=== PATIENT | female | born 1965 | race African-American/Black ===

== ENCOUNTER 2020-03-28 17:03 | Emergency (ER) | payer MEDICAID ==
--- NOTE | 2020-03-28 17:42 | EDM.PDOC ---
ED HPI GENERAL MEDICAL PROBLEM - General Stated Complaint: BOTH FEET SWOLLEN,OZZING Time Seen by Provider: 03/28/20 17:20 Source of Information: Reports: Patient History Limitations: Reports: No Limitations - History of Present Illness INITIAL COMMENTS - FREE TEXT/NARRATIVE: Patient presented to the ED because of itching rash on both feet and elbow. She was scrtaching it and now it's weeping clear fluid. - Related Data Allergies Allergy/AdvReac Type Severity Reaction Status Date / Time No Known Allergies Allergy Verified 03/28/20 17:25 Home Meds: Home Meds Baclofen 0 mg PO DAILY 03/28/20 [History] Calcitriol 0.5 mcg PO DAILY 03/28/20 [History] Calcium Carbonate [Calcium] 600 mg PO DAILY 03/28/20 [History] Triamcinolone Acetonide [Triamcinolone Acetonide 0.1% Oint] 1 gm TOP BID #4 tube 03/28/20 [Rx] ED ROS GENERAL - Review of Systems Review Of Systems: See Below Constitutional: Reports: No Symptoms HEENT: Reports: No Symptoms Respiratory: Reports: No Symptoms Cardiovascular: Reports: No Symptoms Endocrine: Reports: No Symptoms GI/Abdominal: Reports: No Symptoms : Reports: No Symptoms Musculoskeletal: Reports: No Symptoms Skin: Reports: Change in Color, Lesions, Lumps ED EXAM, SKIN/RASH Exam: See Below Exam Limited By: No Limitations General Appearance: Alert, No Apparent Distress Eye Exam: Bilateral Eye: PERRL Ears: Normal External Exam, Normal Canal Nose: Normal Inspection, Normal Mucosa, No Blood Throat/Mouth: Normal Inspection, Normal Lips, Normal Teeth Head: Atraumatic, Normocephalic Neck: Normal Inspection, Supple, Non-Tender, Full Range of Motion Respiratory/Chest: No Respiratory Distress, Lungs Clear, Normal Breath Sounds Cardiovascular: Normal Peripheral Pulses, Regular Rate, Rhythm, No Edema, No Gallop GI/Abdominal: Normal Bowel Sounds, Soft, Non-Tender, No Organomegaly Extremities: Normal Inspection, Normal Range of Motion, Non-Tender Neurological: Alert, Oriented, CN II-XII Intact Skin: Warm, Mottled, Rash Course - Vital Signs Text/Narrative:: reassurance Departure - Departure Time of Disposition: 17:40 Disposition: Home, Self-Care 01 Clinical Impression: Eczema - Discharge Information Prescriptions: Triamcinolone Acetonide [Triamcinolone Acetonide 0.1% Oint] 1 gm TOP BID #4 tube Instructions: Eczema Referrals: PCP,None [Primary Care Provider] - Additional Instructions: Apply to affected areas twice daily until itching and bumps are gone Steroids can cause skin discoloration-just PINO
== END 2020-03-28 17:54 | disposition home or self-care (01) ==
LOC: FB.ED 17:03
DX: L30.9 Dermatitis, unspecified (principal)
CPT/HCPCS: 99282; 99283

== ENCOUNTER 2020-04-24 18:47 | Observation (INO) | payer MEDICAID ==
[2020-04-24] MEDS ORDERED: Ondansetron 4 MG/2 ML SDV IV PRN (20:23)
[2020-04-24] MEDS ORDERED: Calcium Gluconate 10% 1 GM/10 ML SDV IV STA (20:23)
[2020-04-24] MEDS: Sodium Chloride 0.9% 1,000 ML IV SCH (20:45)
[2020-04-24] MEDS ORDERED: diphenhydrAMINE 25 MG Cap PO PRN (20:52)
--- NOTE | 2020-04-24 20:53 | EDM.PDOC ---
ED HPI GENERAL MEDICAL PROBLEM - General Chief Complaint: Chest Pain Stated Complaint: HEART ISSUES Time Seen by Provider: 04/24/20 19:00 Source of Information: Reports: Patient History Limitations: Reports: No Limitations - History of Present Illness INITIAL COMMENTS - FREE TEXT/NARRATIVE: 04/22- tingling, spasm of the hands and feet 04/23-twitching of face 04/24-chest pain and dizziness Ms Melendez has a history of hypoparathyroidism and hypocalcemia. She is taking calcitriol and calcium carbonate as a supplement. 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: Neurological History: Reports: TIA Psychiatric History: Reports: Anxiety Dermatologic History: Reports: Cellulitis - Infectious Disease History Infectious Disease History: Reports: Measles Social & Family History - Family History Family Medical History: Noncontributory - Tobacco Use Smoking Status *Q: Current Every Day Smoker Years of Tobacco use: 1 Packs/Tins Daily: 0.1 - Caffeine Use Caffeine Use: Reports: Coffee - Recreational Drug Use Recreational Drug Use: Yes Drug Use in Last 12 Months: Yes Recreational Drug Type: Reports: Marijuana/Hashish Recreational Drug Use Frequency: Socially ED ROS GENERAL - Review of Systems Review Of Systems: See Below Constitutional: Reports: No Symptoms HEENT: Reports: No Symptoms Respiratory: Reports: No Symptoms Cardiovascular: Reports: Chest Pain Endocrine: Reports: No Symptoms GI/Abdominal: Reports: No Symptoms : Reports: No Symptoms Musculoskeletal: Reports: Muscle Stiffness Skin: Reports: Pruritis Neurological: Reports: Headache Psychiatric: Reports: No Symptoms ED EXAM, GENERAL - Physical Exam Exam: See Below Exam Limited By: No Limitations General Appearance: Alert, No Apparent Distress Eye Exam: Bilateral Eye: PERRL Nose: Normal Inspection, Normal Mucosa, No Blood Throat/Mouth: Normal Inspection, Normal Lips, Normal Teeth, Normal Gums Head: Atraumatic, Normocephalic Neck: Normal Inspection, Supple, Non-Tender, Full Range of Motion Respiratory/Chest: No Respiratory Distress, Lungs Clear, Normal Breath Sounds, No Accessory Muscle Use, Chest Non-Tender Cardiovascular: Normal Peripheral Pulses, Regular Rate, Rhythm, No Edema, No Gallop, No JVD, No Murmur, No Rub GI/Abdominal: Normal Bowel Sounds, Soft, Non-Tender, No Organomegaly Back Exam: Normal Inspection, Full Range of Motion Extremities: Normal Inspection, Normal Range of Motion, Non-Tender, No Pedal Edema, Normal Capillary Refill Neurological: Alert, Oriented, CN II-XII Intact, Normal Cognition, Normal Gait, Normal Reflexes, No Motor/Sensory Deficits Course - Vital Signs Text/Narrative:: Labs/EKG reviewed and discussed with patient ASA 324 mg po x1 Bactrim DS po BID x3 days for her UTI EKG-NSR Trop-neg Calcium gluconate 2 gm IV then 1gm IV Q6H Last Recorded V/S: Last Vital Signs Temp 36.7 C 04/24/20 18:57 Pulse 77 04/24/20 18:57 Resp 16 04/24/20 18:57 BP 125/77 04/24/20 18:57 Pulse Ox 97 04/24/20 18:57 - Orders/Labs/Meds Orders: Active Orders 24 hr Category Date Time Status Patient Status [ADT] Routine ADT 04/24/20 20:23 Ordered Cardiac Monitoring [RC] CONTINUOUS Care 04/24/20 20:26 Ordered EKG Documentation Completion [RC] ASDIRECTED Care 04/24/20 19:13 Active Intake and Output [RC] QSHIFT Care 04/24/20 20:26 Ordered Oxygen Therapy [RC] PRN Care 04/24/20 20:23 Ordered Pulse Oximetry [RC] CONTINUOUS Care 04/24/20 20:26 Ordered Up With Assistance [RC] ASDIRECTED Care 04/24/20 20:23 Ordered VTE/DVT Education [RC] Per Unit Routine Care 04/24/20 20:23 Ordered Vital Signs [RC] Q4H Care 04/24/20 20:23 Ordered Regular Diet [DIET] Diet 04/25/20 Breakfast Ordered BASIC METABOLIC PANEL,BMP [CHEM] AM Lab 04/25/20 05:11 Ordered CBC WITH AUTO DIFF [HEME] AM Lab 04/25/20 05:11 Ordered CULTURE URINE [RM] Stat Lab 04/24/20 20:16 Ordered PTH, INTACT Stat Lab 04/24/20 19:40 Received TROPONIN I [CHEM] Stat Lab 04/24/20 20:33 Ordered TROPONIN I [CHEM] Stat Lab 04/25/20 01:00 Ordered TROPONIN I [CHEM] Stat Lab 04/25/20 07:00 Ordered VITAMIN D, 25-HYDROXY Routine Lab 04/24/20 19:50 Ordered Baclofen [Baclofen] Med 04/25/20 09:00 Ordered 5 mg PO DAILY Calcitriol [Calcitriol] Med 04/25/20 09:00 Ordered 0.5 mcg PO DAILY Calcium Gluconate Med 04/24/20 20:45 Ordered 1 gm IV Q6HR Docusate Sodium/Sennosides [Senna Plus] Med 04/24/20 20:23 Ordered 1 tab PO BID PRN Ondansetron [Zofran] Med 04/24/20 20:23 Ordered 4 mg IV Q4H PRN Sodium Chloride 0.9% @ 125 MLS/HR (1000ml) Med 04/24/20 20:30 Ordered Sodium Chloride 0.9% [Normal Saline] 1,000 ml IV ASDIRECTED Sulfamethoxazole/Trimethoprim [Septra DS] Med 04/24/20 21:00 Ordered 1 tab PO BID Triamcinolone Acetonide [Triamcinolone Acetonide 0.1% Med 04/24/20 21:00 Ordered Oint] 1 gm TOP BID Sequential Compression Device [OM.PC] Per Unit Routine Oth 04/24/20 20:27 Ordered Resuscitation Status Routine Resus Stat 04/24/20 20:23 Ordered EKG 12 Lead [EK] Routine Ther 04/24/20 19:13 Ordered Medication Orders Calcium Gluconate (Calcium Gluconate) 1 gm IV Q6HR ZIGGY Sodium Chloride (Normal Saline) 1,000 mls @ 125 mls/hr IV ASDIRECTED ZIGGY Non-Formulary Medication (Baclofen [Baclofen]) 5 mg PO DAILY ZIGGY Non-Formulary Medication (Calcitriol [Calcitriol]) 0.5 mcg PO DAILY ZIGGY Ondansetron HCl (Zofran) 4 mg IV Q4H PRN PRN Reason: Nausea/Vomiting Senna/Docusate Sodium (Senna Plus) 1 tab PO BID PRN PRN Reason: Constipation Triamcinolone Acetonide (Triamcinolone Acetonide 0.1% Oint) 1 gm TOP BID ZIGGY Trimethoprim/Sulfamethoxazole (Septra Ds) 1 tab PO BID [facility] Labs: Laboratory Tests 04/24/20 04/24/20 04/24/20 Range/Units 19:40 19:40 19:40 WBC 7.6 (4.5-12.0) X10-3/uL RBC 4.31 (3.23-5.20) x10(6)uL Hgb 12.6 (11.5-15.5) g/dL Hct 38.0 (30.0-51.3) % MCV 88.2 (80-96) fL MCH 29.2 (27.7-33.6) pg MCHC 33.0 (32.2-35.4) g/dL RDW 15.6 H (11.5-15.5) % Plt Count 385 H (125-369) X10(3)uL MPV 7.3 L (7.4-10.4) fL Neut % (Auto) 50.8 (46-82) % Lymph % (Auto) 37.1 H (13-37) % [place] % (Auto) 8.8 (4-12) % Eos % (Auto) 2 (1.0-5.0) % Baso % (Auto) 1 (0-2) % Neut # (Auto) 3.8 (1.6-8.3) # Lymph # (Auto) 2.8 (0.6-5.0) # [place] # (Auto) 0.7 (0.0-1.3) # Eos # (Auto) 0.2 (0.0-0.8) # Baso # (Auto) 0.1 (0.0-0.2) # Sodium 142 (135-145) mmol/L Potassium 4.2 (3.5-5.3) mmol/L Chloride 104 (100-110) mmol/L Carbon Dioxide 27 (21-32) mmol/L BUN 23 H (7-18) mg/dL Creatinine 0.9 (0.55-1.02) mg/dL Est Cr Clr Drug Dosing 72.07 mL/min Estimated GFR (MDRD) > 60 (>60) BUN/Creatinine Ratio 25.6 H (9-20) Glucose 104 (80-116) mg/dL Calcium 5.7 L* (8.6-10.2) mg/dL Magnesium (1.8-2.5) mg/dL Total Bilirubin 0.3 (0.1-1.3) mg/dL AST 26 H (5-25) IU/L ALT 18 (12-36) U/L Alkaline Phosphatase 107 (56-112) IU/L Troponin I < 4.0 L (4.0-60.3) pg/mL Total Protein 7.4 (6.0-8.0) g/dL Albumin 3.6 (3.5-5.2) g/dL Globulin 3.8 g/dL Albumin/Globulin Ratio 1.0 Urine Color (YELLOW) Urine Appearance (CLEAR) Urine pH (5.0-6.5) Ur Specific [place] (1.010-1.025) Urine Protein (NEGATIVE) mg/dL Urine Glucose (UA) (NORMAL) mg/dL Urine Ketones (NEGATIVE) mg/dL Urine Occult Blood (NEGATIVE) Urine Nitrite (NEGATIVE) Urine Bilirubin (NEGATIVE) Urine Urobilinogen (NEGATIVE) mg/dL Ur Leukocyte Esterase (NEGATIVE) Urine RBC (0-5) Urine WBC (0-5) Ur Squamous Epith Cells (NS,R,O) Urine Bacteria (NS) 04/24/20 04/24/20 Range/Units 19:40 19:44 WBC (4.5-12.0) X10-3/uL RBC (3.23-5.20) x10(6)uL Hgb (11.5-15.5) g/dL Hct (30.0-51.3) % MCV (80-96) fL MCH (27.7-33.6) pg MCHC (32.2-35.4) g/dL RDW (11.5-15.5) % Plt Count (125-369) X10(3)uL MPV (7.4-10.4) fL Neut % (Auto) (46-82) % Lymph % (Auto) (13-37) % [place] % (Auto) (4-12) % Eos % (Auto) (1.0-5.0) % Baso % (Auto) (0-2) % Neut # (Auto) (1.6-8.3) # Lymph # (Auto) (0.6-5.0) # [place] # (Auto) (0.0-1.3) # Eos # (Auto) (0.0-0.8) # Baso # (Auto) (0.0-0.2) # Sodium (135-145) mmol/L Potassium (3.5-5.3) mmol/L Chloride (100-110) mmol/L Carbon Dioxide (21-32) mmol/L BUN (7-18) mg/dL Creatinine (0.55-1.02) mg/dL Est Cr Clr Drug Dosing mL/min Estimated GFR (MDRD) (>60) BUN/Creatinine Ratio (9-20) Glucose (80-116) mg/dL Calcium (8.6-10.2) mg/dL Magnesium 1.9 (1.8-2.5) mg/dL Total Bilirubin (0.1-1.3) mg/dL AST (5-25) IU/L ALT (12-36) U/L Alkaline Phosphatase (56-112) IU/L Troponin I (4.0-60.3) pg/mL Total Protein (6.0-8.0) g/dL Albumin (3.5-5.2) g/dL Globulin g/dL Albumin/Globulin Ratio Urine Color Yellow (YELLOW) Urine Appearance Slightly cloudy (CLEAR) Urine pH 5.0 (5.0-6.5) Ur Specific [place] 1.015 (1.010-1.025) Urine Protein Negative (NEGATIVE) mg/dL Urine Glucose (UA) Normal (NORMAL) mg/dL Urine Ketones Negative (NEGATIVE) mg/dL Urine Occult Blood Large H (NEGATIVE) Urine Nitrite Negative (NEGATIVE) Urine Bilirubin Negative (NEGATIVE) Urine Urobilinogen Normal (NEGATIVE) mg/dL Ur Leukocyte Esterase Large H (NEGATIVE) Urine RBC 5-10 H (0-5) Urine WBC 5-10 H (0-5) Ur Squamous Epith Cells Moderate H (NS,R,O) Urine Bacteria Few H (NS) Meds: Medications Generic Name Dose Route Start Last Admin Trade Name Freq PRN Reason Stop Dose Admin Calcium Gluconate 1 gm 04/24/20 20:45 Calcium Gluconate IV Q6HR [facility] Sodium Chloride 1,000 mls @ 125 mls/hr 04/24/20 20:30 Normal Saline IV ASDIRECTED ZIGGY Non-Formulary Medication 5 mg 04/25/20 09:00 Baclofen [Baclofen] PO DAILY [facility] Non-Formulary Medication 0.5 mcg 04/25/20 09:00 Calcitriol [Calcitriol] PO DAILY [facility] Ondansetron HCl 4 mg 04/24/20 20:23 Zofran IV Q4H PRN Nausea/Vomiting Senna/Docusate Sodium 1 tab 04/24/20 20:23 Senna Plus PO BID PRN Constipation Triamcinolone Acetonide 1 gm 04/24/20 21:00 Triamcinolone Acetonide 0.1% Oint TOP BID [facility] Trimethoprim/Sulfamethoxazole 1 tab 04/24/20 21:00 Septra Ds PO BID [facility] Discontinued Medications Generic Name Dose Route Start Last Admin Trade Name Freq PRN Reason Stop Dose Admin Calcium Gluconate 2 gm 04/24/20 20:23 Calcium Gluconate IV 04/24/20 20:24 NOW STA Departure - Departure Time of Disposition: 20:00 Disposition: Refer to Observation Condition: Good Clinical Impression: Hypocalcemia, Hypoparathyroidism, Chest pain, UTI (urinary tract infection) - Discharge Information Referrals: PCP,None [Primary Care Provider] - Sepsis Event Note (ED) - Evaluation Sepsis Screening Result: No Definite Risk - Focused Exam Vital Signs: Vital Signs Temp Pulse Resp BP Pulse Ox 04/24/20 18:57 36.7 C 77 16 125/77 97 - My Orders Last 24 Hours: My Active Orders 04/24/20 19:13 EKG Documentation Completion [RC] ASDIRECTED EKG 12 Lead [EK] Routine 04/24/20 19:40 PTH, INTACT Stat 04/24/20 19:50 VITAMIN D, 25-HYDROXY Routine 04/24/20 20:16 CULTURE URINE [RM] Stat 04/24/20 20:23 Patient Status [ADT] Routine Oxygen Therapy [RC] PRN Up With Assistance [RC] ASDIRECTED VTE/DVT Education [RC] Per Unit Routine Vital Signs [RC] Q4H Docusate Sodium/Sennosides [Senna Plus] 1 tab PO BID PRN Ondansetron [Zofran] 4 mg IV Q4H PRN Resuscitation Status Routine 04/24/20 20:26 Cardiac Monitoring [RC] CONTINUOUS Intake and Output [RC] QSHIFT Pulse Oximetry [RC] CONTINUOUS 04/24/20 20:27 Sequential Compression Device [OM.PC] Per Unit Routine 04/24/20 20:30 Sodium Chloride 0.9% @ 125 MLS/HR (1000ml) Sodium Chloride 0.9% [Normal Saline] 1,000 ml IV ASDIRECTED 04/24/20 20:33 TROPONIN I [CHEM] Stat 04/24/20 20:45 Calcium Gluconate 1 gm IV Q6HR 04/24/20 21:00 Sulfamethoxazole/Trimethoprim [Septra DS] 1 tab PO BID Triamcinolone Acetonide [Triamcinolone Acetonide 0.1% Oint] 1 gm TOP BID 04/25/20 01:00 TROPONIN I [CHEM] Stat 04/25/20 05:11 BASIC METABOLIC PANEL,BMP [CHEM] AM CBC WITH AUTO DIFF [HEME] AM 04/25/20 Breakfast Regular Diet [DIET] 04/25/20 07:00 TROPONIN I [CHEM] Stat 04/25/20 09:00 Baclofen [Baclofen] 5 mg PO DAILY Calcitriol [Calcitriol] 0.5 mcg PO DAILY - Assessment/Plan Last 24 Hours: My Active Orders 04/24/20 19:13 EKG Documentation Completion [RC] ASDIRECTED EKG 12 Lead [EK] Routine 04/24/20 19:40 PTH, INTACT Stat 04/24/20 19:50 VITAMIN D, 25-HYDROXY Routine 04/24/20 20:16 CULTURE URINE [RM] Stat 04/24/20 20:23 Patient Status [ADT] Routine Oxygen Therapy [RC] PRN Up With Assistance [RC] ASDIRECTED VTE/DVT Education [RC] Per Unit Routine Vital Signs [RC] Q4H Docusate Sodium/Sennosides [Senna Plus] 1 tab PO BID PRN Ondansetron [Zofran] 4 mg IV Q4H PRN Resuscitation Status Routine 04/24/20 20:26 Cardiac Monitoring [RC] CONTINUOUS Intake and Output [RC] QSHIFT Pulse Oximetry [RC] CONTINUOUS 04/24/20 20:27 Sequential Compression Device [OM.PC] Per Unit Routine 04/24/20 20:30 Sodium Chloride 0.9% @ 125 MLS/HR (1000ml) Sodium Chloride 0.9% [Normal Saline] 1,000 ml IV ASDIRECTED 04/24/20 20:33 TROPONIN I [CHEM] Stat 04/24/20 20:45 Calcium Gluconate 1 gm IV Q6HR 04/24/20 21:00 Sulfamethoxazole/Trimethoprim [Septra DS] 1 tab PO BID Triamcinolone Acetonide [Triamcinolone Acetonide 0.1% Oint] 1 gm TOP BID 04/25/20 01:00 TROPONIN I [CHEM] Stat 04/25/20 05:11 BASIC METABOLIC PANEL,BMP [CHEM] AM CBC WITH AUTO DIFF [HEME] AM 04/25/20 Breakfast Regular Diet [DIET] 04/25/20 07:00 TROPONIN I [CHEM] Stat 04/25/20 09:00 Baclofen [Baclofen] 5 mg PO DAILY Calcitriol [Calcitriol] 0.5 mcg PO DAILY
[2020-04-24] MEDS: Calcium Gluconate 10% 1 GM/10 ML SDV IV SCH (20:54)
[2020-04-24] MEDS ORDERED: Aspirin 81 MG Tab.EC PO STA (21:04)
[2020-04-24] MEDS: Sulfamethoxazole/Trimethoprim 800-160 MG Tab PO SCH (21:39)
[2020-04-24] MEDS: Triamcinolone Acetonide 0.1% Oint 15 GM Tube TOP SCH (21:40)
[2020-04-24] MEDS: Acetaminophen 500 MG Tab PO PRN (22:56)
[2020-04-25] MEDS: Calcium Gluconate 10% 1 GM/10 ML SDV IV SCH ×5 (02:41→22:24)
[2020-04-25] MEDS: Sodium Chloride 0.9% 1,000 ML IV SCH ×3 (05:50→21:52)
[2020-04-25] MEDS ORDERED: Baclofen 10 MG Tab PO SCH (09:00)
[2020-04-25] MEDS: Calcitriol 0.25 MCG Cap PO SCH (09:19)
[2020-04-25] MEDS: Triamcinolone Acetonide 0.1% Oint 15 GM Tube TOP SCH (09:21)
[2020-04-25] MEDS ORDERED: Triamcinolone Acetonide 0.1% Oint 15 GM Tube TOP PRN (10:00)
[2020-04-25] MEDS ORDERED: Baclofen 10 MG Tab PO PRN (10:00)
[2020-04-25] MEDS ORDERED: Pneumococcal Polyvalent-23 Vaccine 0.5 ML SDV SUBCUT ONE (10:00)
[2020-04-25] MEDS: Sulfamethoxazole/Trimethoprim 800-160 MG Tab PO SCH ×2 (11:04→20:22)
--- NOTE | 2020-04-25 15:32 | PCM.HP.2 ---
H&P History of Present Illness - General Date of Service: 04/25/20 Admit Problem/Dx: Admission Diagnosis/Problem Admission Diagnosis/Problem Hypocalcemia Source of Information: Patient, EMS Notes Reviewed - History of Present Illness Initial Comments - Free Text/Narative: Carmen is 55 yr old who presented to ER last night for progressing symptoms of tingling in her hands, muscle spasms/cramps in her hands & feet, twitching in her face, started on Wednesday. She has history of hypoparathyroidism, recurrent hypocalcemia. She is on Calcitrol and Calcium carbonate at home. She states she has had multiple hospitalizations for this. She was due to have surgery on her parathyroid but moved here in December from [place]. She states she does not get any warning, no precipitating factors when she comes in, she has not missed any doses of her medications. She also states that her heart races and feels like someone is squeezing it or tearing it when her calcium gets low. Her right hand that was curled up when she came in due to muscle spasms, relaxed early this morning. Having no tingling and cramps this morning. In ER, troponin was <0.4 x2, this morning troponin was 4.2. EKG in ER was unremarkable. Calcium was 5.7, received calcium gluconate 2 grams in ER and repeat 1 g at 2 am and every 6 hours. Also found to have UTI on admission, was started on Bactrim while awaiting urine cultures. PTH and Vitamin D pending. Chest Pain Score (Numeric/FACES): 8 - Related Data Allergies/Adverse Reactions: Allergies Allergy/AdvReac Type Severity Reaction Status Date / Time grass pollen Allergy Itching Verified 04/24/20 18:56 Home Medications: Home Meds Calcitriol 0.5 mcg PO DAILY 03/28/20 [History] Calcium Carbonate [Calcium] 600 mg PO DAILY 03/28/20 [History] Baclofen 5 mg PO DAILY PRN 04/25/20 [History] Triamcinolone Acetonide [Triamcinolone Acetonide 0.1% Oint] 1 applic TOP BID PRN 04/25/20 [History] Past Medical History HEENT History: Reports: Cataract, Impaired Vision Cardiovascular History: Reports: Angina, Heart Failure, SOB on Exertion Respiratory History: Reports: COPD, SOB Gastrointestinal History: Reports: Gastritis, GERD, Hemorrhoids Genitourinary History: Reports: Renal Calculus DISEASE AND INSECT CONTROL BOSS History: Reports: Musculoskeletal History: Reports: Arthritis, Fibromyalgia, RA Neurological History: Reports: Headaches, Chronic, TIA Psychiatric History: Reports: Addiction, Anxiety, Bipolar, Depression, Panic Attack, Suicide Attempt, Other (See Below) Other Psychiatric History: took pills at age 12. None since then Endocrine/Metabolic History: Reports: Hypokalemia Dermatologic History: Reports: Cellulitis, Other (See Below) Other Dermatologic History: very dry skin - Infectious Disease History Infectious Disease History: Reports: Measles - Past Surgical History HEENT Surgical History: Reports: Other (See Below) Other HEENT Surgeries/Procedures: teeth removed Cardiovascular Surgical History: Reports: None Respiratory Surgical History: Reports: None GI Surgical History: Reports: Colonoscopy Female Surgical History: Reports: None Endocrine Surgical History: Reports: Thyroid Biopsy Neurological Surgical History: Reports: None Musculoskeletal Surgical History: Reports: Other (See Below) Other Musculoskeletal Surgeries/Procedures:: had khadar grafts to feet at age 1. Had surgery on bone on foot Dermatological Surgical History: Reports: Skin Graft, Other (See Below) Social & Family History - Family History Family Medical History: Noncontributory - Tobacco Use Smoking Status *Q: Current Every Day Smoker Years of Tobacco use: 49 Packs/Tins Daily: 0.2 - Caffeine Use Caffeine Use: Reports: Coffee, Soda, Tea - Alcohol Use Days Per Week of Alcohol Use: 1 Number of Drinks Per Day: 3 Total Drinks Per Week: 3 Date of Last Drink: 04/20/20 Time of Last Drink: 20:00 - Recreational Drug Use Recreational Drug Use: No Drug Use in Last 12 Months: Yes Recreational Drug Type: Reports: Marijuana/Hashish Recreational Drug Use Frequency: Socially H&P Review of Systems - Review of Systems: Review Of Systems: See Below General: Denies: Fever, Chills, Malaise HEENT: Reports: No Symptoms Pulmonary: Reports: No Symptoms Cardiovascular: Reports: Palpitations. Denies: Chest Pain Gastrointestinal: Denies: Abdominal Pain, Constipation, Diarrhea, Nausea, Vomiti ng Genitourinary: Denies: Dysuria, Frequency, Urgency, Hematuria Musculoskeletal: Reports: Muscle Pain. 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 Denies: Rash Psychiatric: Reports: No Symptoms Neurological: Reports: No Symptoms Hematologic/Lymphatic: Reports: No Symptoms Immunologic: Reports: No Symptoms Exam - Exam Exam: See Below - Vital Signs Vital Signs: Last Vital Signs Temp 98.2 F 04/25/20 12:00 Pulse 76 04/25/20 12:00 Resp 16 04/25/20 12:00 BP 108/67 04/25/20 12:00 Pulse Ox 98 04/25/20 12:00 Weight: 172 lb 14.4 oz - Exam General: Alert, Oriented, Cooperative. No: Mild Distress HEENT: PERRLA, Conjunctiva Clear, EOMI, Hearing Intact, Mucosa Moist & Asher, Nares Patent, Posterior Pharynx Clear, Other (Some twitching with light palpation of small muscles of the jaw.). No: TMs Clear (blocked by cerumen) Neck: Supple, Trachea Midline. No: Lymphadenopathy Lungs: Clear to Auscultation, Normal Respiratory Effort. No: Wheezing Cardiovascular: Regular Rate, Regular Rhythm GI/Abdominal Exam: Normal Bowel Sounds, Soft, Non-Tender, No Organomegaly, No Distention. No: Guarding, Rigid, Rebound (Female) Exam: Deferred Rectal (Female) Exam: Deferred Extremities: No Pedal Edema, Normal Capillary Refill Peripheral Pulses: 2+: Radial (L), Radial (R), Posterior Tibial (L), Posterior Tibial (R), Dorsalis Pedis (L), Dorsalis Pedis (R) Skin: Warm, Other (skin grafts to bilateral feet with scarring, chronic.) Neurological: Cranial Nerves Intact, Strength Equal Bilateral, Normal Gait, Normal Speech, Sensation Intact Psychiatric: Alert, Normal Affect, Normal Mood - Patient Data Lab Results Last 24 hrs: Laboratory Results - last 24 hr 04/24/20 04/24/20 04/24/20 Range/Units 19:40 19:40 19:40 WBC 7.6 (4.5-12.0) X10-3/uL RBC 4.31 (3.23-5.20) x10(6)uL Hgb 12.6 (11.5-15.5) g/dL Hct 38.0 (30.0-51.3) % MCV 88.2 (80-96) fL MCH 29.2 (27.7-33.6) pg MCHC 33.0 (32.2-35.4) g/dL RDW 15.6 H (11.5-15.5) % Plt Count 385 H (125-369) X10(3)uL MPV 7.3 L (7.4-10.4) fL Neut % (Auto) 50.8 (46-82) % Lymph % (Auto) 37.1 H (13-37) % [place] % (Auto) 8.8 (4-12) % Eos % (Auto) 2 (1.0-5.0) % Baso % (Auto) 1 (0-2) % Neut # (Auto) 3.8 (1.6-8.3) # Lymph # (Auto) 2.8 (0.6-5.0) # [place] # (Auto) 0.7 (0.0-1.3) # Eos # (Auto) 0.2 (0.0-0.8) # Baso # (Auto) 0.1 (0.0-0.2) # Sodium 142 (135-145) mmol/L Potassium 4.2 (3.5-5.3) mmol/L Chloride 104 (100-110) mmol/L Carbon Dioxide 27 (21-32) mmol/L BUN 23 H (7-18) mg/dL Creatinine 0.9 (0.55-1.02) mg/dL Est Cr Clr Drug Dosing 72.07 mL/min Estimated GFR (MDRD) > 60 (>60) BUN/Creatinine Ratio 25.6 H (9-20) Glucose 104 (80-116) mg/dL Calcium 5.7 L* (8.6-10.2) mg/dL Magnesium (1.8-2.5) mg/dL Total Bilirubin 0.3 (0.1-1.3) mg/dL AST 26 H (5-25) IU/L ALT 18 (12-36) U/L Alkaline Phosphatase 107 (56-112) IU/L Troponin I < 4.0 L (4.0-60.3) pg/mL Total Protein 7.4 (6.0-8.0) g/dL Albumin 3.6 (3.5-5.2) g/dL Globulin 3.8 g/dL Albumin/Globulin Ratio 1.0 Urine Color (YELLOW) Urine Appearance (CLEAR) Urine pH (5.0-6.5) Ur Specific [place] (1.010-1.025) Urine Protein (NEGATIVE) mg/dL Urine Glucose (UA) (NORMAL) mg/dL Urine Ketones (NEGATIVE) mg/dL Urine Occult Blood (NEGATIVE) Urine Nitrite (NEGATIVE) Urine Bilirubin (NEGATIVE) Urine Urobilinogen (NEGATIVE) mg/dL Ur Leukocyte Esterase (NEGATIVE) Urine RBC (0-5) Urine WBC (0-5) Ur Squamous Epith Cells (NS,R,O) Urine Bacteria (NS) 04/24/20 04/24/20 04/25/20 Range/Units 19:40 19:44 01:00 WBC (4.5-12.0) X10-3/uL RBC (3.23-5.20) x10(6)uL Hgb (11.5-15.5) g/dL Hct (30.0-51.3) % MCV (80-96) fL MCH (27.7-33.6) pg MCHC (32.2-35.4) g/dL RDW (11.5-15.5) % Plt Count (125-369) X10(3)uL MPV (7.4-10.4) fL Neut % (Auto) (46-82) % Lymph % (Auto) (13-37) % [place] % (Auto) (4-12) % Eos % (Auto) (1.0-5.0) % Baso % (Auto) (0-2) % Neut # (Auto) (1.6-8.3) # Lymph # (Auto) (0.6-5.0) # [place] # (Auto) (0.0-1.3) # Eos # (Auto) (0.0-0.8) # Baso # (Auto) (0.0-0.2) # Sodium (135-145) mmol/L Potassium (3.5-5.3) mmol/L Chloride (100-110) mmol/L Carbon Dioxide (21-32) mmol/L BUN (7-18) mg/dL Creatinine (0.55-1.02) mg/dL Est Cr Clr Drug Dosing mL/min Estimated GFR (MDRD) (>60) BUN/Creatinine Ratio (9-20) Glucose (80-116) mg/dL Calcium (8.6-10.2) mg/dL Magnesium 1.9 (1.8-2.5) mg/dL Total Bilirubin (0.1-1.3) mg/dL AST (5-25) IU/L ALT (12-36) U/L Alkaline Phosphatase (56-112) IU/L Troponin I < 4.0 L (4.0-60.3) pg/mL Total Protein (6.0-8.0) g/dL Albumin (3.5-5.2) g/dL Globulin g/dL Albumin/Globulin Ratio Urine Color Yellow (YELLOW) Urine Appearance Slightly cloudy (CLEAR) Urine pH 5.0 (5.0-6.5) Ur Specific [place] 1.015 (1.010-1.025) Urine Protein Negative (NEGATIVE) mg/dL Urine Glucose (UA) Normal (NORMAL) mg/dL Urine Ketones Negative (NEGATIVE) mg/dL Urine Occult Blood Large H (NEGATIVE) Urine Nitrite Negative (NEGATIVE) Urine Bilirubin Negative (NEGATIVE) Urine Urobilinogen Normal (NEGATIVE) mg/dL Ur Leukocyte Esterase Large H (NEGATIVE) Urine RBC 5-10 H (0-5) Urine WBC 5-10 H (0-5) Ur Squamous Epith Cells Moderate H (NS,R,O) Urine Bacteria Few H (NS) 04/25/20 04/25/20 04/25/20 Range/Units 07:00 07:00 07:00 WBC 7.0 (4.5-12.0) X10-3/uL RBC 4.13 (3.23-5.20) x10(6)uL Hgb 11.9 (11.5-15.5) g/dL Hct 36.7 (30.0-51.3) % MCV 88.8 (80-96) fL MCH 28.7 (27.7-33.6) pg MCHC 32.3 (32.2-35.4) g/dL RDW 15.1 (11.5-15.5) % Plt Count 343 (125-369) X10(3)uL MPV 7.1 L (7.4-10.4) fL Neut % (Auto) 44.6 L (46-82) % Lymph % (Auto) 41.6 H (13-37) % [place] % (Auto) 10.1 (4-12) % Eos % (Auto) 3 (1.0-5.0) % Baso % (Auto) 1 (0-2) % Neut # (Auto) 3.2 (1.6-8.3) # Lymph # (Auto) 2.9 (0.6-5.0) # [place] # (Auto) 0.7 (0.0-1.3) # Eos # (Auto) 0.2 (0.0-0.8) # Baso # (Auto) 0.0 (0.0-0.2) # Sodium 142 (135-145) mmol/L Potassium 4.2 (3.5-5.3) mmol/L Chloride 107 (100-110) mmol/L Carbon Dioxide 26 (21-32) mmol/L BUN 17 (7-18) mg/dL Creatinine 0.9 (0.55-1.02) mg/dL Est Cr Clr Drug Dosing 72.07 mL/min Estimated GFR (MDRD) > 60 (>60) BUN/Creatinine Ratio 18.9 (9-20) Glucose 96 (80-116) mg/dL Calcium 6.0 L* (8.6-10.2) mg/dL Magnesium (1.8-2.5) mg/dL Total Bilirubin (0.1-1.3) mg/dL AST (5-25) IU/L ALT (12-36) U/L Alkaline Phosphatase (56-112) IU/L Troponin I 4.2 (4.0-60.3) pg/mL Total Protein (6.0-8.0) g/dL Albumin (3.5-5.2) g/dL Globulin g/dL Albumin/Globulin Ratio Urine Color (YELLOW) Urine Appearance (CLEAR) Urine pH (5.0-6.5) Ur Specific [place] (1.010-1.025) Urine Protein (NEGATIVE) mg/dL Urine Glucose (UA) (NORMAL) mg/dL Urine Ketones (NEGATIVE) mg/dL Urine Occult Blood (NEGATIVE) Urine Nitrite (NEGATIVE) Urine Bilirubin (NEGATIVE) Urine Urobilinogen (NEGATIVE) mg/dL Ur Leukocyte Esterase (NEGATIVE) Urine RBC (0-5) Urine WBC (0-5) Ur Squamous Epith Cells (NS,R,O) Urine Bacteria (NS) Result Diagrams: 04/25/20 07:00 04/25/20 07:00 [place] Results Last 24 hrs: Microbiology 04/24/20 19:44 Urine Culture - Preliminary Urine, Clean Catch MIXED JOE DAY 1 Sepsis Event Note - Evaluation Sepsis Screening Result: No Definite Risk - Focused Exam Vital Signs: Vital Signs Temp Pulse Resp BP Pulse Ox 04/25/20 12:00 98.2 F 76 16 108/67 98 04/25/20 08:00 97.9 F 74 16 110/71 99 - Problem List (1) Hypocalcemia SNOMED Code(s): 3794911 ICD Code: E83.51 - HYPOCALCEMIA Status: Acute Current Visit: Yes Problem Details: 5.7 in ER, 6.0 today, continue Telemetry. Calcium gluconate 1 g IV q6h Renal panel in am with magnesium. Magnesium 1.9 in ER. (2) Hypoparathyroidism SNOMED Code(s): 59071942 ICD Code: E20.9 - HYPOPARATHYROIDISM, UNSPECIFIED Status: Acute Current V isit: Yes Problem Details: PTH, Vitamin D pending. (3) Chest pain SNOMED Code(s): 16455315 ICD Code: R07.9 - CHEST PAIN, UNSPECIFIED Status: Resolved Current Visit: Yes (4) UTI (urinary tract infection) SNOMED Code(s): 15676459 ICD Code: N39.0 - URINARY TRACT INFECTION, SITE NOT SPECIFIED Status: Acute Current Visit: Yes Qualifiers: Urinary tract infection type: acute cystitis (5) Palpitations SNOMED Code(s): 46812504 ICD Code: R00.2 - PALPITATIONS Status: Acute Current Visit: Yes (6) Eczema SNOMED Code(s): 94551355 ICD Code: L30.9 - DERMATITIS, UNSPECIFIED Status: Chronic Current Visit: No Problem List Initiated/Reviewed/Updated: Yes Orders Last 24hrs: Active Orders 24 hr Category Date Time Status Patient Status [ADT] Routine ADT 04/24/20 20:23 Active Cardiac Monitoring [RC] 08,16,00 Care 04/24/20 20:26 Active Intake and Output [RC] QSHIFT Care 04/24/20 20:26 Active Oxygen Therapy [RC] PRN Care 04/24/20 20:23 Active Pulse Oximetry [RC] Q4HR Care 04/24/20 20:26 Active Up With Assistance [RC] ASDIRECTED Care 04/24/20 20:23 Active VTE/DVT Education [RC] Per Unit Routine Care 04/24/20 20:23 Active Vital Signs [RC] Q4H Care 04/24/20 20:23 Active Regular Diet [DIET] Diet 04/25/20 Breakfast Ordered CULTURE URINE [RM] Stat Lab 04/24/20 19:44 Results MAGNESIUM [CHEM] Routine Lab 04/26/20 06:00 Ordered PTH, INTACT Routine Lab 04/25/20 01:00 Received RENAL FUNCTION PANEL,RFP [CHEM] Routine Lab 04/26/20 06:00 Ordered VITAMIN D, 25-HYDROXY Routine Lab 04/24/20 19:50 Received Acetaminophen [Tylenol Extra Strength] Med 04/24/20 20:52 Active 1,000 mg PO Q8H PRN Baclofen [Lioresal] Med 04/25/20 10:00 Active 5 mg PO DAILY PRN Calcium Gluconate Med 04/24/20 21:00 Active 1 gm IV Q6H Docusate Sodium/Sennosides [Senna Plus] Med 04/24/20 20:23 Active 1 tab PO BID PRN Ondansetron [Zofran] Med 04/24/20 20:23 Active 4 mg IV Q4H PRN Sodium Chloride 0.9% [Normal Saline] 1,000 ml Med 04/24/20 20:30 Active IV ASDIRECTED Sulfamethoxazole/Trimethoprim [Septra DS] Med 04/24/20 21:00 Active 1 tab PO BID Triamcinolone Acetonide [Triamcinolone Acetonide 0.1% Med 04/25/20 10:00 Active Oint] 1 gm TOP BID PRN calcitrioL [Rocaltrol] Med 04/25/20 09:00 Active 0.5 mcg PO DAILY diphenhydrAMINE [Benadryl] Med 04/24/20 20:52 Active 25 mg PO Q6H PRN Sequential Compression Device [OM.PC] Per Unit Routine Oth 04/24/20 20:27 Or dered Resuscitation Status Routine Resus Stat 04/24/20 20:23 Ordered EKG 12 Lead [EK] Routine Ther 04/24/20 19:13 Ordered Medication Orders Acetaminophen (Tylenol Extra Strength) 1,000 mg PO Q8H PRN PRN Reason: Pain Last Admin: 04/24/20 22:56 Dose: 1,000 mg Documented by: TUAN Baclofen (Lioresal) 5 mg PO DAILY PRN PRN Reason: MUSCLE SPASM Calcitriol (Rocaltrol) 0.5 mcg PO DAILY [facility] Last Admin: 04/25/20 09:19 Dose: 0.5 mcg Documented by: YANCY Calcium Gluconate (Calcium Gluconate) 1 gm IV Q6H [facility] Last Admin: 04/25/20 11:04 Dose: 1 gm Documented by: Admin: 04/25/20 02:41 Dose: 1 gm Documented by: Admin: 04/24/20 20:54 Dose: Not Given Documented by: FIDENCIO Diphenhydramine HCl (Benadryl) 25 mg PO Q6H PRN PRN Reason: pruritus Sodium Chloride (Normal Saline) 1,000 mls @ 125 mls/hr IV ASDIRECTED [facility] Last Admin: 04/25/20 13:56 Dose: 125 mls/hr Documented by: Infusion: 04/25/20 13:50 Dose: 125 mls/hr Documented by: Admin: 04/25/20 05:50 Dose: 125 mls/hr Documented by: Infusion: 04/25/20 04:45 Dose: 125 mls/hr Documented by: Admin: 04/24/20 20:45 Dose: 125 mls/hr Documented by: FIDENCIO Ondansetron HCl (Zofran) 4 mg IV Q4H PRN PRN Reason: Nausea/Vomiting Senna/Docusate Sodium (Senna Plus) 1 tab PO BID PRN PRN Reason: Constipation Last Admin: 04/24/20 21:39 Dose: 1 tab Documented by: TUAN Triamcinolone Acetonide (Triamcinolone Acetonide 0.1% Oint) 1 gm TOP BID PRN PRN Reason: ITCHING Trimethoprim/Sulfamethoxazole (Septra Ds) 1 tab PO BID [facility] Last Admin: 04/25/20 11:04 Dose: 1 tab Documented by: Admin: 04/24/20 21:39 Dose: 1 tab Documented by: TUAN Assessment/Plan Comment:: 1. Admit for observation for hypocalcemia, hypoparathyroidism, UTI. 2. Hypocalcemia/hypoparathyroidism: 6.32 corrected for albumin. Calcium gluconate 1 g IV q6h, continue Calcitriol. Renal panel with magnesium for tomorrow am. 3. UTI: Bactrim bid for 3 days, Urine culture pending. 4. Telemetry. 5. Regular diet. 6. Continue home medications. 7. FULL CODE. - Mortality Measure Prognosis:: Good
[2020-04-26] MEDS: Calcium Gluconate 10% 1 GM/10 ML SDV IV SCH ×4 (04:34→22:45)
[2020-04-26] MEDS: Sodium Chloride 0.9% 1,000 ML IV SCH (05:52)
--- NOTE | 2020-04-26 08:50 | PCM.PN ---
- General Info Date of Service: 04/26/20 Admission Dx/Problem (Free Text): Patient feels better today. She's not had muscle contractions or paresthesias in her hands. She has chest pain, shortness breath, dysuria, pyuria, hematuria, fevers or chills. - Patient Data Vitals - Most Recent: Last Vital Signs Temp 97.6 F 04/26/20 05:20 Pulse 52 L 04/26/20 05:20 Resp 14 04/26/20 05:20 BP 129/67 04/26/20 05:20 Pulse Ox 97 04/26/20 05:20 Weight - Most Recent: 172 lb 14.4 oz I&O - Last 24 Hours: Intake & Output 04/25/20 04/26/20 04/26/20 22:59 06:59 14:59 Intake Total 1177 983 Output Total 300 1200 Balance 877 -217 Lab Results Last 24 Hours: Laboratory Results - last 24 hr 04/26/20 Range/Units 06:05 Sodium 141 (135-145) mmol/L Potassium 3.8 (3.5-5.3) mmol/L Chloride 107 (100-110) mmol/L Carbon Dioxide 24 (21-32) mmol/L BUN 12 (7-18) mg/dL Creatinine 1.0 (0.55-1.02) mg/dL Est Cr Clr Drug Dosing 64.87 mL/min Estimated GFR (MDRD) > 60 (>60) BUN/Creatinine Ratio 12.0 (9-20) Glucose 95 (80-116) mg/dL Calcium 7.2 L (8.6-10.2) mg/dL Phosphorus 4.8 H (2.6-4.6) mg/dL Magnesium 1.7 L (1.8-2.5) mg/dL Albumin 3.2 L (3.5-5.2) g/dL [place] Results Last 24 Hours: Microbiology 04/24/20 19:44 Urine Culture - Preliminary Urine, Clean Catch MIXED JOE DAY 1 Med Orders - Current: Current Medications Acetaminophen (Tylenol Extra Strength) 1,000 mg PO Q8H PRN PRN Reason: Pain Last Admin: 04/24/20 22:56 Dose: 1,000 mg Documented by: Baclofen (Lioresal) 5 mg PO DAILY PRN PRN Reason: MUSCLE SPASM Calcitriol (Rocaltrol) 0.5 mcg PO DAILY [facility] Last Admin: 04/25/20 09:19 Dose: 0.5 mcg Documented by: Calcium Gluconate (Calcium Gluconate) 1 gm IV Q6H [facility] Last Admin: 04/26/20 04:34 Dose: 1 gm Documented by: Diphenhydramine HCl (Benadryl) 25 mg PO Q6H PRN PRN Reason: pruritus Nicotine (Habitrol) 21 mg TRDERM DAILY [facility] Ondansetron HCl (Zofran) 4 mg IV Q4H PRN PRN Reason: Nausea/Vomiting Senna/Docusate Sodium (Senna Plus) 1 tab PO BID PRN PRN Reason: Constipation Last Admin: 04/24/20 21:39 Dose: 1 tab Documented by: Triamcinolone Acetonide (Triamcinolone Acetonide 0.1% Oint) 1 gm TOP BID PRN PRN Reason: ITCHING Trimethoprim/Sulfamethoxazole (Septra Ds) 1 tab PO BID [facility] Last Admin: 04/25/20 20:22 Dose: 1 tab Documented by: Discontinued Medications Aspirin (Halfprin) 81 mg PO NOW STA Stop: 04/24/20 21:05 Last Admin: 04/24/20 21:39 Dose: 81 mg Documented by: Baclofen (Lioresal) 5 mg PO DAILY [facility] Last Admin: 04/25/20 09:19 Dose: 5 mg Documented by: Calcium Gluconate (Calcium Gluconate) 2 gm IV NOW STA Stop: 04/24/20 20:24 Last Admin: 04/24/20 20:45 Dose: 2 gm Documented by: Calcium Gluconate (Calcium Gluconate) 1 gm IV Q6H [facility] Last Admin: 04/25/20 16:54 Dose: Not Given Documented by: Sodium Chloride (Normal Saline) 1,000 mls @ 125 mls/hr IV ASDIRECTED [facility] Last Admin: 04/26/20 05:52 Dose: 125 mls/hr Documented by: Pneumococcal Polyvalent Vaccine (Pneumovax 23) 0.5 ml SUBCUT .ONCE ONE Stop: 04/25/20 10:01 Last Admin: 04/25/20 16:00 Dose: 0.5 ml Documented by: Triamcinolone Acetonide (Triamcinolone Acetonide 0.1% Oint) 1 gm TOP BID [facility] Last Admin: 04/25/20 09:21 Dose: 1 gm Documented by: - Exam General: Alert, Oriented, Cooperative Neck: Supple, Other (Thyroid nodule left) Lungs: Clear to Auscultation, Normal Respiratory Effort Cardiovascular: Regular Rate, Regular Rhythm, No Murmurs Extremities: No Pedal Edema Sepsis Event Note - Evaluation Sepsis Screening Result: No Definite Risk - Focused Exam Vital Signs: Vital Signs Temp Pulse Resp BP Pulse Ox 04/26/20 05:20 97.6 F 52 L 14 129/67 97 04/26/20 04:00 97 04/26/20 00:00 99 04/25/20 23:30 98 F 58 L 16 122/75 99 - Problem List & Annotations (1) Thyroid nodule SNOMED Code(s): 596750323 Code(s): E04.1 - NONTOXIC SINGLE THYROID NODULE Status: Acute Current Visit: Yes (2) Hypocalcemia SNOMED Code(s): 5743360 Code(s): E83.51 - HYPOCALCEMIA Status: Acute Current Visit: Yes Annotation/Comment:: 5.7 in ER, 6.0 today, continue Telemetry. Calcium gluconate 1 g IV q6h Renal panel in am with magnesium. Magnesium 1.9 in ER. (3) Hypoparathyroidism SNOMED Code(s): 01417840 Code(s): E20.9 - HYPOPARATHYROIDISM, UNSPECIFIED Status: Acute Current Visit: Yes Annotation/Comment:: PTH, Vitamin D pending. (4) Palpitations SNOMED Code(s): 42233780 Code(s): R00.2 - PALPITATIONS Status: Acute Current Visit: Yes (5) UTI (urinary tract infection) SNOMED Code(s): 33738731 Code(s): N39.0 - URINARY TRACT INFECTION, SITE NOT SPECIFIED Status: Acute Current Visit: Yes Qualifiers: Urinary tract infection type: acute cystitis (6) Chest pain SNOMED Code(s): 08678371 Code(s): R07.9 - CHEST PAIN, UNSPECIFIED Status: Resolved Current Visit: Yes - Problem List Review Problem List Initiated/Reviewed/Updated: Yes - My Orders Last 24 Hours: My Active Orders 04/26/20 08:46 Convert IV to Saline Lock [OM.PC] Routine SCD [Sequential Compression Device] [OM.PC] Routine 04/26/20 09:00 Nicotine [Habitrol] 21 mg TRDERM DAILY 04/26/20 16:30 CALCIUM [CHEM] Routine - Plan Plan:: 1. Recheck calcium and 4:30 as it is coming up. Goal is over 8 before she goes home. 2. SCD for clot prophylaxis 3. Up ad dre. 4. NicoDerm patch daily. 5. DC IV fluids and saline lock IV.
[2020-04-26] MEDS: Calcitriol 0.25 MCG Cap PO SCH (08:53)
[2020-04-26] MEDS: Nicotine 21 MG/24 Hr Patch TRDERM SCH (09:02)
[2020-04-26] MEDS: Sodium Chloride 0.9% 10 ML Syringe FLUSH PRN ×2 (17:05→23:10)
[2020-04-26] MEDS: Acetaminophen 500 MG Tab PO PRN (23:11)
[2020-04-27] MEDS: Sodium Chloride 0.9% 10 ML Syringe FLUSH PRN ×3 (00:12→10:48)
[2020-04-27] MEDS: Calcium Gluconate 10% 1 GM/10 ML SDV IV SCH ×2 (04:59→10:48)
[2020-04-27] MEDS: Nicotine 21 MG/24 Hr Patch TRDERM SCH (08:01)
[2020-04-27] MEDS: Calcitriol 0.25 MCG Cap PO SCH (08:01)
--- NOTE | 2020-04-27 08:59 | PCM.PN ---
- General Info Date of Service: 04/27/20 Admission Dx/Problem (Free Text): Patient without concerns. No more tetany. No chest pain or shortness breath - Patient Data Vitals - Most Recent: Last Vital Signs Temp 98.0 F 04/27/20 07:25 Pulse 64 04/27/20 07:25 Resp 18 04/27/20 07:25 BP 140/92 H 04/27/20 07:25 Pulse Ox 97 04/27/20 07:25 Weight - Most Recent: 172 lb 14.4 oz I&O - Last 24 Hours: Intake & Output 04/26/20 04/27/20 04/27/20 22:59 06:59 14:59 Intake Total 400 Balance 400 Lab Results Last 24 Hours: Laboratory Results - last 24 hr 04/25/20 04/25/20 04/26/20 Range/Units 01:00 01:00 16:45 Sodium (135-145) mmol/L Potassium (3.5-5.3) mmol/L Chloride (100-110) mmol/L Carbon Dioxide (21-32) mmol/L BUN (7-18) mg/dL Creatinine (0.55-1.02) mg/dL Est Cr Clr Drug Dosing mL/min Estimated GFR (MDRD) (>60) BUN/Creatinine Ratio (9-20) Glucose (80-116) mg/dL Calcium 7.2 L (8.6-10.2) mg/dL Magnesium (1.8-2.5) mg/dL Total Bilirubin (0.1-1.3) mg/dL AST (5-25) IU/L ALT (12-36) U/L Alkaline Phosphatase (56-112) IU/L Total Protein (6.0-8.0) g/dL Albumin (3.5-5.2) g/dL Globulin g/dL Albumin/Globulin Ratio Vitamin D 25-Hydroxy 36.7 (30.0-100.0) ng/mL PTH Intact 6 L (15-65) pg/mL 04/27/20 Range/Units 06:00 Sodium 140 (135-145) mmol/L Potassium 3.8 (3.5-5.3) mmol/L Chloride 104 (100-110) mmol/L Carbon Dioxide 27 (21-32) mmol/L BUN 14 (7-18) mg/dL Creatinine 0.9 (0.55-1.02) mg/dL Est Cr Clr Drug Dosing 72.07 mL/min Estimated GFR (MDRD) > 60 (>60) BUN/Creatinine Ratio 15.6 (9-20) Glucose 95 (80-116) mg/dL Calcium 7.6 L (8.6-10.2) mg/dL Magnesium 1.7 L (1.8-2.5) mg/dL Total Bilirubin 0.5 (0.1-1.3) mg/dL AST 24 (5-25) IU/L ALT 18 (12-36) U/L Alkaline Phosphatase 99 (56-112) IU/L Total Protein 7.3 (6.0-8.0) g/dL Albumin 3.4 L (3.5-5.2) g/dL Globulin 3.9 g/dL Albumin/Globulin Ratio 0.9 Vitamin D 25-Hydroxy (30.0-100.0) ng/mL PTH Intact (15-65) pg/mL [place] Results Last 24 Hours: Microbiology 04/24/20 19:44 Urine Culture - Final Urine, Clean Catch MIXED JOE DAY 2 Med Orders - Current: Current Medications Acetaminophen (Tylenol Extra Strength) 1,000 mg PO Q8H PRN PRN Reason: Pain Last Admin: 04/26/20 23:11 Dose: 1,000 mg Documented by: Baclofen (Lioresal) 5 mg PO DAILY PRN PRN Reason: MUSCLE SPASM Last Admin: 04/26/20 11:13 Dose: 5 mg Documented by: Calcitriol (Rocaltrol) 0.5 mcg PO DAILY [facility] Last Admin: 04/27/20 08:01 Dose: 0.5 mcg Documented by: Calcium Gluconate (Calcium Gluconate) 1 gm IV Q6H [facility] Last Admin: 04/27/20 04:59 Dose: 1 gm Documented by: Diphenhydramine HCl (Benadryl) 25 mg PO Q6H PRN PRN Reason: pruritus Last Admin: 04/26/20 23:11 Dose: 25 mg Documented by: Nicotine (Habitrol) 21 mg TRDERM DAILY [facility] Last Admin: 04/27/20 08:01 Dose: 21 mg Documented by: Ondansetron HCl (Zofran) 4 mg IV Q4H PRN PRN Reason: Nausea/Vomiting Senna/Docusate Sodium (Senna Plus) 1 tab PO BID PRN PRN Reason: Constipation Last Admin: 04/24/20 21:39 Dose: 1 tab Documented by: Sodium Chloride (Saline Flush) 10 ml FLUSH ASDIRECTED PRN PRN Reason: flush med Last Admin: 04/27/20 05:07 Dose: 10 ml Documented by: Triamcinolone Acetonide (Triamcinolone Acetonide 0.1% Oint) 1 gm TOP BID PRN PRN Reason: ITCHING Last Admin: 04/26/20 08:54 Dose: 1 applic Documented by: Discontinued Medications Aspirin (Halfprin) 81 mg PO NOW STA Stop: 04/24/20 21:05 Last Admin: 04/24/20 21:39 Dose: 81 mg Documented by: Baclofen (Lioresal) 5 mg PO DAILY [facility] Last Admin: 04/25/20 09:19 Dose: 5 mg Documented by: Calcium Gluconate (Calcium Gluconate) 2 gm IV NOW STA Stop: 04/24/20 20:24 Last Admin: 04/24/20 20:45 Dose: 2 gm Documented by: Calcium Gluconate (Calcium Gluconate) 1 gm IV Q6H [facility] Last Admin: 04/25/20 16:54 Dose: Not Given Documented by: Sodium Chloride (Normal Saline) 1,000 mls @ 125 mls/hr IV ASDIRECTED [facility] Last Admin: 04/26/20 05:52 Dose: 125 mls/hr Documented by: Pneumococcal Polyvalent Vaccine (Pneumovax 23) 0.5 ml SUBCUT .ONCE ONE Stop: 04/25/20 10:01 Last Admin: 04/25/20 16:00 Dose: 0.5 ml Documented by: Triamcinolone Acetonide (Triamcinolone Acetonide 0.1% Oint) 1 gm TOP BID [facility] Last Admin: 04/25/20 09:21 Dose: 1 gm Documented by: Trimethoprim/Sulfamethoxazole (Septra Ds) 1 tab PO BID [facility] Last Admin: 04/25/20 20:22 Dose: 1 tab Documented by: - Exam General: Alert, Oriented, Cooperative Extremities: Normal Inspection Sepsis Event Note - Evaluation Sepsis Screening Result: No Definite Risk - Focused Exam Vital Signs: Vital Signs Temp Pulse Resp BP BP Pulse Ox 04/27/20 07:25 98.0 F 64 18 140/92 H 97 04/27/20 05:00 97.9 F 59 L 16 121/75 100 04/27/20 00:00 97.9 F 60 18 125/86 98 - Problem List & Annotations (1) Thyroid nodule SNOMED Code(s): 095812918 Code(s): E04.1 - NONTOXIC SINGLE THYROID NODULE Status: Acute Current Visit: Yes (2) Hypocalcemia SNOMED Code(s): 6363285 Code(s): E83.51 - HYPOCALCEMIA Status: Acute Current Visit: Yes Annotation/Comment:: 5.7 in ER, 6.0 today, continue Telemetry. Calcium gluconate 1 g IV q6h Renal panel in am with magnesium. Magnesium 1.9 in ER. (3) Hypoparathyroidism SNOMED Code(s): 33802596 Code(s): E20.9 - HYPOPARATHYROIDISM, UNSPECIFIED Status: Acute Current Visit: Yes Annotation/Comment:: PTH, Vitamin D pending. (4) Palpitations SNOMED Code(s): 97105627 Code(s): R00.2 - PALPITATIONS Status: Acute Current Visit: Yes (5) UTI (urinary tract infection) SNOMED Code(s): 87658892 Code(s): N39.0 - URINARY TRACT INFECTION, SITE NOT SPECIFIED Status: Acute Current Visit: Yes Qualifiers: Urinary tract infection type: acute cystitis (6) Chest pain SNOMED Code(s): 32964575 Code(s): R07.9 - CHEST PAIN, UNSPECIFIED Status: Resolved Current Visit: Yes - Problem List Review Problem List Initiated/Reviewed/Updated: Yes - My Orders Last 24 Hours: My Active Orders 04/26/20 08:46 Convert IV to Saline Lock [OM.PC] Routine SCD [Sequential Compression Device] [OM.PC] Routine 04/26/20 09:00 Nicotine [Habitrol] 21 mg TRDERM DAILY 04/26/20 11:25 Sodium Chloride 0.9% [Saline Flush] 10 ml FLUSH ASDIRECTED PRN 04/27/20 06:00 CALCIUM, IONIZED, SERUM Routine - Plan Plan:: 1. Discharge to home on 1 g of calcitonin and the 600 mg of calcium twice a day. 2. Discussed care with endocrinology. They agreed with the plan and they'll see her next week.
--- NOTE | 2020-04-27 09:07 | PCM.DCSUM1 ---
Discharge Summary - Hospital Course Free Text/Narrative:: Hospital course-patient was admitted and given calcium gluconate every 6 hours IV. Calcitriol was continued. Patient had good symptom relief and her calcium or 2 days went from 6.4-7.6. Her symptoms were gone. Phosphate was little elevated and magnesium is low. PTH was low. Patient had no other issues she was on telemetry showed no arrhythmias. Discussed with endocrine and they want to see her next week around 1 g of calcitriol with 1200 mg of calcium twice a day. She is not from this area so I'll have her see me first thing next week and get her medical records sent. They wanted a calcium, vitamin D done at the end week. Brief History: Carmen is 55 yr old who presented to ER last night for progressing symptoms of tingling in her hands, muscle spasms/cramps in her hands & feet, twitching in her face, started on Wednesday. She has history of hypoparathyroidism, recurrent hypocalcemia. She is on Calcitrol and Calcium carbonate at home. She states she has had multiple hospitalizations for this. She was due to have surgery on her parathyroid but moved here in December from [place]. She states she does not get any warning, no precipitating factors when she comes in, she has not missed any doses of her medications. She also states that her heart races and feels like someone is squeezing it or tearing it when her calcium gets low. Her right hand that was curled up when she came in due to muscle spasms, relaxed early this morning. Having no tingling and cramps this morning. In ER, troponin was <0.4 x2, this morning troponin was 4.2. EKG in ER was unremarkable. Calcium was 5.7, received calcium gluconate 2 grams in ER and repeat 1 g at 2 am and every 6 hours. Also found to have UTI on admission, was started on Bactrim while awaiting urine cultures. PTH and Vitamin D pending. Chest Diagnosis: Stroke: No - Discharge Data Discharge Date: 04/27/20 Discharge Disposition: Home, Self-Care 01 Condition: Good - Referral to Home Health Primary Care Physician: PCP None - Discharge Diagnosis/Problem(s) (1) Thyroid nodule SNOMED Code(s): 718540493 ICD Code: E04.1 - NONTOXIC SINGLE THYROID NODULE Status: Acute Current Visit: Yes (2) Hypocalcemia SNOMED Code(s): 9982080 ICD Code: E83.51 - HYPOCALCEMIA Status: Acute Current Visit: Yes Problem Details: 5.7 in ER, 6.0 today, continue Telemetry. Calcium gluconate 1 g IV q6h Renal panel in am with magnesium. Magnesium 1.9 in ER. (3) Hypoparathyroidism SNOMED Code(s): 38326284 ICD Code: E20.9 - HYPOPARATHYROIDISM, UNSPECIFIED Status: Acute Current Visit: Yes Problem Details: PTH, Vitamin D pending. (4) Palpitations SNOMED Code(s): 77969371 ICD Code: R00.2 - PALPITATIONS Status: Acute Current Visit: Yes (5) UTI (urinary tract infection) SNOMED Code(s): 99775503 ICD Code: N39.0 - URINARY TRACT INFECTION, SITE NOT SPECIFIED Status: Acute Current Visit: Yes Qualifiers: Urinary tract infection type: acute cystitis (6) Chest pain SNOMED Code(s): 40455579 ICD Code: R07.9 - CHEST PAIN, UNSPECIFIED Status: Resolved Current Visit: Yes - Patient Instructions Diet: Regular Diet as Tolerated Activity: As Tolerated Driving: May Drive Today Showering/Bathing: May Shower Notify Provider of: Increased Pain Other/Special Instructions: 1. Recheck Dr. Barrientos on Wednesday. I will set up an endocrinology appointment next week. 2. Patient is to take 1 g of calcitriol daily and 1200 mg of vitamin D twice a day. - Discharge Plan Prescriptions/Med Rec: Nicotine [Habitrol] 21 mg TRDERM DAILY #0 patch Nicotine [Nicotine Patch] 21 mg TD DAILY #30 patch Home Medications: Home Meds Calcium Carbonate [Calcium] 600 mg PO DAILY 03/28/20 [History] Baclofen 5 mg PO DAILY PRN 04/25/20 [History] Triamcinolone Acetonide [Triamcinolone Acetonide 0.1% Oint] 1 applic TOP BID PRN 04/25/20 [History] Calcitriol 1 mcg PO DAILY #60 04/27/20 [Rx] Nicotine [Habitrol] 21 mg TRDERM DAILY #0 patch 04/27/20 [Rx] Nicotine [Nicotine Patch] 21 mg TD DAILY #30 patch 04/27/20 [Rx] Patient Handouts: Steps to Quit Smoking, [id number], Health Risks of Smoking, Hypocalcemia, Adult, Fall Prevention in Hospitals, Adult, Venous Thromboembolism Prevention Forms: ED Department Discharge Referrals: PCP,None [Primary Care Provider] - - Discharge Summary/Plan Comment DC Time >30 min.: Yes ([place] [facility] talking to specialist endocrinology) - Patient Data Vitals - Most Recent: Last Vital Signs Temp 98.0 F 04/27/20 07:25 Pulse 64 04/27/20 07:25 Resp 18 04/27/20 07:25 BP 140/92 H 04/27/20 07:25 Pulse Ox 97 04/27/20 07:25 Weight - Most Recent: 172 lb 14.4 oz I&O - Last 24 hours: Intake & Output 04/26/20 04/27/20 04/27/20 22:59 06:59 14:59 Intake Total 400 Balance 400 Lab Results - Last 24 hrs: Laboratory Results - last 24 hr 04/25/20 04/25/20 04/26/20 Range/Units 01:00 01:00 16:45 Sodium (135-145) mmol/L Potassium (3.5-5.3) mmol/L Chloride (100-110) mmol/L Carbon Dioxide (21-32) mmol/L BUN (7-18) mg/dL Creatinine (0.55-1.02) mg/dL Est Cr Clr Drug Dosing mL/min Estimated GFR (MDRD) (>60) BUN/Creatinine Ratio (9-20) Glucose (80-116) mg/dL Calcium 7.2 L (8.6-10.2) mg/dL Magnesium (1.8-2.5) mg/dL Total Bilirubin (0.1-1.3) mg/dL AST (5-25) IU/L ALT (12-36) U/L Alkaline Phosphatase (56-112) IU/L Total Protein (6.0-8.0) g/dL Albumin (3.5-5.2) g/dL Globulin g/dL Albumin/Globulin Ratio Vitamin D 25-Hydroxy 36.7 (30.0-100.0) ng/mL PTH Intact 6 L (15-65) pg/mL 04/27/20 Range/Units 06:00 Sodium 140 (135-145) mmol/L Potassium 3.8 (3.5-5.3) mmol/L Chloride 104 (100-110) mmol/L Carbon Dioxide 27 (21-32) mmol/L BUN 14 (7-18) mg/dL Creatinine 0.9 (0.55-1.02) mg/dL Est Cr Clr Drug Dosing 72.07 mL/min Estimated GFR (MDRD) > 60 (>60) BUN/Creatinine Ratio 15.6 (9-20) Glucose 95 (80-116) mg/dL Calcium 7.6 L (8.6-10.2) mg/dL Magnesium 1.7 L (1.8-2.5) mg/dL Total Bilirubin 0.5 (0.1-1.3) mg/dL AST 24 (5-25) IU/L ALT 18 (12-36) U/L Alkaline Phosphatase 99 (56-112) IU/L Total Protein 7.3 (6.0-8.0) g/dL Albumin 3.4 L (3.5-5.2) g/dL Globulin 3.9 g/dL Albumin/Globulin Ratio 0.9 Vitamin D 25-Hydroxy (30.0-100.0) ng/mL PTH Intact (15-65) pg/mL [place] Results - Last 24 hrs: Microbiology 04/24/20 19:44 Urine Culture - Final Urine, Clean Catch MIXED JOE DAY 2 Med Orders - Current: Current Medications Acetaminophen (Tylenol Extra Strength) 1,000 mg PO Q8H PRN PRN Reason: Pain Last Admin: 04/26/20 23:11 Dose: 1,000 mg Documented by: Baclofen (Lioresal) 5 mg PO DAILY PRN PRN Reason: MUSCLE SPASM Last Admin: 04/26/20 11:13 Dose: 5 mg Documented by: Calcitriol (Rocaltrol) 0.5 mcg PO DAILY [facility] Last Admin: 04/27/20 08:01 Dose: 0.5 mcg Documented by: Calcium Gluconate (Calcium Gluconate) 1 gm IV Q6H [facility] Last Admin: 04/27/20 04:59 Dose: 1 gm Documented by: Diphenhydramine HCl (Benadryl) 25 mg PO Q6H PRN PRN Reason: pruritus Last Admin: 04/26/20 23:11 Dose: 25 mg Documented by: Nicotine (Habitrol) 21 mg TRDERM DAILY [facility] Last Admin: 04/27/20 08:01 Dose: 21 mg Documented by: Ondansetron HCl (Zofran) 4 mg IV Q4H PRN PRN Reason: Nausea/Vomiting Senna/Docusate Sodium (Senna Plus) 1 tab PO BID PRN PRN Reason: Constipation Last Admin: 04/24/20 21:39 Dose: 1 tab Documented by: Sodium Chloride (Saline Flush) 10 ml FLUSH ASDIRECTED PRN PRN Reason: flush med Last Admin: 04/27/20 05:07 Dose: 10 ml Documented by: Triamcinolone Acetonide (Triamcinolone Acetonide 0.1% Oint) 1 gm TOP BID PRN PRN Reason: ITCHING Last Admin: 04/26/20 08:54 Dose: 1 applic Documented by: Discontinued Medications Aspirin (Halfprin) 81 mg PO NOW STA Stop: 04/24/20 21:05 Last Admin: 04/24/20 21:39 Dose: 81 mg Documented by: Baclofen (Lioresal) 5 mg PO DAILY [facility] Last Admin: 04/25/20 09:19 Dose: 5 mg Documented by: Calcium Gluconate (Calcium Gluconate) 2 gm IV NOW STA Stop: 04/24/20 20:24 Last Admin: 04/24/20 20:45 Dose: 2 gm Documented by: Calcium Gluconate (Calcium Gluconate) 1 gm IV Q6H [facility] Last Admin: 04/25/20 16:54 Dose: Not Given Documented by: Sodium Chloride (Normal Saline) 1,000 mls @ 125 mls/hr IV ASDIRECTED [facility] Last Admin: 04/26/20 05:52 Dose: 125 mls/hr Documented by: Pneumococcal Polyvalent Vaccine (Pneumovax 23) 0.5 ml SUBCUT .ONCE ONE Stop: 04/25/20 10:01 Last Admin: 04/25/20 16:00 Dose: 0.5 ml Documented by: Triamcinolone Acetonide (Triamcinolone Acetonide 0.1% Oint) 1 gm TOP BID [facility] Last Admin: 04/25/20 09:21 Dose: 1 gm Documented by: Trimethoprim/Sulfamethoxazole (Septra Ds) 1 tab PO BID [facility] Last Admin: 04/25/20 20:22 Dose: 1 tab Documented by:
== END 2020-04-27 11:15 | disposition home or self-care (01) ==
LOC: FB.ED 18:47 → FB.MS 20:23
PROVIDERS: ADMIT Emergency Medicine; ATTEND Family Medicine
DX: E83.51 Hypocalcemia (principal); E04.1 Nontoxic single thyroid nodule; R00.2 Palpitations; N30.00 Acute cystitis without hematuria; I50.9 Heart failure, unspecified; R07.9 Chest pain, unspecified; J44.9 Chronic obstructive pulmonary disease, unspecified; F41.9 Anxiety disorder, unspecified; F17.210 Nicotine dependence, cigarettes, uncomplicated; F31.9 Bipolar disorder, unspecified; L30.9 Dermatitis, unspecified; Z79.899 Other long term (current) drug therapy; Z23 Encounter for immunization
CPT/HCPCS: 36415; 80048; 80053; 80069; 81001; 82306; 82310; 82330; 83735; 83970; 84484; 85025; 87086; 90732; 93005; 94760; 96361; 96365; 96376; 99224; 99238; 99285; A9270; G0378; J0610; J7030

== ENCOUNTER 2020-07-28 14:58 | Emergency (ER) | payer MEDICAID ==
[2020-07-28] MEDS: Calcium Gluconate 10% 1 GM/10 ML SDV IVPUSH ONE ×4 (16:09→23:32)
[2020-07-28] MEDS: Sodium Chloride 0.9% 1,000 ML IV SCH (16:10)
[2020-07-28] MEDS ORDERED: cefTRIAXone 1 GM in Sodium Chloride 0.9% 50 ML IV ONE (18:57)
--- NOTE | 2020-07-28 19:02 | EDM.PDOC ---
ED HPI GENERAL MEDICAL PROBLEM - General Chief Complaint: General Stated Complaint: LOW CALCIUM Time Seen by Provider: 07/28/20 15:10 Source of Information: Reports: Patient, EMS History Limitations: Reports: No Limitations - History of Present Illness INITIAL COMMENTS - FREE TEXT/NARRATIVE: Came in from home developed "Main accoucher" states she was visiting a friend and was offered candy and chocolate, Ate it and developed , spasm in her muscles and hands. Pain worse in both hands developed chest tightness but no chest pain , no shortness of breath this is a chronic problems for the pt Hss hypo-parathyroidism Onset: Today Onset Date: 07/28/20 Duration: Hour(s):, Getting Worse Location: Reports: Chest, Abdomen, Lower Extremity, Right Quality: Reports: Ache, Dull, Same as Previous Episode Severity: Severe Improves with: Reports: None, Medication Worsens with: Reports: Movement Associated Symptoms: Reports: No Other Symptoms - Related Data Allergies Allergy/AdvReac Type Severity Reaction Status Date / Time grass pollen Allergy Itching Verified 04/24/20 18:56 Home Meds: Home Meds Baclofen 5 mg PO DAILY PRN 04/25/20 [History] Triamcinolone Acetonide [Triamcinolone Acetonide 0.1% Oint] 1 applic TOP BID PRN 04/25/20 [History] Aspirin 81 mg PO DAILY 07/28/20 [History] Calcitriol 0.5 mcg PO DAILY 07/28/20 [History] Calcium Carbonate [Calcium] 600 mg PO QID 07/28/20 [History] Cefuroxime Axetil [Ceftin] 500 mg PO BID #20 tablet 07/28/20 [Rx] Omeprazole 40 mg PO DAILY 07/28/20 [History] Simvastatin 20 mg PO BEDTIME 07/28/20 [History] buPROPion HCL [Bupropion Xl] 150 mg PO BID 07/28/20 [History] Past Medical History HEENT History: Reports: Cataract, Impaired Vision Cardiovascular History: Reports: Angina, Heart Failure, SOB on Exertion Respiratory History: Reports: COPD, SOB Gastrointestinal History: Reports: Gastritis, GERD, Hemorrhoids Genitourinary History: Reports: Renal Calculus 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 None since then Endocrine/Metabolic History: Reports: Hypokalemia Dermatologic History: Reports: Cellulitis, Other (See Below) Other Dermatologic History: very dry skin - Infectious Disease History Infectious Disease History: Reports: Measles - Past Surgical History HEENT Surgical History: Reports: Other (See Below) Other HEENT Surgeries/Procedures: teeth removed Cardiovascular Surgical History: Reports: None Respiratory Surgical History: Reports: None GI Surgical History: Reports: Colonoscopy Female Surgical History: Reports: None Endocrine Surgical History: Reports: Thyroid Biopsy Neurological Surgical History: Reports: None Musculoskeletal Surgical History: Reports: Other (See Below) Other Musculoskeletal Surgeries/Procedures:: had khadar grafts to feet at age 1. Had surgery on bone on foot Dermatological Surgical History: Reports: Skin Graft, Other (See Below) Social & Family History - Family History Family Medical History: No Pertinent Family History - Caffeine Use Caffeine Use: Reports: Coffee, Soda, Tea ED ROS GENERAL - Review of Systems Review Of Systems: See Below Constitutional: Reports: Malaise, Weakness, Fatigue, Night Sweats, Decreased Appetite. Denies: Fever, Chills HEENT: Reports: No Symptoms Respiratory: Reports: No Symptoms Cardiovascular: Reports: No Symptoms Endocrine: Reports: Fatigue Musculoskeletal: Reports: Joint Pain, Muscle Pain, Muscle Stiffness Skin: Reports: No Symptoms Neurological: Reports: Dizziness, Headache, Numbness, Paresthesia ED EXAM, GENERAL - Physical Exam Exam: See Below Exam Limited By: No Limitations General Appearance: Alert, WD/WN Eye Exam: Bilateral Eye: EOMI Ear Exam: Bilateral Ear: Canal Normal Nose: Normal Inspection, Normal Mucosa Throat/Mouth: Normal Inspection, Normal Lips Head: Atraumatic, Normocephalic Neck: Normal Inspection, Supple Respiratory/Chest: No Respiratory Distress, Lungs Clear Cardiovascular: Normal Peripheral Pulses, Regular Rate, Rhythm GI/Abdominal: Soft, Distended, Tender (epigastrium) Back Exam: Normal Inspection, Full Range of Motion Extremities: Normal Range of Motion, Non-Tender, No Pedal Edema Neurological: Alert, Oriented, CN II-XII Intact, Normal Reflexes Psychiatric: Normal Affect, Normal Mood Skin Exam: Warm, Dry. No: Ecchymosis, Erythema, Increased Warmth, Mottled, Pallor, Petechiae, Rash Course - Vital Signs Last Recorded V/S: Last Vital Signs Temp 36.7 C 07/28/20 15:00 Pulse 87 07/28/20 15:00 Resp 18 07/28/20 15:00 BP 133/97 H 07/28/20 15:00 Pulse Ox 100 07/28/20 15:00 - Orders/Labs/Meds Orders: Active Orders 24 hr Category Date Time Status EKG Documentation Completion [RC] ASDIRECTED Care 07/28/20 15:08 Active CALCIUM, IONIZED, SERUM Stat Lab 07/28/20 15:30 Received PROCALCITONIN Stat Lab 07/28/20 15:35 Received Sodium Chloride 0.9% [Normal Saline] 1,000 ml Med 07/28/20 16:00 Active IV ASDIRECTED EKG 12 Lead [EK] Routine Ther 07/28/20 15:07 Ordered Medication Orders Sodium Chloride (Normal Saline) 1,000 mls @ 999 mls/hr IV ASDIRECTED ZIGYG Last Admin: 07/28/20 16:10 Dose: 999 mls/hr Documented by: DIFFCAL Labs: Laboratory Tests 07/28/20 07/28/20 07/28/20 Range/Units 15:35 15:35 15:35 WBC 7.0 (3.0-10.3) x10-3/uL RBC 4.55 (3.60-5.20) x10(6)uL Hgb 13.0 (11.4-15.5) g/dL Hct 39.6 (34.2-48.2) % MCV 87.0 (76.7-100.5) fL MCH 28.5 (23.9-33.9) pg MCHC 32.8 (31.9-34.8) g/dL RDW 15.9 (12.3-16.5) % Plt Count 276 (151-488) x10(3)uL MPV 7.6 (7.1-12.4) fL Neut % (Auto) 59.8 (30.8-76.2) % Lymph % (Auto) 31.3 (18.4-52.1) % [place] % (Auto) 8.1 (4.4-15.7) % Eos % (Auto) 0.2 L (0.6-8.1) % Baso % (Auto) 0.6 (0.2-1.5) % Neut # (Auto) 4.2 (1.5-6.3) x10-3/uL Lymph # (Auto) 2.2 (1.0-4.4) x10-3/uL [place] # (Auto) 0.6 (0.3-1.0) x10-3/uL Eos # (Auto) 0.0 (0.0-0.8) x10-3/uL Baso # (Auto) 0.0 (0.0-0.1) x10-3/uL Sodium 144 (135-145) mmol/L Potassium 3.3 L (3.5-5.3) mmol/L Chloride 104 (100-110) mmol/L Carbon Dioxide 27 (21-32) mmol/L BUN 21 H (7-18) mg/dL Creatinine 0.9 (0.55-1.02) mg/dL Est Cr Clr Drug Dosing TNP Estimated GFR (MDRD) > 60 (>60) BUN/Creatinine Ratio 23.3 H (9-20) Glucose 93 (80-116) mg/dL POC Glucose (74-100) mg/dL Calcium 6.2 L* (8.6-10.2) mg/dL Magnesium (1.8-2.5) mg/dL Total Bilirubin 0.4 (0.1-1.3) mg/dL AST 30 H D (5-25) IU/L ALT 25 D (12-36) U/L Alkaline Phosphatase 80 (56-112) IU/L Troponin I (4.0-60.3) pg/mL NT-Pro-B Natriuret Pep 30 (<=125) pg/mL Total Protein 7.6 (6.0-8.0) g/dL Albumin 3.7 (3.5-5.2) g/dL Globulin 3.9 g/dL Albumin/Globulin Ratio 1.0 Urine Color (YELLOW) Urine Appearance (CLEAR) Urine pH (5.0-6.5) Ur Specific [place] (1.010-1.025) Urine Protein (NEGATIVE) mg/dL Urine Glucose (UA) (NORMAL) mg/dL Urine Ketones (NEGATIVE) mg/dL Urine Occult Blood (NEGATIVE) Urine Nitrite (NEGATIVE) Urine Bilirubin (NEGATIVE) Urine Urobilinogen (NEGATIVE) mg/dL Ur Leukocyte Esterase (NEGATIVE) Urine RBC (0-5) Urine WBC (0-5) Ur Squamous Epith Cells (NS,R,O) Urine Bacteria (NS) 07/28/20 07/28/20 07/28/20 Range/Units 15:35 15:35 17:18 WBC (3.0-10.3) x10-3/uL RBC (3.60-5.20) x10(6)uL Hgb (11.4-15.5) g/dL Hct (34.2-48.2) % MCV (76.7-100.5) fL MCH (23.9-33.9) pg MCHC (31.9-34.8) g/dL RDW (12.3-16.5) % Plt Count (151-488) x10(3)uL MPV (7.1-12.4) fL Neut % (Auto) (30.8-76.2) % Lymph % (Auto) (18.4-52.1) % [place] % (Auto) (4.4-15.7) % Eos % (Auto) (0.6-8.1) % Baso % (Auto) (0.2-1.5) % Neut # (Auto) (1.5-6.3) x10-3/uL Lymph # (Auto) (1.0-4.4) x10-3/uL [place] # (Auto) (0.3-1.0) x10-3/uL Eos # (Auto) (0.0-0.8) x10-3/uL Baso # (Auto) (0.0-0.1) x10-3/uL Sodium (135-145) mmol/L Potassium (3.5-5.3) mmol/L Chloride (100-110) mmol/L Carbon Dioxide (21-32) mmol/L BUN (7-18) mg/dL Creatinine (0.55-1.02) mg/dL Est Cr Clr Drug Dosing Estimated GFR (MDRD) (>60) BUN/Creatinine Ratio (9-20) Glucose (80-116) mg/dL POC Glucose (74-100) mg/dL Calcium (8.6-10.2) mg/dL Magnesium 1.8 (1.8-2.5) mg/dL Total Bilirubin (0.1-1.3) mg/dL AST (5-25) IU/L ALT (12-36) U/L Alkaline Phosphatase (56-112) IU/L Troponin I 4.3 (4.0-60.3) pg/mL NT-Pro-B Natriuret Pep (<=125) pg/mL Total Protein (6.0-8.0) g/dL Albumin (3.5-5.2) g/dL Globulin g/dL Albumin/Globulin Ratio Urine Color Yellow (YELLOW) Urine Appearance Slightly cloudy (CLEAR) Urine pH 5.0 (5.0-6.5) Ur Specific [place] 1.020 (1.010-1.025) Urine Protein Negative (NEGATIVE) mg/dL Urine Glucose (UA) Normal (NORMAL) mg/dL Urine Ketones 50 H (NEGATIVE) mg/dL Urine Occult Blood Large H (NEGATIVE) Urine Nitrite Negative (NEGATIVE) Urine Bilirubin Negative (NEGATIVE) Urine Urobilinogen Normal (NEGATIVE) mg/dL Ur Leukocyte Esterase Large H (NEGATIVE) Urine RBC 5-10 H (0-5) Urine WBC 5-10 H (0-5) Ur Squamous Epith Cells Few H (NS,R,O) Urine Bacteria Moderate H (NS) 07/28/20 07/28/20 07/28/20 Range/Units 18:45 19:00 21:25 WBC (3.0-10.3) x10-3/uL RBC (3.60-5.20) x10(6)uL Hgb (11.4-15.5) g/dL Hct (34.2-48.2) % MCV (76.7-100.5) fL MCH (23.9-33.9) pg MCHC (31.9-34.8) g/dL RDW (12.3-16.5) % Plt Count (151-488) x10(3)uL MPV (7.1-12.4) fL Neut % (Auto) (30.8-76.2) % Lymph % (Auto) (18.4-52.1) % [place] % (Auto) (4.4-15.7) % Eos % (Auto) (0.6-8.1) % Baso % (Auto) (0.2-1.5) % Neut # (Auto) (1.5-6.3) x10-3/uL Lymph # (Auto) (1.0-4.4) x10-3/uL [place] # (Auto) (0.3-1.0) x10-3/uL Eos # (Auto) (0.0-0.8) x10-3/uL Baso # (Auto) (0.0-0.1) x10-3/uL Sodium 144 (135-145) mmol/L Potassium 3.9 (3.5-5.3) mmol/L Chloride 105 (100-110) mmol/L Carbon Dioxide 27 (21-32) mmol/L BUN 19 H (7-18) mg/dL Creatinine 0.9 (0.55-1.02) mg/dL Est Cr Clr Drug Dosing TNP Estimated GFR (MDRD) > 60 (>60) BUN/Creatinine Ratio 21.1 H (9-20) Glucose 88 (80-116) mg/dL POC Glucose 290 H (74-100) mg/dL Calcium 6.8 L 7.4 L (8.6-10.2) mg/dL Magnesium 1.9 (1.8-2.5) mg/dL Total Bilirubin (0.1-1.3) mg/dL AST (5-25) IU/L ALT (12-36) U/L Alkaline Phosphatase (56-112) IU/L Troponin I (4.0-60.3) pg/mL NT-Pro-B Natriuret Pep (<=125) pg/mL Total Protein (6.0-8.0) g/dL Albumin (3.5-5.2) g/dL Globulin g/dL Albumin/Globulin Ratio Urine Color (YELLOW) Urine Appearance (CLEAR) Urine pH (5.0-6.5) Ur Specific [place] (1.010-1.025) Urine Protein (NEGATIVE) mg/dL Urine Glucose (UA) (NORMAL) mg/dL Urine Ketones (NEGATIVE) mg/dL Urine Occult Blood (NEGATIVE) Urine Nitrite (NEGATIVE) Urine Bilirubin (NEGATIVE) Urine Urobilinogen (NEGATIVE) mg/dL Ur Leukocyte Esterase (NEGATIVE) Urine RBC (0-5) Urine WBC (0-5) Ur Squamous Epith Cells (NS,R,O) Urine Bacteria (NS) 07/29/20 Range/Units 00:13 WBC (3.0-10.3) x10-3/uL RBC (3.60-5.20) x10(6)uL Hgb (11.4-15.5) g/dL Hct (34.2-48.2) % MCV (76.7-100.5) fL MCH (23.9-33.9) pg MCHC (31.9-34.8) g/dL RDW (12.3-16.5) % Plt Count (151-488) x10(3)uL MPV (7.1-12.4) fL Neut % (Auto) (30.8-76.2) % Lymph % (Auto) (18.4-52.1) % [place] % (Auto) (4.4-15.7) % Eos % (Auto) (0.6-8.1) % Baso % (Auto) (0.2-1.5) % Neut # (Auto) (1.5-6.3) x10-3/uL Lymph # (Auto) (1.0-4.4) x10-3/uL [place] # (Auto) (0.3-1.0) x10-3/uL Eos # (Auto) (0.0-0.8) x10-3/uL Baso # (Auto) (0.0-0.1) x10-3/uL Sodium (135-145) mmol/L Potassium (3.5-5.3) mmol/L Chloride (100-110) mmol/L Carbon Dioxide (21-32) mmol/L BUN (7-18) mg/dL Creatinine (0.55-1.02) mg/dL Est Cr Clr Drug Dosing Estimated GFR (MDRD) (>60) BUN/Creatinine Ratio (9-20) Glucose (80-116) mg/dL POC Glucose (74-100) mg/dL Calcium 8.3 L (8.6-10.2) mg/dL Magnesium 1.9 (1.8-2.5) mg/dL Total Bilirubin (0.1-1.3) mg/dL AST (5-25) IU/L ALT (12-36) U/L Alkaline Phosphatase (56-112) IU/L Troponin I (4.0-60.3) pg/mL NT-Pro-B Natriuret Pep (<=125) pg/mL Total Protein (6.0-8.0) g/dL Albumin (3.5-5.2) g/dL Globulin g/dL Albumin/Globulin Ratio Urine Color (YELLOW) Urine Appearance (CLEAR) Urine pH (5.0-6.5) Ur Specific [place] (1.010-1.025) Urine Protein (NEGATIVE) mg/dL Urine Glucose (UA) (NORMAL) mg/dL Urine Ketones (NEGATIVE) mg/dL Urine Occult Blood (NEGATIVE) Urine Nitrite (NEGATIVE) Urine Bilirubin (NEGATIVE) Urine Urobilinogen (NEGATIVE) mg/dL Ur Leukocyte Esterase (NEGATIVE) Urine RBC (0-5) Urine WBC (0-5) Ur Squamous Epith Cells (NS,R,O) Urine Bacteria (NS) Meds: Medications Generic Name Dose Route Start Last Admin Trade Name Freq PRN Reason Stop Dose Admin Sodium Chloride 1,000 mls @ 999 mls/hr 07/28/20 16:00 07/28/20 16:10 Normal Saline IV 999 mls/hr ASDIRECTED ZIGGY Administration Discontinued Medications Generic Name Dose Route Start Last Admin Trade Name Freq PRN Reason Stop Dose Admin Calcium Acetate 667 mg 07/28/20 21:16 07/28/20 22:25 Phoslo PO 07/28/20 21:17 667 mg ONETIME ONE Administration Calcium Gluconate 1 gm 07/28/20 15:47 07/28/20 16:09 Calcium Gluconate IVPUSH 07/28/20 15:48 1 gm ONETIME ONE Administration Calcium Gluconate 1 gm 07/28/20 17:08 07/28/20 18:27 Calcium Gluconate IVPUSH 07/28/20 17:09 1 gm ONETIME ONE Administration Calcium Gluconate 2 gm 07/28/20 19:58 07/28/20 20:36 Calcium Gluconate IVPUSH 07/28/20 19:59 2 gm ONETIME ONE Administration Calcium Gluconate 2 gm 07/28/20 23:22 07/28/20 23:32 Calcium Gluconate IVPUSH 07/28/20 23:23 2 gm ONETIME ONE Administration Ceftriaxone Sodium 1 gm 07/28/20 19:19 07/28/20 19:21 Rocephin IVPUSH 07/28/20 19:20 1 gm ONETIME ONE Administration Ceftriaxone Sodium 1 gm/ 50 mls @ 200 mls/hr 07/28/20 18:57 Sodium Chloride IV 07/28/20 19:11 ONETIME ONE - Re-Assessments/Exams Free Text/Narrative Re-Assessment/Exam: 07/28/20 23:25 pt had repeat IV Calcium gluconate which she tolerated well , Ca gradually increased ,magnesium level increased with the calcium level pt has no chest pain or shortness of breath treated for UTI and urine culture is pending 07/29/20 01:17 repeat 2gm of Calcium gluconate given and calcium level increased from 6.2 to 8.3 ( Normal > 8.6) pt feels much better No side effects not with the use of multi dose calcium gluconate 07/29/20 01:18 Departure - Departure Time of Disposition: 01:30 Disposition: Home, Self-Care 01 Condition: Good Clinical Impression: Hypocalcemia syndrome, UTI (urinary tract infection), Hypoparathyroidism, Palpitations - Discharge Information *PRESCRIPTION DRUG MONITORING PROGRAM REVIEWED*: Not Applicable *COPY OF PRESCRIPTION DRUG MONITORING REPORT IN PATIENT ROLAND: Not Applicable Prescriptions: Cefuroxime Axetil [Ceftin] 500 mg PO BID #20 tablet Referrals: Cody Barrientos MD [Primary Care Provider] - Forms: ED Department Discharge Additional Instructions: 10 make appointment to Follow up with your PCP 2) Continue with supplemental Ca Sepsis Event Note (ED) - Focused Exam Vital Signs: Vital Signs Temp Pulse Resp BP Pulse Ox 07/28/20 15:00 36.7 C 87 18 133/97 H 100 - My Orders Last 24 Hours: My Active Orders 07/28/20 15:07 EKG 12 Lead [EK] Routine 07/28/20 15:08 EKG Documentation Completion [RC] ASDIRECTED 07/28/20 15:30 CALCIUM, IONIZED, SERUM Stat 07/28/20 15:35 PROCALCITONIN Stat 07/28/20 16:00 Sodium Chloride 0.9% [Normal Saline] 1,000 ml IV ASDIRECTED - Assessment/Plan Last 24 Hours: My Active Orders 07/28/20 15:07 EKG 12 Lead [EK] Routine 07/28/20 15:08 EKG Documentation Completion [RC] ASDIRECTED 07/28/20 15:30 CALCIUM, IONIZED, SERUM Stat 07/28/20 15:35 PROCALCITONIN Stat 07/28/20 16:00 Sodium Chloride 0.9% [Normal Saline] 1,000 ml IV ASDIRECTED
[2020-07-28] MEDS: cefTRIAXone 1 GM Vial IVPUSH ONE (19:21)
[2020-07-28] MEDS: Calcium Acetate 667 MG Cap PO ONE (22:25)
== END 2020-07-29 01:54 | disposition home or self-care (01) ==
LOC: FB.ED 14:58
DX: E83.51 Hypocalcemia (principal); N39.0 Urinary tract infection, site not specified; E20.9 Hypoparathyroidism, unspecified; R00.2 Palpitations; I50.9 Heart failure, unspecified; J44.9 Chronic obstructive pulmonary disease, unspecified; K21.9 Gastro-esophageal reflux disease without esophagitis; F31.9 Bipolar disorder, unspecified; F41.0 Panic disorder [episodic paroxysmal anxiety]; Z91.048 Other nonmedicinal substance allergy status; Z79.899 Other long term (current) drug therapy; Z79.82 Long term (current) use of aspirin
CPT/HCPCS: 36415; 80048; 80053; 81001; 82310; 82330; 82962; 83735; 83880; 84145; 84484; 85025; 93005; 96374; 96375; 96376; 99284-25; A9270-GY; J0610; J0696; J7030

== ENCOUNTER 2020-08-31 21:35 | Observation (INO) | payer MEDICAID, SELFPAY ==
[2020-08-31] MEDS ORDERED: Calcium Gluconate 10% 1 GM/10 ML SDV IVPUSH STA ×3 (21:56→22:51)
[2020-08-31] MEDS ORDERED: Aspirin 81 MG Tab.Chew PO ONE (21:56)
[2020-08-31] MEDS ORDERED: Nitroglycerin 0.4 MG Tab.SL SL PRN (21:58)
[2020-08-31] MEDS: Sodium Chloride 0.9% 10 ML Syringe FLUSH PRN (22:09)
[2020-08-31] MEDS ORDERED: Zolpidem 5 MG Tab PO PRN (22:32)
[2020-08-31] MEDS ORDERED: Ondansetron 4 MG/2 ML SDV IV PRN (22:32)
[2020-08-31] MEDS ORDERED: Triamcinolone Acetonide 0.1% Oint 15 GM Tube TOP PRN (22:41)
[2020-08-31] MEDS ORDERED: BACLOFEN 5 MG PO PRN (22:41)
[2020-08-31] MEDS ORDERED: HYDROmorphone 2 MG/ML SDV IVPUSH STA ×2 (22:41→22:51)
[2020-08-31] MEDS ORDERED: Enoxaparin 40 MG/0.4 ML Syringe SUBCUT SCH (22:45)
[2020-08-31] MEDS ORDERED: Sodium Chloride 0.9% 1,000 ML IV SCH (22:45)
[2020-08-31] MEDS: Calcium Gluconate 10% 1 GM/10 ML SDV IVPUSH SCH (23:05)
--- NOTE | 2020-08-31 23:06 | EDM.PDOC ---
ED HPI GENERAL MEDICAL PROBLEM - General Chief Complaint: Chest Pain Stated Complaint: Chest Pain Time Seen by Provider: 08/31/20 22:00 Source of Information: Reports: Patient History Limitations: Reports: No Limitations - History of Present Illness INITIAL COMMENTS - FREE TEXT/NARRATIVE: Patient presented to the ED because of tingling,numbness of the hand and feet which started at 12 nn. It is intermittent, and then she took her calcium carbonate which helped a little. She has a history of hypoparathyroidism and hypocalcemia. At about 5 PM she developed chest pain,sharp,10/10, radiating to the left arm. There is no associated nausea/vomiting or dyspnea. No cough/cold,fever or chills. - Related Data Allergies Allergy/AdvReac Type Severity Reaction Status Date / Time No Known Allergies Allergy Verified 08/31/20 22:22 Home Meds: Home Meds Baclofen 5 mg PO DAILY PRN 04/25/20 [History] Triamcinolone Acetonide [Triamcinolone Acetonide 0.1% Oint] 1 applic TOP BID PRN 04/25/20 [History] Aspirin 81 mg PO DAILY 07/28/20 [History] Calcitriol 0.5 mcg PO DAILY 07/28/20 [History] Calcium Carbonate [Calcium] 600 mg PO QID 07/28/20 [History] Cefuroxime Axetil [Ceftin] 500 mg PO BID #20 tablet 07/28/20 [Rx] Omeprazole 40 mg PO DAILY 07/28/20 [History] Simvastatin 20 mg PO BEDTIME 07/28/20 [History] buPROPion HCL [Bupropion Xl] 150 mg PO BID 07/28/20 [History] Past Medical History HEENT History: Reports: Cataract, Impaired Vision Cardiovascular History: Reports: Angina, Heart Failure, SOB on Exertion Respiratory History: Reports: COPD, SOB Gastrointestinal History: Reports: Gastritis, GERD, Hemorrhoids Genitourinary History: Reports: Renal Calculus [employer] History: Reports: Musculoskeletal History: Reports: Arthritis, Fibromyalgia, RA Neurological History: Reports: Headaches, Chronic, TIA Psychiatric History: Reports: Addiction, Anxiety, Bipolar, Depression, Panic Attack, Suicide Attempt, Other (See Below) Other Psychiatric History: took pills at age 12. None since then Endocrine/Metabolic History: Reports: Hypokalemia Dermatologic History: Reports: Cellulitis, Other (See Below) Other Dermatologic History: very dry skin - Infectious Disease History Infectious Disease History: Reports: Measles - Past Surgical History HEENT Surgical History: Reports: Other (See Below) Other HEENT Surgeries/Procedures: teeth removed Cardiovascular Surgical History: Reports: None Respiratory Surgical History: Reports: None GI Surgical History: Reports: Colonoscopy Female Surgical History: Reports: None Endocrine Surgical History: Reports: Thyroid Biopsy Neurological Surgical History: Reports: None Musculoskeletal Surgical History: Reports: Other (See Below) Other Musculoskeletal Surgeries/Procedures:: had khadar grafts to feet at age 1. Had surgery on bone on foot Dermatological Surgical History: Reports: Skin Graft, Other (See Below) Social & Family History - Family History Family Medical History: No Pertinent Family History - Caffeine Use Caffeine Use: Reports: None ED ROS GENERAL - Review of Systems Review Of Systems: See Below Constitutional: Reports: No Symptoms HEENT: Reports: No Symptoms Respiratory: Reports: No Symptoms Cardiovascular: Reports: Chest Pain Endocrine: Reports: No Symptoms GI/Abdominal: Reports: No Symptoms : Reports: No Symptoms Musculoskeletal: Reports: No Symptoms Skin: Reports: No Symptoms Neurological: Reports: No Symptoms Psychiatric: Reports: No Symptoms Hematologic/Lymphatic: Reports: No Symptoms ED EXAM, GENERAL - Physical Exam Exam: See Below Exam Limited By: No Limitations General Appearance: Alert, No Apparent Distress Eye Exam: Bilateral Eye: PERRL Ears: Normal External Exam, Normal Canal Nose: Normal Inspection, Normal Mucosa, No Blood Throat/Mouth: Normal Inspection, Normal Lips Head: Atraumatic, Normocephalic Neck: Normal Inspection, Supple, Non-Tender, Full Range of Motion Respiratory/Chest: No Respiratory Distress, Lungs Clear, Normal Breath Sounds Cardiovascular: Normal Peripheral Pulses, Regular Rate, Rhythm, No Gallop, No JVD, No Murmur, No Rub, Bradycardia GI/Abdominal: Normal Bowel Sounds, Soft, Non-Tender Back Exam: Normal Inspection, Full Range of Motion Extremities: Normal Inspection, Normal Range of Motion, Non-Tender Neurological: Alert, Oriented, CN II-XII Intact, Normal Cognition, Normal Gait, Normal Reflexes, No Motor/Sensory Deficits Course - Vital Signs Text/Narrative:: Labs/EKG was discussed with patient EKG-NSR no acute changes compared to 07/28/20 Trop-4.6 ASA 324 mg po x1 NTG 04 mg SL x1 Dilaudid 1 mg IVx1 Calcium gluconate 2 gm IV x2 doses, 1 hour apart Last Recorded V/S: Last Vital Signs Temp Pulse Resp BP 110/72 08/31/20 21:50 Pulse Ox - Orders/Labs/Meds Orders: Active Orders 24 hr Category Date Time Status Patient Status [ADT] Routine ADT 08/31/20 22:32 Active Cardiac Monitoring [RC] CONTINUOUS Care 08/31/20 22:35 Active EKG Documentation Completion [RC] ASDIRECTED Care 08/31/20 21:45 Active Oxygen Therapy [RC] PRN Care 08/31/20 22:32 Active Pulse Oximetry [RC] PRN Care 08/31/20 22:35 Active Up With Assistance [RC] ASDIRECTED Care 08/31/20 22:32 Active VTE/DVT Education [RC] Per Unit Routine Care 08/31/20 22:32 Active Vital Signs [RC] Q4H Care 08/31/20 22:32 Active Heart Healthy Diet [DIET] Diet 09/01/20 Breakfast Ordered BASIC METABOLIC PANEL,BMP [CHEM] AM Lab 09/01/20 05:11 Ordered CORONAVIRUS COVID-19 KIP [MOLEC] Stat Lab 08/31/20 22:20 Received PTH, INTACT Routine Lab 08/31/20 21:55 Received VITAMIN D, 25-HYDROXY Routine Lab 08/31/20 21:55 Received Baclofen [Baclofen] Med 08/31/20 22:41 Ordered 5 mg PO DAILY PRN Calcitriol [Calcitriol] Med 09/01/20 09:00 Ordered 0.5 mcg PO DAILY Calcium Carbonate [Calcium] Med 09/01/20 09:00 Ordered 600 mg PO QID Cefuroxime Axetil [Ceftin] Med 09/01/20 09:00 Ordered 500 mg PO BID Docusate Sodium/Sennosides [Senna Plus] Med 08/31/20 22:32 Ordered 1 tab PO BID PRN Enoxaparin [Lovenox] Med 08/31/20 22:45 Ordered 40 mg SUBCUT Q24H Nitroglycerin [Nitrostat] Med 08/31/20 21:58 Active 0.4 mg SL Q5M PRN Omeprazole [Omeprazole] Med 09/01/20 09:00 Ordered 40 mg PO DAILY Ondansetron [Zofran] Med 08/31/20 22:32 Active 4 mg IV Q4H PRN Simvastatin [Zocor] Med 09/01/20 21:00 Ordered 20 mg PO BEDTIME Sodium Chloride 0.9% [Normal Saline] 1,000 ml Med 08/31/20 22:45 Active IV ASDIRECTED Sodium Chloride 0.9% [Saline Flush] Med 08/31/20 21:55 Active 10 ml FLUSH ASDIRECTED PRN Triamcinolone Acetonide [Triamcinolone Acetonide 0.1% Med 08/31/20 22:41 Ordered Oint] DOSE gm TOP BID PRN Zolpidem [Ambien] Med 08/31/20 22:32 Ordered 5 mg PO BEDTIME PRN buPROPion [Wellbutrin XL] Med 09/01/20 09:00 Ordered 150 mg PO BID Saline Lock Insert [OM.PC] Routine Oth 08/31/20 21:55 Ordered Resuscitation Status Routine Resus Stat 08/31/20 22:32 Ordered EKG 12 Lead [EK] Routine Ther 08/31/20 21:45 Ordered Medication Orders Bupropion HCl (Wellbutrin Xl) 150 mg PO BID ZIGGY Calcium Gluconate (Calcium Gluconate) 2 gm IVPUSH Q6H ZIGGY Stop: 09/01/20 17:01 Enoxaparin Sodium (Lovenox) 40 mg SUBCUT Q24H [facility] Sodium Chloride (Normal Saline) 1,000 mls @ 125 mls/hr IV ASDIRECTED ZIGGY Last Admin: 08/31/20 22:40 Dose: 125 mls/hr Documented by: BRENLOR Nitroglycerin (Nitrostat) 0.4 mg SL Q5M PRN PRN Reason: Chest Pain Last Admin: 08/31/20 21:50 Dose: 0.4 mg Documented by: MADAY Non-Formulary Medication (Omeprazole [Omeprazole]) 40 mg PO DAILY [facility] Non-Formulary Medication (Cefuroxime Axetil [Ceftin]) 500 mg PO BID [facility] Non-Formulary Medication (Calcium Carbonate [Calcium]) 600 mg PO QID [facility] Non-Formulary Medication (Calcitriol [Calcitriol]) 0.5 mcg PO DAILY [facility] Non-Formulary Medication (Baclofen [Baclofen]) 5 mg PO DAILY PRN PRN Reason: Muscle Spasm Ondansetron HCl (Zofran) 4 mg IV Q4H PRN PRN Reason: Nausea/Vomiting Senna/Docusate Sodium (Senna Plus) 1 tab PO BID PRN PRN Reason: Constipation Simvastatin (Zocor) 20 mg PO BEDTIME ZIGGY Sodium Chloride (Saline Flush) 10 ml FLUSH ASDIRECTED PRN PRN Reason: Keep Vein Open Last Admin: 08/31/20 22:09 Dose: 10 ml Documented by: VINOD Triamcinolone Acetonide (Triamcinolone Acetonide 0.1% Oint) gm TOP BID PRN PRN Reason: Itching Zolpidem Tartrate (Ambien) 5 mg PO BEDTIME PRN PRN Reason: Sleep Labs: Laboratory Tests 08/31/20 08/31/20 08/31/20 Range/Units 21:55 21:55 21:55 WBC 7.7 (3.0-10.3) x10-3/uL RBC 4.32 (3.60-5.20) x10(6)uL Hgb 12.4 (11.4-15.5) g/dL Hct 38.0 (34.2-48.2) % MCV 87.9 (76.7-100.5) fL MCH 28.6 (23.9-33.9) pg MCHC 32.6 (31.9-34.8) g/dL RDW 16.2 (12.3-16.5) % Plt Count 296 (151-488) x10(3)uL MPV 7.7 (7.1-12.4) fL Neut % (Auto) 51.0 (30.8-76.2) % Lymph % (Auto) 37.8 (18.4-52.1) % Teller % (Auto) 8.5 (4.4-15.7) % Eos % (Auto) 1.8 (0.6-8.1) % Baso % (Auto) 0.9 (0.2-1.5) % Neut # (Auto) 4.0 (1.5-6.3) x10-3/uL Lymph # (Auto) 2.9 (1.0-4.4) x10-3/uL Teller # (Auto) 0.7 (0.3-1.0) x10-3/uL Eos # (Auto) 0.1 (0.0-0.8) x10-3/uL Baso # (Auto) 0.1 (0.0-0.1) x10-3/uL Sodium 143 (135-145) mmol/L Potassium 3.5 (3.5-5.3) mmol/L Chloride 105 (100-110) mmol/L Carbon Dioxide 27 (21-32) mmol/L BUN 27 H (7-18) mg/dL Creatinine 0.9 (0.55-1.02) mg/dL Est Cr Clr Drug Dosing TNP Estimated GFR (MDRD) > 60 (>60) BUN/Creatinine Ratio 30.0 H (9-20) Glucose 124 H (80-116) mg/dL Calcium 5.9 L* D (8.6-10.2) mg/dL Total Bilirubin 0.3 (0.1-1.3) mg/dL AST 21 D (5-25) IU/L ALT 18 D (12-36) U/L Alkaline Phosphatase 101 (56-112) IU/L Troponin I 4.6 (4.0-60.3) pg/mL Total Protein 7.1 (6.0-8.0) g/dL Albumin 3.6 (3.5-5.2) g/dL Globulin 3.5 g/dL Albumin/Globulin Ratio 1.0 Meds: Medications Generic Name Dose Route Start Last Admin Trade Name Freq PRN Reason Stop Dose Admin Bupropion HCl 150 mg 09/01/20 09:00 Wellbutrin Xl PO BID ZIGGY Calcium Gluconate 2 gm 08/31/20 23:00 Calcium Gluconate IVPUSH 09/01/20 17:01 Q6H ZIGGY Enoxaparin Sodium 40 mg 08/31/20 22:45 Lovenox SUBCUT Q24H ZIGGY Sodium Chloride 1,000 mls @ 125 mls/hr 08/31/20 22:45 08/31/20 22:40 Normal Saline IV 125 mls/hr ASDIRECTED ZIGGY Administration Nitroglycerin 0.4 mg 08/31/20 21:58 08/31/20 21:50 Nitrostat SL 0.4 mg Q5M PRN Administration Chest Pain Non-Formulary Medication 40 mg 09/01/20 09:00 Omeprazole [Omeprazole] PO DAILY [facility] Non-Formulary Medication 500 mg 09/01/20 09:00 Cefuroxime Axetil [Ceftin] PO BID [facility] Non-Formulary Medication 600 mg 09/01/20 09:00 Calcium Carbonate [Calcium] PO QID [facility] Non-Formulary Medication 0.5 mcg 09/01/20 09:00 Calcitriol [Calcitriol] PO DAILY [facility] Non-Formulary Medication 5 mg 08/31/20 22:41 Baclofen [Baclofen] PO DAILY PRN Muscle Spasm Ondansetron HCl 4 mg 08/31/20 22:32 Zofran IV Q4H PRN Nausea/Vomiting Senna/Docusate Sodium 1 tab 08/31/20 22:32 Senna Plus PO BID PRN Constipation Simvastatin 20 mg 09/01/20 21:00 Zocor PO BEDTIME ZIGGY Sodium Chloride 10 ml 08/31/20 21:55 08/31/20 22:09 Saline Flush FLUSH 10 ml ASDIRECTED PRN Administration Keep Vein Open Triamcinolone Acetonide gm 08/31/20 22:41 Triamcinolone Acetonide 0.1% Oint TOP BID PRN Itching Zolpidem Tartrate 5 mg 08/31/20 22:32 Ambien PO BEDTIME PRN Sleep Discontinued Medications Generic Name Dose Route Start Last Admin Trade Name Freq PRN Reason Stop Dose Admin Aspirin 324 mg 08/31/20 21:56 08/31/20 22:15 Aspirin PO 08/31/20 21:57 324 mg ONETIME ONE Administration Calcium Gluconate 2 gm 08/31/20 21:56 08/31/20 22:09 Calcium Gluconate IVPUSH 08/31/20 21:57 2 gm NOW STA Administration Calcium Gluconate 2 gm 08/31/20 22:49 Calcium Gluconate IVPUSH 08/31/20 22:50 NOW STA Calcium Gluconate 2 gm 08/31/20 22:51 Calcium Gluconate IVPUSH 08/31/20 22:52 NOW STA Hydromorphone HCl 1 mg 08/31/20 22:41 Dilaudid IVPUSH 08/31/20 22:42 NOW STA Hydromorphone HCl 1 mg 08/31/20 22:51 Dilaudid IVPUSH 08/31/20 22:52 NOW STA Departure - Departure Time of Disposition: 22:00 Disposition: Refer to Observation Condition: Good Clinical Impression: Hypocalcemia, Hypoparathyroidism, Chest pain Sepsis Event Note (ED) - Focused Exam Vital Signs: Vital Signs BP 08/31/20 21:50 110/72 - My Orders Last 24 Hours: My Active Orders 08/31/20 21:45 EKG Documentation Completion [RC] ASDIRECTED EKG 12 Lead [EK] Routine 08/31/20 21:55 PTH, INTACT Routine VITAMIN D, 25-HYDROXY Routine Sodium Chloride 0.9% [Saline Flush] 10 ml FLUSH ASDIRECTED PRN Saline Lock Insert [OM.PC] Routine 08/31/20 21:58 Nitroglycerin [Nitrostat] 0.4 mg SL Q5M PRN 08/31/20 22:20 CORONAVIRUS COVID-19 KIP [MOLEC] Stat 08/31/20 22:32 Patient Status [ADT] Routine Oxygen Therapy [RC] PRN Up With Assistance [RC] ASDIRECTED VTE/DVT Education [RC] Per Unit Routine Vital Signs [RC] Q4H Docusate Sodium/Sennosides [Senna Plus] 1 tab PO BID PRN Ondansetron [Zofran] 4 mg IV Q4H PRN Zolpidem [Ambien] 5 mg PO BEDTIME PRN Resuscitation Status Routine 08/31/20 22:35 Cardiac Monitoring [RC] CONTINUOUS Pulse Oximetry [RC] PRN 08/31/20 22:41 Baclofen [Baclofen] 5 mg PO DAILY PRN Triamcinolone Acetonide [Triamcinolone Acetonide 0.1% Oint] DOSE gm TOP BID PRN 08/31/20 22:45 Enoxaparin [Lovenox] 40 mg SUBCUT Q24H Sodium Chloride 0.9% [Normal Saline] 1,000 ml IV ASDIRECTED 09/01/20 05:11 BASIC METABOLIC PANEL,BMP [CHEM] AM 09/01/20 Breakfast Heart Healthy Diet [DIET] 09/01/20 09:00 Calcitriol [Calcitriol] 0.5 mcg PO DAILY Calcium Carbonate [Calcium] 600 mg PO QID Cefuroxime Axetil [Ceftin] 500 mg PO BID Omeprazole [Omeprazole] 40 mg PO DAILY buPROPion [Wellbutrin XL] 150 mg PO BID 09/01/20 21:00 Simvastatin [Zocor] 20 mg PO BEDTIME - Assessment/Plan Last 24 Hours: My Active Orders 08/31/20 21:45 EKG Documentation Completion [RC] ASDIRECTED EKG 12 Lead [EK] Routine 08/31/20 21:55 PTH, INTACT Routine VITAMIN D, 25-HYDROXY Routine Sodium Chloride 0.9% [Saline Flush] 10 ml FLUSH ASDIRECTED PRN Saline Lock Insert [OM.PC] Routine 08/31/20 21:58 Nitroglycerin [Nitrostat] 0.4 mg SL Q5M PRN 08/31/20 22:20 CORONAVIRUS COVID-19 KIP [MOLEC] Stat 08/31/20 22:32 Patient Status [ADT] Routine Oxygen Therapy [RC] PRN Up With Assistance [RC] ASDIRECTED VTE/DVT Education [RC] Per Unit Routine Vital Signs [RC] Q4H Docusate Sodium/Sennosides [Senna Plus] 1 tab PO BID PRN Ondansetron [Zofran] 4 mg IV Q4H PRN Zolpidem [Ambien] 5 mg PO BEDTIME PRN Resuscitation Status Routine 08/31/20 22:35 Cardiac Monitoring [RC] CONTINUOUS Pulse Oximetry [RC] PRN 08/31/20 22:41 Baclofen [Baclofen] 5 mg PO DAILY PRN Triamcinolone Acetonide [Triamcinolone Acetonide 0.1% Oint] DOSE gm TOP BID PRN 08/31/20 22:45 Enoxaparin [Lovenox] 40 mg SUBCUT Q24H Sodium Chloride 0.9% [Normal Saline] 1,000 ml IV ASDIRECTED 09/01/20 05:11 BASIC METABOLIC PANEL,BMP [CHEM] AM 09/01/20 Breakfast Heart Healthy Diet [DIET] 09/01/20 09:00 Calcitriol [Calcitriol] 0.5 mcg PO DAILY Calcium Carbonate [Calcium] 600 mg PO QID Cefuroxime Axetil [Ceftin] 500 mg PO BID Omeprazole [Omeprazole] 40 mg PO DAILY buPROPion [Wellbutrin XL] 150 mg PO BID 09/01/20 21:00 Simvastatin [Zocor] 20 mg PO BEDTIME
[2020-08-31] MEDS ORDERED: Ketorolac 30 MG/ML SDV IVPUSH STA (23:25)
[2020-09-01] MEDS: Nystatin Topical Powder 15 GM Bottle TOP SCH ×2 (04:38→11:34)
[2020-09-01] MEDS: Calcium Gluconate 10% 1 GM/10 ML SDV IVPUSH SCH ×2 (04:51→11:35)
[2020-09-01] MEDS: Sodium Chloride 0.9% 10 ML Syringe FLUSH PRN (04:52)
[2020-09-01] MEDS ORDERED: Ketorolac 30 MG/ML SDV IVPUSH PRN (07:30)
[2020-09-01] MEDS ORDERED: CALCITRIOL 0.5 MCG PO SCH (09:00)
[2020-09-01] MEDS ORDERED: buPROPion 150 MG Tab.ER PO SCH (09:00)
[2020-09-01] MEDS ORDERED: CALCIUM CARBONATE 600 MG PO SCH (09:00)
[2020-09-01] MEDS ORDERED: CEFUROXIME AXETIL 500 MG PO SCH (09:00)
[2020-09-01] MEDS ORDERED: Non-Formulary Medication 1 Each (Omeprazole [Omeprazole] 40 MG) PO SCH (09:00)
[2020-09-01] MEDS ORDERED: Nystatin Topical Powder 15 GM Bottle ONE (11:19)
--- NOTE | 2020-09-01 13:29 | PCM.PN ---
- General Info Date of Service: 09/01/20 Subjective Update: Patient states that she feels well today. She states that she has had these episodes in the past but she continues to take her medications as directed and follow-up with endocrinology as directed. She states that she was scheduled for parathyroid surgery before she moved to this area but was unable to complete the surgery. She states that these episodes have decreased in frequency. Functional Status: Reports: Pain Controlled, Tolerating Diet, Ambulating, Urinating - Review of Systems General: Reports: No Symptoms HEENT: Reports: No Symptoms, Other (Visual disturbance/cataract/double visionchronic) Pulmonary: Reports: No Symptoms Cardiovascular: Reports: No Symptoms Gastrointestinal: Reports: No Symptoms Genitourinary: Reports: No Symptoms Musculoskeletal: Reports: No Symptoms Skin: Reports: No Symptoms Neurological: Reports: No Symptoms Psychiatric: Reports: No Symptoms - Patient Data Vitals - Most Recent: Last Vital Signs Temp 36.6 C 09/01/20 09:23 Pulse 73 09/01/20 09:23 Resp 18 09/01/20 09:23 BP 111/59 L 09/01/20 09:23 Pulse Ox 98 09/01/20 09:23 Weight - Most Recent: 78.925 kg Lab Results Last 24 Hours: Laboratory Results - last 24 hr 08/31/20 08/31/20 08/31/20 Range/Units 21:55 21:55 21:55 WBC 7.7 (3.0-10.3) x10-3/uL RBC 4.32 (3.60-5.20) x10(6)uL Hgb 12.4 (11.4-15.5) g/dL Hct 38.0 (34.2-48.2) % MCV 87.9 (76.7-100.5) fL MCH 28.6 (23.9-33.9) pg MCHC 32.6 (31.9-34.8) g/dL RDW 16.2 (12.3-16.5) % Plt Count 296 (151-488) x10(3)uL MPV 7.7 (7.1-12.4) fL Neut % (Auto) 51.0 (30.8-76.2) % Lymph % (Auto) 37.8 (18.4-52.1) % Deuel % (Auto) 8.5 (4.4-15.7) % Eos % (Auto) 1.8 (0.6-8.1) % Baso % (Auto) 0.9 (0.2-1.5) % Neut # (Auto) 4.0 (1.5-6.3) x10-3/uL Lymph # (Auto) 2.9 (1.0-4.4) x10-3/uL Deuel # (Auto) 0.7 (0.3-1.0) x10-3/uL Eos # (Auto) 0.1 (0.0-0.8) x10-3/uL Baso # (Auto) 0.1 (0.0-0.1) x10-3/uL Sodium 143 (135-145) mmol/L Potassium 3.5 (3.5-5.3) mmol/L Chloride 105 (100-110) mmol/L Carbon Dioxide 27 (21-32) mmol/L BUN 27 H (7-18) mg/dL Creatinine 0.9 (0.55-1.02) mg/dL Est Cr Clr Drug Dosing TNP Estimated GFR (MDRD) > 60 (>60) BUN/Creatinine Ratio 30.0 H (9-20) Glucose 124 H (80-116) mg/dL Calcium 5.9 L* D (8.6-10.2) mg/dL Total Bilirubin 0.3 (0.1-1.3) mg/dL AST 21 D (5-25) IU/L ALT 18 D (12-36) U/L Alkaline Phosphatase 101 (56-112) IU/L Troponin I 4.6 (4.0-60.3) pg/mL Total Protein 7.1 (6.0-8.0) g/dL Albumin 3.6 (3.5-5.2) g/dL Globulin 3.5 g/dL Albumin/Globulin Ratio 1.0 SARS-CoV-2 RNA (KIP) (NEGATIVE) 08/31/20 09/01/20 09/01/20 Range/Units 22:20 06:25 06:25 WBC (3.0-10.3) x10-3/uL RBC (3.60-5.20) x10(6)uL Hgb (11.4-15.5) g/dL Hct (34.2-48.2) % MCV (76.7-100.5) fL MCH (23.9-33.9) pg MCHC (31.9-34.8) g/dL RDW (12.3-16.5) % Plt Count (151-488) x10(3)uL MPV (7.1-12.4) fL Neut % (Auto) (30.8-76.2) % Lymph % (Auto) (18.4-52.1) % Deuel % (Auto) (4.4-15.7) % Eos % (Auto) (0.6-8.1) % Baso % (Auto) (0.2-1.5) % Neut # (Auto) (1.5-6.3) x10-3/uL Lymph # (Auto) (1.0-4.4) x10-3/uL Deuel # (Auto) (0.3-1.0) x10-3/uL Eos # (Auto) (0.0-0.8) x10-3/uL Baso # (Auto) (0.0-0.1) x10-3/uL Sodium 144 (135-145) mmol/L Potassium 3.6 (3.5-5.3) mmol/L Chloride 106 (100-110) mmol/L Carbon Dioxide 25 (21-32) mmol/L BUN 24 H (7-18) mg/dL Creatinine 0.8 (0.55-1.02) mg/dL Est Cr Clr Drug Dosing 81.08 Estimated GFR (MDRD) > 60 (>60) BUN/Creatinine Ratio 30.0 H (9-20) Glucose 110 (80-116) mg/dL Calcium 8.2 L D (8.6-10.2) mg/dL Total Bilirubin (0.1-1.3) mg/dL AST (5-25) IU/L ALT (12-36) U/L Alkaline Phosphatase (56-112) IU/L Troponin I 5.5 (4.0-60.3) pg/mL Total Protein (6.0-8.0) g/dL Albumin (3.5-5.2) g/dL Globulin g/dL Albumin/Globulin Ratio SARS-CoV-2 RNA (KIP) Negative (NEGATIVE) 09/01/20 Range/Units 12:05 WBC (3.0-10.3) x10-3/uL RBC (3.60-5.20) x10(6)uL Hgb (11.4-15.5) g/dL Hct (34.2-48.2) % MCV (76.7-100.5) fL MCH (23.9-33.9) pg MCHC (31.9-34.8) g/dL RDW (12.3-16.5) % Plt Count (151-488) x10(3)uL MPV (7.1-12.4) fL Neut % (Auto) (30.8-76.2) % Lymph % (Auto) (18.4-52.1) % Deuel % (Auto) (4.4-15.7) % Eos % (Auto) (0.6-8.1) % Baso % (Auto) (0.2-1.5) % Neut # (Auto) (1.5-6.3) x10-3/uL Lymph # (Auto) (1.0-4.4) x10-3/uL Deuel # (Auto) (0.3-1.0) x10-3/uL Eos # (Auto) (0.0-0.8) x10-3/uL Baso # (Auto) (0.0-0.1) x10-3/uL Sodium (135-145) mmol/L Potassium (3.5-5.3) mmol/L Chloride (100-110) mmol/L Carbon Dioxide (21-32) mmol/L BUN (7-18) mg/dL Creatinine (0.55-1.02) mg/dL Est Cr Clr Drug Dosing Estimated GFR (MDRD) (>60) BUN/Creatinine Ratio (9-20) Glucose (80-116) mg/dL Calcium (8.6-10.2) mg/dL Total Bilirubin (0.1-1.3) mg/dL AST (5-25) IU/L ALT (12-36) U/L Alkaline Phosphatase (56-112) IU/L Troponin I 5.0 (4.0-60.3) pg/mL Total Protein (6.0-8.0) g/dL Albumin (3.5-5.2) g/dL Globulin g/dL Albumin/Globulin Ratio SARS-CoV-2 RNA (KIP) (NEGATIVE) Med Orders - Current: Current Medications Bupropion HCl (Wellbutrin Xl) 150 mg PO BID [facility] Calcium Gluconate (Calcium Gluconate) 2 gm IVPUSH Q6H [facility] Stop: 09/01/20 17:01 Last Admin: 09/01/20 11:35 Dose: 2 gm Documented by: Enoxaparin Sodium (Lovenox) 40 mg SUBCUT Q24H [facility] Last Admin: 08/31/20 23:17 Dose: 40 mg Documented by: Sodium Chloride (Normal Saline) 1,000 mls @ 125 mls/hr IV ASDIRECTED [facility] Last Admin: 08/31/20 22:40 Dose: 125 mls/hr Documented by: Ketorolac Tromethamine (Toradol) 30 mg IVPUSH Q8H PRN PRN Reason: Pain Stop: 09/05/20 07:31 Nitroglycerin (Nitrostat) 0.4 mg SL Q5M PRN PRN Reason: Chest Pain Last Admin: 08/31/20 21:50 Dose: 0.4 mg Documented by: Non-Formulary Medication (Omeprazole [Omeprazole]) 40 mg PO DAILY [facility] Non-Formulary Medication (Cefuroxime Axetil [Ceftin]) 500 mg PO BID [facility] Non-Formulary Medication (Calcium Carbonate [Calcium]) 600 mg PO QID [facility] Non-Formulary Medication (Calcitriol [Calcitriol]) 0.5 mcg PO DAILY [facility] Non-Formulary Medication (Baclofen [Baclofen]) 5 mg PO DAILY PRN PRN Reason: Muscle Spasm Nystatin (Nystop) 1 gm TOP BID [facility] Last Admin: 09/01/20 11:34 Dose: 1 applic Documented by: Ondansetron HCl (Zofran) 4 mg IV Q4H PRN PRN Reason: Nausea/Vomiting Senna/Docusate Sodium (Senna Plus) 1 tab PO BID PRN PRN Reason: Constipation Simvastatin (Zocor) 20 mg PO BEDTIME [facility] Sodium Chloride (Saline Flush) 10 ml FLUSH ASDIRECTED PRN PRN Reason: Keep Vein Open Last Admin: 09/01/20 04:52 Dose: 10 ml Documented by: Triamcinolone Acetonide (Triamcinolone Acetonide 0.1% Oint) gm TOP BID PRN PRN Reason: Itching Zolpidem Tartrate (Ambien) 5 mg PO BEDTIME PRN PRN Reason: Sleep Discontinued Medications Aspirin (Aspirin) 324 mg PO ONETIME ONE Stop: 08/31/20 21:57 Last Admin: 08/31/20 22:15 Dose: 324 mg Documented by: Calcium Gluconate (Calcium Gluconate) 2 gm IVPUSH NOW STA Stop: 08/31/20 21:57 Last Admin: 08/31/20 22:09 Dose: 2 gm Documented by: Calcium Gluconate (Calcium Gluconate) 2 gm IVPUSH NOW STA Stop: 08/31/20 22:50 Last Admin: 08/31/20 23:27 Dose: Not Given Documented by: Calcium Gluconate (Calcium Gluconate) 2 gm IVPUSH NOW STA Stop: 08/31/20 22:52 Last Admin: 08/31/20 23:27 Dose: Not Given Documented by: Hydromorphone HCl (Dilaudid) 1 mg IVPUSH NOW STA Stop: 08/31/20 22:42 Last Admin: 08/31/20 23:27 Dose: Not Given Documented by: Hydromorphone HCl (Dilaudid) 1 mg IVPUSH NOW STA Stop: 08/31/20 22:52 Last Admin: 08/31/20 22:59 Dose: 1 mg Documented by: Ketorolac Tromethamine (Toradol) 30 mg IVPUSH NOW STA Stop: 08/31/20 23:26 Last Admin: 08/31/20 23:29 Dose: 30 mg Documented by: Nystatin (Nystop) Confirm Administered Dose 15 gm .ROUTE .STK-MED ONE Stop: 09/01/20 11:20 Last Admin: 09/01/20 11:37 Dose: Not Given Documented by: - Exam Quality Assessment: Supplemental Oxygen, DVT Prophylaxis General: Alert, Oriented, Cooperative, No Acute Distress HEENT: EOMI, Other (Bilateral horizontal nystagmus) Neck: Thyromegaly Lungs: Clear to Auscultation, Normal Respiratory Effort Cardiovascular: Regular Rate, Regular Rhythm, Murmurs GI/Abdominal Exam: Normal Bowel Sounds, Soft, Non-Tender Back Exam: Normal Inspection Extremities: Normal Inspection Skin: Warm, Dry Neurological: No New Focal Deficit Psy/Mental Status: Alert, Normal Affect, Normal Mood Sepsis Event Note - Evaluation Sepsis Screening Result: No Definite Risk - Focused Exam Vital Signs: Vital Signs Temp Pulse Resp BP Pulse Ox 09/01/20 09:23 36.6 C 73 18 111/59 L 98 09/01/20 05:00 36.5 C 64 18 133/69 100 - Problem List & Annotations (1) Chest pain SNOMED Code(s): 15456808 Code(s): R07.9 - CHEST PAIN, UNSPECIFIED Status: Acute Priority: High Current Visit: Yes Annotation/Comment:: Resolved (2) Hypocalcemia SNOMED Code(s): 2664989 Code(s): E83.51 - HYPOCALCEMIA Status: Acute Priority: High Current Visit: Yes Annotation/Comment:: 5.7 in ER, 6.0 today, continue Telemetry. Calcium gluconate 1 g IV q6h Renal panel in am with magnesium. Magnesium 1.9 in ER. 8.2 today, 09/01/2020 (3) Hypoparathyroidism SNOMED Code(s): 33478610 Code(s): E20.9 - HYPOPARATHYROIDISM, UNSPECIFIED Status: Acute Current Visit: Yes Annotation/Comment:: PTH, Vitamin D pending. - Problem List Review Problem List Initiated/Reviewed/Updated: Yes - My Orders Last 24 Hours: My Active Orders 09/01/20 13:23 Ready for Discharge [RC] PER UNIT ROUTINE - Plan Plan:: Discharge patient to home/self-care. Continue home medications. No new medications. Patient encouraged to follow-up with her primary care physician. Patient encouraged to consult with her primary care physician regarding eye exam/treatment and encouraged not to drive until her visual problems are resolved.
[2020-09-01] MEDS ORDERED: Simvastatin 20 MG Tab PO SCH (21:00)
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
== END 2020-09-01 14:15 | disposition home or self-care (01) ==
LOC: FB.ED 21:35 → FB.MS 22:47
PROVIDERS: ADMIT Emergency Medicine; ATTEND Family Medicine
DX: R07.9 Chest pain, unspecified (principal); R20.0 Anesthesia of skin; E20.9 Hypoparathyroidism, unspecified; I50.9 Heart failure, unspecified; J44.9 Chronic obstructive pulmonary disease, unspecified; F17.210 Nicotine dependence, cigarettes, uncomplicated; Z20.822 Contact with and (suspected) exposure to COVID-19; Z86.73 Personal history of transient ischemic attack (TIA), and cerebral infarction without residual deficits; Z79.899 Other long term (current) drug therapy
CPT/HCPCS: 36415; 80048; 80053; 82306; 83970; 84484; 85025; 93005; 96372; 96374; 96375; 96376; 99285; 99285-25; A9270-GY; G0378; J0610; J1170; J1650; J1885; J7030; U0002

== ENCOUNTER 2020-09-10 10:28 | Emergency (ER) | payer MEDICAID ==
[2020-09-10] MEDS ORDERED: Sodium Chloride 0.9% 10 ML Syringe FLUSH PRN (10:33)
[2020-09-10] MEDS ORDERED: Magnesium Sulfate/Water 2 GM/50 ML Premix Bag IV ONE (10:52)
[2020-09-10] MEDS ORDERED: Ketorolac 30 MG/ML SDV IVPUSH ONE (10:54)
[2020-09-10] MEDS ORDERED: Magnesium Sulfate/Water 50 ML IV ONE (11:00)
[2020-09-10] MEDS ORDERED: Calcium Gluconate 10% 1 GM/10 ML SDV IVPUSH ONE (11:21)
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
== END 2020-09-10 12:36 | disposition home or self-care (01) ==
LOC: FB.ED 10:28
DX: R07.89 Other chest pain (principal); E83.51 Hypocalcemia; E83.42 Hypomagnesemia; J44.9 Chronic obstructive pulmonary disease, unspecified; K21.9 Gastro-esophageal reflux disease without esophagitis; I50.9 Heart failure, unspecified; M19.90 Unspecified osteoarthritis, unspecified site; Z86.73 Personal history of transient ischemic attack (TIA), and cerebral infarction without residual deficits; Z72.0 Tobacco use; Z79.899 Other long term (current) drug therapy; Z79.82 Long term (current) use of aspirin
CPT/HCPCS: 36415; 80053; 83735; 84484; 85025; 93005; 96365; 96375; 99285; J0610; J1885; J3475

== ENCOUNTER 2020-09-19 21:33 | Emergency (ER) | payer MEDICAID, SELFPAY ==
[2020-09-19] MEDS ORDERED: Calcium Gluconate 10% 1 GM/10 ML SDV IVPUSH STA ×2 (22:13→22:37)
[2020-09-19] MEDS ORDERED: Potassium Chloride 20 MEQ Tab.ER PO STA (22:18)
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
[2020-09-19] MEDS ORDERED: Magnesium Sulfate/Water 2 GM/50 ML BAG IV SCH (22:45)
[2020-09-20] MEDS ORDERED: Potassium Chloride 20 MEQ Tab.ER PO ONE ×2 (03:00→06:00)
[2020-09-20] MEDS ORDERED: Calcium Gluconate 10% 1 GM/10 ML SDV IVPUSH ONE ×2 (03:00→06:00)
== END 2020-09-20 07:25 | disposition home or self-care (01) ==
LOC: FB.ED 21:33
DX: E87.6 Hypokalemia (principal); E83.42 Hypomagnesemia; E83.51 Hypocalcemia; I50.9 Heart failure, unspecified; J44.9 Chronic obstructive pulmonary disease, unspecified; K21.9 Gastro-esophageal reflux disease without esophagitis; Z86.73 Personal history of transient ischemic attack (TIA), and cerebral infarction without residual deficits; Z79.82 Long term (current) use of aspirin; Z79.899 Other long term (current) drug therapy; Z72.0 Tobacco use
CPT/HCPCS: 36415; 80048; 80053; 83735; 84484; 85025; 93005; 96365; 96366; 96367; 96376; 99285-25; A9270-GY; J0610; J3475

== ENCOUNTER 2020-10-02 13:01 | Emergency (ER) | payer MEDICAID ==
[2020-10-02] MEDS ORDERED: Sodium Chloride 0.9% 10 ML Syringe FLUSH PRN (13:12)
[2020-10-02] MEDS ORDERED: Calcium Gluconate 10% 1 GM/10 ML SDV IV STA (14:08)
[2020-10-02] MEDS ORDERED: Calcium Gluconate 10% 1 GM/10 ML SDV IVPUSH ONE (16:30)
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
== END 2020-10-02 17:35 | disposition home or self-care (01) ==
LOC: FB.ED 13:01
DX: E83.51 Hypocalcemia (principal); I50.9 Heart failure, unspecified; J44.9 Chronic obstructive pulmonary disease, unspecified; K21.9 Gastro-esophageal reflux disease without esophagitis; M06.9 Rheumatoid arthritis, unspecified; Z79.82 Long term (current) use of aspirin; Z86.73 Personal history of transient ischemic attack (TIA), and cerebral infarction without residual deficits; Z79.899 Other long term (current) drug therapy; Z72.0 Tobacco use
CPT/HCPCS: 36415; 80048; 80053; 83735; 84484; 85025; 93005; 96374; 96376; 99283; 99285-25; J0610

== ENCOUNTER 2021-01-22 04:13 | Emergency (ER) | payer MEDICAID ==
[2021-01-22] MEDS ORDERED: Aspirin 81 MG Tab.Chew PO ONE (04:35)
[2021-01-22] MEDS ORDERED: Calcium Gluconate 10% 1 GM/10 ML SDV IVPUSH STA (05:03)
[2021-01-22] MEDS ORDERED: methylPREDNISolone Sodium Succinate 125 MG/2 ML SDV IVPUSH STA (05:12)
[2021-01-22] MEDS ORDERED: Magnesium Sulfate/Water 2 GM/50 ML BAG ONE (05:24)
[2021-01-22] MEDS: Sodium Chloride 0.9% 10 ML Syringe FLUSH PRN ×2 (05:43→08:34)
[2021-01-22] MEDS ORDERED: Magnesium Sulfate/Water 2 GM in Premix Bag 1 BAG IV ONE (05:58)
[2021-01-22] MEDS ORDERED: Potassium Chloride 20 MEQ Tab.ER PO STA (06:12)
[2021-01-22] MEDS ORDERED: Potassium Chloride 20 MEQ Tab.ER PO ONE (08:00)
[2021-01-22] MEDS ORDERED: Calcium Gluconate 10% 1 GM/10 ML SDV IVPUSH ONE ×2 (08:00→10:00)
[2021-01-22] MEDS: Magnesium Sulfate/Water 2 GM in Premix Bag 1 BAG IV SCH ×2 (08:34→11:32)
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
== END 2021-01-22 14:50 | disposition home or self-care (01) ==
LOC: FB.ED 04:13
DX: R07.9 Chest pain, unspecified (principal); E87.6 Hypokalemia; E83.42 Hypomagnesemia; J44.9 Chronic obstructive pulmonary disease, unspecified; K21.9 Gastro-esophageal reflux disease without esophagitis; Z72.0 Tobacco use; Z79.82 Long term (current) use of aspirin
CPT/HCPCS: 36415; 80048; 80053; 83735; 84484; 85025; 93005; 96365; 96366; 96375; 96376; 99285-25; A9270-GY; J0610; J2930; J3475

== ENCOUNTER 2021-01-30 15:53 | Emergency (ER) | payer MEDICAID ==
[2021-01-30] MEDS ORDERED: Sodium Chloride 0.9% 10 ML Syringe FLUSH PRN (16:03)
[2021-01-30] MEDS: Morphine 2 MG/ML SYRINGE IVPUSH STA (16:47)
[2021-01-30] MEDS: Aspirin 81 MG Tab.Chew PO STA (16:47)
[2021-01-30] MEDS: Calcium Gluconate 10% 1 GM/10 ML SDV IVPUSH STA ×2 (16:50→22:25)
[2021-01-30] MEDS: Magnesium Sulfate/Water 2 GM/50 ML BAG IV ONE (17:08)
[2021-01-30] MEDS: Sodium Chloride 0.9% 1,000 ML IV SCH (18:08)
--- NOTE | 2021-01-30 18:27 | CR ---
INDICATION: Chest pain. CHEST ONE VIEW: An AP upright portable view of the chest 01/30/21 - no comparisons. Overlying EKG leads are noted. The heart is normal in size and shape. Mediastinum is unremarkable. Bony structures appear to be grossly intact. An active infiltrate or effusion was not identified. IMPRESSION: No acute process. MTDD
[2021-01-30] MEDS: Calcium Gluconate 10% 1 GM/10 ML SDV IVPUSH ONE ×2 (19:10→21:00)
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
== END 2021-01-30 23:35 | disposition home or self-care (01) ==
LOC: FB.ED 15:53
DX: R07.9 Chest pain, unspecified (principal); E83.42 Hypomagnesemia; E83.51 Hypocalcemia; J44.9 Chronic obstructive pulmonary disease, unspecified; Z72.0 Tobacco use
CPT/HCPCS: 36415; 71045; 80048; 80053; 83735; 84484; 85025; 93005; 96365; 96368; 96375; 96376; 99285; A9270; J0610; J2270; J3475; J7030

== ENCOUNTER 2021-02-06 13:58 | Emergency (ER) | payer MEDICAID ==
[2021-02-06] MEDS ORDERED: Sodium Chloride 0.9% 10 ML Syringe FLUSH PRN (14:16)
[2021-02-06] MEDS ORDERED: Calcium Gluconate 10% 1 GM/10 ML SDV IVPUSH ONE ×7 (14:16→23:00)
[2021-02-06] MEDS ORDERED: Sodium Chloride 0.9% 1,000 ML IV SCH (14:30)
[2021-02-06] MEDS ORDERED: Morphine 2 MG/ML SYRINGE IVPUSH STA (15:00)
[2021-02-06] MEDS ORDERED: Aspirin 81 MG Tab.Chew PO STA (15:01)
[2021-02-06] MEDS ORDERED: Magnesium Sulfate/Water 2 GM/50 ML BAG IV ONE (15:30)
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
== END 2021-02-06 23:20 | disposition home or self-care (01) ==
LOC: FB.ED 13:58
DX: R07.9 Chest pain, unspecified (principal); E83.51 Hypocalcemia; I50.9 Heart failure, unspecified; J44.9 Chronic obstructive pulmonary disease, unspecified; Z72.0 Tobacco use; Z79.899 Other long term (current) drug therapy
CPT/HCPCS: 36415; 80048; 80053; 83735; 84484; 85025; 93005; 96365; 96367; 96375; 96376; 99285; A9270; J0610; J2270; J3475; J7030

== ENCOUNTER 2021-02-13 16:25 | Emergency (ER) | payer MEDICAID ==
[2021-02-13] MEDS ORDERED: Sodium Chloride 0.9% 10 ML Syringe FLUSH PRN (16:51)
[2021-02-13] MEDS ORDERED: Calcium Gluconate 10% 1 GM/10 ML SDV IVPUSH STA (16:52)
[2021-02-13] MEDS ORDERED: Ketorolac 30 MG/ML SDV IVPUSH STA (17:12)
[2021-02-13] MEDS ORDERED: Aspirin 81 MG Tab.Chew PO STA (17:12)
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
[2021-02-13] MEDS ORDERED: Magnesium Sulfate/Water 2 GM/50 ML BAG ONE (18:06)
[2021-02-13] MEDS ORDERED: Sodium Chloride 0.9% 1,000 ML IV SCH (19:00)
[2021-02-13] MEDS ORDERED: Calcium Gluconate 10% 1 GM/10 ML SDV IVPUSH ONE ×3 (19:00→23:00)
== END 2021-02-14 00:10 | disposition home or self-care (01) ==
LOC: FB.ED 16:25
DX: R07.89 Other chest pain (principal); E83.51 Hypocalcemia; E03.9 Hypothyroidism, unspecified; J44.9 Chronic obstructive pulmonary disease, unspecified
CPT/HCPCS: 36415; 80048; 80053; 83735; 84484; 85025; 93005; 96365; 96367; 96375; 96376; 99285; A9270; J0610; J1885; J3475; J7030

== ENCOUNTER 2021-03-27 10:06 | Emergency (ER) | payer MEDICAID ==
[2021-03-27] MEDS ORDERED: Sodium Chloride 0.9% 10 ML Syringe FLUSH PRN (10:22)
[2021-03-27] MEDS ORDERED: Aspirin 81 MG Tab.Chew PO STA (10:24)
[2021-03-27] MEDS ORDERED: Calcium Gluconate 10% 1 GM/10 ML SDV IVPUSH STA (10:24)
[2021-03-27] MEDS ORDERED: Morphine 4 MG/ML VIAL IVPUSH STA (10:37)
[2021-03-27] MEDS ORDERED: Ketorolac 30 MG/ML SDV IVPUSH STA (10:37)
[2021-03-27] MEDS ORDERED: cefTRIAXone 2 GM Vial IVPUSH STA (10:37)
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
[2021-03-27] MEDS ORDERED: Potassium Chloride 20 MEQ Tab.ER PO STA (11:30)
[2021-03-27] MEDS ORDERED: Magnesium Sulfate/Water 50 ML IV ONE (12:00)
== END 2021-03-27 13:51 | disposition home or self-care (01) ==
LOC: FB.ED 10:06
DX: R07.89 Other chest pain (principal); L03.90 Cellulitis, unspecified; E83.42 Hypomagnesemia; E83.51 Hypocalcemia; I50.9 Heart failure, unspecified; J44.9 Chronic obstructive pulmonary disease, unspecified; Z86.73 Personal history of transient ischemic attack (TIA), and cerebral infarction without residual deficits
CPT/HCPCS: 36415; 80053; 83735; 84484; 85025; 93005; 96365; 96375; 99285; A9270; J0610; J0696; J1885; J2270; J3475

== ENCOUNTER 2021-05-08 15:25 | Emergency (ER) | payer MEDICAID ==
[2021-05-08] MEDS ORDERED: Calcium Gluconate 10% 1 GM/10 ML SDV IVPUSH STA (16:41)
[2021-05-08] MEDS ORDERED: Sodium Chloride 0.9% 10 ML Syringe FLUSH PRN (16:41)
[2021-05-08] MEDS ORDERED: Potassium Chloride 20 MEQ Tab.ER PO ONE (16:42)
[2021-05-08] MEDS ORDERED: cefTRIAXone 1 GM in Sodium Chloride 0.9% 50 ML IV ONE (16:44)
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
== END 2021-05-08 17:52 | disposition home or self-care (01) ==
LOC: FB.ED 15:25
DX: B37.2 Candidiasis of skin and nail (principal); E87.6 Hypokalemia; E83.51 Hypocalcemia; I50.9 Heart failure, unspecified; J44.9 Chronic obstructive pulmonary disease, unspecified; E03.9 Hypothyroidism, unspecified; Z86.73 Personal history of transient ischemic attack (TIA), and cerebral infarction without residual deficits
CPT/HCPCS: 36415; 80053; 83735; 84484; 85025; 96374; 96375; 99284-25; A9270-GY; J0610; J0696

== ENCOUNTER 2021-05-17 16:20 | Observation (INO) | payer MEDICAID, OTHER ==
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
[2021-05-17] MEDS ORDERED: Ketorolac 30 MG/ML SDV IVPUSH ONE (18:30)
--- NOTE | 2021-05-17 21:16 | ER ---
DATE SEEN: 05/17/2021 CHIEF COMPLAINT: Chest pain. HISTORY OF PRESENT ILLNESS: Carmen is a 56-year-old female. She complains of intermittent pain but sustained on the left side of the chest with some numbness and heaviness of the left arm. These have been recurrent symptoms for a while, but today they have been more persistent and continuous. She rates the pain to be anywhere between 7 to 10/10. She just recently moved to the area, but I have known her since September. She has a history of palpitations, anxiety, hypoparathyroidism, and chronic CHF. In September, she had a nuclear stress test that was unremarkable at [facility]. However, she has never really seen a viticulture teacher. SOCIAL HISTORY: A smoker. MEDICATIONS: Reviewed. REVIEW OF SYSTEMS: All other systems negative. PHYSICAL EXAMINATION: GENERAL: She is not in any distress. VITAL SIGNS: She exhibited normal vital signs, oxygenation 98%. ENT: Normal. MENTAL STATUS: She is alert and euthymic in affect. CARDIOVASCULAR: Normal. RESPIRATORY: Normal. IMPRESSION: Atypical chest pain. PLAN: She had a D-dimer, troponin x2 that were negative. Chest x-ray was unremarkable. EKG was reviewed personally and was normal. I will admit her for observation and rule out, and control her pain. /[id number] [address]
[2021-05-17] MEDS ORDERED: Morphine 2 MG/ML SYRINGE IVPUSH PRN (21:21)
[2021-05-17] MEDS ORDERED: Nicotine 21 MG/24 Hr Patch TRDERM ONE (22:51)
[2021-05-18] MEDS ORDERED: Acetaminophen 500 MG Tab PO SCH (09:00)
[2021-05-18] MEDS ORDERED: Calcitriol 0.25 MCG Cap PO SCH (09:15)
[2021-05-18] MEDS ORDERED: predniSONE 10 MG Tab PO SCH (11:45)
[2021-05-18] MEDS ORDERED: Camphor/Menthol 0.5-0.5% Lotion 222 ML Bottle TOP PRN (11:45)
[2021-05-18] MEDS ORDERED: Ibuprofen 200 MG Tab PO SCH (12:00)
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
--- NOTE | 2021-05-19 12:26 | CR ---
CHEST ONE VIEW INDICATION: Cough, chest pain just left of center, left arm gets heavy. FINDINGS: An AP portable upright view of the chest 05/17/21 was compared with 01/30/21 and revealed the heart to be slightly increased in prominence but not grossly enlarged. The aorta is slightly tortuous with minimal calcification in the arch. Overlying EKG leads are noted. An active infiltrate or effusion was not identified. IMPRESSION: 1. No acute process. 2. Probable ASHD. MTDD
== END 2021-05-18 12:40 | disposition home or self-care (01) ==
LOC: FB.ED 16:20 → FB.MS 22:43
PROVIDERS: ADMIT Family Medicine; ATTEND Family Medicine
DX: R07.89 Other chest pain (principal); L30.9 Dermatitis, unspecified; E83.51 Hypocalcemia; E20.9 Hypoparathyroidism, unspecified; I50.9 Heart failure, unspecified; J44.9 Chronic obstructive pulmonary disease, unspecified; K21.9 Gastro-esophageal reflux disease without esophagitis; E87.6 Hypokalemia; F17.210 Nicotine dependence, cigarettes, uncomplicated; Z79.899 Other long term (current) drug therapy; Z98.890 Other specified postprocedural states; Z20.822 Contact with and (suspected) exposure to COVID-19
CPT/HCPCS: 36415; 71045; 80048; 80053; 83735; 84484; 85025; 85379; 90686; 93005; 96374; 96375; 99285-25; A9270-GY; G0008; G0378; J1885; J2270; J7512; U0002

== ENCOUNTER 2021-06-22 00:13 | Emergency (ER) | payer MEDICAID ==
[2021-06-22] MEDS ORDERED: Ketorolac 30 MG/ML SDV IM ONE (00:38)
[2021-06-22] MEDS ORDERED: hydrOXYzine HCl 50 MG/ML SDV IM ONE (00:38)
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
== END 2021-06-22 01:55 | disposition home or self-care (01) ==
LOC: FB.ED 00:13
DX: R07.89 Other chest pain (principal); I50.9 Heart failure, unspecified; J44.9 Chronic obstructive pulmonary disease, unspecified; F17.200 Nicotine dependence, unspecified, uncomplicated
CPT/HCPCS: 36415; 80048; 84484; 93005; 96372; 99285; J1885; J3410

== ENCOUNTER 2021-06-28 16:21 | Observation (INO) | payer MEDICAID ==
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
[2021-06-28] MEDS ORDERED: Sodium Chloride 0.9% 10 ML Syringe FLUSH PRN (16:55)
[2021-06-28] MEDS ORDERED: Sodium Chloride 0.9% 1,000 ML IV ONE (16:56)
[2021-06-28] MEDS ORDERED: LORazepam 2 MG/ML SDV IVPUSH ONE (16:56)
[2021-06-28] MEDS ORDERED: Calcium Carbonate 500 MG Tab.Chew PO ONE (17:43)
[2021-06-28] MEDS ORDERED: Calcium Gluconate 10% 1 GM/10 ML SDV IV ONE (17:43)
[2021-06-28] MEDS ORDERED: Potassium Chloride 20 MEQ Packet PO ONE (17:45)
[2021-06-28] MEDS ORDERED: Calcium Gluconate 10% 1 GM/10 ML SDV IVPUSH ONE ×2 (20:14→23:08)
[2021-06-28] MEDS: Magnesium Chloride 64 MG Tab.ER PO SCH (23:19)
[2021-06-29] MEDS ORDERED: Magnesium Sulfate/Water 4 GM in Premix Bag 1 BAG IV ONE (06:39)
[2021-06-29] MEDS ORDERED: Calcium Carbonate 500 MG Tab.Chew PO ONE (07:25)
[2021-06-29] MEDS ORDERED: Sodium Chloride 0.9% 0 ML ONE (08:04)
[2021-06-29] MEDS: Calcium Gluconate 10% 1 GM/10 ML SDV IVPUSH ONE ×2 (08:09→08:14)
[2021-06-29] MEDS ORDERED: WATER IV SCH ×2 (08:30)
[2021-06-29] MEDS ORDERED: DEXTROSE 5% IV SCH ×2 (08:30)
[2021-06-29] MEDS ORDERED: CALCIUM GLUCONATE IV SCH ×2 (08:30)
[2021-06-29] MEDS: Magnesium Chloride 64 MG Tab.ER PO SCH (09:02)
[2021-06-29] MEDS: Fluconazole 100 MG Tab PO SCH (10:57)
[2021-06-29] MEDS: Calcium Carbonate 500 MG Tab.Chew PO SCH ×3 (10:57→21:52)
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
[2021-06-29] MEDS ORDERED: Clotrimazole 1% Crm 15 GM Tube TOP SCH (21:00)
[2021-06-30] MEDS: Fluconazole 100 MG Tab PO SCH (08:44)
[2021-06-30] MEDS: Magnesium Chloride 64 MG Tab.ER PO SCH (08:44)
[2021-06-30] MEDS ORDERED: TERBINAFINE 250 MG PO SCH (09:00)
[2021-06-30] MEDS ORDERED: Calcitriol 0.25 MCG Cap PO SCH (09:00)
[2021-06-30] MEDS ORDERED: Calcium Carbonate 500 MG Tab.Chew PO SCH (09:00)
--- NOTE | 2021-06-30 22:59 | DISCH ---
DISCHARGE DATE: 06/30/2021 REASON FOR VISIT: 1. Idiopathic hypoparathyroidism. 2. Hypocalcemia. 3. Tinea cruris. 4. Tobacco abuse. DISCHARGE DIAGNOSES: 1. Idiopathic hypoparathyroidism. 2. Hypocalcemia. 3. Tinea cruris. 4. Tobacco abuse. BRIEF HISTORY: Carmen is a 56-year-old female who has idiopathic hypoparathyroidism. She presented to the ER with symptoms of hypocalcemia, found to have a calcium level of 5.4. She was hospitalized for IV calcium replacement with oral replacement as well. She feels better this morning and she will be discharged home on calcitriol and calcium oral supplementation. She will follow up with myself at the end of the week and with Endocrinology as previously scheduled. I spent less than 30 minutes in the discharge of the patient. /[id number] ADRIAN/MEDINA
== END 2021-06-30 10:05 | disposition home or self-care (01) ==
LOC: FB.ED 16:21 → FB.MS 06-29 08:02
PROVIDERS: ADMIT Family Medicine; ATTEND Family Medicine
DX: E83.51 Hypocalcemia (principal); E16.2 Hypoglycemia, unspecified; E20.0 Idiopathic hypoparathyroidism; J44.9 Chronic obstructive pulmonary disease, unspecified; K21.9 Gastro-esophageal reflux disease without esophagitis; F17.210 Nicotine dependence, cigarettes, uncomplicated; R07.89 Other chest pain; B35.6 Tinea cruris; Z79.899 Other long term (current) drug therapy; Z86.73 Personal history of transient ischemic attack (TIA), and cerebral infarction without residual deficits; Z98.890 Other specified postprocedural states; Z20.822 Contact with and (suspected) exposure to COVID-19
CPT/HCPCS: 36415; 71045; 80048; 80053; 82310; 83735; 84100; 84132; 84484; 85025; 93005; 96365; 96367; 96375; 96376; 99285-25; A9270-GY; G0378; J0610; J2060; J3475; J7030; J7060; U0002

== ENCOUNTER 2021-07-06 20:59 | Emergency (ER) | payer MEDICAID ==
[2021-07-06] MEDS: Sodium Chloride 0.9% 10 ML Syringe FLUSH PRN ×3 (21:30→22:44)
[2021-07-06] MEDS ORDERED: Calcium Gluconate 10% 1 GM/10 ML SDV IVPUSH ONE (21:53)
[2021-07-06] MEDS ORDERED: Alum Hydroxide/Mag Hydroxide 15 ML, Lidocaine 2% 15 ML PO ONE ×2 (22:33)
[2021-07-06] MEDS ORDERED: Ketorolac 30 MG/ML SDV IVPUSH ONE (22:37)
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
--- NOTE | 2021-07-06 23:03 | PCM.EKG ---
#1 Interpretation EKG Date: 07/06/21 Time: 21:05 EKG Interpretation Comments: Normal sinus rhythm, rate 77, normal axis, poor R wave progression, no obvious ST-T segment abnormalities in contiguous leads
== END 2021-07-06 23:45 | disposition home or self-care (01) ==
LOC: FB.ED 20:59
DX: R07.89 Other chest pain (principal); E83.51 Hypocalcemia; J44.9 Chronic obstructive pulmonary disease, unspecified; Z91.048 Other nonmedicinal substance allergy status; Z79.899 Other long term (current) drug therapy; Z72.0 Tobacco use
CPT/HCPCS: 36415; 80053; 82310; 83735; 84484; 85025; 93005; 96374; 96375; 99285-25; A9270-GY; J0610; J1885

== ENCOUNTER 2021-07-12 17:09 | Observation (INO) | payer MEDICAID ==
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
[2021-07-12] MEDS ORDERED: Sodium Chloride 0.9% 10 ML Syringe FLUSH PRN (17:41)
[2021-07-12] MEDS ORDERED: Calcium Gluconate 10% 1 GM/10 ML SDV IV ONE (19:14)
[2021-07-12] MEDS ORDERED: Magnesium Oxide 400 MG Tab PO ONE (19:14)
[2021-07-12] MEDS ORDERED: Potassium Chloride 20 MEQ Packet PO ONE (19:16)
[2021-07-12] MEDS ORDERED: Ondansetron 4 MG/2 ML SDV IV PRN (19:34)
[2021-07-12] MEDS ORDERED: Acetaminophen 325 MG Tab PO PRN (19:34)
[2021-07-12] MEDS ORDERED: Enoxaparin 30 MG/0.3 ML Syringe SUBCUT SCH (19:45)
[2021-07-12] MEDS ORDERED: Calcium Gluconate 2 GM in Sodium Chloride 0.9% 100 ML IV ONE (19:45)
[2021-07-12] MEDS: Enoxaparin 40 MG/0.4 ML Syringe SUBCUT SCH (20:39)
[2021-07-12] MEDS: Cholecalciferol (Vitamin D3) 25 MCG Tab PO SCH (20:39)
[2021-07-12] MEDS: Sodium Chloride 0.9% 1,000 ML IV SCH (20:40)
[2021-07-12] MEDS: Magnesium Oxide 400 MG Tab PO SCH (22:04)
[2021-07-12] MEDS: Calcitriol 0.25 MCG Cap PO SCH (22:04)
[2021-07-12] MEDS: Calcium Carbonate 500 MG Tab.Chew PO SCH (22:04)
[2021-07-13] MEDS ORDERED: Calcium Gluconate 2 GM in Sodium Chloride 0.9% 100 ML IV SCH (01:00)
[2021-07-13] MEDS ORDERED: Calcium Gluconate 2 GM in Sodium Chloride 0.9% 100 ML IV ONE (01:04)
[2021-07-13] MEDS ORDERED: Calcium Gluconate 10% 1 GM/10 ML SDV ONE (01:21)
[2021-07-13] MEDS: Magnesium Oxide 400 MG Tab PO SCH ×2 (08:16→20:45)
[2021-07-13] MEDS: Cholecalciferol (Vitamin D3) 25 MCG Tab PO SCH (08:17)
[2021-07-13] MEDS: Calcium Carbonate 500 MG Tab.Chew PO SCH ×3 (08:17→20:46)
[2021-07-13] MEDS: Sodium Chloride 0.9% 1,000 ML IV SCH ×2 (08:21→16:55)
[2021-07-13] MEDS ORDERED: Calcium Gluconate 10% 1 GM/10 ML SDV IVPUSH ONE (08:50)
[2021-07-13] MEDS ORDERED: TERBINAFINE 250 MG PO SCH (09:00)
[2021-07-13] MEDS: Calcitriol 0.25 MCG Cap PO SCH ×2 (10:58→20:45)
[2021-07-13] MEDS: Famotidine 10 MG Tab PO SCH ×2 (10:59→20:45)
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
[2021-07-13] MEDS: Enoxaparin 40 MG/0.4 ML Syringe SUBCUT SCH (20:45)
[2021-07-14] MEDS: Sodium Chloride 0.9% 1,000 ML IV SCH ×2 (01:21→10:02)
[2021-07-14] MEDS ORDERED: Calcium Gluconate 10% 1 GM/10 ML SDV IVPUSH ONE (08:22)
[2021-07-14] MEDS ORDERED: Bisacodyl 10 MG Supp RECTAL PRN (09:13)
[2021-07-14] MEDS ORDERED: Camphor/Menthol 0.5-0.5% Lotion 222 ML Bottle TOP PRN (09:14)
--- NOTE | 2021-07-14 09:25 | PCM.PN ---
- General Info Date of Service: 07/14/21 Subjective Update: She is feeling better this morning, no chest pain today. Still having quite a bit of itching under her breasts. Family wasn't able to bring her medications in so discontinued Terbinafine as it is not on our formulary. States she has not had BM, feels like it she needs to go but can't, would like to try suppository. - Patient Data Vitals - Most Recent: Last Vital Signs Temp 98.3 F 07/14/21 08:00 Pulse 60 07/14/21 08:00 Resp 16 07/14/21 08:00 BP 129/64 07/14/21 08:00 Pulse Ox 97 07/14/21 08:00 Weight - Most Recent: 176 lb 8 oz I&O - Last 24 Hours: Intake & Output 07/13/21 07/14/21 07/14/21 22:59 06:59 14:59 Intake Total 1000 1433 Output Total 450 1600 Balance 550 -167 Lab Results Last 24 Hours: Laboratory Results - last 24 hr 07/13/21 07/14/21 Range/Units 12:25 06:25 Sodium 143 (135-145) mmol/L Potassium 3.7 (3.5-5.3) mmol/L Chloride 107 (100-110) mmol/L Carbon Dioxide 25 (21-32) mmol/L BUN 10 (7-18) mg/dL Creatinine 0.9 (0.55-1.02) mg/dL Est Cr Clr Drug Dosing 73.68 mL/min Estimated GFR (MDRD) > 60 (>60) BUN/Creatinine Ratio 11.1 (9-20) Glucose 92 (80-116) mg/dL Calcium 7.3 L 6.9 L (8.6-10.2) mg/dL Phosphorus 4.0 (2.6-4.6) mg/dL Albumin 3.0 L (3.5-5.2) g/dL Med Orders - Current: Current Medications Acetaminophen (Acetaminophen 325 Mg Tab) 650 mg PO Q4H PRN PRN Reason: Pain (Mild 1-3)/fever Bisacodyl (Bisacodyl 10 Mg Supp) 10 mg RECTAL DAILY PRN PRN Reason: Constipation Calcitriol (Calcitriol 0.25 Mcg Cap) 1 mcg PO BID [facility] Last Admin: 07/13/21 20:45 Dose: 1 mcg Documented by: Calcium Carbonate/Glycine (Calcium Carbonate 500 Mg Tab.Chew) 1,000 mg PO QID [facility] Camphor/Menthol (Camphor/Menthol 0.5-0.5% Lotion 222 Ml Bottle) 1 ml TOP Q6H PRN PRN Reason: Itching Cholecalciferol (Cholecalciferol (Vitamin D3) 25 Mcg Tab) 50 mcg PO DAILY [facility] Last Admin: 07/13/21 08:17 Dose: 50 mcg Documented by: Enoxaparin Sodium (Enoxaparin 40 Mg/0.4 Ml Syringe) 40 mg SUBCUT Q24H [facility] Last Admin: 07/13/21 20:45 Dose: 40 mg Documented by: Famotidine (Famotidine 10 Mg Tab) 10 mg PO BID [facility] Last Admin: 07/13/21 20:45 Dose: 10 mg Documented by: Fluconazole (Fluconazole 150 Mg Tab) 150 mg PO DAILY [facility] Sodium Chloride (Normal Saline) 1,000 mls @ 125 mls/hr IV ASDIRECTED [facility] Last Admin: 07/14/21 01:21 Dose: 125 mls/hr Documented by: Magnesium Oxide (Magnesium Oxide 400 Mg Tab) 400 mg PO BID [facility] Last Admin: 07/13/21 20:45 Dose: 400 mg Documented by: Ondansetron HCl (Ondansetron 4 Mg/2 Ml Sdv) 4 mg IV Q6H PRN PRN Reason: Nausea/Vomiting Last Admin: 07/12/21 20:34 Dose: 4 mg Documented by: Sodium Chloride (Sodium Chloride 0.9% 10 Ml Syringe) 10 ml FLUSH ASDIRECTED PRN PRN Reason: Keep Vein Open Last Admin: 07/14/21 04:10 Dose: 10 ml Documented by: Discontinued Medications Calcium Carbonate/Glycine (Calcium Carbonate 500 Mg Tab.Chew) 1,000 mg PO TID [facility] Last Admin: 07/13/21 20:46 Dose: 1,000 mg Documented by: Calcium Gluconate (Calcium Gluconate 10% 1 Gm/10 Ml Sdv) Confirm Administered Dose 1 gm .ROUTE .[facility]-MED ONE Stop: 07/13/21 01:22 Last Admin: 07/13/21 01:42 Dose: Not Given Documented by: Calcium Gluconate (Calcium Gluconate 10% 1 Gm/10 Ml Sdv) 1 gm IVPUSH ONETIME ONE Stop: 07/13/21 08:51 Last Admin: 07/13/21 10:41 Dose: 1 gm Documented by: Calcium Gluconate (Calcium Gluconate 10% 1 Gm/10 Ml Sdv) 2 gm IVPUSH ONETIME ONE Stop: 07/14/21 08:23 Calcium Gluconate 2 gm/ Sodium (Chloride) 120 mls @ 240 mls/hr IV ONETIME ONE Stop: 07/12/21 20:14 Last Admin: 07/12/21 19:48 Dose: 240 mls/hr Documented by: Calcium Gluconate 2 gm/ Sodium (Chloride) 120 mls @ 100 mls/hr IV ASDIRECTED [facility] Calcium Gluconate 2 gm/ Sodium (Chloride) 120 mls @ 100 mls/hr IV ONETIME ONE Stop: 07/13/21 02:14 Last Admin: 07/13/21 01:27 Dose: 100 mls/hr Documented by: Magnesium Oxide (Magnesium Oxide 400 Mg Tab) 800 mg PO ONETIME ONE Stop: 07/12/21 19:15 Last Admin: 07/12/21 19:42 Dose: 800 mg Documented by: Non-Formulary Medication (Terbinafine [Lamisil]) 250 mg PO DAILY [facility] Potassium Chloride (Potassium Chloride 20 Meq Packet) 40 meq PO ONETIME ONE Stop: 07/12/21 19:17 Last Admin: 07/12/21 19:43 Dose: 40 meq Documented by: - Exam General: Alert, Oriented, Cooperative, No Acute Distress Lungs: Clear to Auscultation, Normal Respiratory Effort Cardiovascular: Regular Rate, Regular Rhythm GI/Abdominal Exam: Normal Bowel Sounds, Soft, Non-Tender, No Distention - Patient Data Lab Results Last 24 hrs: Laboratory Results - last 24 hr 07/13/21 07/14/21 Range/Units 12:25 06:25 Sodium 143 (135-145) mmol/L Potassium 3.7 (3.5-5.3) mmol/L Chloride 107 (100-110) mmol/L Carbon Dioxide 25 (21-32) mmol/L BUN 10 (7-18) mg/dL Creatinine 0.9 (0.55-1.02) mg/dL Est Cr Clr Drug Dosing 73.68 mL/min Estimated GFR (MDRD) > 60 (>60) BUN/Creatinine Ratio 11.1 (9-20) Glucose 92 (80-116) mg/dL Calcium 7.3 L 6.9 L (8.6-10.2) mg/dL Phosphorus 4.0 (2.6-4.6) mg/dL Albumin 3.0 L (3.5-5.2) g/dL Result Diagrams: 07/12/21 18:05 07/14/21 06:25 Sepsis Event Note - Evaluation Sepsis Screening Result: No Definite Risk - Focused Exam Vital Signs: Vital Signs Temp Pulse Resp BP Pulse Ox 07/14/21 08:00 98.3 F 60 16 129/64 97 07/14/21 04:00 98.2 F 61 16 121/68 97 07/14/21 00:00 98.3 F 60 16 118/70 96 - Problem List & Annotations (1) Hypocalcemia SNOMED Code(s): 8704112 Code(s): E83.51 - HYPOCALCEMIA Status: Chronic Priority: High Current Visit: Yes Annotation/Comment:: 7.7 corrected for albumin 3.0. (2) Chest pain SNOMED Code(s): 93885385 Code(s): R07.9 - CHEST PAIN, UNSPECIFIED Status: Resolved Current Visit: No Qualifiers: Chest pain type: pleurodynia Qualified Code(s): R07.81 - Pleurodynia (3) Cutaneous candidiasis SNOMED Code(s): 53197706 Code(s): B37.2 - CANDIDIASIS OF SKIN AND NAIL Status: Acute Current Visit: No (4) Tinea cruris SNOMED Code(s): 354740901 Code(s): B35.6 - TINEA CRURIS Status: Acute Current Visit: No (5) Candidal intertrigo SNOMED Code(s): 029619383 Code(s): B37.2 - CANDIDIASIS OF SKIN AND NAIL Status: Acute Current Visit: No (6) Hypoparathyroidism SNOMED Code(s): 07570307 Code(s): E20.9 - HYPOPARATHYROIDISM, UNSPECIFIED Status: Chronic Current Visit: No Qualifiers: Hypoparathyroidism type: idiopathic Qualified Code(s): E20.0 - Idiopathic hypoparathyroidism Annotation/Comment:: (7) Chronic systolic (congestive) heart failure SNOMED Code(s): 361529977, 196059605 Code(s): I50.22 - CHRONIC SYSTOLIC (CONGESTIVE) HEART FAILURE Status: Chronic Current Visit: Yes (8) Acquired plantar keratoderma SNOMED Code(s): 837663330 Code(s): L85.1 - ACQUIRED KERATOSIS [KERATODERMA] PALMARIS ET PLANTARIS Status: Chronic Current Visit: Yes (9) Thyroid nodule SNOMED Code(s): 237578492 Code(s): E04.1 - NONTOXIC SINGLE THYROID NODULE Status: Acute Current Visit: No (10) Hypomagnesemia SNOMED Code(s): 908317013 Code(s): E83.42 - HYPOMAGNESEMIA Status: Chronic Current Visit: Yes (11) Hypokalemia SNOMED Code(s): 30698367 Code(s): E87.6 - HYPOKALEMIA Status: Chronic Current Visit: No Annotation/Comment:: 3.7 today (12) Tobacco abuse SNOMED Code(s): 975579821 Code(s): Z72.0 - TOBACCO USE Status: Chronic Current Visit: No - Problem List Review Problem List Initiated/Reviewed/Updated: Yes - My Orders Last 24 Hours: My Active Orders 07/13/21 09:00 Fluconazole [Diflucan] 150 mg PO DAILY 07/13/21 10:00 Famotidine [Pepcid] 10 mg PO BID 07/13/21 12:22 Ambulate [RC] PER UNIT ROUTINE 07/14/21 09:13 bisacodyL [Dulcolax] 10 mg RECTAL DAILY PRN 07/14/21 09:14 Camphor/Menthol [Sarna Lotion] 1 ml TOP Q6H PRN 07/14/21 13:00 Calcium Carbonate [Tums] 1,000 mg PO QID 07/14/21 14:00 CALCIUM [CHEM] Routine 07/15/21 06:00 RENAL FUNCTION PANEL,RFP [CHEM] Routine - Plan Plan:: 1.Hypocalcemia 2/2 hypoparathyroidism: Corrected calcium was 7.7(6.9) for albumin 3.0 Repeat Calcium gluconate 2 g this morning and continue Calcitriol 1 g bid. Repeat Calcium at 1400 and renal panel tomorrow am. Cardiac monitoring. 2. Candidal intertrigo/tinea cruris/cutaneous candidiasis: Fluconazole 150 mg daily started on 07/09 for 10 days. Increase Pepcid 20 mg bid. Discontinue Terbinafine as not on our formulary and family not able to bring her meds in. 3. Disposition: anticipate another 24h to correct calcium and then discharge home. Discuss with her services for nursing to help with medication management/education.
[2021-07-14] MEDS: Fluconazole 150 MG Tab PO SCH ×3 (09:47→10:47)
[2021-07-14] MEDS: Calcitriol 0.25 MCG Cap PO SCH (09:48)
[2021-07-14] MEDS: Famotidine 10 MG Tab PO SCH (09:49)
[2021-07-14] MEDS: Calcium Carbonate 500 MG Tab.Chew PO SCH (10:05)
[2021-07-14] MEDS: Magnesium Oxide 400 MG Tab PO SCH (10:14)
[2021-07-14] MEDS: Cholecalciferol (Vitamin D3) 25 MCG Tab PO SCH (10:14)
[2021-07-14] MEDS ORDERED: Calcium Carbonate 500 MG Tab.Chew PO SCH (13:00)
--- NOTE | 2021-07-14 16:04 | PCM.DCSUM1 ---
Discharge Summary - Hospital Course HPI Initial Comments: Carmen presented to ER yesterday evening with onset of muscle spasms and tingling of hands/feet, left chest pain started around 4pm. She had some nausea in ER but no vomiting or diarrhea. No abdominal pain, dysuria, hematuria or frequency. She had seen her Vegetable Thinner on and kept her Calcitriol 1 mg bid, magnesium oxide 250 mg daily, Vitamin D3 2000 units daily at same doses. Dr Mares increased her Calcium carbonate 1000 mg qid. She has history of hypoparathyroidism with secondary hypocalcemia, hypokalemia and hypomagnesemia. No fevers, chills, shortness of breath or cough. States chest pain is improved this morning. She has been treated for persistent candidal skin rash under breasts and in groin, right leg, was started on Terbinafine 06/23 and had Fluconazole started on 07/09, also using Clotrimazole and Nystatin topicals per patient and confirmed in her chart. She has been referred to Dermatology for her candidal intertrigo, tinea cruris and pruritus. Diagnosis: Stroke: No - Discharge Data Discharge Date: 07/14/21 ([facility]) Discharge Disposition: Home, W Home Health Agency 06 Condition: Good - Referral to Home Health Date of Face to Face Encounter: 07/14/21 Reason for Homebound Status: limited mobility and insight into condition Primary Care Physician: Celestine Nunn MD Skilled Need: detention for assessement, medication managment and education. - Discharge Diagnosis/Problem(s) (1) Hypocalcemia SNOMED Code(s): 5728141 ICD Code: E83.51 - HYPOCALCEMIA Status: Chronic Priority: High Current Visit: Yes Problem Details: 8.2 corrected for albumin 3.0 is 9.0. (2) Chest pain SNOMED Code(s): 57091527 ICD Code: R07.9 - CHEST PAIN, UNSPECIFIED Status: Resolved Current Visit: No Qualifiers: Chest pain type: pleurodynia Qualified Code(s): R07.81 - Pleurodynia (3) Cutaneous candidiasis SNOMED Code(s): 19887140 ICD Code: B37.2 - CANDIDIASIS OF SKIN AND NAIL Status: Acute Current Visit: No (4) Tinea cruris SNOMED Code(s): 616742542 ICD Code: B35.6 - TINEA CRURIS Status: Acute Current Visit: No (5) Candidal intertrigo SNOMED Code(s): 132590064 ICD Code: B37.2 - CANDIDIASIS OF SKIN AND NAIL Status: Acute Current Visit: No (6) Hypoparathyroidism SNOMED Code(s): 69214709 ICD Code: E20.9 - HYPOPARATHYROIDISM, UNSPECIFIED Status: Chronic Current Visit: No Problem Details: Qualifiers: Hypoparathyroidism type: idiopathic Qualified Code(s): E20.0 - Idiopathic hypoparathyroidism (7) Chronic systolic (congestive) heart failure SNOMED Code(s): 963918988, 054550922 ICD Code: I50.22 - CHRONIC SYSTOLIC (CONGESTIVE) HEART FAILURE Status: Ch ronic Current Visit: Yes (8) Acquired plantar keratoderma SNOMED Code(s): 070243854 ICD Code: L85.1 - ACQUIRED KERATOSIS [KERATODERMA] PALMARIS ET PLANTARIS Status: Chronic Current Visit: Yes (9) Thyroid nodule SNOMED Code(s): 407566851 ICD Code: E04.1 - NONTOXIC SINGLE THYROID NODULE Status: Acute Current Visit: No (10) Hypomagnesemia SNOMED Code(s): 192876227 ICD Code: E83.42 - HYPOMAGNESEMIA Status: Chronic Current Visit: Yes (11) Hypokalemia SNOMED Code(s): 82963116 ICD Code: E87.6 - HYPOKALEMIA Status: Chronic Current Visit: No Problem Details: 3.7 today (12) Tobacco abuse SNOMED Code(s): 788625501 ICD Code: Z72.0 - TOBACCO USE Status: Chronic Current Visit: No - Patient Summary/Data Hospital Course: Carmen admitted with hypocalcemia 2/2 idiopathic hypoparathyroidism, came in symptomatic with chest pain. Ca 5.7(Corrected 6.1), received Calcium gluconate 7 gm total during her stay in addition to her home Calcitriol 1 mg bid and Calcium carbonate 1000 mg tid initially and check of her visit with endocrinology she was to be on qid dosing so changed to qid. Her Calcium trended up to 7.3(corrected 7.7) then dropped to 6.9 and after last Calcium gluconate 2 gm dose today, came up to 8.2(corrected 9.0 with albumin 3.0). Her chest pain was still present morning of 07/13 and had resolved by this morning(07/14). Telemetry she remained in normal sinus rhythm and was sinus bradycardia in 50s this morning but asymptomatic. Continued home medications including for tinea cruris and candidal intertrigo except Terbinafine as not of formulary and family not able to bring her medication in. Her magnesium was 1.7 in ER, given 800 mg po x 1 then 400 mg bid on floor, came up to 1.9. Potassium was 3.3 in ER and came up to 4.0 and 3.7 today. Will go home with [facility] for [facility] for assessment, medication management and education. Had some constipation during stay, ordered Dulcolax suppository but was not given. Follow up with Dr Nunn on Wednesday to recheck her calcium, potassium & magnesium. - Patient Instructions Diet: Usual Diet as Tolerated Activity: As Tolerated Driving: Do Not Drive Showering/Bathing: May Shower Notify Provider of: Fever, Increased Pain (chest pain, muscle spasms) Other/Special Instructions: Follow up with Dr Nunn in end of week to recheck calcium, potassium & magnesium. - Discharge Plan *PRESCRIPTION DRUG MONITORING PROGRAM REVIEWED*: Not Applicable *COPY OF PRESCRIPTION DRUG MONITORING REPORT IN PATIENT ROLAND: Not Applicable Home Medications: Home Meds Clotrimazole [Clotrimazole 1%] 1 % TOP BID 05/17/21 [History] Camphor/Menthol [Sarna Lotion] 1 ml TOP Q6H PRN bottle 05/18/21 [Rx] Terbinafine [LamISIL] 250 mg PO DAILY #30 tab 06/22/21 [Rx] Cholecalciferol (Vitamin D3) [Vitamin D3] 2,000 unit PO DAILY 07/13/21 [History] Fluconazole 150 mg PO DAILY 07/13/21 [History] Magnesium Oxide 250 mg PO DAILY 07/13/21 [History] Calcitriol 1 mcg PO BID 07/14/21 [History] Calcium Carbonate [Tums] 1,000 mg PO QID 07/14/21 [History] Oxygen Therapy Mode: Room Air Patient Handouts: Hypomagnesemia, Hypokalemia, Hypocalcemia, Adult, Fall Prevention in Hospitals, Adult, Venous Thromboembolism Prevention Forms: ED Department Discharge Referrals: Celestine Nunn MD [Primary Care Provider] - - Discharge Summary/Plan Comment DC Time >30 min.: No Total # of Minutes for Discharge Time: 15 min - Patient Data Vitals - Most Recent: Last Vital Signs Temp 98.5 F 07/14/21 12:00 Pulse 55 L 07/14/21 12:00 Resp 16 07/14/21 12:00 BP 137/72 07/14/21 12:00 Pulse Ox 98 07/14/21 12:00 Weight - Most Recent: 176 lb 8 oz I&O - Last 24 hours: Intake & Output 07/14/21 07/14/21 07/14/21 06:59 14:59 22:59 Intake Total 1433 965 Output Total 1600 1000 Balance -167 -35 Lab Results - Last 24 hrs: Laboratory Results - last 24 hr 07/14/21 07/14/21 Range/Units 06:25 14:30 Sodium 143 (135-145) mmol/L Potassium 3.7 (3.5-5.3) mmol/L Chloride 107 (100-110) mmol/L Carbon Dioxide 25 (21-32) mmol/L BUN 10 (7-18) mg/dL Creatinine 0.9 (0.55-1.02) mg/dL Est Cr Clr Drug Dosing 73.68 mL/min Estimated GFR (MDRD) > 60 (>60) BUN/Creatinine Ratio 11.1 (9-20) Glucose 92 (80-116) mg/dL Calcium 6.9 L 8.2 L (8.6-10.2) mg/dL Phosphorus 4.0 (2.6-4.6) mg/dL Albumin 3.0 L (3.5-5.2) g/dL Med Orders - Current: Current Medications Acetaminophen (Acetaminophen 325 Mg Tab) 650 mg PO Q4H PRN PRN Reason: Pain (Mild 1-3)/fever Bisacodyl (Bisacodyl 10 Mg Supp) 10 mg RECTAL DAILY PRN PRN Reason: Constipation Calcitriol (Calcitriol 0.25 Mcg Cap) 1 mcg PO BID [facility] Last Admin: 07/14/21 09:48 Dose: 1 mcg Documented by: Calcium Carbonate/Glycine (Calcium Carbonate 500 Mg Tab.Chew) 1,000 mg PO QID [facility] Last Admin: 07/14/21 12:32 Dose: 1,000 mg Documented by: Camphor/Menthol (Camphor/Menthol 0.5-0.5% Lotion 222 Ml Bottle) 1 ml TOP Q6H PRN PRN Reason: Itching Last Admin: 07/14/21 10:39 Dose: 1 applic Documented by: Cholecalciferol (Cholecalciferol (Vitamin D3) 25 Mcg Tab) 50 mcg PO DAILY [facility] Last Admin: 07/14/21 10:14 Dose: 50 mcg Documented by: Enoxaparin Sodium (Enoxaparin 40 Mg/0.4 Ml Syringe) 40 mg SUBCUT Q24H [facility] Last Admin: 07/13/21 20:45 Dose: 40 mg Documented by: Famotidine (Famotidine 10 Mg Tab) 10 mg PO BID [facility] Last Admin: 07/14/21 09:49 Dose: 10 mg Documented by: Fluconazole (Fluconazole 150 Mg Tab) 150 mg PO DAILY [facility] Last Admin: 07/14/21 10:47 Dose: Not Given Documented by: Sodium Chloride (Normal Saline) 1,000 mls @ 125 mls/hr IV ASDIRECTED [facility] Last Admin: 07/14/21 10:02 Dose: 125 mls/hr Documented by: Magnesium Oxide (Magnesium Oxide 400 Mg Tab) 400 mg PO BID [facility] Last Admin: 07/14/21 10:14 Dose: 400 mg Documented by: Ondansetron HCl (Ondansetron 4 Mg/2 Ml Sdv) 4 mg IV Q6H PRN PRN Reason: Nausea/Vomiting Last Admin: 07/12/21 20:34 Dose: 4 mg Documented by: Sodium Chloride (Sodium Chloride 0.9% 10 Ml Syringe) 10 ml FLUSH ASDIRECTED PRN PRN Reason: Keep Vein Open Last Admin: 07/14/21 04:10 Dose: 10 ml Documented by: Discontinued Medications Calcium Carbonate/Glycine (Calcium Carbonate 500 Mg Tab.Chew) 1,000 mg PO TID [facility] Last Admin: 07/14/21 10:05 Dose: Not Given Documented by: Calcium Gluconate (Calcium Gluconate 10% 1 Gm/10 Ml Sdv) Confirm Administered Dose 1 gm .ROUTE .[facility]-MED ONE Stop: 07/13/21 01:22 Last Admin: 07/13/21 01:42 Dose: Not Given Documented by: Calcium Gluconate (Calcium Gluconate 10% 1 Gm/10 Ml Sdv) 1 gm IVPUSH ONETIME ONE Stop: 07/13/21 08:51 Last Admin: 07/13/21 10:41 Dose: 1 gm Documented by: Calcium Gluconate (Calcium Gluconate 10% 1 Gm/10 Ml Sdv) 2 gm IVPUSH ONETIME ONE Stop: 07/14/21 08:23 Last Admin: 07/14/21 09:49 Dose: 2 gm Documented by: Calcium Gluconate 2 gm/ Sodium (Chloride) 120 mls @ 240 mls/hr IV ONETIME ONE Stop: 07/12/21 20:14 Last Admin: 07/12/21 19:48 Dose: 240 mls/hr Documented by: Calcium Gluconate 2 gm/ Sodium (Chloride) 120 mls @ 100 mls/hr IV ASDIRECTED [facility] Calcium Gluconate 2 gm/ Sodium (Chloride) 120 mls @ 100 mls/hr IV ONETIME ONE Stop: 07/13/21 02:14 Last Admin: 07/13/21 01:27 Dose: 100 mls/hr Documented by: Magnesium Oxide (Magnesium Oxide 400 Mg Tab) 800 mg PO ONETIME ONE Stop: 07/12/21 19:15 Last Admin: 07/12/21 19:42 Dose: 800 mg Documented by: Non-Formulary Medication (Terbinafine [Lamisil]) 250 mg PO DAILY [facility] Last Admin: 07/14/21 10:48 Dose: Not Given Documented by: Potassium Chloride (Potassium Chloride 20 Meq Packet) 40 meq PO ONETIME ONE Stop: 07/12/21 19:17 Last Admin: 07/12/21 19:43 Dose: 40 meq Documented by:
== END 2021-07-14 16:20 | disposition home health service (06) ==
LOC: FB.ED 17:09 → FB.MS 19:31
PROVIDERS: ADMIT Emergency Medicine; ATTEND Family Medicine
DX: E83.51 Hypocalcemia (principal); M62.838 Other muscle spasm; E20.9 Hypoparathyroidism, unspecified; J44.9 Chronic obstructive pulmonary disease, unspecified; F41.9 Anxiety disorder, unspecified; F32.A Depression, unspecified; F17.210 Nicotine dependence, cigarettes, uncomplicated; R07.81 Pleurodynia; I50.22 Chronic systolic (congestive) heart failure; L85.1 Acquired keratosis [keratoderma] palmaris et plantaris; E83.42 Hypomagnesemia; E04.1 Nontoxic single thyroid nodule; Z91.048 Other nonmedicinal substance allergy status; Z79.899 Other long term (current) drug therapy; Z86.73 Personal history of transient ischemic attack (TIA), and cerebral infarction without residual deficits; Z98.890 Other specified postprocedural states; Z20.822 Contact with and (suspected) exposure to COVID-19
CPT/HCPCS: 36415; 80048; 80053; 80069; 82310; 83735; 84100; 84484; 85025; 93005; 93010; 96365; 96366; 96372; 96375; 96376; 99284; 99285-25; A9270-GY; G0378; J0610; J1650; J2405; J7030; U0002

== ENCOUNTER 2021-07-29 01:06 | Emergency (ER) | payer MEDICAID ==
[2021-07-29] MEDS ORDERED: Sodium Chloride 0.9% 10 ML Syringe FLUSH PRN (01:33)
[2021-07-29] MEDS ORDERED: Ketorolac 30 MG/ML SDV IVPUSH STA (01:35)
[2021-07-29] MEDS ORDERED: Morphine 2 MG/ML SYRINGE IVPUSH STA (02:35)
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
== END 2021-07-29 03:14 | disposition home or self-care (01) ==
LOC: FB.ED 01:06 → SUPCPDRO 01:06 → FB.ED 03:14
DX: R07.89 Other chest pain (principal); J44.9 Chronic obstructive pulmonary disease, unspecified; Z86.73 Personal history of transient ischemic attack (TIA), and cerebral infarction without residual deficits; Z91.048 Other nonmedicinal substance allergy status; Z72.0 Tobacco use
CPT/HCPCS: 36415; 80053; 83735; 84484; 85025; 93005; 96374; 96375; 99285; J1885; J2270

== ENCOUNTER 2021-07-29 11:42 | Emergency (ER) | payer MEDICAID ==
[2021-07-29] MEDS ORDERED: LORazepam 1 MG Tab PO ONE (12:04)
[2021-07-29] MEDS ORDERED: Ketorolac 30 MG/ML SDV IM STA (12:04)
[2021-07-29] MEDS ORDERED: Acetaminophen/HYDROcodone 325-5 MG Tab PO STA (12:04)
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
== END 2021-07-29 17:45 | disposition home or self-care (01) ==
LOC: FB.ED 11:42
DX: R07.89 Other chest pain (principal); E86.0 Dehydration; J44.9 Chronic obstructive pulmonary disease, unspecified; K21.9 Gastro-esophageal reflux disease without esophagitis; Z86.73 Personal history of transient ischemic attack (TIA), and cerebral infarction without residual deficits; Z91.048 Other nonmedicinal substance allergy status; Z79.899 Other long term (current) drug therapy; Z72.0 Tobacco use
CPT/HCPCS: 36415; 80048; 84484; 85025; 93005; 96372; 99285; A9270; J1885

== ENCOUNTER 2021-08-07 17:02 | Emergency (ER) | payer MEDICAID ==
[2021-08-07] MEDS ORDERED: Meclizine 25 MG Tab PO STA (17:42)
[2021-08-07] MEDS ORDERED: Ondansetron 4 MG/2 ML SDV IVPUSH STA (17:42)
[2021-08-07] MEDS ORDERED: Ketorolac 30 MG/ML SDV IVPUSH ONE (17:42)
[2021-08-07] MEDS ORDERED: Aspirin 81 MG Tab.Chew PO STA (17:43)
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
[2021-08-07] MEDS ORDERED: Morphine 2 MG/ML SYRINGE IVPUSH STA (18:22)
[2021-08-07] MEDS ORDERED: Sodium Chloride 0.9% 1,000 ML IV SCH (18:30)
[2021-08-07] MEDS ORDERED: Calcium Gluconate 10% 1 GM/10 ML SDV IVPUSH ONE (18:30)
== END 2021-08-07 19:50 | disposition home or self-care (01) ==
LOC: FB.ED 17:02
DX: R07.9 Chest pain, unspecified (principal); E20.0 Idiopathic hypoparathyroidism; E86.0 Dehydration; R42 Dizziness and giddiness; J44.9 Chronic obstructive pulmonary disease, unspecified; K21.9 Gastro-esophageal reflux disease without esophagitis; Z86.73 Personal history of transient ischemic attack (TIA), and cerebral infarction without residual deficits; Z91.048 Other nonmedicinal substance allergy status; Z79.899 Other long term (current) drug therapy
CPT/HCPCS: 36415; 80053; 83735; 84484; 85025; 93005; 96374; 96375; 99285-25; A9270-GY; J0610; J1885; J2270; J2405; J7030

== ENCOUNTER 2021-09-23 10:10 | Emergency (ER) | payer MEDICAID ==
[2021-09-23] MEDS ORDERED: Meclizine 25 MG Tab PO STA (10:47)
[2021-09-23] MEDS ORDERED: Ondansetron 4 MG Tab.DIS PO STA (10:47)
== END 2021-09-23 12:10 | disposition home or self-care (01) ==
LOC: FB.ED 10:10
DX: R07.89 Other chest pain (principal); H81.10 Benign paroxysmal vertigo, unspecified ear; J44.9 Chronic obstructive pulmonary disease, unspecified; K21.9 Gastro-esophageal reflux disease without esophagitis; I50.9 Heart failure, unspecified; Z86.73 Personal history of transient ischemic attack (TIA), and cerebral infarction without residual deficits; Z91.048 Other nonmedicinal substance allergy status; Z72.0 Tobacco use
CPT/HCPCS: 36415; 80053; 83735; 84484; 85025; 93005; 99284; A9270; Q0162; 93010

== ENCOUNTER 2021-12-10 18:02 | Emergency (ER) | payer MEDICAID ==
[2021-12-10] MEDS ORDERED: Sodium Chloride 0.9% 10 ML Syringe FLUSH PRN (18:18)
[2021-12-10] MEDS ORDERED: Ondansetron 4 MG/2 ML SDV IVPUSH STA (18:38)
[2021-12-10] MEDS ORDERED: Aspirin 81 MG Tab.Chew PO STA (18:38)
[2021-12-10] MEDS ORDERED: Ketorolac 30 MG/ML SDV IVPUSH STA (18:38)
[2021-12-10] MEDS ORDERED: Meclizine 25 MG Tab PO STA (18:40)
== END 2021-12-10 20:00 | disposition home or self-care (01) ==
LOC: FB.ED 18:02
DX: R07.9 Chest pain, unspecified (principal); E83.51 Hypocalcemia; R42 Dizziness and giddiness; I50.9 Heart failure, unspecified; J44.9 Chronic obstructive pulmonary disease, unspecified; M19.90 Unspecified osteoarthritis, unspecified site; F17.210 Nicotine dependence, cigarettes, uncomplicated; Z79.899 Other long term (current) drug therapy; Z91.048 Other nonmedicinal substance allergy status
CPT/HCPCS: 36415; 80053; 83735; 83880; 84484; 85025; 93005; 93010; 96374; 96375; 99281; 99285; A9270; J1885; J2405

== ENCOUNTER 2022-01-14 14:59 | Emergency (ER) | payer MEDICAID ==
[2022-01-14] MEDS ORDERED: Sodium Chloride 0.9% 10 ML Syringe FLUSH PRN (15:06)
[2022-01-14 15:28] LABS: ESTIMATED GFR 65 mL/min (>60)
[2022-01-14] MEDS ORDERED: Sodium Chloride 0.9% 1,000 ML IV ONE (16:04)
[2022-01-14] MEDS ORDERED: Potassium Chloride 20 MEQ Tab.ER PO ONE (16:04)
[2022-01-14] MEDS ORDERED: Ketorolac 30 MG/ML SDV IVPUSH ONE (16:12)
[2022-01-14] MEDS ORDERED: diphenhydrAMINE 50 MG/ML SDV IVPUSH ONE (16:12)
[2022-01-14] MEDS ORDERED: Prochlorperazine 10 MG/2 ML SDV IVPUSH ONE (16:12)
== END 2022-01-14 18:40 | disposition home or self-care (01) ==
LOC: FB.ED 14:59
DX: R07.9 Chest pain, unspecified (principal); R51.9 Headache, unspecified; G89.29 Other chronic pain; E86.0 Dehydration; E87.6 Hypokalemia; J44.9 Chronic obstructive pulmonary disease, unspecified; Z86.73 Personal history of transient ischemic attack (TIA), and cerebral infarction without residual deficits; Z91.048 Other nonmedicinal substance allergy status; Z72.0 Tobacco use
CPT/HCPCS: 36415; 80053; 83735; 84100; 84484; 85025; 93005; 93010; 96361; 96374; 96375; 99282; 99285-25; A9270-GY; J0780; J1200; J1885; J3490; J7030

== ENCOUNTER 2022-03-17 01:55 | Emergency (ER) | payer MEDICAID ==
[2022-03-17 02:50] LABS: ESTIMATED GFR 74 mL/min (>60)
[2022-03-17] MEDS ORDERED: Azithromycin 500 MG Tab PO ONE (03:50)
[2022-03-17] MEDS ORDERED: predniSONE 20 MG Tab PO ONE (03:50)
[2022-03-17] MEDS ORDERED: Furosemide 20 MG Tab PO ONE (03:50)
== END 2022-03-17 04:30 | disposition home or self-care (01) ==
LOC: FB.ED 01:55
DX: J20.9 Acute bronchitis, unspecified (principal); R79.89 Other specified abnormal findings of blood chemistry; K21.9 Gastro-esophageal reflux disease without esophagitis; Z86.73 Personal history of transient ischemic attack (TIA), and cerebral infarction without residual deficits; Z91.09 Other allergy status, other than to drugs and biological substances; Z91.048 Other nonmedicinal substance allergy status; Z20.822 Contact with and (suspected) exposure to COVID-19
CPT/HCPCS: 36415; 71046; 80053; 81001; 83605; 83735; 83880; 84484; 85025; 86140; 93005; 99285; A9270-GY; J7512; U0002

== ENCOUNTER 2022-04-12 06:24 | Emergency (ER) | payer MEDICAID ==
[2022-04-12 06:58] LABS: ESTIMATED GFR 58 mL/min (>60)
[2022-04-12] MEDS ORDERED: Codeine/guaiFENesin 10-100 MG/5 ML Syrup 5 ML Cup PO ONE (07:20)
[2022-04-12] MEDS ORDERED: Albuterol/Ipratropium 3.0-0.5 MG/3 ML Neb Soln NEB ONE (07:35)
[2022-04-12] MEDS ORDERED: guaiFENesin 600 MG Tab.ER PO ONE (07:36)
== END 2022-04-12 08:45 | disposition home or self-care (01) ==
LOC: FB.ED 06:24
DX: J44.1 Chronic obstructive pulmonary disease with (acute) exacerbation (principal); Z91.048 Other nonmedicinal substance allergy status; Z79.899 Other long term (current) drug therapy; Z72.0 Tobacco use
CPT/HCPCS: 36415; 71046; 80053; 85025; 94640; 99285; A9270; J7620

== ENCOUNTER 2022-05-01 23:43 | Emergency (ER) | payer MEDICAID ==
[2022-05-01] MEDS ORDERED: Albuterol 8 GM Inhaler INH ONE (23:44)
[2022-05-02] MEDS: LORazepam 0.5 MG Tab PO ONE (00:21)
== END 2022-05-02 02:05 | disposition home or self-care (01) ==
LOC: FB.ED 23:43
DX: R07.9 Chest pain, unspecified (principal); J44.9 Chronic obstructive pulmonary disease, unspecified; Z86.73 Personal history of transient ischemic attack (TIA), and cerebral infarction without residual deficits; Z91.048 Other nonmedicinal substance allergy status; Z79.82 Long term (current) use of aspirin
CPT/HCPCS: 99282; 99284; A9270-GY

== ENCOUNTER 2022-05-04 14:05 | Emergency (ER) | payer MEDICAID ==
[2022-05-07 11:32] LABS: ESTIMATED GFR 74 mL/min (>60)
== END 2022-05-04 14:23 | disposition home or self-care (01) ==
LOC: FB.ED 14:05
DX: R07.89 Other chest pain (principal)
CPT/HCPCS: 36415; 80053; 83735; 84484; 85025; 85379; 86140; 99285

== ENCOUNTER 2022-09-11 03:49 | Emergency (ER) | payer MEDICAID ==
[2022-09-11] MEDS ORDERED: Ketorolac 30 MG/ML SDV IM ONE (04:11)
[2022-09-11] MEDS ORDERED: hydrOXYzine HCl 50 MG/ML SDV IM ONE (04:11)
[2022-09-11 04:28] LABS: ESTIMATED GFR 85 mL/min (>60)
== END 2022-09-11 05:40 | disposition home or self-care (01) ==
LOC: FB.ED 03:49
DX: R07.89 Other chest pain (principal); I50.9 Heart failure, unspecified; J44.9 Chronic obstructive pulmonary disease, unspecified; Z91.048 Other nonmedicinal substance allergy status; Z79.899 Other long term (current) drug therapy
CPT/HCPCS: 36415; 71045; 80053; 83880; 84484; 85025; 85379; 93005; 93010; 96372; 99283; 99285; J1885; J3410

== ENCOUNTER 2022-11-24 01:20 | Emergency (ER) | payer MEDICAID ==
[2022-11-24] MEDS ORDERED: Alum Hydroxide/Mag Hydroxide 15 ML, Lidocaine 2% 15 ML PO ONE ×2 (01:34)
[2022-11-24 02:29] LABS: ESTIMATED GFR 65 mL/min (>60)
[2022-11-24] MEDS ORDERED: Potassium Chloride 20 MEQ Tab.ER PO STA (02:45)
[2022-11-24] MEDS ORDERED: Ondansetron 4 MG Tab.DIS PO ONE (02:59)
== END 2022-11-24 03:38 | disposition home or self-care (01) ==
LOC: FB.ED 01:20
DX: R07.89 Other chest pain (principal); K21.9 Gastro-esophageal reflux disease without esophagitis; E87.6 Hypokalemia; J44.9 Chronic obstructive pulmonary disease, unspecified; E03.9 Hypothyroidism, unspecified; Z91.048 Other nonmedicinal substance allergy status; Z79.899 Other long term (current) drug therapy; Z86.73 Personal history of transient ischemic attack (TIA), and cerebral infarction without residual deficits; Z72.0 Tobacco use
CPT/HCPCS: 36415; 80053; 83735; 84484; 85025; 99283; 99285; A9270-GY; Q0162

== ENCOUNTER 2023-03-01 21:17 | Emergency (ER) | payer MEDICAID ==
[2023-03-01 21:58] LABS: EOSINOPHILS ABSOLUTE AUTO 0.3 x10-3/uL (0.0-0.8); NEUTROPHILS ABSOLUTE AUTO 7.2 x10-3/uL (1.5-6.3)
[2023-03-01 22:03] LABS: BLOOD UREA NITROGEN,BUN 25 mg/dL (7-18); BUN/CREATININE RATIO 22.7 (9-20); CALCIUM 6.7 mg/dL (8.6-10.2); CARBON DIOXIDE,CO2 28 mmol/L (21-32); CHLORIDE,CL 103 mmol/L (100-110); CREATININE 1.1 mg/dL (0.55-1.02); EST CRCL DRUG DOSING (CG) 57.55 mL/min; ESTIMATED GFR 58 mL/min (>60); GLUCOSE RANDOM 126 mg/dL (80-116); POTASSIUM,K 3.6 mmol/L (3.5-5.3); SODIUM,NA 141 mmol/L (135-145)
[2023-03-01 22:07] LABS: BASOPHILS ABSOLUTE AUTO 0.1 x10-3/uL (0.0-0.1); BASOPHILS PERCENT AUTO 0.5 % (0.2-1.5); EOSINOPHILS PERCENT AUTO 2.4 % (0.6-8.1); HEMATOCRIT 42.4 % (34.2-48.2); HEMOGLOBIN 14.3 g/dL (11.4-15.5); LYMPHOCYTES ABSOLUTE AUTO 3.3 x10-3/uL (1.0-4.4); LYMPHOCYTES PERCENT AUTO 28.1 % (18.4-52.1); MEAN CORPUSCULAR HEMOGLOBIN 30.4 pg (23.9-33.9); MEAN CORPUSCULAR HGB CONC 33.6 g/dL (31.9-34.8); MEAN CORPUSCULAR VOLUME 90.5 fL (76.7-100.5); MEAN PLATELET VOLUME 7.9 fL (7.1-12.4); MONOCYTES PERCENT AUTO 8.3 % (4.4-15.7); NEUTROPHILS PERCENT AUTO 60.7 % (30.8-76.2); PLATELET COUNT,PLT 248 x10(3)uL (151-488); RED BLOOD CELL COUNT 4.69 x10(6)uL (3.60-5.20); RED CELL DISTRIBUTION WIDTH 15.8 % (12.3-16.5); WHITE BLOOD CELL COUNT,WBC 11.9 x10-3/uL (3.0-10.3)
[2023-03-01 22:09] LABS: A/G RATIO 0.9; ALANINE AMINOTRANSFERASE,ALT 20 U/L (12-36); ALBUMIN 3.8 g/dL (3.5-5.2); ALKALINE PHOSPHATASE 125 IU/L (56-112); ASPARTATE AMNIOTRANSFERASE,AST 26 IU/L (5-25); BILIRUBIN TOTAL 0.2 mg/dL (0.1-1.3); MAGNESIUM 1.8 mg/dL (1.8-2.5); PHOSPHORUS 3.8 mg/dL (2.6-4.6); PROTEIN TOTAL,TP 8.1 g/dL (6.0-8.0)
[2023-03-01] MEDS ORDERED: Calcium Gluconate 10% 1 GM/10 ML SDV IVPUSH ONE (22:53)
[2023-03-01] MEDS ORDERED: Calcium Carbonate 500 MG Tab.Chew PO ONE (22:54)
[2023-03-01] MEDS ORDERED: Sodium Chloride 0.9% 1,000 ML IV SCH (23:00)
== END 2023-03-02 00:40 | disposition home or self-care (01) ==
LOC: FB.ED 21:17
DX: E83.51 Hypocalcemia (principal); J44.9 Chronic obstructive pulmonary disease, unspecified; F17.210 Nicotine dependence, cigarettes, uncomplicated; Z91.048 Other nonmedicinal substance allergy status; Z79.899 Other long term (current) drug therapy
CPT/HCPCS: 36415; 80053; 82306; 83735; 84100; 85025; 96361; 96374; 99284; A9270; J0612; J7030

== ENCOUNTER 2023-03-28 12:37 | Emergency (ER) | payer MEDICAID ==
[2023-03-28] MEDS ORDERED: Acetaminophen/HYDROcodone 325-5 MG Tab PO ONE (12:38)
== END 2023-03-28 13:50 | disposition home or self-care (01) ==
LOC: FB.ED 12:37
DX: L30.9 Dermatitis, unspecified (principal); I50.9 Heart failure, unspecified; J44.9 Chronic obstructive pulmonary disease, unspecified; K21.9 Gastro-esophageal reflux disease without esophagitis; F17.200 Nicotine dependence, unspecified, uncomplicated; Z91.048 Other nonmedicinal substance allergy status; Z91.09 Other allergy status, other than to drugs and biological substances; Z79.51 Long term (current) use of inhaled steroids
CPT/HCPCS: 99282; A9270-GY

== ENCOUNTER 2023-04-04 18:39 | Emergency (ER) | payer MEDICAID ==
[2023-04-04] MEDS ORDERED: Calcium Carbonate 500 MG Tab.Chew PO ONE (18:52)
[2023-04-04] MEDS ORDERED: Calcium Gluconate 10% 1 GM/10 ML SDV IVPUSH ONE ×3 (18:52→20:57)
[2023-04-04 19:27] LABS: BASOPHILS PERCENT AUTO 0.4 % (0.2-1.5); EOSINOPHILS ABSOLUTE AUTO 0.4 x10-3/uL (0.0-0.8); EOSINOPHILS PERCENT AUTO 4.1 % (0.6-8.1); HEMATOCRIT 39.6 % (34.2-48.2); HEMOGLOBIN 13.3 g/dL (11.4-15.5); LYMPHOCYTES ABSOLUTE AUTO 2.4 x10-3/uL (1.0-4.4); MEAN CORPUSCULAR HEMOGLOBIN 30.2 pg (23.9-33.9); MEAN CORPUSCULAR HGB CONC 33.7 g/dL (31.9-34.8); MEAN CORPUSCULAR VOLUME 89.6 fL (76.7-100.5); MEAN PLATELET VOLUME 7.1 fL (7.1-12.4); MONOCYTES ABSOLUTE AUTO 0.9 x10-3/uL (0.3-1.0); MONOCYTES PERCENT AUTO 8.4 % (4.4-15.7); NEUTROPHILS ABSOLUTE AUTO 6.4 x10-3/uL (1.5-6.3); NEUTROPHILS PERCENT AUTO 63.1 % (30.8-76.2); PLATELET COUNT,PLT 355 x10(3)uL (151-488); RED BLOOD CELL COUNT 4.42 x10(6)uL (3.60-5.20); RED CELL DISTRIBUTION WIDTH 15.4 % (12.3-16.5); WHITE BLOOD CELL COUNT,WBC 10.2 x10-3/uL (3.0-10.3)
[2023-04-04 19:37] LABS: ALANINE AMINOTRANSFERASE,ALT 22 U/L (12-36); ALBUMIN 3.5 g/dL (3.2-4.6); ALKALINE PHOSPHATASE 118 IU/L (56-112); ASPARTATE AMNIOTRANSFERASE,AST 27 IU/L (5-25); BILIRUBIN TOTAL 0.3 mg/dL (0.1-1.3); BLOOD UREA NITROGEN,BUN 24 mg/dL (7-18); BUN/CREATININE RATIO 26.7 (9-20); CARBON DIOXIDE,CO2 29 mmol/L (21-32); CHLORIDE,CL 105 mmol/L (100-110); CREATININE 0.9 mg/dL (0.55-1.02); EST CRCL DRUG DOSING (CG) 69.47 mL/min; ESTIMATED GFR 73 mL/min (>60); GLUCOSE RANDOM 110 mg/dL (80-116); MAGNESIUM 1.8 mg/dL (1.8-2.5); POTASSIUM,K 2.9 mmol/L (3.5-5.3); PROTEIN TOTAL,TP 7.2 g/dL (6.0-8.0); SODIUM,NA 144 mmol/L (135-145)
[2023-04-04 19:42] LABS: CALCIUM 6.1 mg/dL (8.6-10.2)
[2023-04-04] MEDS ORDERED: Potassium Chloride 20 MEQ Tab.ER PO ONE (19:48)
== END 2023-04-04 21:36 | disposition home or self-care (01) ==
LOC: FB.ED 18:39
DX: E20.9 Hypoparathyroidism, unspecified (principal); E83.51 Hypocalcemia; R29.0 Tetany; F45.8 Other somatoform disorders; Z91.048 Other nonmedicinal substance allergy status; J44.9 Chronic obstructive pulmonary disease, unspecified; I50.9 Heart failure, unspecified; Z86.73 Personal history of transient ischemic attack (TIA), and cerebral infarction without residual deficits; Z79.899 Other long term (current) drug therapy
CPT/HCPCS: 36415; 80053; 83735; 84100; 85025; 96374; 96376; 99284; A9270; J0612

== ENCOUNTER 2023-04-18 13:15 | Emergency (ER) | payer MEDICAID ==
[2023-04-18] MEDS: Sodium Chloride 0.9% 10 ML Syringe FLUSH PRN ×4 (13:24→18:06)
[2023-04-18] MEDS ORDERED: Calcium Gluconate 10% 1 GM/10 ML SDV IVPUSH ONE (13:57)
[2023-04-18] MEDS ORDERED: Calcium Carbonate 500 MG Tab.Chew PO ONE (13:59)
[2023-04-18 14:07] LABS: BASOPHILS ABSOLUTE AUTO 0.1 x10-3/uL (0.0-0.1); BASOPHILS PERCENT AUTO 0.8 % (0.2-1.5); EOSINOPHILS ABSOLUTE AUTO 0.3 x10-3/uL (0.0-0.8); EOSINOPHILS PERCENT AUTO 2.9 % (0.6-8.1); HEMATOCRIT 40.3 % (34.2-48.2); HEMOGLOBIN 13.5 g/dL (11.4-15.5); LYMPHOCYTES ABSOLUTE AUTO 2.5 x10-3/uL (1.0-4.4); LYMPHOCYTES PERCENT AUTO 26.6 % (18.4-52.1); MEAN CORPUSCULAR HGB CONC 33.5 g/dL (31.9-34.8); MEAN CORPUSCULAR VOLUME 89.7 fL (76.7-100.5); MEAN PLATELET VOLUME 7.5 fL (7.1-12.4); MONOCYTES ABSOLUTE AUTO 0.8 x10-3/uL (0.3-1.0); MONOCYTES PERCENT AUTO 8.1 % (4.4-15.7); NEUTROPHILS ABSOLUTE AUTO 5.7 x10-3/uL (1.5-6.3); NEUTROPHILS PERCENT AUTO 61.6 % (30.8-76.2); PLATELET COUNT,PLT 377 x10(3)uL (151-488); RED CELL DISTRIBUTION WIDTH 15.5 % (12.3-16.5); WHITE BLOOD CELL COUNT,WBC 9.3 x10-3/uL (3.0-10.3)
[2023-04-18 14:17] LABS: ALBUMIN 3.4 g/dL (3.2-4.6); BLOOD UREA NITROGEN,BUN 17 mg/dL (7-18); BUN/CREATININE RATIO 18.9 (9-20); CARBON DIOXIDE,CO2 28 mmol/L (21-32); CHLORIDE,CL 104 mmol/L (100-110); CREATININE 0.9 mg/dL (0.55-1.02); EST CRCL DRUG DOSING (CG) 69.47 mL/min; ESTIMATED GFR 73 mL/min (>60); GLUCOSE RANDOM 75 mg/dL (80-116); PHOSPHORUS 4.4 mg/dL (2.6-4.6); POTASSIUM,K 3.7 mmol/L (3.5-5.3); SODIUM,NA 141 mmol/L (135-145)
[2023-04-18] MEDS ORDERED: Calcium Gluconate 10% 1 GM/10 ML SDV IV ONE (15:00)
[2023-04-18] MEDS ORDERED: SODIUM CHLORIDE 0.9% IV ONE (15:30)
[2023-04-18] MEDS ORDERED: CALCIUM GLUCONATE IV ONE (15:30)
== END 2023-04-18 18:50 | disposition home or self-care (01) ==
LOC: FB.ED 13:15
DX: E20.9 Hypoparathyroidism, unspecified (principal); F45.8 Other somatoform disorders; L30.9 Dermatitis, unspecified; Z91.048 Other nonmedicinal substance allergy status; J44.9 Chronic obstructive pulmonary disease, unspecified; I50.9 Heart failure, unspecified; F17.210 Nicotine dependence, cigarettes, uncomplicated; Z86.73 Personal history of transient ischemic attack (TIA), and cerebral infarction without residual deficits; Z79.899 Other long term (current) drug therapy
CPT/HCPCS: 36415; 80069; 84443; 85025; 93005; 96365; 96366; 96376; 99284; A9270; J0612; J3490; J7050

== ENCOUNTER 2023-04-22 12:30 | Emergency (ER) | payer MEDICAID ==
[2023-04-22 13:31] LABS: A/G RATIO 0.8; ALANINE AMINOTRANSFERASE,ALT 21 U/L (12-36); ALBUMIN 3.6 g/dL (3.2-4.6); ALKALINE PHOSPHATASE 126 IU/L (56-112); ASPARTATE AMNIOTRANSFERASE,AST 26 IU/L (5-25); BILIRUBIN TOTAL 0.3 mg/dL (0.1-1.3); BLOOD UREA NITROGEN,BUN 19 mg/dL (7-18); BUN/CREATININE RATIO 21.1 (9-20); CARBON DIOXIDE,CO2 25 mmol/L (21-32); CHLORIDE,CL 106 mmol/L (100-110); CREATININE 0.9 mg/dL (0.55-1.02); EST CRCL DRUG DOSING (CG) 69.47 mL/min; ESTIMATED GFR 73 mL/min (>60); GLUCOSE RANDOM 99 mg/dL (80-116); MAGNESIUM 1.8 mg/dL (1.8-2.5); POTASSIUM,K 3.9 mmol/L (3.5-5.3); PROTEIN TOTAL,TP 7.9 g/dL (6.0-8.0); SODIUM,NA 139 mmol/L (135-145)
[2023-04-22 13:32] LABS: BASOPHILS ABSOLUTE AUTO 0.1 x10-3/uL (0.0-0.1); BASOPHILS PERCENT AUTO 0.6 % (0.2-1.5); EOSINOPHILS ABSOLUTE AUTO 0.6 x10-3/uL (0.0-0.8); EOSINOPHILS PERCENT AUTO 5.8 % (0.6-8.1); HEMATOCRIT 40.3 % (34.2-48.2); HEMOGLOBIN 13.6 g/dL (11.4-15.5); LYMPHOCYTES ABSOLUTE AUTO 2.5 x10-3/uL (1.0-4.4); LYMPHOCYTES PERCENT AUTO 26.3 % (18.4-52.1); MEAN CORPUSCULAR HEMOGLOBIN 30.1 pg (23.9-33.9); MEAN CORPUSCULAR HGB CONC 33.6 g/dL (31.9-34.8); MEAN CORPUSCULAR VOLUME 89.6 fL (76.7-100.5); MEAN PLATELET VOLUME 7.3 fL (7.1-12.4); MONOCYTES ABSOLUTE AUTO 0.9 x10-3/uL (0.3-1.0); MONOCYTES PERCENT AUTO 9.7 % (4.4-15.7); NEUTROPHILS ABSOLUTE AUTO 5.5 x10-3/uL (1.5-6.3); NEUTROPHILS PERCENT AUTO 57.6 % (30.8-76.2); PLATELET COUNT,PLT 374 x10(3)uL (151-488); RED CELL DISTRIBUTION WIDTH 15.7 % (12.3-16.5); WHITE BLOOD CELL COUNT,WBC 9.6 x10-3/uL (3.0-10.3)
[2023-04-22 13:34] LABS: CALCIUM 6.3 mg/dL (8.6-10.2)
[2023-04-22 13:35] LABS: LACTIC ACID 0.6 mmol/L (0.4-2.0)
[2023-04-22 13:39] LABS: C-REACTIVE PROTEIN 0.43 mg/dL (<0.33)
[2023-04-22] MEDS ORDERED: Sodium Chloride 0.9% 10 ML Syringe FLUSH PRN (13:44)
[2023-04-22] MEDS ORDERED: Furosemide 40 MG/4 ML VIAL IVPUSH ONE (13:45)
[2023-04-22] MEDS ORDERED: Calcium Gluconate 10% 1 GM/10 ML SDV IVPUSH ONE ×2 (13:45→15:05)
== END 2023-04-22 16:00 | disposition home or self-care (01) ==
LOC: FB.ED 12:30
DX: R60.0 Localized edema (principal); E83.51 Hypocalcemia; L30.9 Dermatitis, unspecified; F17.210 Nicotine dependence, cigarettes, uncomplicated; J44.9 Chronic obstructive pulmonary disease, unspecified; I50.9 Heart failure, unspecified; E03.9 Hypothyroidism, unspecified; Z86.73 Personal history of transient ischemic attack (TIA), and cerebral infarction without residual deficits; Z79.899 Other long term (current) drug therapy; Z91.048 Other nonmedicinal substance allergy status
CPT/HCPCS: 36415; 80053; 83605; 83735; 83880; 84484; 85025; 86140; 96374; 96375; 96376; 99283; 99284-25; J0612; J1940

== ENCOUNTER 2023-05-03 09:36 | Emergency (ER) | payer MEDICAID ==
[2023-05-03] MEDS: Sodium Chloride 0.9% 10 ML Syringe FLUSH PRN (10:25)
[2023-05-03] MEDS: Sodium Chloride 0.9% 1,000 ML IV SCH (10:36)
[2023-05-03] MEDS: Calcium Gluconate 10% 1 GM/10 ML SDV IVPUSH ONE (10:36)
[2023-05-03] MEDS: Meclizine 25 MG Tab PO ONE (10:38)
[2023-05-03 11:00] LABS: BASOPHILS PERCENT AUTO 0.4 % (0.2-1.5); EOSINOPHILS PERCENT AUTO 0.2 % (0.6-8.1); HEMATOCRIT 38.8 % (34.2-48.2); HEMOGLOBIN 13.2 g/dL (11.4-15.5); LYMPHOCYTES ABSOLUTE AUTO 1.1 x10-3/uL (1.0-4.4); LYMPHOCYTES PERCENT AUTO 11.2 % (18.4-52.1); MEAN CORPUSCULAR HEMOGLOBIN 30.2 pg (23.9-33.9); MEAN CORPUSCULAR HGB CONC 34.1 g/dL (31.9-34.8); MEAN CORPUSCULAR VOLUME 88.4 fL (76.7-100.5); MEAN PLATELET VOLUME 7.3 fL (7.1-12.4); MONOCYTES ABSOLUTE AUTO 0.3 x10-3/uL (0.3-1.0); MONOCYTES PERCENT AUTO 2.6 % (4.4-15.7); NEUTROPHILS ABSOLUTE AUTO 8.3 x10-3/uL (1.5-6.3); NEUTROPHILS PERCENT AUTO 85.6 % (30.8-76.2); PLATELET COUNT,PLT 374 x10(3)uL (151-488); RED BLOOD CELL COUNT 4.39 x10(6)uL (3.60-5.20); RED CELL DISTRIBUTION WIDTH 15.4 % (12.3-16.5); WHITE BLOOD CELL COUNT,WBC 9.7 x10-3/uL (3.0-10.3)
[2023-05-03 11:07] LABS: A/G RATIO 0.8; ALANINE AMINOTRANSFERASE,ALT 31 U/L (12-36); ALBUMIN 3.4 g/dL (3.2-4.6); ALKALINE PHOSPHATASE 100 IU/L (56-112); ASPARTATE AMNIOTRANSFERASE,AST 33 IU/L (5-25); BILIRUBIN TOTAL 0.4 mg/dL (0.1-1.3); BLOOD UREA NITROGEN,BUN 16 mg/dL (7-18); BUN/CREATININE RATIO 17.8 (9-20); CARBON DIOXIDE,CO2 29 mmol/L (21-32); CHLORIDE,CL 104 mmol/L (100-110); CREATININE 0.9 mg/dL (0.55-1.02); ESTIMATED GFR 73 mL/min (>60); GLUCOSE RANDOM 110 mg/dL (80-116); MAGNESIUM 1.8 mg/dL (1.8-2.5); POTASSIUM,K 3.6 mmol/L (3.5-5.3); PROTEIN TOTAL,TP 7.5 g/dL (6.0-8.0); SODIUM,NA 141 mmol/L (135-145)
[2023-05-03 11:09] LABS: CALCIUM 5.9 mg/dL (8.6-10.2)
[2023-05-05 02:17] LABS: CALCIUM IONIZED PH 7.4 0.81 mmol/L (1.09-1.30); CALCIUM,IONIZED SERUM 0.79 mmol/L (1.09-1.30)
== END 2023-05-03 13:05 | disposition home or self-care (01) ==
LOC: FB.ED 09:36
DX: E83.51 Hypocalcemia (principal); R42 Dizziness and giddiness; J44.9 Chronic obstructive pulmonary disease, unspecified; Z91.048 Other nonmedicinal substance allergy status; Z79.899 Other long term (current) drug therapy
CPT/HCPCS: 36415; 80053; 82330; 83735; 85025; 96361; 96374; 99283; 99284-25; A9270-GY; J0612; J3490; J7030

== ENCOUNTER 2023-05-16 12:43 | Emergency (ER) | payer MEDICAID ==
[2023-05-16] MEDS: Sodium Chloride 0.9% 10 ML Syringe FLUSH PRN ×2 (13:15→17:23)
[2023-05-16 13:32] LABS: BASOPHILS ABSOLUTE AUTO 0.1 x10-3/uL (0.0-0.1); BASOPHILS PERCENT AUTO 0.7 % (0.2-1.5); EOSINOPHILS ABSOLUTE AUTO 0.1 x10-3/uL (0.0-0.8); EOSINOPHILS PERCENT AUTO 1.4 % (0.6-8.1); HEMOGLOBIN 14.1 g/dL (11.4-15.5); LYMPHOCYTES ABSOLUTE AUTO 1.4 x10-3/uL (1.0-4.4); LYMPHOCYTES PERCENT AUTO 14.3 % (18.4-52.1); MEAN CORPUSCULAR HEMOGLOBIN 29.7 pg (23.9-33.9); MEAN CORPUSCULAR HGB CONC 33.6 g/dL (31.9-34.8); MEAN CORPUSCULAR VOLUME 88.3 fL (76.7-100.5); MEAN PLATELET VOLUME 7.4 fL (7.1-12.4); MONOCYTES ABSOLUTE AUTO 0.5 x10-3/uL (0.3-1.0); MONOCYTES PERCENT AUTO 5.4 % (4.4-15.7); NEUTROPHILS ABSOLUTE AUTO 7.9 x10-3/uL (1.5-6.3); NEUTROPHILS PERCENT AUTO 78.2 % (30.8-76.2); PLATELET COUNT,PLT 319 x10(3)uL (151-488); RED BLOOD CELL COUNT 4.76 x10(6)uL (3.60-5.20); RED CELL DISTRIBUTION WIDTH 15.8 % (12.3-16.5); WHITE BLOOD CELL COUNT,WBC 10.1 x10-3/uL (3.0-10.3)
[2023-05-16 13:37] LABS: A/G RATIO 0.8; ALANINE AMINOTRANSFERASE,ALT 8 U/L (12-36); ALBUMIN 3.6 g/dL (3.2-4.6); ALKALINE PHOSPHATASE 99 IU/L (56-112); ASPARTATE AMNIOTRANSFERASE,AST 23 IU/L (5-25); BILIRUBIN TOTAL 0.4 mg/dL (0.1-1.3); BLOOD UREA NITROGEN,BUN 17 mg/dL (7-18); BUN/CREATININE RATIO 21.3 (9-20); CARBON DIOXIDE,CO2 30 mmol/L (21-32); CHLORIDE,CL 104 mmol/L (100-110); CREATININE 0.8 mg/dL (0.55-1.02); EST CRCL DRUG DOSING (CG) 78.15 mL/min; ESTIMATED GFR 84 mL/min (>60); GLUCOSE RANDOM 113 mg/dL (80-116); MAGNESIUM 1.9 mg/dL (1.8-2.5); POTASSIUM,K 3.1 mmol/L (3.5-5.3); PROTEIN TOTAL,TP 8.1 g/dL (6.0-8.0); SODIUM,NA 141 mmol/L (135-145)
[2023-05-16 13:39] LABS: CALCIUM 6.4 mg/dL (8.6-10.2)
[2023-05-16] MEDS ORDERED: Calcium Gluconate 10% 1 GM/10 ML SDV IV ONE (13:40)
[2023-05-16] MEDS ORDERED: Potassium Chloride 20 MEQ Tab.ER PO ONE (13:40)
[2023-05-16] MEDS ORDERED: Calcium Carbonate 500 MG Tab.Chew PO ONE ×2 (13:40→16:27)
[2023-05-16 17:46] LABS: CALCIUM 8.7 mg/dL (8.6-10.2); POTASSIUM,K 4.1 mmol/L (3.5-5.3)
== END 2023-05-16 18:48 | disposition home or self-care (01) ==
LOC: FB.ED 12:43
DX: E83.51 Hypocalcemia (principal); E87.6 Hypokalemia; R07.89 Other chest pain; I11.0 Hypertensive heart disease with heart failure; I50.9 Heart failure, unspecified; J44.9 Chronic obstructive pulmonary disease, unspecified; F17.200 Nicotine dependence, unspecified, uncomplicated; Z86.73 Personal history of transient ischemic attack (TIA), and cerebral infarction without residual deficits; Z79.899 Other long term (current) drug therapy; Z91.048 Other nonmedicinal substance allergy status
CPT/HCPCS: 36415; 80053; 82310; 83735; 84132; 84484; 85025; 93005; 96365; 96366; 99285; A9270; J0612; J3490

== ENCOUNTER 2023-05-24 23:10 | Emergency (ER) | payer MEDICAID ==
[2023-05-24 23:27] LABS: BASOPHILS ABSOLUTE AUTO 0.1 x10-3/uL (0.0-0.1); BASOPHILS PERCENT AUTO 0.7 % (0.2-1.5); EOSINOPHILS ABSOLUTE AUTO 0.4 x10-3/uL (0.0-0.8); EOSINOPHILS PERCENT AUTO 3.6 % (0.6-8.1); HEMATOCRIT 38.5 % (34.2-48.2); HEMOGLOBIN 12.8 g/dL (11.4-15.5); LYMPHOCYTES ABSOLUTE AUTO 3.5 x10-3/uL (1.0-4.4); LYMPHOCYTES PERCENT AUTO 34.1 % (18.4-52.1); MEAN CORPUSCULAR HEMOGLOBIN 29.7 pg (23.9-33.9); MEAN CORPUSCULAR HGB CONC 33.3 g/dL (31.9-34.8); MEAN CORPUSCULAR VOLUME 89.3 fL (76.7-100.5); MEAN PLATELET VOLUME 7.2 fL (7.1-12.4); MONOCYTES ABSOLUTE AUTO 0.8 x10-3/uL (0.3-1.0); MONOCYTES PERCENT AUTO 7.9 % (4.4-15.7); NEUTROPHILS ABSOLUTE AUTO 5.5 x10-3/uL (1.5-6.3); NEUTROPHILS PERCENT AUTO 53.7 % (30.8-76.2); PLATELET COUNT,PLT 304 x10(3)uL (151-488); RED BLOOD CELL COUNT 4.32 x10(6)uL (3.60-5.20); RED CELL DISTRIBUTION WIDTH 15.9 % (12.3-16.5); WHITE BLOOD CELL COUNT,WBC 10.2 x10-3/uL (3.0-10.3)
[2023-05-24 23:30] LABS: BLOOD UREA NITROGEN,BUN 25 mg/dL (7-18); BUN/CREATININE RATIO 31.3 (9-20); CALCIUM 7.2 mg/dL (8.6-10.2); CARBON DIOXIDE,CO2 28 mmol/L (21-32); CHLORIDE,CL 103 mmol/L (100-110); CREATININE 0.8 mg/dL (0.55-1.02); ESTIMATED GFR 84 mL/min (>60); GLUCOSE RANDOM 98 mg/dL (80-116); POTASSIUM,K 3.1 mmol/L (3.5-5.3); SODIUM,NA 140 mmol/L (135-145)
[2023-05-24] MEDS ORDERED: Calcium Gluconate 10% 1 GM/10 ML SDV IVPUSH ONE ×2 (23:30→23:36)
[2023-05-24 23:36] LABS: A/G RATIO 0.8; ALANINE AMINOTRANSFERASE,ALT 24 U/L (12-36); ALBUMIN 3.2 g/dL (3.2-4.6); ALKALINE PHOSPHATASE 99 IU/L (56-112); ASPARTATE AMNIOTRANSFERASE,AST 23 IU/L (5-25); BILIRUBIN TOTAL 0.2 mg/dL (0.1-1.3); MAGNESIUM 1.6 mg/dL (1.8-2.5); PROTEIN TOTAL,TP 7.2 g/dL (6.0-8.0)
[2023-05-24] MEDS ORDERED: Sodium Chloride 0.9% 1,000 ML IV SCH (23:45)
[2023-05-25] MEDS ORDERED: Magnesium Sulfate/Water 2 GM in Premix Bag 1 BAG IV ONE ×2
== END 2023-05-25 02:10 | disposition home or self-care (01) ==
LOC: FB.ED 23:10
DX: E83.42 Hypomagnesemia (principal); E83.51 Hypocalcemia; I11.0 Hypertensive heart disease with heart failure; I50.9 Heart failure, unspecified; J44.9 Chronic obstructive pulmonary disease, unspecified; Z91.048 Other nonmedicinal substance allergy status; Z79.899 Other long term (current) drug therapy
CPT/HCPCS: 36415; 80053; 83735; 84484; 85025; 93005; 96374; 96375; 99284-25; J0612; J3475; J7030

== ENCOUNTER 2023-07-07 12:24 | Emergency (ER) | payer MEDICAID ==
[2023-07-07] MEDS ORDERED: Sodium Chloride 0.9% 1,000 ML IV ONE (13:15)
[2023-07-07] MEDS ORDERED: Ketorolac 30 MG/ML SDV IVPUSH ONE (13:15)
[2023-07-07 13:54] LABS: BASOPHILS PERCENT AUTO 0.5 % (0.2-1.5); EOSINOPHILS ABSOLUTE AUTO 0.2 x10-3/uL (0.0-0.8); EOSINOPHILS PERCENT AUTO 2.3 % (0.6-8.1); HEMATOCRIT 40.9 % (34.2-48.2); HEMOGLOBIN 13.9 g/dL (11.4-15.5); LYMPHOCYTES ABSOLUTE AUTO 2.3 x10-3/uL (1.0-4.4); LYMPHOCYTES PERCENT AUTO 24.1 % (18.4-52.1); MEAN CORPUSCULAR HEMOGLOBIN 30.1 pg (23.9-33.9); MEAN CORPUSCULAR HGB CONC 33.8 g/dL (31.9-34.8); MEAN CORPUSCULAR VOLUME 88.9 fL (76.7-100.5); MEAN PLATELET VOLUME 7.3 fL (7.1-12.4); MONOCYTES PERCENT AUTO 10.4 % (4.4-15.7); NEUTROPHILS PERCENT AUTO 62.7 % (30.8-76.2); PLATELET COUNT,PLT 365 x10(3)uL (151-488); RED CELL DISTRIBUTION WIDTH 16.7 % (12.3-16.5); WHITE BLOOD CELL COUNT,WBC 9.6 x10-3/uL (3.0-10.3)
[2023-07-07 13:59] LABS: A/G RATIO 0.8; ALANINE AMINOTRANSFERASE,ALT 21 U/L (12-36); ALBUMIN 3.4 g/dL (3.2-4.6); ALKALINE PHOSPHATASE 102 IU/L (56-112); ASPARTATE AMNIOTRANSFERASE,AST 23 IU/L (5-25); BILIRUBIN TOTAL 0.3 mg/dL (0.1-1.3); BLOOD UREA NITROGEN,BUN 17 mg/dL (7-18); BUN/CREATININE RATIO 24.3 (9-20); CARBON DIOXIDE,CO2 27 mmol/L (21-32); CHLORIDE,CL 106 mmol/L (100-110); CREATININE 0.7 mg/dL (0.55-1.02); EST CRCL DRUG DOSING (CG) 89.32 mL/min; ESTIMATED GFR 99 mL/min (>60); GLUCOSE RANDOM 88 mg/dL (80-116); POTASSIUM,K 3.5 mmol/L (3.5-5.3); PROTEIN TOTAL,TP 7.6 g/dL (6.0-8.0); SODIUM,NA 143 mmol/L (135-145)
[2023-07-07 14:05] LABS: CALCIUM 6.5 mg/dL (8.6-10.2)
[2023-07-07] MEDS ORDERED: Calcium Gluconate 10% 1 GM/10 ML SDV ONE (14:11)
[2023-07-07] MEDS ORDERED: Calcium Gluconate 2 GM in Sodium Chloride 0.9% 100 ML IV ONE (14:30)
[2023-07-07] MEDS ORDERED: Potassium Chloride 20 MEQ Tab.ER PO ONE (15:39)
[2023-07-07] MEDS ORDERED: Acetaminophen 500 MG Tab PO ONE (17:41)
[2023-07-07 18:33] LABS: CORONAVIRUS COVID-19 NAA NEGATIVE (NEGATIVE); INFLUENZA A NAA NEGATIVE (NEGATIVE); INFLUENZA B NAA NEGATIVE (NEGATIVE); RESPIRATORY SYNCYTIAL VIR NAA NEGATIVE (NEGATIVE)
[2023-07-07] MEDS ORDERED: Iopamidol 755 Mg/ML 100 ML Bottle IV SCH (18:45)
[2023-07-07] MEDS ORDERED: Azithromycin 500 MG Tab PO ONE (18:46)
== END 2023-07-07 19:16 | disposition home or self-care (01) ==
LOC: FB.ED 12:24
DX: M62.838 Other muscle spasm (principal); E83.51 Hypocalcemia; J18.9 Pneumonia, unspecified organism; E83.42 Hypomagnesemia; J90 Pleural effusion, not elsewhere classified; R79.82 Elevated C-reactive protein (CRP); R79.89 Other specified abnormal findings of blood chemistry; I11.0 Hypertensive heart disease with heart failure; I50.9 Heart failure, unspecified; F17.210 Nicotine dependence, cigarettes, uncomplicated; Z91.048 Other nonmedicinal substance allergy status; Z79.899 Other long term (current) drug therapy; Z20.822 Contact with and (suspected) exposure to COVID-19
CPT/HCPCS: 0241U; 36415; 71100; 71275; 80053; 83735; 85025; 85379; 86140; 96361; 96365; 96368; 96375; 99284; A9270; J0612; J1885; J3475; J3490; J7030; Q9967

== ENCOUNTER 2023-07-20 05:39 | Emergency (ER) | payer MEDICAID ==
[2023-07-20] MEDS ORDERED: Ketorolac 30 MG/ML SDV IM ONE (05:49)
[2023-07-20] MEDS ORDERED: hydrOXYzine HCl 50 MG/ML SDV IM ONE (05:49)
[2023-07-20 06:18] LABS: BASOPHILS ABSOLUTE AUTO 0.1 x10-3/uL (0.0-0.1); BASOPHILS PERCENT AUTO 0.8 % (0.2-1.5); EOSINOPHILS ABSOLUTE AUTO 0.3 x10-3/uL (0.0-0.8); EOSINOPHILS PERCENT AUTO 3.6 % (0.6-8.1); HEMATOCRIT 41.4 % (34.2-48.2); HEMOGLOBIN 13.7 g/dL (11.4-15.5); LYMPHOCYTES ABSOLUTE AUTO 2.1 x10-3/uL (1.0-4.4); LYMPHOCYTES PERCENT AUTO 28.5 % (18.4-52.1); MEAN CORPUSCULAR HEMOGLOBIN 29.6 pg (23.9-33.9); MEAN CORPUSCULAR HGB CONC 33.1 g/dL (31.9-34.8); MEAN CORPUSCULAR VOLUME 89.4 fL (76.7-100.5); MEAN PLATELET VOLUME 7.4 fL (7.1-12.4); MONOCYTES ABSOLUTE AUTO 0.7 x10-3/uL (0.3-1.0); MONOCYTES PERCENT AUTO 9.9 % (4.4-15.7); NEUTROPHILS ABSOLUTE AUTO 4.3 x10-3/uL (1.5-6.3); NEUTROPHILS PERCENT AUTO 57.2 % (30.8-76.2); PLATELET COUNT,PLT 310 x10(3)uL (151-488); RED BLOOD CELL COUNT 4.63 x10(6)uL (3.60-5.20); RED CELL DISTRIBUTION WIDTH 16.2 % (12.3-16.5); WHITE BLOOD CELL COUNT,WBC 7.5 x10-3/uL (3.0-10.3)
[2023-07-20 06:23] LABS: A/G RATIO 0.9; ALANINE AMINOTRANSFERASE,ALT 27 U/L (12-36); ALBUMIN 3.5 g/dL (3.2-4.6); ALKALINE PHOSPHATASE 102 IU/L (56-112); ASPARTATE AMNIOTRANSFERASE,AST 35 IU/L (5-25); BILIRUBIN TOTAL 0.2 mg/dL (0.1-1.3); BLOOD UREA NITROGEN,BUN 20 mg/dL (7-18); BUN/CREATININE RATIO 22.2 (9-20); CARBON DIOXIDE,CO2 30 mmol/L (21-32); CHLORIDE,CL 104 mmol/L (100-110); CREATININE 0.9 mg/dL (0.55-1.02); EST CRCL DRUG DOSING (CG) 70.68 mL/min; ESTIMATED GFR 73 mL/min (>60); GLUCOSE RANDOM 144 mg/dL (80-116); POTASSIUM,K 3.3 mmol/L (3.5-5.3); PROTEIN TOTAL,TP 7.3 g/dL (6.0-8.0); SODIUM,NA 142 mmol/L (135-145)
[2023-07-20 06:25] LABS: CALCIUM 6.2 mg/dL (8.6-10.2)
[2023-07-20] MEDS ORDERED: Calcium Gluconate 10% 1 GM/10 ML SDV IVPUSH ONE ×2 (06:31→08:09)
[2023-07-20] MEDS: Sodium Chloride 0.9% 10 ML Syringe FLUSH PRN ×2 (07:44→08:34)
[2023-07-20] MEDS ORDERED: Potassium Chloride 20 MEQ Tab.ER PO ONE ×2 (08:07→10:30)
[2023-07-20] MEDS ORDERED: Magnesium Sulfate/Water 2 GM in Premix Bag 1 BAG IV ONE (08:08)
== END 2023-07-20 11:10 | disposition home or self-care (01) ==
LOC: FB.ED 05:39
DX: E83.51 Hypocalcemia (principal); E87.6 Hypokalemia; E83.42 Hypomagnesemia; F17.210 Nicotine dependence, cigarettes, uncomplicated; I11.0 Hypertensive heart disease with heart failure; I50.9 Heart failure, unspecified; J44.9 Chronic obstructive pulmonary disease, unspecified; K21.9 Gastro-esophageal reflux disease without esophagitis; Z79.899 Other long term (current) drug therapy; Z91.048 Other nonmedicinal substance allergy status
CPT/HCPCS: 36415; 80053; 83735; 84443; 84484; 85025; 93005; 96365; 96366; 96372; 96375; 96376; 99284-25; A9270-GY; J0612; J1885; J3410; J3475; J3490

== ENCOUNTER 2023-08-19 14:09 | Emergency (ER) | payer MEDICAID ==
[2023-08-19] MEDS ORDERED: Sodium Chloride 0.9% 10 ML Syringe FLUSH PRN (14:18)
[2023-08-19 14:38] LABS: BASOPHILS ABSOLUTE AUTO 0.1 x10-3/uL (0.0-0.1); BASOPHILS PERCENT AUTO 0.7 % (0.2-1.5); EOSINOPHILS ABSOLUTE AUTO 0.2 x10-3/uL (0.0-0.8); EOSINOPHILS PERCENT AUTO 1.7 % (0.6-8.1); HEMATOCRIT 40.3 % (34.2-48.2); HEMOGLOBIN 13.6 g/dL (11.4-15.5); LYMPHOCYTES ABSOLUTE AUTO 2.6 x10-3/uL (1.0-4.4); LYMPHOCYTES PERCENT AUTO 26.6 % (18.4-52.1); MEAN CORPUSCULAR HEMOGLOBIN 29.9 pg (23.9-33.9); MEAN CORPUSCULAR HGB CONC 33.8 g/dL (31.9-34.8); MEAN CORPUSCULAR VOLUME 88.7 fL (76.7-100.5); MEAN PLATELET VOLUME 7.2 fL (7.1-12.4); MONOCYTES ABSOLUTE AUTO 0.8 x10-3/uL (0.3-1.0); MONOCYTES PERCENT AUTO 7.8 % (4.4-15.7); NEUTROPHILS ABSOLUTE AUTO 6.1 x10-3/uL (1.5-6.3); NEUTROPHILS PERCENT AUTO 63.2 % (30.8-76.2); PLATELET COUNT,PLT 292 x10(3)uL (151-488); RED BLOOD CELL COUNT 4.54 x10(6)uL (3.60-5.20); RED CELL DISTRIBUTION WIDTH 16.2 % (12.3-16.5); WHITE BLOOD CELL COUNT,WBC 9.6 x10-3/uL (3.0-10.3)
[2023-08-19 14:45] LABS: BLOOD UREA NITROGEN,BUN 19 mg/dL (7-18); BUN/CREATININE RATIO 23.8 (9-20); CALCIUM 6.7 mg/dL (8.6-10.2); CARBON DIOXIDE,CO2 30 mmol/L (21-32); CHLORIDE,CL 103 mmol/L (100-110); CREATININE 0.8 mg/dL (0.55-1.02); EST CRCL DRUG DOSING (CG) 78.15 mL/min; ESTIMATED GFR 84 mL/min (>60); GLUCOSE RANDOM 82 mg/dL (80-116); POTASSIUM,K 3.2 mmol/L (3.5-5.3); SODIUM,NA 139 mmol/L (135-145)
[2023-08-19 14:51] LABS: ALANINE AMINOTRANSFERASE,ALT 24 U/L (12-36); ALBUMIN 3.6 g/dL (3.2-4.6); ALKALINE PHOSPHATASE 95 IU/L (56-112); ASPARTATE AMNIOTRANSFERASE,AST 29 IU/L (5-25); BILIRUBIN TOTAL 0.4 mg/dL (0.1-1.3); PROTEIN TOTAL,TP 7.4 g/dL (6.0-8.0)
[2023-08-19] MEDS ORDERED: Calcium Gluconate 10% 1 GM/10 ML SDV IVPUSH STA (15:09)
[2023-08-19] MEDS ORDERED: Potassium Chloride 20 MEQ Tab.ER PO ONE (15:50)
[2023-08-19 16:29] LABS: BLOOD UREA NITROGEN,BUN 19 mg/dL (7-18); BUN/CREATININE RATIO 23.8 (9-20); CALCIUM 7.5 mg/dL (8.6-10.2); CARBON DIOXIDE,CO2 27 mmol/L (21-32); CHLORIDE,CL 103 mmol/L (100-110); CREATININE 0.8 mg/dL (0.55-1.02); EST CRCL DRUG DOSING (CG) 78.15 mL/min; ESTIMATED GFR 84 mL/min (>60); GLUCOSE RANDOM 149 mg/dL (80-116); SODIUM,NA 139 mmol/L (135-145)
[2023-08-19 16:30] LABS: POTASSIUM,K 2.8 mmol/L (3.5-5.3)
== END 2023-08-19 17:10 | disposition home or self-care (01) ==
LOC: FB.ED 14:09
DX: E87.6 Hypokalemia (principal); Q79.60 Ehlers-Danlos syndrome, unspecified; E20.9 Hypoparathyroidism, unspecified; F17.210 Nicotine dependence, cigarettes, uncomplicated; I10 Essential (primary) hypertension; I50.9 Heart failure, unspecified; J44.9 Chronic obstructive pulmonary disease, unspecified
CPT/HCPCS: 36415; 71045; 80048; 80053; 83735; 83880; 84484; 85025; 93005; 93010; 96374; 99284; 99285-25; A9270-GY; J0612; J3490

== ENCOUNTER 2023-08-25 12:56 | Emergency (ER) | payer MEDICAID ==
[2023-08-25 13:45] LABS: BASOPHILS PERCENT AUTO 0.5 % (0.2-1.5); BLOOD UREA NITROGEN,BUN 19 mg/dL (7-18); BUN/CREATININE RATIO 23.8 (9-20); CALCIUM 6.8 mg/dL (8.6-10.2); CARBON DIOXIDE,CO2 31 mmol/L (21-32); CHLORIDE,CL 104 mmol/L (100-110); CREATININE 0.8 mg/dL (0.55-1.02); EOSINOPHILS ABSOLUTE AUTO 0.2 x10-3/uL (0.0-0.8); EOSINOPHILS PERCENT AUTO 2.8 % (0.6-8.1); ESTIMATED GFR 84 mL/min (>60); GLUCOSE RANDOM 94 mg/dL (80-116); HEMATOCRIT 39.6 % (34.2-48.2); HEMOGLOBIN 13.4 g/dL (11.4-15.5); LYMPHOCYTES ABSOLUTE AUTO 2.3 x10-3/uL (1.0-4.4); LYMPHOCYTES PERCENT AUTO 29.7 % (18.4-52.1); MEAN CORPUSCULAR HEMOGLOBIN 30.1 pg (23.9-33.9); MEAN CORPUSCULAR HGB CONC 33.7 g/dL (31.9-34.8); MEAN CORPUSCULAR VOLUME 89.4 fL (76.7-100.5); MEAN PLATELET VOLUME 7.2 fL (7.1-12.4); MONOCYTES ABSOLUTE AUTO 0.7 x10-3/uL (0.3-1.0); MONOCYTES PERCENT AUTO 9.2 % (4.4-15.7); NEUTROPHILS ABSOLUTE AUTO 4.5 x10-3/uL (1.5-6.3); NEUTROPHILS PERCENT AUTO 57.8 % (30.8-76.2); PLATELET COUNT,PLT 258 x10(3)uL (151-488); POTASSIUM,K 3.9 mmol/L (3.5-5.3); RED BLOOD CELL COUNT 4.43 x10(6)uL (3.60-5.20); RED CELL DISTRIBUTION WIDTH 15.8 % (12.3-16.5); SODIUM,NA 139 mmol/L (135-145); WHITE BLOOD CELL COUNT,WBC 7.8 x10-3/uL (3.0-10.3)
[2023-08-25 13:50] LABS: A/G RATIO 0.8; ALANINE AMINOTRANSFERASE,ALT 18 U/L (12-36); ALBUMIN 3.3 g/dL (3.2-4.6); ALKALINE PHOSPHATASE 111 IU/L (56-112); ASPARTATE AMNIOTRANSFERASE,AST 30 IU/L (5-25); BILIRUBIN TOTAL 0.2 mg/dL (0.1-1.3); PROTEIN TOTAL,TP 7.3 g/dL (6.0-8.0)
[2023-08-25 13:58] LABS: PRO B-TYPE NATRIUR PEPT,BNPPRO 103 pg/mL (<=125)
[2023-08-25 14:01] LABS: TROPONIN I < 4.0 pg/mL (4.0-60.3)
[2023-08-25] MEDS ORDERED: Calcium Gluconate 10% 1 GM/10 ML SDV IVPUSH ONE ×2 (14:30→15:30)
[2023-08-25] MEDS: Sodium Chloride 0.9% 10 ML Syringe FLUSH PRN ×2 (14:35→15:35)
== END 2023-08-25 16:40 | disposition home or self-care (01) ==
LOC: FB.ED 12:56
DX: R07.9 Chest pain, unspecified (principal); E83.51 Hypocalcemia; I11.0 Hypertensive heart disease with heart failure; I50.9 Heart failure, unspecified; E03.9 Hypothyroidism, unspecified; F17.210 Nicotine dependence, cigarettes, uncomplicated; Z91.048 Other nonmedicinal substance allergy status; Z79.899 Other long term (current) drug therapy
CPT/HCPCS: 36415; 71045; 80053; 83735; 83880; 84484; 85025; 93005; 93010; 96374; 96376; 99283; 99284; J0612; J3490

== ENCOUNTER 2023-09-15 23:09 | Emergency (ER) | payer MEDICAID ==
[2023-09-15] MEDS: Sodium Chloride 0.9% 10 ML Syringe FLUSH PRN (23:25)
[2023-09-15 23:35] LABS: BASOPHILS ABSOLUTE AUTO 0.1 x10-3/uL (0.0-0.1); BASOPHILS PERCENT AUTO 0.5 % (0.2-1.5); EOSINOPHILS ABSOLUTE AUTO 0.3 x10-3/uL (0.0-0.8); EOSINOPHILS PERCENT AUTO 3.1 % (0.6-8.1); HEMOGLOBIN 13.7 g/dL (11.4-15.5); LYMPHOCYTES ABSOLUTE AUTO 3.2 x10-3/uL (1.0-4.4); LYMPHOCYTES PERCENT AUTO 29.8 % (18.4-52.1); MEAN CORPUSCULAR HEMOGLOBIN 29.9 pg (23.9-33.9); MEAN CORPUSCULAR HGB CONC 33.4 g/dL (31.9-34.8); MEAN CORPUSCULAR VOLUME 89.3 fL (76.7-100.5); MEAN PLATELET VOLUME 7.4 fL (7.1-12.4); MONOCYTES PERCENT AUTO 9.4 % (4.4-15.7); NEUTROPHILS ABSOLUTE AUTO 6.1 x10-3/uL (1.5-6.3); NEUTROPHILS PERCENT AUTO 57.2 % (30.8-76.2); PLATELET COUNT,PLT 297 x10(3)uL (151-488); RED BLOOD CELL COUNT 4.59 x10(6)uL (3.60-5.20); WHITE BLOOD CELL COUNT,WBC 10.7 x10-3/uL (3.0-10.3)
[2023-09-15] MEDS: Morphine 4 MG/ML VIAL IVPUSH ONE (23:38)
[2023-09-15] MEDS: Sodium Chloride 0.9% 1,000 ML IV ONE (23:40)
[2023-09-15 23:43] LABS: ALANINE AMINOTRANSFERASE,ALT 23 U/L (12-36); ALBUMIN 3.7 g/dL (3.2-4.6); ALKALINE PHOSPHATASE 128 IU/L (56-112); ASPARTATE AMNIOTRANSFERASE,AST 34 IU/L (5-25); BILIRUBIN TOTAL 0.3 mg/dL (0.1-1.3); BLOOD UREA NITROGEN,BUN 21 mg/dL (7-18); BUN/CREATININE RATIO 23.3 (9-20); CARBON DIOXIDE,CO2 25 mmol/L (21-32); CHLORIDE,CL 104 mmol/L (100-110); CREATININE 0.9 mg/dL (0.55-1.02); ESTIMATED GFR 73 mL/min (>60); GLUCOSE RANDOM 104 mg/dL (80-116); MAGNESIUM 1.6 mg/dL (1.8-2.5); POTASSIUM,K 3.3 mmol/L (3.5-5.3); PROTEIN TOTAL,TP 7.5 g/dL (6.0-8.0); SODIUM,NA 141 mmol/L (135-145)
[2023-09-15 23:45] LABS: CALCIUM 5.9 mg/dL (8.6-10.2)
[2023-09-15] MEDS: Magnesium Sulfate/Water 2 GM in Premix Bag 1 BAG IV ONE (23:56)
[2023-09-16] MEDS: Potassium Chloride 20 MEQ Tab.ER PO STA (02:19)
[2023-09-16] MEDS: Calcium Gluconate 10% 1 GM/10 ML SDV IVPUSH ONE (02:19)
== END 2023-09-16 03:00 | disposition home or self-care (01) ==
LOC: FB.ED 23:09
DX: E87.6 Hypokalemia (principal); E83.42 Hypomagnesemia; E83.51 Hypocalcemia; F17.210 Nicotine dependence, cigarettes, uncomplicated; Z91.048 Other nonmedicinal substance allergy status; Z79.899 Other long term (current) drug therapy
CPT/HCPCS: 36415; 80053; 83735; 84484; 85025; 96365; 96366; 96375; 99283; 99284; A9270; J0612; J2270; J3475; J3490; J7030

== ENCOUNTER 2023-09-17 13:46 | Emergency (ER) | payer MEDICAID ==
[2023-09-17] MEDS: Sodium Chloride 0.9% 10 ML Syringe FLUSH PRN (14:00)
[2023-09-17] MEDS: Meclizine 25 MG Tab PO ONE (14:15)
[2023-09-17 14:17] LABS: BLOOD UREA NITROGEN,BUN 17 mg/dL (7-18); BUN/CREATININE RATIO 21.3 (9-20); CARBON DIOXIDE,CO2 27 mmol/L (21-32); CHLORIDE,CL 106 mmol/L (100-110); CREATININE 0.8 mg/dL (0.55-1.02); EST CRCL DRUG DOSING (CG) 78.15 mL/min; ESTIMATED GFR 84 mL/min (>60); GLUCOSE RANDOM 99 mg/dL (80-116); MAGNESIUM 1.4 mg/dL (1.8-2.5); POTASSIUM,K 3.2 mmol/L (3.5-5.3); SODIUM,NA 144 mmol/L (135-145)
[2023-09-17 14:26] LABS: CALCIUM 5.9 mg/dL (8.6-10.2)
[2023-09-17] MEDS: Magnesium Sulfate/Water 2 GM in Premix Bag 1 BAG IV ONE (14:55)
[2023-09-17] MEDS: Calcium Gluconate 10% 1 GM/10 ML SDV IVPUSH ONE ×3 (14:55→17:16)
[2023-09-17] MEDS: Potassium Chloride 20 MEQ Tab.ER PO STA (14:56)
[2023-09-17] MEDS: Potassium Chloride 20 MEQ Tab.ER PO ONE (16:58)
== END 2023-09-17 18:55 | disposition home or self-care (01) ==
LOC: FB.ED 13:46
DX: E87.6 Hypokalemia (principal); E83.51 Hypocalcemia; E83.42 Hypomagnesemia; I11.0 Hypertensive heart disease with heart failure; I50.9 Heart failure, unspecified; J44.9 Chronic obstructive pulmonary disease, unspecified; Z91.048 Other nonmedicinal substance allergy status
CPT/HCPCS: 36415; 80048; 83735; 96365; 96366; 96375; 96376; 99284-25; A9270-GY; J0612; J3475; J3490

== ENCOUNTER 2023-09-23 18:30 | Emergency (ER) | payer MEDICAID ==
[2023-09-23] MEDS ORDERED: Sodium Chloride 0.9% 10 ML Syringe FLUSH PRN (18:42)
[2023-09-23 19:17] LABS: BASOPHILS ABSOLUTE AUTO 0.1 x10-3/uL (0.0-0.1); BASOPHILS PERCENT AUTO 0.7 % (0.2-1.5); EOSINOPHILS ABSOLUTE AUTO 0.3 x10-3/uL (0.0-0.8); EOSINOPHILS PERCENT AUTO 4.1 % (0.6-8.1); HEMATOCRIT 39.6 % (34.2-48.2); HEMOGLOBIN 13.3 g/dL (11.4-15.5); LYMPHOCYTES ABSOLUTE AUTO 2.7 x10-3/uL (1.0-4.4); LYMPHOCYTES PERCENT AUTO 32.1 % (18.4-52.1); MEAN CORPUSCULAR HEMOGLOBIN 30.3 pg (23.9-33.9); MEAN CORPUSCULAR HGB CONC 33.7 g/dL (31.9-34.8); MEAN CORPUSCULAR VOLUME 89.9 fL (76.7-100.5); MEAN PLATELET VOLUME 7.5 fL (7.1-12.4); MONOCYTES PERCENT AUTO 11.8 % (4.4-15.7); NEUTROPHILS ABSOLUTE AUTO 4.4 x10-3/uL (1.5-6.3); NEUTROPHILS PERCENT AUTO 51.3 % (30.8-76.2); PLATELET COUNT,PLT 318 x10(3)uL (151-488); RED BLOOD CELL COUNT 4.41 x10(6)uL (3.60-5.20); RED CELL DISTRIBUTION WIDTH 15.9 % (12.3-16.5); WHITE BLOOD CELL COUNT,WBC 8.5 x10-3/uL (3.0-10.3)
[2023-09-23 19:23] LABS: A/G RATIO 0.9; ALANINE AMINOTRANSFERASE,ALT 21 U/L (12-36); ALBUMIN 3.6 g/dL (3.2-4.6); ALKALINE PHOSPHATASE 126 IU/L (56-112); ASPARTATE AMNIOTRANSFERASE,AST 27 IU/L (5-25); BILIRUBIN TOTAL 0.2 mg/dL (0.1-1.3); BLOOD UREA NITROGEN,BUN 26 mg/dL (7-18); BUN/CREATININE RATIO 28.9 (9-20); CARBON DIOXIDE,CO2 28 mmol/L (21-32); CHLORIDE,CL 103 mmol/L (100-110); CREATININE 0.9 mg/dL (0.55-1.02); ESTIMATED GFR 73 mL/min (>60); GLUCOSE RANDOM 91 mg/dL (80-116); POTASSIUM,K 3.5 mmol/L (3.5-5.3); PROTEIN TOTAL,TP 7.6 g/dL (6.0-8.0); SODIUM,NA 143 mmol/L (135-145)
[2023-09-23 19:27] LABS: INR 0.96 (1.00-1.24)
[2023-09-23 19:29] LABS: PTT,PARTIAL THROMBOPLSTIN TIME 27.8 SECONDS (24.4-33.2)
[2023-09-23 19:30] LABS: CALCIUM 5.8 mg/dL (8.6-10.2)
[2023-09-23] MEDS: Calcium Gluconate 10% 1 GM/10 ML SDV IVPUSH ONE ×3 (21:03→22:19)
== END 2023-09-23 22:47 | disposition home or self-care (01) ==
LOC: FB.ED 18:30
DX: E83.51 Hypocalcemia (principal); R29.0 Tetany; E20.9 Hypoparathyroidism, unspecified; J44.9 Chronic obstructive pulmonary disease, unspecified; K21.9 Gastro-esophageal reflux disease without esophagitis; Z86.73 Personal history of transient ischemic attack (TIA), and cerebral infarction without residual deficits; Z79.899 Other long term (current) drug therapy; Z91.048 Other nonmedicinal substance allergy status
CPT/HCPCS: 71045; 80053; 83735; 84484; 85025; 85610; 85730; 93005; 96374; 96376; 99284-25; J0612

== ENCOUNTER 2023-10-21 02:03 | Emergency (ER) | payer MEDICAID ==
[2023-10-21 03:01] LABS: HEMATOCRIT 40.3 % (34.2-48.2); HEMOGLOBIN 13.6 g/dL (11.4-15.5); MEAN CORPUSCULAR HGB CONC 33.7 g/dL (31.9-34.8); MEAN CORPUSCULAR VOLUME 88.9 fL (76.7-100.5); PLATELET COUNT,PLT 356 x10(3)uL (151-488); RED BLOOD CELL COUNT 4.53 x10(6)uL (3.60-5.20); RED CELL DISTRIBUTION WIDTH 16.4 % (12.3-16.5); WHITE BLOOD CELL COUNT,WBC 11.7 x10-3/uL (3.0-10.3)
[2023-10-21 03:04] LABS: BLOOD UREA NITROGEN,BUN 20 mg/dL (7-18); BUN/CREATININE RATIO 22.2 (9-20); CALCIUM 6.7 mg/dL (8.6-10.2); CARBON DIOXIDE,CO2 27 mmol/L (21-32); CHLORIDE,CL 101 mmol/L (100-110); CREATININE 0.9 mg/dL (0.55-1.02); ESTIMATED GFR 73 mL/min (>60); GLUCOSE RANDOM 139 mg/dL (80-116); POTASSIUM,K 3.6 mmol/L (3.5-5.3); SODIUM,NA 139 mmol/L (135-145)
[2023-10-21] MEDS ORDERED: Sodium Chloride 0.9% 10 ML Syringe FLUSH PRN (03:10)
[2023-10-21 03:11] LABS: A/G RATIO 0.9; ALANINE AMINOTRANSFERASE,ALT 32 U/L (12-36); ALBUMIN 3.6 g/dL (3.2-4.6); ALKALINE PHOSPHATASE 91 IU/L (56-112); ASPARTATE AMNIOTRANSFERASE,AST 37 IU/L (5-25); BILIRUBIN TOTAL 0.4 mg/dL (0.1-1.3); MAGNESIUM 2.1 mg/dL (1.8-2.5); PROTEIN TOTAL,TP 7.5 g/dL (6.0-8.0)
[2023-10-21 03:13] LABS: EOSINOPHILS PERCENT MAN 2 % (0-5); LYMPHOCYTES PERCENT MAN 5 % (13-37); MONOCYTES PERCENT MAN 2 % (4-12); SEG NEUTROPHILS PERCENT MAN 91 % (46-82)
[2023-10-21] MEDS: hydrOXYzine HCl 50 MG/ML SDV IM ONE (03:13)
[2023-10-21 03:37] LABS: BILIRUBIN,URINE NEGATIVE (NEGATIVE); GLUCOSE,URINE NORMAL (NORMAL); KETONES,URINE NEGATIVE (NEGATIVE); LEUKOCYTE ESTERASE,URINE NEGATIVE (NEGATIVE); NITRITE,URINE NEGATIVE (NEGATIVE); OCCULT BLOOD,URINE LARGE (NEGATIVE); PROTEIN,URINE NEGATIVE (NEGATIVE); UROBILINOGEN,URINE NORMAL (NEGATIVE)
[2023-10-21] MEDS: Calcium Gluconate 10% 1 GM/10 ML SDV IVPUSH SCH (03:37)
[2023-10-21] MEDS: Calcium Carbonate 500 MG Tab.Chew PO ONE (03:37)
[2023-10-21 03:42] LABS: APPEARANCE,URINE SLIGHTLY CLOUDY (CLEAR); BACTERIA,URINE FEW (NS); COLOR,URINE YELLOW (YELLOW); MUCUS,URINE FEW (NS); SQUAMOUS EPITHELIAL CELLS,UR MODERATE (NS,R,O); WBC,URINE 0-5 (0-5)
[2023-10-21] MEDS: diphenhydrAMINE 50 MG Cap PO ONE (04:09)
== END 2023-10-21 06:24 | disposition home or self-care (01) ==
LOC: FB.ED 02:03
DX: E83.51 Hypocalcemia (principal); R21 Rash and other nonspecific skin eruption; L30.9 Dermatitis, unspecified; I11.0 Hypertensive heart disease with heart failure; I50.9 Heart failure, unspecified; J44.9 Chronic obstructive pulmonary disease, unspecified; F17.200 Nicotine dependence, unspecified, uncomplicated; Z91.048 Other nonmedicinal substance allergy status; Z79.899 Other long term (current) drug therapy
CPT/HCPCS: 36415; 80053; 81001; 82310; 83735; 85025; 93005; 93010; 96372; 96374; 96376; 99284; 99284-25; A9270-GY; J0612; J3410

== ENCOUNTER 2023-10-26 19:42 | Emergency (ER) | payer MEDICAID ==
[2023-10-26] MEDS: diphenhydrAMINE 50 MG/ML SDV IVPUSH ONE (20:45)
[2023-10-26] MEDS: Calcium Gluconate 10% 1 GM/10 ML SDV IVPUSH ONE (20:45)
[2023-10-26 20:54] LABS: HEMATOCRIT 42.7 % (34.2-48.2); HEMOGLOBIN 14.2 g/dL (11.4-15.5); MEAN CORPUSCULAR HEMOGLOBIN 29.8 pg (23.9-33.9); MEAN CORPUSCULAR HGB CONC 33.2 g/dL (31.9-34.8); MEAN CORPUSCULAR VOLUME 89.7 fL (76.7-100.5); PLATELET COUNT,PLT 364 x10(3)uL (151-488); RED BLOOD CELL COUNT 4.76 x10(6)uL (3.60-5.20); RED CELL DISTRIBUTION WIDTH 16.3 % (12.3-16.5); WHITE BLOOD CELL COUNT,WBC 11.5 x10-3/uL (3.0-10.3)
[2023-10-26 21:08] LABS: ALANINE AMINOTRANSFERASE,ALT 35 U/L (12-36); ALBUMIN 3.6 g/dL (3.2-4.6); ASPARTATE AMNIOTRANSFERASE,AST 48 IU/L (5-25); BILIRUBIN TOTAL 0.6 mg/dL (0.1-1.3); BLOOD UREA NITROGEN,BUN 19 mg/dL (7-18); BUN/CREATININE RATIO 17.3 (9-20); CARBON DIOXIDE,CO2 27 mmol/L (21-32); CHLORIDE,CL 100 mmol/L (100-110); CREATININE 1.1 mg/dL (0.55-1.02); ESTIMATED GFR 58 mL/min (>60); GLUCOSE RANDOM 127 mg/dL (80-116); POTASSIUM,K 3.5 mmol/L (3.5-5.3); PROTEIN TOTAL,TP 7.2 g/dL (6.0-8.0); SODIUM,NA 139 mmol/L (135-145)
[2023-10-26 21:14] LABS: BAND PERCENT MAN 2 % (0-6); EOSINOPHILS PERCENT MAN 1 % (0-5); LYMPHOCYTES PERCENT MAN 5 % (13-37); MONOCYTES PERCENT MAN 5 % (4-12); SEG NEUTROPHILS PERCENT MAN 87 % (46-82)
[2023-10-26 21:24] LABS: ALKALINE PHOSPHATASE 78 IU/L (56-112); CALCIUM 6.3 mg/dL (8.6-10.2); INFLUENZA A NAA NEGATIVE (NEGATIVE); INFLUENZA B NAA NEGATIVE (NEGATIVE); RESPIRATORY SYNCYTIAL VIR NAA NEGATIVE (NEGATIVE)
[2023-10-26 21:25] LABS: CORONAVIRUS COVID-19 NAA NEGATIVE (NEGATIVE)
== END 2023-10-26 23:10 | disposition home or self-care (01) ==
LOC: FB.ED 19:42
DX: L30.9 Dermatitis, unspecified (principal); B34.9 Viral infection, unspecified; E83.51 Hypocalcemia; R29.0 Tetany; Z86.19 Personal history of other infectious and parasitic diseases; Z79.899 Other long term (current) drug therapy
CPT/HCPCS: 0241U; 36415; 80053; 85025; 86140; 96374; 96375; 99283; J0612; J1200; 99284

== ENCOUNTER 2023-10-31 23:52 | Emergency (ER) | payer MEDICAID ==
[2023-11-01 00:34] LABS: BLOOD UREA NITROGEN,BUN 25 mg/dL (7-18); BUN/CREATININE RATIO 22.7 (9-20); CARBON DIOXIDE,CO2 29 mmol/L (21-32); CHLORIDE,CL 100 mmol/L (100-110); CREATININE 1.1 mg/dL (0.55-1.02); ESTIMATED GFR 58 mL/min (>60); GLUCOSE RANDOM 100 mg/dL (80-116); MAGNESIUM 1.9 mg/dL (1.8-2.5); POTASSIUM,K 3.8 mmol/L (3.5-5.3); SODIUM,NA 138 mmol/L (135-145)
[2023-11-01 00:36] LABS: CALCIUM 5.3 mg/dL (8.6-10.2)
[2023-11-01] MEDS ORDERED: Calcium Carbonate 250 MG/ML Susp ML PO ONE (00:38)
[2023-11-01] MEDS: diphenhydrAMINE 50 MG/ML SDV IVPUSH ONE (00:39)
[2023-11-01] MEDS: Calcium Gluconate 10% 1 GM/10 ML SDV IVPUSH SCH (00:45)
[2023-11-01] MEDS: Magnesium Oxide 400 MG Tab PO ONE (00:55)
[2023-11-01] MEDS: Sodium Chloride 0.9% 1,000 ML IV ONE (01:01)
[2023-11-01] MEDS: Calcium Carbonate 500 MG Tab.Chew PO ONE ×2 (01:28→02:43)
== END 2023-11-01 02:45 | disposition home or self-care (01) ==
LOC: FB.ED 23:52
DX: E83.51 Hypocalcemia (principal); R29.0 Tetany; E86.0 Dehydration; L29.9 Pruritus, unspecified; I11.0 Hypertensive heart disease with heart failure; I50.9 Heart failure, unspecified; J44.9 Chronic obstructive pulmonary disease, unspecified; F17.200 Nicotine dependence, unspecified, uncomplicated; Z91.048 Other nonmedicinal substance allergy status; Z79.899 Other long term (current) drug therapy; Z86.19 Personal history of other infectious and parasitic diseases
CPT/HCPCS: 36415; 80048; 82310; 83735; 96361; 96374; 96375; 96376; 99284; 99284-25; A9270-GY; J0612; J1200; J7030

== ENCOUNTER 2023-11-03 16:07 | Emergency (ER) | payer MEDICAID ==
[2023-11-03] MEDS ORDERED: Sodium Chloride 0.9% 10 ML Syringe FLUSH PRN (16:45)
[2023-11-03 17:14] LABS: BASOPHILS PERCENT AUTO 0.4 % (0.2-1.5); EOSINOPHILS ABSOLUTE AUTO 2.4 x10-3/uL (0.0-0.8); EOSINOPHILS PERCENT AUTO 20.9 % (0.6-8.1); HEMATOCRIT 38.6 % (34.2-48.2); HEMOGLOBIN 12.5 g/dL (11.4-15.5); LYMPHOCYTES PERCENT AUTO 17.6 % (18.4-52.1); MEAN CORPUSCULAR HEMOGLOBIN 29.5 pg (23.9-33.9); MEAN CORPUSCULAR HGB CONC 32.5 g/dL (31.9-34.8); MEAN CORPUSCULAR VOLUME 90.9 fL (76.7-100.5); MONOCYTES ABSOLUTE AUTO 1.1 x10-3/uL (0.3-1.0); MONOCYTES PERCENT AUTO 9.6 % (4.4-15.7); NEUTROPHILS ABSOLUTE AUTO 5.9 x10-3/uL (1.5-6.3); NEUTROPHILS PERCENT AUTO 51.5 % (30.8-76.2); PLATELET COUNT,PLT 349 x10(3)uL (151-488); RED BLOOD CELL COUNT 4.24 x10(6)uL (3.60-5.20); RED CELL DISTRIBUTION WIDTH 16.3 % (12.3-16.5); WHITE BLOOD CELL COUNT,WBC 11.5 x10-3/uL (3.0-10.3)
[2023-11-03 17:24] LABS: A/G RATIO 0.8; ALANINE AMINOTRANSFERASE,ALT 37 U/L (12-36); ALBUMIN 2.6 g/dL (3.2-4.6); ALKALINE PHOSPHATASE 68 IU/L (56-112); ASPARTATE AMNIOTRANSFERASE,AST 41 IU/L (5-25); BILIRUBIN TOTAL 0.4 mg/dL (0.1-1.3); BLOOD UREA NITROGEN,BUN 20 mg/dL (7-18); CARBON DIOXIDE,CO2 26 mmol/L (21-32); CHLORIDE,CL 103 mmol/L (100-110); ESTIMATED GFR 64 mL/min (>60); GLUCOSE RANDOM 127 mg/dL (80-116); MAGNESIUM 2.1 mg/dL (1.8-2.5); POTASSIUM,K 3.8 mmol/L (3.5-5.3); PROTEIN TOTAL,TP 5.9 g/dL (6.0-8.0); SODIUM,NA 139 mmol/L (135-145)
[2023-11-03 17:29] LABS: CALCIUM 5.2 mg/dL (8.6-10.2)
[2023-11-03] MEDS: diphenhydrAMINE 50 MG/ML SDV IVPUSH ONE (18:28)
[2023-11-03] MEDS: Calcium Carbonate 500 MG Tab.Chew PO ONE (18:28)
[2023-11-03] MEDS: Calcium Gluconate 10% 1 GM/10 ML SDV IVPUSH SCH (18:28)
[2023-11-04] MEDS: Calcium Carbonate 500 MG Tab.Chew PO ONE ×2 (01:32→01:33)
== END 2023-11-04 01:25 | disposition home or self-care (01) ==
LOC: FB.ED 16:07
DX: L29.9 Pruritus, unspecified (principal); M11.20 Other chondrocalcinosis, unspecified site; I11.0 Hypertensive heart disease with heart failure; I50.9 Heart failure, unspecified; J44.9 Chronic obstructive pulmonary disease, unspecified; E03.9 Hypothyroidism, unspecified; F17.200 Nicotine dependence, unspecified, uncomplicated; Z91.048 Other nonmedicinal substance allergy status
CPT/HCPCS: 36415; 80053; 82310; 83735; 84484; 85025; 93005; 93010; 96374; 96375; 99283; 99284; A9270; J0612; J1200

== ENCOUNTER 2023-11-07 12:19 | Inpatient (IN) | payer MEDICAID ==
[2023-11-07 13:13] LABS: BASOPHILS PERCENT AUTO 0.3 % (0.2-1.5); EOSINOPHILS ABSOLUTE AUTO 3.4 x10-3/uL (0.0-0.8); EOSINOPHILS PERCENT AUTO 25.8 % (0.6-8.1); HEMATOCRIT 38.2 % (34.2-48.2); HEMOGLOBIN 12.7 g/dL (11.4-15.5); LYMPHOCYTES ABSOLUTE AUTO 2.2 x10-3/uL (1.0-4.4); LYMPHOCYTES PERCENT AUTO 16.6 % (18.4-52.1); MEAN CORPUSCULAR HEMOGLOBIN 29.9 pg (23.9-33.9); MEAN CORPUSCULAR HGB CONC 33.1 g/dL (31.9-34.8); MEAN CORPUSCULAR VOLUME 90.1 fL (76.7-100.5); MEAN PLATELET VOLUME 6.8 fL (7.1-12.4); MONOCYTES ABSOLUTE AUTO 1.2 x10-3/uL (0.3-1.0); MONOCYTES PERCENT AUTO 8.9 % (4.4-15.7); NEUTROPHILS ABSOLUTE AUTO 6.3 x10-3/uL (1.5-6.3); NEUTROPHILS PERCENT AUTO 48.4 % (30.8-76.2); PLATELET COUNT,PLT 393 x10(3)uL (151-488); RED BLOOD CELL COUNT 4.24 x10(6)uL (3.60-5.20); RED CELL DISTRIBUTION WIDTH 16.6 % (12.3-16.5); WHITE BLOOD CELL COUNT,WBC 13.1 x10-3/uL (3.0-10.3)
[2023-11-07 13:15] LABS: BLOOD UREA NITROGEN,BUN 16 mg/dL (7-18); BUN/CREATININE RATIO 17.8 (9-20); CARBON DIOXIDE,CO2 27 mmol/L (21-32); CHLORIDE,CL 102 mmol/L (100-110); CREATININE 0.9 mg/dL (0.55-1.02); EST CRCL DRUG DOSING (CG) 69.47 mL/min; ESTIMATED GFR 73 mL/min (>60); GLUCOSE RANDOM 111 mg/dL (80-116); POTASSIUM,K 3.3 mmol/L (3.5-5.3); SODIUM,NA 141 mmol/L (135-145)
[2023-11-07 13:21] LABS: A/G RATIO 0.7; ALANINE AMINOTRANSFERASE,ALT 37 U/L (12-36); ALBUMIN 2.5 g/dL (3.2-4.6); ALKALINE PHOSPHATASE 72 IU/L (56-112); ASPARTATE AMNIOTRANSFERASE,AST 55 IU/L (5-25); BILIRUBIN TOTAL 0.4 mg/dL (0.1-1.3); MAGNESIUM 1.9 mg/dL (1.8-2.5); PROTEIN TOTAL,TP 6.1 g/dL (6.0-8.0)
[2023-11-07 13:26] LABS: CALCIUM < 5.0 mg/dL (8.6-10.2)
[2023-11-07] MEDS: Calcium Gluconate 10% 1 GM/10 ML SDV IVPUSH ONE (14:07)
[2023-11-07] MEDS: Potassium Chloride 20 MEQ Tab.ER PO ONE (14:44)
[2023-11-07] MEDS ORDERED: Acetaminophen 650 MG Supp RECTAL PRN (18:03)
[2023-11-07] MEDS: Nicotine 7 MG/24 Hr Patch TRDERM SCH (18:33)
[2023-11-07] MEDS: Enoxaparin 40 MG/0.4 ML Syringe SUBCUT SCH (18:34)
[2023-11-07] MEDS: Magnesium Oxide 400 MG Tab PO SCH (18:36)
[2023-11-07] MEDS: Calcium Carbonate 500 MG Tab.Chew PO ONE (18:36)
[2023-11-07] MEDS: Calcium Gluconate 10% 1 GM/10 ML SDV IVPUSH STA (18:37)
[2023-11-07] MEDS: diphenhydrAMINE 50 MG Cap PO PRN (18:38)
[2023-11-07 18:58] LABS: BASOPHILS PERCENT AUTO 0.3 % (0.2-1.5); EOSINOPHILS ABSOLUTE AUTO 3.4 x10-3/uL (0.0-0.8); EOSINOPHILS PERCENT AUTO 26.1 % (0.6-8.1); HEMATOCRIT 38.7 % (34.2-48.2); HEMOGLOBIN 12.9 g/dL (11.4-15.5); LYMPHOCYTES ABSOLUTE AUTO 2.4 x10-3/uL (1.0-4.4); LYMPHOCYTES PERCENT AUTO 18.2 % (18.4-52.1); MEAN CORPUSCULAR HEMOGLOBIN 30.1 pg (23.9-33.9); MEAN CORPUSCULAR HGB CONC 33.3 g/dL (31.9-34.8); MEAN CORPUSCULAR VOLUME 90.6 fL (76.7-100.5); MEAN PLATELET VOLUME 6.7 fL (7.1-12.4); MONOCYTES PERCENT AUTO 7.7 % (4.4-15.7); NEUTROPHILS ABSOLUTE AUTO 6.2 x10-3/uL (1.5-6.3); NEUTROPHILS PERCENT AUTO 47.7 % (30.8-76.2); PLATELET COUNT,PLT 427 x10(3)uL (151-488); RED BLOOD CELL COUNT 4.27 x10(6)uL (3.60-5.20); RED CELL DISTRIBUTION WIDTH 16.2 % (12.3-16.5); WHITE BLOOD CELL COUNT,WBC 12.9 x10-3/uL (3.0-10.3)
[2023-11-07] MEDS: Calcitriol 0.25 MCG Cap PO SCH (21:00)
[2023-11-07] MEDS: Acetaminophen 325 MG Tab PO PRN (22:58)
[2023-11-08] MEDS: CALCIUM GLUCONATE IV SCH (01:13)
[2023-11-08] MEDS: DEXTROSE 5% IV SCH (01:13)
[2023-11-08] MEDS: WATER IV SCH (01:13)
[2023-11-08 07:40] LABS: BASOPHILS ABSOLUTE AUTO 0.1 x10-3/uL (0.0-0.1); BASOPHILS PERCENT AUTO 0.5 % (0.2-1.5); EOSINOPHILS ABSOLUTE AUTO 3.2 x10-3/uL (0.0-0.8); HEMATOCRIT 39.3 % (34.2-48.2); HEMOGLOBIN 12.8 g/dL (11.4-15.5); LYMPHOCYTES PERCENT AUTO 19.2 % (18.4-52.1); MEAN CORPUSCULAR HEMOGLOBIN 29.6 pg (23.9-33.9); MEAN CORPUSCULAR HGB CONC 32.4 g/dL (31.9-34.8); MEAN CORPUSCULAR VOLUME 91.4 fL (76.7-100.5); MEAN PLATELET VOLUME 7.6 fL (7.1-12.4); MONOCYTES ABSOLUTE AUTO 0.8 x10-3/uL (0.3-1.0); NEUTROPHILS ABSOLUTE AUTO 4.3 x10-3/uL (1.5-6.3); NEUTROPHILS PERCENT AUTO 41.3 % (30.8-76.2); PLATELET COUNT,PLT 270 x10(3)uL (151-488); RED BLOOD CELL COUNT 4.31 x10(6)uL (3.60-5.20); RED CELL DISTRIBUTION WIDTH 16.2 % (12.3-16.5); WHITE BLOOD CELL COUNT,WBC 10.5 x10-3/uL (3.0-10.3)
[2023-11-08 07:47] LABS: A/G RATIO 0.7; ALANINE AMINOTRANSFERASE,ALT 39 U/L (12-36); ALBUMIN 2.4 g/dL (3.2-4.6); ALKALINE PHOSPHATASE 58 IU/L (56-112); ASPARTATE AMNIOTRANSFERASE,AST 53 IU/L (5-25); BILIRUBIN TOTAL 0.5 mg/dL (0.1-1.3); BLOOD UREA NITROGEN,BUN 14 mg/dL (7-18); BUN/CREATININE RATIO 15.6 (9-20); CARBON DIOXIDE,CO2 24 mmol/L (21-32); CHLORIDE,CL 105 mmol/L (100-110); CREATININE 0.9 mg/dL (0.55-1.02); EST CRCL DRUG DOSING (CG) 70.68 mL/min; ESTIMATED GFR 73 mL/min (>60); GLUCOSE RANDOM 92 mg/dL (80-116); POTASSIUM,K 3.8 mmol/L (3.5-5.3); PROTEIN TOTAL,TP 5.7 g/dL (6.0-8.0); SODIUM,NA 141 mmol/L (135-145)
[2023-11-08 07:48] LABS: CALCIUM 6.2 mg/dL (8.6-10.2)
[2023-11-08] MEDS ORDERED: PERMETHRIN CREAM TOP SCH (10:00)
[2023-11-08] MEDS: Furosemide 20 MG Tab PO SCH (10:23)
[2023-11-08] MEDS: Ergocalciferol (Vitamin D2) 1.25 MG Cap PO SCH (12:59)
[2023-11-08] MEDS: Calcium Carbonate 500 MG Tab.Chew PO SCH (13:00)
[2023-11-08] MEDS: Nicotine 7 MG/24 Hr Patch TRDERM SCH (18:44)
[2023-11-08] MEDS: Sodium Chloride 0.9% 10 ML Syringe FLUSH PRN (20:39)
[2023-11-08] MEDS: diphenhydrAMINE 50 MG/ML SDV IVPUSH ONE (20:40)
[2023-11-09 06:24] LABS: HEMATOCRIT 37.3 % (34.2-48.2); HEMOGLOBIN 12.3 g/dL (11.4-15.5); MEAN CORPUSCULAR HEMOGLOBIN 29.8 pg (23.9-33.9); MEAN CORPUSCULAR HGB CONC 32.9 g/dL (31.9-34.8); MEAN CORPUSCULAR VOLUME 90.5 fL (76.7-100.5); MEAN PLATELET VOLUME 6.7 fL (7.1-12.4); PLATELET COUNT,PLT 418 x10(3)uL (151-488); RED BLOOD CELL COUNT 4.13 x10(6)uL (3.60-5.20); RED CELL DISTRIBUTION WIDTH 16.1 % (12.3-16.5)
[2023-11-09 06:28] LABS: ALBUMIN 2.3 g/dL (3.2-4.6); BLOOD UREA NITROGEN,BUN 17 mg/dL (7-18); BUN/CREATININE RATIO 18.9 (9-20); CARBON DIOXIDE,CO2 27 mmol/L (21-32); CHLORIDE,CL 105 mmol/L (100-110); CREATININE 0.9 mg/dL (0.55-1.02); EST CRCL DRUG DOSING (CG) 69.47 mL/min; ESTIMATED GFR 73 mL/min (>60); GLUCOSE RANDOM 103 mg/dL (80-116); POTASSIUM,K 3.8 mmol/L (3.5-5.3); SODIUM,NA 141 mmol/L (135-145)
[2023-11-09 06:41] LABS: EOSINOPHILS PERCENT MAN 27 % (0-5); LYMPHOCYTES PERCENT MAN 19 % (13-37); MONOCYTES PERCENT MAN 7 % (4-12); SEG NEUTROPHILS PERCENT MAN 47 % (46-82)
[2023-11-09 18:28] LABS: PARATHYROID HORMONE,INTACT 2 pg/mL (15-65)
[2023-11-09 21:55] LABS: VITAMIN D,1,25-DIHYDROXY 23.3 pg/mL (19.9-79.3)
== END 2023-11-09 13:59 | disposition home or self-care (01) | DRG 641 ==
LOC: FB.ED 12:19 → FB.MS 16:03
PROVIDERS: ADMIT Internal Medicine; ATTEND Internal Medicine
DX: E83.51 Hypocalcemia (principal); R29.0 Tetany; R21 Rash and other nonspecific skin eruption; H54.7 Unspecified visual loss; I11.0 Hypertensive heart disease with heart failure; I50.9 Heart failure, unspecified; E03.9 Hypothyroidism, unspecified; F17.200 Nicotine dependence, unspecified, uncomplicated; K21.9 Gastro-esophageal reflux disease without esophagitis; J44.9 Chronic obstructive pulmonary disease, unspecified; M19.90 Unspecified osteoarthritis, unspecified site; M06.9 Rheumatoid arthritis, unspecified; F31.9 Bipolar disorder, unspecified; F41.9 Anxiety disorder, unspecified; F17.210 Nicotine dependence, cigarettes, uncomplicated; R23.8 Other skin changes; R60.0 Localized edema; E87.6 Hypokalemia; E20.0 Idiopathic hypoparathyroidism; E04.1 Nontoxic single thyroid nodule; D72.10 Eosinophilia, unspecified; Z91.048 Other nonmedicinal substance allergy status; Z79.899 Other long term (current) drug therapy; Z87.442 Personal history of urinary calculi; Z86.73 Personal history of transient ischemic attack (TIA), and cerebral infarction without residual deficits; Z98.890 Other specified postprocedural states; Z98.49 Cataract extraction status, unspecified eye
CPT/HCPCS: 36415; 80048; 80053; 82040; 82306; 82310; 82652; 82947; 83735; 83880; 83970; 84100; 85025; 93005; 93010; 96374; 97161-GP; 99222; 99232; 99238; 99284-25; 99285; A9270-GY; J0612; J1200; J1650; J3490; J7060

== ENCOUNTER 2023-11-18 03:58 | Emergency (ER) | payer MEDICAID ==
[2023-11-18] MEDS ORDERED: Sulfamethoxazole/Trimethoprim 800-160 MG Tab PO ONE (03:59)
[2023-11-18 05:03] LABS: HEMATOCRIT 34.1 % (34.2-48.2); MEAN CORPUSCULAR HGB CONC 32.2 g/dL (31.9-34.8); MEAN PLATELET VOLUME 6.7 fL (7.1-12.4); PLATELET COUNT,PLT 513 x10(3)uL (151-488); RED BLOOD CELL COUNT 3.78 x10(6)uL (3.60-5.20); RED CELL DISTRIBUTION WIDTH 16.3 % (12.3-16.5); WHITE BLOOD CELL COUNT,WBC 15.9 x10-3/uL (3.0-10.3)
[2023-11-18 05:06] LABS: BLOOD UREA NITROGEN,BUN 24 mg/dL (7-18); CALCIUM 7.5 mg/dL (8.6-10.2); CARBON DIOXIDE,CO2 28 mmol/L (21-32); CHLORIDE,CL 105 mmol/L (100-110); CREATININE 0.8 mg/dL (0.55-1.02); ESTIMATED GFR 84 mL/min (>60); GLUCOSE RANDOM 101 mg/dL (80-116); POTASSIUM,K 3.4 mmol/L (3.5-5.3); SODIUM,NA 143 mmol/L (135-145)
[2023-11-18 05:12] LABS: A/G RATIO 0.7; ALANINE AMINOTRANSFERASE,ALT 48 U/L (12-36); ALBUMIN 2.7 g/dL (3.2-4.6); ALKALINE PHOSPHATASE 96 IU/L (56-112); ASPARTATE AMNIOTRANSFERASE,AST 52 IU/L (5-25); BILIRUBIN TOTAL 0.3 mg/dL (0.1-1.3); PROTEIN TOTAL,TP 6.8 g/dL (6.0-8.0)
[2023-11-18 05:20] LABS: BASOPHILS PERCENT MAN 1 % (0-2); EOSINOPHILS PERCENT MAN 16 % (0-5); LYMPHOCYTES PERCENT MAN 8 % (13-37); MONOCYTES PERCENT MAN 8 % (4-12); SEG NEUTROPHILS PERCENT MAN 67 % (46-82)
[2023-11-18] MEDS ORDERED: Sodium Chloride 0.9% 10 ML Syringe FLUSH PRN (05:30)
[2023-11-18 05:50] LABS: LACTIC ACID 0.9 mmol/L (0.4-2.0)
[2023-11-18] MEDS: diphenhydrAMINE 50 MG/ML SDV IVPUSH ONE (05:50)
[2023-11-18] MEDS: Potassium Chloride 20 MEQ Tab.ER PO STA (05:50)
[2023-11-18] MEDS: Sodium Chloride 0.9% 1,000 ML IV SCH (05:50)
[2023-11-18 06:29] LABS: BILIRUBIN,URINE NEGATIVE (NEGATIVE); GLUCOSE,URINE NORMAL (NORMAL); KETONES,URINE NEGATIVE (NEGATIVE); LEUKOCYTE ESTERASE,URINE LARGE (NEGATIVE); NITRITE,URINE NEGATIVE (NEGATIVE); OCCULT BLOOD,URINE MODERATE (NEGATIVE); PROTEIN,URINE NEGATIVE (NEGATIVE); UROBILINOGEN,URINE 1 mg/dL (NEGATIVE)
[2023-11-18 06:35] LABS: APPEARANCE,URINE SLIGHTLY CLOUDY (CLEAR); BACTERIA,URINE MODERATE (NS); COLOR,URINE YELLOW (YELLOW); SQUAMOUS EPITHELIAL CELLS,UR MODERATE (NS,R,O)
[2023-11-18 06:36] LABS: MUCUS,URINE FEW (NS)
== END 2023-11-18 07:30 | disposition home or self-care (01) ==
LOC: FB.ED 03:58
DX: J20.9 Acute bronchitis, unspecified (principal); N39.0 Urinary tract infection, site not specified; L30.9 Dermatitis, unspecified; I11.0 Hypertensive heart disease with heart failure; I50.9 Heart failure, unspecified; J44.9 Chronic obstructive pulmonary disease, unspecified; Z91.048 Other nonmedicinal substance allergy status; Z79.899 Other long term (current) drug therapy
CPT/HCPCS: 36415; 71045; 80053; 81001; 83605; 83735; 84484; 85025; 87086; 93005; 93010; 96361; 96374; 99284; 99284-25; A9270-GY; J1200; J7030

== ENCOUNTER 2023-11-22 05:42 | Emergency (ER) | payer MEDICAID ==
[2023-11-22] MEDS: diphenhydrAMINE 50 MG/ML SDV IM ONE (05:57)
== END 2023-11-22 07:30 | disposition home or self-care (01) ==
LOC: FB.ED 05:42
DX: L20.9 Atopic dermatitis, unspecified (principal); I11.0 Hypertensive heart disease with heart failure; I50.9 Heart failure, unspecified; F17.210 Nicotine dependence, cigarettes, uncomplicated; Z86.73 Personal history of transient ischemic attack (TIA), and cerebral infarction without residual deficits; Z91.048 Other nonmedicinal substance allergy status; Z91.018 Allergy to other foods; Z79.899 Other long term (current) drug therapy
CPT/HCPCS: 96372; 99282; J1200

== ENCOUNTER 2023-11-24 23:39 | Emergency (ER) | payer MEDICAID ==
[2023-11-25] MEDS: Cyclobenzaprine 10 MG Tab PO ONE (00:05)
[2023-11-25] MEDS: Ketorolac 30 MG/ML SDV IM ONE (00:05)
[2023-11-25] MEDS: Pramipexole 0.25 MG Tab PO STA (01:02)
== END 2023-11-25 01:15 | disposition home or self-care (01) ==
LOC: FB.ED 23:39
DX: M79.604 Pain in right leg (principal); M79.605 Pain in left leg; I11.0 Hypertensive heart disease with heart failure; I50.9 Heart failure, unspecified; J44.9 Chronic obstructive pulmonary disease, unspecified; K21.9 Gastro-esophageal reflux disease without esophagitis; Z86.73 Personal history of transient ischemic attack (TIA), and cerebral infarction without residual deficits; Z79.899 Other long term (current) drug therapy; Z91.048 Other nonmedicinal substance allergy status
CPT/HCPCS: 96372; 99283; A9270-GY; J1885

== ENCOUNTER 2023-12-11 07:59 | Inpatient (IN) | payer MEDICAID ==
[2023-12-11] MEDS: diphenhydrAMINE 50 MG/ML SDV IVPUSH ONE (08:57)
[2023-12-11] MEDS: Sodium Chloride 0.9% 1,000 ML IV ONE (08:57)
[2023-12-11] MEDS: Calcium Carbonate 500 MG Tab.Chew PO ONE (08:58)
[2023-12-11 09:01] LABS: HEMATOCRIT 36.9 % (34.2-48.2); HEMOGLOBIN 11.9 g/dL (11.4-15.5); MEAN CORPUSCULAR HGB CONC 32.3 g/dL (31.9-34.8); MEAN CORPUSCULAR VOLUME 89.9 fL (76.7-100.5); MEAN PLATELET VOLUME 6.7 fL (7.1-12.4); PLATELET COUNT,PLT 541 x10(3)uL (151-488); RED CELL DISTRIBUTION WIDTH 15.9 % (12.3-16.5); WHITE BLOOD CELL COUNT,WBC 14.3 x10-3/uL (3.0-10.3)
[2023-12-11 09:02] LABS: BLOOD UREA NITROGEN,BUN 11 mg/dL (7-18); CARBON DIOXIDE,CO2 27 mmol/L (21-32); CHLORIDE,CL 106 mmol/L (100-110); ESTIMATED GFR 64 mL/min (>60); GLUCOSE RANDOM 110 mg/dL (80-116); POTASSIUM,K 3.8 mmol/L (3.5-5.3); SODIUM,NA 144 mmol/L (135-145)
[2023-12-11 09:08] LABS: A/G RATIO 0.6; ALANINE AMINOTRANSFERASE,ALT 34 U/L (12-36); ALBUMIN 2.4 g/dL (3.2-4.6); ALKALINE PHOSPHATASE 68 IU/L (56-112); ASPARTATE AMNIOTRANSFERASE,AST 52 IU/L (5-25); BILIRUBIN TOTAL 0.3 mg/dL (0.1-1.3); MAGNESIUM 1.5 mg/dL (1.8-2.5); PROTEIN TOTAL,TP 6.7 g/dL (6.0-8.0)
[2023-12-11] MEDS: Calcium Gluconate 10% 1 GM/10 ML SDV IVPUSH ONE ×3 (09:13→15:05)
[2023-12-11 09:17] LABS: EOSINOPHILS PERCENT MAN 37 % (0-5); LYMPHOCYTES PERCENT MAN 16 % (13-37); MONOCYTES PERCENT MAN 6 % (4-12); SEG NEUTROPHILS PERCENT MAN 41 % (46-82)
[2023-12-11] MEDS: Magnesium Sulfate/Water 2 GM in Premix Bag 1 BAG IV ONE (10:21)
[2023-12-11 14:17] LABS: BLOOD UREA NITROGEN,BUN 9 mg/dL (7-18); CARBON DIOXIDE,CO2 27 mmol/L (21-32); CHLORIDE,CL 108 mmol/L (100-110); ESTIMATED GFR 64 mL/min (>60); GLUCOSE RANDOM 86 mg/dL (80-116); POTASSIUM,K 4.1 mmol/L (3.5-5.3); SODIUM,NA 146 mmol/L (135-145)
[2023-12-11 14:19] LABS: CALCIUM 6.4 mg/dL (8.6-10.2)
[2023-12-11] MEDS: Enoxaparin 40 MG/0.4 ML Syringe SUBCUT SCH (15:04)
[2023-12-11] MEDS: Calcium Carbonate 500 MG Tab.Chew PO SCH (15:04)
[2023-12-11] MEDS: Sodium Chloride 0.9% 10 ML Syringe FLUSH PRN (15:05)
[2023-12-11] MEDS: hydrOXYzine HCl 25 MG Tab PO PRN (15:11)
[2023-12-11] MEDS: Magnesium Oxide 400 MG Tab PO SCH (18:11)
[2023-12-11] MEDS: Calcitriol 0.25 MCG Cap PO SCH (19:59)
[2023-12-12 07:34] LABS: HEMATOCRIT 35.6 % (34.2-48.2); HEMOGLOBIN 11.7 g/dL (11.4-15.5); MEAN CORPUSCULAR HEMOGLOBIN 29.4 pg (23.9-33.9); MEAN CORPUSCULAR HGB CONC 32.8 g/dL (31.9-34.8); MEAN CORPUSCULAR VOLUME 89.8 fL (76.7-100.5); MEAN PLATELET VOLUME 6.9 fL (7.1-12.4); PLATELET COUNT,PLT 569 x10(3)uL (151-488); RED BLOOD CELL COUNT 3.97 x10(6)uL (3.60-5.20); RED CELL DISTRIBUTION WIDTH 15.5 % (12.3-16.5); WHITE BLOOD CELL COUNT,WBC 17.3 x10-3/uL (3.0-10.3)
[2023-12-12 07:44] LABS: A/G RATIO 0.6; ALANINE AMINOTRANSFERASE,ALT 30 U/L (12-36); ALBUMIN 2.3 g/dL (3.2-4.6); ALKALINE PHOSPHATASE 61 IU/L (56-112); ASPARTATE AMNIOTRANSFERASE,AST 44 IU/L (5-25); BILIRUBIN TOTAL 0.6 mg/dL (0.1-1.3); BLOOD UREA NITROGEN,BUN 8 mg/dL (7-18); BUN/CREATININE RATIO 8.9 (9-20); CARBON DIOXIDE,CO2 26 mmol/L (21-32); CHLORIDE,CL 108 mmol/L (100-110); CREATININE 0.9 mg/dL (0.55-1.02); EST CRCL DRUG DOSING (CG) 69.47 mL/min; ESTIMATED GFR 73 mL/min (>60); GLUCOSE RANDOM 84 mg/dL (80-116); MAGNESIUM 1.7 mg/dL (1.8-2.5); POTASSIUM,K 4.5 mmol/L (3.5-5.3); PROTEIN TOTAL,TP 6.3 g/dL (6.0-8.0); SODIUM,NA 144 mmol/L (135-145)
[2023-12-12 07:47] LABS: CALCIUM 6.1 mg/dL (8.6-10.2)
[2023-12-12 07:55] LABS: EOSINOPHILS PERCENT MAN 47 % (0-5); LYMPHOCYTES PERCENT MAN 14 % (13-37); MONOCYTES PERCENT MAN 7 % (4-12); SEG NEUTROPHILS PERCENT MAN 32 % (46-82)
[2023-12-12 07:56] LABS: POIKILOCYTOSIS FEW
[2023-12-12 08:01] LABS: SCHISTOCYTES OCCASIONAL
[2023-12-12] MEDS: Nicotine 7 MG/24 Hr Patch TRDERM SCH (08:37)
[2023-12-12] MEDS: Calcium Carbonate 500 MG Tab.Chew PO SCH (08:39)
[2023-12-12] MEDS: Calcium Gluconate 10% 1 GM/10 ML SDV IVPUSH ONE (09:16)
[2023-12-12] MEDS: Magnesium Sulfate/Water 2 GM in Premix Bag 1 BAG IV ONE (09:31)
[2023-12-12] MEDS: predniSONE 20 MG Tab PO SCH (11:16)
[2023-12-12] MEDS: Ergocalciferol (Vitamin D2) 1.25 MG Cap PO SCH (11:16)
[2023-12-13 07:31] LABS: HEMATOCRIT 33.2 % (34.2-48.2); HEMOGLOBIN 10.9 g/dL (11.4-15.5); MEAN CORPUSCULAR HEMOGLOBIN 29.3 pg (23.9-33.9); MEAN CORPUSCULAR HGB CONC 32.9 g/dL (31.9-34.8); MEAN CORPUSCULAR VOLUME 89.1 fL (76.7-100.5); MEAN PLATELET VOLUME 6.9 fL (7.1-12.4); PLATELET COUNT,PLT 559 x10(3)uL (151-488); RED BLOOD CELL COUNT 3.73 x10(6)uL (3.60-5.20); RED CELL DISTRIBUTION WIDTH 15.4 % (12.3-16.5); WHITE BLOOD CELL COUNT,WBC 12.8 x10-3/uL (3.0-10.3)
[2023-12-13 07:40] LABS: A/G RATIO 0.6; ALANINE AMINOTRANSFERASE,ALT 28 U/L (12-36); ALBUMIN 2.3 g/dL (3.2-4.6); ALKALINE PHOSPHATASE 63 IU/L (56-112); ASPARTATE AMNIOTRANSFERASE,AST 33 IU/L (5-25); BILIRUBIN TOTAL 0.4 mg/dL (0.1-1.3); BLOOD UREA NITROGEN,BUN 7 mg/dL (7-18); BUN/CREATININE RATIO 7.8 (9-20); CALCIUM 6.6 mg/dL (8.6-10.2); CARBON DIOXIDE,CO2 27 mmol/L (21-32); CHLORIDE,CL 110 mmol/L (100-110); CREATININE 0.9 mg/dL (0.55-1.02); EST CRCL DRUG DOSING (CG) 69.47 mL/min; ESTIMATED GFR 73 mL/min (>60); GLUCOSE RANDOM 85 mg/dL (80-116); POTASSIUM,K 3.9 mmol/L (3.5-5.3); PROTEIN TOTAL,TP 6.2 g/dL (6.0-8.0); SODIUM,NA 146 mmol/L (135-145)
[2023-12-13 07:48] LABS: EOSINOPHILS PERCENT MAN 42 % (0-5); LYMPHOCYTES PERCENT MAN 25 % (13-37); MONOCYTES PERCENT MAN 9 % (4-12); SEG NEUTROPHILS PERCENT MAN 24 % (46-82)
[2023-12-13] MEDS: Calcium Gluconate 10% 1 GM/10 ML SDV IVPUSH ONE (10:41)
[2023-12-13 15:31] LABS: ALBUMIN 2.7 g/dL (3.2-4.6); CALCIUM 7.6 mg/dL (8.6-10.2)
[2023-12-15 04:10] LABS: CALCIUM IONIZED PH 7.4 0.92 mmol/L (1.09-1.30); CALCIUM,IONIZED SERUM 0.91 mmol/L (1.09-1.30)
== END 2023-12-13 18:46 | disposition home or self-care (01) | DRG 641 ==
LOC: FB.ED 07:59 → FB.MS 11:16
PROVIDERS: ADMIT Family Medicine; ATTEND Family Medicine
DX: E83.51 Hypocalcemia (principal); E20.9 Hypoparathyroidism, unspecified; R79.82 Elevated C-reactive protein (CRP); E83.42 Hypomagnesemia; E88.09 Other disorders of plasma-protein metabolism, not elsewhere classified; T14.8XXA Other injury of unspecified body region, initial encounter; Q80.9 Congenital ichthyosis, unspecified; E20.0 Idiopathic hypoparathyroidism; D72.110 Idiopathic hypereosinophilic syndrome [IHES]; I11.0 Hypertensive heart disease with heart failure; I50.9 Heart failure, unspecified; J44.9 Chronic obstructive pulmonary disease, unspecified; Z91.048 Other nonmedicinal substance allergy status; Z79.899 Other long term (current) drug therapy; D72.10 Eosinophilia, unspecified; R00.0 Tachycardia, unspecified; D75.839 Thrombocytosis, unspecified; L30.9 Dermatitis, unspecified; Z72.0 Tobacco use
CPT/HCPCS: 36415; 80053; 83735; 85025; 86140; 96361; 96365; 96375; 96376; 99284; J0612 ×2; J1200; J3475; J7030; 71045; 80048; 82040; 82310; 82330; 84484; 88104; 93010; 99222; 99232; 99238; 99285; A9270-GY; J1650; J3490; J7512

== ENCOUNTER 2023-12-19 18:46 | Emergency (ER) | payer MEDICAID ==
[2023-12-19] MEDS: Sodium Chloride 0.9% 1,000 ML IV ONE (19:30)
[2023-12-19 19:38] LABS: BASOPHILS ABSOLUTE AUTO 0.1 x10-3/uL (0.0-0.1); BASOPHILS PERCENT AUTO 0.8 % (0.2-1.5); EOSINOPHILS ABSOLUTE AUTO 2.1 x10-3/uL (0.0-0.8); EOSINOPHILS PERCENT AUTO 15.7 % (0.6-8.1); HEMATOCRIT 37.9 % (34.2-48.2); HEMOGLOBIN 12.3 g/dL (11.4-15.5); LYMPHOCYTES ABSOLUTE AUTO 2.9 x10-3/uL (1.0-4.4); MEAN CORPUSCULAR HEMOGLOBIN 29.1 pg (23.9-33.9); MEAN CORPUSCULAR HGB CONC 32.5 g/dL (31.9-34.8); MEAN CORPUSCULAR VOLUME 89.5 fL (76.7-100.5); MEAN PLATELET VOLUME 6.8 fL (7.1-12.4); MONOCYTES ABSOLUTE AUTO 1.6 x10-3/uL (0.3-1.0); MONOCYTES PERCENT AUTO 12.1 % (4.4-15.7); NEUTROPHILS ABSOLUTE AUTO 6.6 x10-3/uL (1.5-6.3); NEUTROPHILS PERCENT AUTO 49.4 % (30.8-76.2); PLATELET COUNT,PLT 545 x10(3)uL (151-488); RED BLOOD CELL COUNT 4.24 x10(6)uL (3.60-5.20); RED CELL DISTRIBUTION WIDTH 16.2 % (12.3-16.5); WHITE BLOOD CELL COUNT,WBC 13.3 x10-3/uL (3.0-10.3)
[2023-12-19 20:11] LABS: A/G RATIO 0.7; ALANINE AMINOTRANSFERASE,ALT 27 U/L (12-36); ALBUMIN 2.8 g/dL (3.2-4.6); ALKALINE PHOSPHATASE 96 IU/L (56-112); ASPARTATE AMNIOTRANSFERASE,AST 32 IU/L (5-25); BILIRUBIN TOTAL 0.3 mg/dL (0.1-1.3); BLOOD UREA NITROGEN,BUN 20 mg/dL (7-18); BUN/CREATININE RATIO 22.2 (9-20); CARBON DIOXIDE,CO2 31 mmol/L (21-32); CHLORIDE,CL 105 mmol/L (100-110); CREATININE 0.9 mg/dL (0.55-1.02); EST CRCL DRUG DOSING (CG) 69.47 mL/min; ESTIMATED GFR 73 mL/min (>60); GLUCOSE RANDOM 98 mg/dL (80-116); POTASSIUM,K 2.9 mmol/L (3.5-5.3); PROTEIN TOTAL,TP 7.1 g/dL (6.0-8.0); SODIUM,NA 145 mmol/L (135-145)
[2023-12-19 20:20] LABS: CALCIUM < 5.0 mg/dL (8.6-10.2)
[2023-12-19] MEDS: Calcium Gluconate 10% 1 GM/10 ML SDV IVPUSH ONE (21:41)
[2023-12-19] MEDS: Potassium Chloride 20 MEQ Tab.ER PO ONE (21:42)
[2023-12-19] MEDS: Potassium Chloride 20 MEQ in Premix Bag 1 BAG IV ONE (21:43)
[2023-12-19] MEDS: Magnesium Sulfate/Water 2 GM in Premix Bag 1 BAG IV ONE (22:03)
[2023-12-19 22:26] LABS: BILIRUBIN,URINE NEGATIVE (NEGATIVE); GLUCOSE,URINE NORMAL (NORMAL); KETONES,URINE NEGATIVE (NEGATIVE); LEUKOCYTE ESTERASE,URINE MODERATE (NEGATIVE); NITRITE,URINE NEGATIVE (NEGATIVE); OCCULT BLOOD,URINE LARGE (NEGATIVE); PROTEIN,URINE NEGATIVE (NEGATIVE); UROBILINOGEN,URINE 1 mg/dL (NEGATIVE)
[2023-12-19 22:28] LABS: APPEARANCE,URINE CLEAR (CLEAR); BACTERIA,URINE RARE (NS); COLOR,URINE YELLOW (YELLOW); RBC,URINE 0-5 (0-5); SQUAMOUS EPITHELIAL CELLS,UR OCCASIONAL (NS,R,O); WBC,URINE 0-5 (0-5)
[2023-12-20] MEDS: Potassium Chloride 20 MEQ in Premix Bag 1 BAG IV ONE (00:21)
[2023-12-20] MEDS: Calcium Gluconate 10% 1 GM/10 ML SDV IVPUSH ONE (00:21)
== END 2023-12-20 02:59 | disposition home or self-care (01) ==
LOC: FB.ED 18:46
DX: E87.6 Hypokalemia (principal); E83.51 Hypocalcemia; E83.42 Hypomagnesemia; I11.0 Hypertensive heart disease with heart failure; I50.9 Heart failure, unspecified; J44.9 Chronic obstructive pulmonary disease, unspecified; Z86.73 Personal history of transient ischemic attack (TIA), and cerebral infarction without residual deficits; K21.9 Gastro-esophageal reflux disease without esophagitis; Z91.048 Other nonmedicinal substance allergy status; Z91.018 Allergy to other foods; Z79.899 Other long term (current) drug therapy
CPT/HCPCS: 36415; 80053; 81001; 82310; 83735; 84132; 85025; 96361; 96365; 96366; 96368; 96375; 96376; 99284-25; A9270-GY; J0612; J3475; J3480; J7030

== ENCOUNTER 2024-01-09 22:41 | Emergency (ER) | payer MEDICAID ==
[2024-01-10] MEDS: Gabapentin 300 MG Cap PO ONE (01:33)
== END 2024-01-10 01:33 | disposition home or self-care (01) ==
LOC: FB.ED 22:41
DX: G62.9 Polyneuropathy, unspecified (principal); I11.0 Hypertensive heart disease with heart failure; I50.9 Heart failure, unspecified; K21.9 Gastro-esophageal reflux disease without esophagitis; J44.9 Chronic obstructive pulmonary disease, unspecified; F17.200 Nicotine dependence, unspecified, uncomplicated; Z91.048 Other nonmedicinal substance allergy status; Z91.018 Allergy to other foods; Z88.8 Allergy status to other drugs, medicaments and biological substances; Z79.899 Other long term (current) drug therapy
CPT/HCPCS: 99283; A9270

== ENCOUNTER 2024-01-18 01:43 | Emergency (ER) | payer MEDICAID ==
[2024-01-18] MEDS: diphenhydrAMINE 25 MG Cap PO ONE (02:11)
== END 2024-01-18 02:15 | disposition home or self-care (01) ==
LOC: FB.ED 01:43
DX: L29.9 Pruritus, unspecified (principal); I11.0 Hypertensive heart disease with heart failure; I50.9 Heart failure, unspecified; J44.9 Chronic obstructive pulmonary disease, unspecified; Z79.52 Long term (current) use of systemic steroids; Z79.899 Other long term (current) drug therapy; Z91.048 Other nonmedicinal substance allergy status
CPT/HCPCS: 99283; A9270

== ENCOUNTER 2024-01-19 16:02 | Emergency (ER) | payer MEDICAID ==
[2024-01-19 16:43] LABS: HEMATOCRIT 41.7 % (34.2-48.2); HEMOGLOBIN 13.5 g/dL (11.4-15.5); MEAN CORPUSCULAR HEMOGLOBIN 28.9 pg (23.9-33.9); MEAN CORPUSCULAR HGB CONC 32.3 g/dL (31.9-34.8); MEAN CORPUSCULAR VOLUME 89.3 fL (76.7-100.5); MEAN PLATELET VOLUME 7.1 fL (7.1-12.4); PLATELET COUNT,PLT 447 x10(3)uL (151-488); RED BLOOD CELL COUNT 4.67 x10(6)uL (3.60-5.20); RED CELL DISTRIBUTION WIDTH 16.8 % (12.3-16.5); WHITE BLOOD CELL COUNT,WBC 13.1 x10-3/uL (3.0-10.3)
[2024-01-19 16:51] LABS: A/G RATIO 0.7; ALANINE AMINOTRANSFERASE,ALT 35 U/L (12-36); ALBUMIN 3.2 g/dL (3.2-4.6); ALKALINE PHOSPHATASE 83 IU/L (56-112); ASPARTATE AMNIOTRANSFERASE,AST 37 IU/L (5-25); BILIRUBIN TOTAL 0.4 mg/dL (0.1-1.3); BLOOD UREA NITROGEN,BUN 17 mg/dL (7-18); CARBON DIOXIDE,CO2 28 mmol/L (21-32); CHLORIDE,CL 104 mmol/L (100-110); EST CRCL DRUG DOSING (CG) 62.52 mL/min; ESTIMATED GFR 64 mL/min (>60); GLUCOSE RANDOM 125 mg/dL (80-116); MAGNESIUM 1.8 mg/dL (1.8-2.5); POTASSIUM,K 3.8 mmol/L (3.5-5.3); PROTEIN TOTAL,TP 7.7 g/dL (6.0-8.0); SODIUM,NA 142 mmol/L (135-145)
[2024-01-19] MEDS: Calcium Carbonate 500 MG Tab.Chew PO ONE ×2 (17:20→19:41)
[2024-01-19] MEDS: WATER IV ONE (17:21)
[2024-01-19] MEDS: DEXTROSE 5% IV ONE (17:21)
[2024-01-19] MEDS: CALCIUM GLUCONATE IV ONE (17:21)
[2024-01-19] MEDS: Sodium Chloride 0.9% 10 ML Syringe FLUSH PRN (17:22)
[2024-01-19 17:36] LABS: EOSINOPHILS PERCENT MAN 23 % (0-5); LYMPHOCYTES PERCENT MAN 11 % (13-37); MONOCYTES PERCENT MAN 11 % (4-12); SEG NEUTROPHILS PERCENT MAN 55 % (46-82)
[2024-01-19 17:40] LABS: URIC ACID 4.6 mg/dL (3.5-7.2)
[2024-01-19] MEDS: Calcium Gluconate 10% 1 GM/10 ML SDV IVPUSH SCH (19:42)
[2024-01-21] MEDS: Calcium Carbonate 500 MG Tab.Chew PO ONE (15:07)
== END 2024-01-19 21:24 | disposition home or self-care (01) ==
LOC: FB.ED 16:02
DX: D72.10 Eosinophilia, unspecified (principal)
CPT/HCPCS: 36415; 80053; 82310; 83615; 83735; 84550; 85025; 96365; 96376; 99283; A9270; J0612; J3490

== ENCOUNTER 2024-02-05 23:38 | Emergency (ER) | payer MEDICAID ==
[2024-02-06 00:05] LABS: HEMATOCRIT 35.8 % (34.2-48.2); HEMOGLOBIN 11.9 g/dL (11.4-15.5); MEAN CORPUSCULAR HEMOGLOBIN 29.4 pg (23.9-33.9); MEAN CORPUSCULAR HGB CONC 33.2 g/dL (31.9-34.8); MEAN CORPUSCULAR VOLUME 88.6 fL (76.7-100.5); MEAN PLATELET VOLUME 6.8 fL (7.1-12.4); PLATELET COUNT,PLT 481 x10(3)uL (151-488); RED CELL DISTRIBUTION WIDTH 16.9 % (12.3-16.5)
[2024-02-06 00:08] LABS: BLOOD UREA NITROGEN,BUN 17 mg/dL (7-18); BUN/CREATININE RATIO 15.5 (9-20); CARBON DIOXIDE,CO2 27 mmol/L (21-32); CHLORIDE,CL 103 mmol/L (100-110); CREATININE 1.1 mg/dL (0.55-1.02); EST CRCL DRUG DOSING (CG) 56.84 mL/min; ESTIMATED GFR 58 mL/min (>60); GLUCOSE RANDOM 120 mg/dL (80-116); POTASSIUM,K 3.7 mmol/L (3.5-5.3); SODIUM,NA 139 mmol/L (135-145)
[2024-02-06 00:22] LABS: LYMPHOCYTES PERCENT MAN 17 % (13-37); MONOCYTES PERCENT MAN 9 % (4-12); SEG NEUTROPHILS PERCENT MAN 56 % (46-82)
[2024-02-06 00:23] LABS: EOSINOPHILS PERCENT MAN 18 % (0-5)
[2024-02-06 00:24] LABS: RED BLOOD CELL COUNT 4.04 x10(6)uL (3.60-5.20)
[2024-02-06] MEDS: CALCIUM GLUC IN NACL, ISO-OSM 2,000 MG in Premix Bag 1 BAG IV ONE (00:36)
[2024-02-06] MEDS: Calcium Carbonate 500 MG Tab.Chew PO ONE (00:36)
[2024-02-06 00:38] LABS: ANISOCYTOSIS FEW
== END 2024-02-06 01:18 | disposition home or self-care (01) ==
LOC: FB.ED 23:38
DX: E83.51 Hypocalcemia (principal); I11.0 Hypertensive heart disease with heart failure; I50.9 Heart failure, unspecified; J44.9 Chronic obstructive pulmonary disease, unspecified; K21.9 Gastro-esophageal reflux disease without esophagitis; Z86.73 Personal history of transient ischemic attack (TIA), and cerebral infarction without residual deficits; Z79.899 Other long term (current) drug therapy; Z91.048 Other nonmedicinal substance allergy status; Z91.09 Other allergy status, other than to drugs and biological substances
CPT/HCPCS: 36415; 80048; 85025; 96365; 99283; A9270; J0612

== ENCOUNTER 2024-02-27 03:15 | Inpatient (IN) | payer MEDICAID ==
[2024-02-27 03:48] LABS: HEMATOCRIT 35.3 % (34.2-48.2); HEMOGLOBIN 11.7 g/dL (11.4-15.5); MEAN CORPUSCULAR HEMOGLOBIN 28.5 pg (23.9-33.9); MEAN CORPUSCULAR HGB CONC 33.1 g/dL (31.9-34.8); MEAN CORPUSCULAR VOLUME 86.1 fL (76.7-100.5); MEAN PLATELET VOLUME 6.9 fL (7.1-12.4); PLATELET COUNT,PLT 556 x10(3)uL (151-488); RED CELL DISTRIBUTION WIDTH 16.5 % (12.3-16.5); WHITE BLOOD CELL COUNT,WBC 14.7 x10-3/uL (3.0-10.3)
[2024-02-27 03:54] LABS: A/G RATIO 0.5; ALANINE AMINOTRANSFERASE,ALT 35 U/L (12-36); ALBUMIN 2.6 g/dL (3.2-4.6); ALKALINE PHOSPHATASE 82 IU/L (56-112); ASPARTATE AMNIOTRANSFERASE,AST 78 IU/L (5-25); BILIRUBIN TOTAL 0.3 mg/dL (0.1-1.3); BLOOD UREA NITROGEN,BUN 13 mg/dL (7-18); BUN/CREATININE RATIO 14.4 (9-20); CARBON DIOXIDE,CO2 25 mmol/L (21-32); CHLORIDE,CL 105 mmol/L (100-110); CREATININE 0.9 mg/dL (0.55-1.02); EST CRCL DRUG DOSING (CG) 69.47 mL/min; ESTIMATED GFR 73 mL/min (>60); GLUCOSE RANDOM 113 mg/dL (80-116); POTASSIUM,K 3.1 mmol/L (3.5-5.3); PROTEIN TOTAL,TP 7.4 g/dL (6.0-8.0); SODIUM,NA 140 mmol/L (135-145)
[2024-02-27 03:56] LABS: CALCIUM < 5.0 mg/dL (8.6-10.2)
[2024-02-27 04:09] LABS: BASOPHILS PERCENT MAN 1 % (0-2); EOSINOPHILS PERCENT MAN 23 % (0-5); LYMPHOCYTES PERCENT MAN 16 % (13-37); MONOCYTES PERCENT MAN 10 % (4-12); SEG NEUTROPHILS PERCENT MAN 50 % (46-82)
[2024-02-27 04:19] LABS: MAGNESIUM 1.6 mg/dL (1.8-2.5); PHOSPHORUS 4.7 mg/dL (2.6-4.6)
[2024-02-27] MEDS: Sodium Chloride 0.9% 1,000 ML IV SCH (04:20)
[2024-02-27] MEDS: Calcium Gluconate 10% 1 GM/10 ML SDV IVPUSH ONE (04:20)
[2024-02-27] MEDS: Potassium Chloride 20 MEQ Tab.ER PO ONE (04:23)
[2024-02-27] MEDS: CALCIUM GLUC IN NACL, ISO-OSM 2,000 MG in Premix Bag 1 BAG IV ONE (04:53)
[2024-02-27 08:21] LABS: BLOOD UREA NITROGEN,BUN 11 mg/dL (7-18); BUN/CREATININE RATIO 13.8 (9-20); CARBON DIOXIDE,CO2 23 mmol/L (21-32); CHLORIDE,CL 106 mmol/L (100-110); CREATININE 0.8 mg/dL (0.55-1.02); EST CRCL DRUG DOSING (CG) 78.15 mL/min; ESTIMATED GFR 84 mL/min (>60); GLUCOSE RANDOM 106 mg/dL (80-116); POTASSIUM,K 3.6 mmol/L (3.5-5.3); SODIUM,NA 140 mmol/L (135-145)
[2024-02-27 08:24] LABS: CALCIUM 5.5 mg/dL (8.6-10.2)
[2024-02-27 09:57] LABS: HEMATOCRIT 38.2 % (34.2-48.2); HEMOGLOBIN 12.6 g/dL (11.4-15.5); MEAN CORPUSCULAR HEMOGLOBIN 28.5 pg (23.9-33.9); MEAN CORPUSCULAR HGB CONC 32.9 g/dL (31.9-34.8); MEAN CORPUSCULAR VOLUME 86.6 fL (76.7-100.5); MEAN PLATELET VOLUME 7.2 fL (7.1-12.4); PLATELET COUNT,PLT 572 x10(3)uL (151-488); RED BLOOD CELL COUNT 4.41 x10(6)uL (3.60-5.20); RED CELL DISTRIBUTION WIDTH 16.8 % (12.3-16.5); WHITE BLOOD CELL COUNT,WBC 14.5 x10-3/uL (3.0-10.3)
[2024-02-27] MEDS: Magnesium Oxide 400 MG Tab PO ONE (10:27)
[2024-02-27] MEDS: CALCIUM GLUC IN NACL, ISO-OSM 2,000 MG in Premix Bag 1 BAG IV SCH (10:27)
[2024-02-27] MEDS: Emollient 454 GM Jar TOP SCH (10:40)
[2024-02-27 12:53] LABS: BILIRUBIN,URINE NEGATIVE (NEGATIVE); GLUCOSE,URINE NORMAL (NORMAL); KETONES,URINE NEGATIVE (NEGATIVE); LEUKOCYTE ESTERASE,URINE SMALL (NEGATIVE); NITRITE,URINE NEGATIVE (NEGATIVE); OCCULT BLOOD,URINE LARGE (NEGATIVE); PROTEIN,URINE NEGATIVE (NEGATIVE); UROBILINOGEN,URINE NORMAL (NEGATIVE)
[2024-02-27 13:25] LABS: APPEARANCE,URINE CLOUDY (CLEAR); BACTERIA,URINE MANY (NS); COLOR,URINE YELLOW (YELLOW); RBC,URINE 20-30 (0-5); SQUAMOUS EPITHELIAL CELLS,UR FEW (NS,R,O)
[2024-02-27 13:55] LABS: EOSINOPHILS PERCENT MAN 25 % (0-5); LYMPHOCYTES PERCENT MAN 16 % (13-37); MONOCYTES PERCENT MAN 6 % (4-12); SEG NEUTROPHILS PERCENT MAN 53 % (46-82)
[2024-02-27 13:56] LABS: ANISOCYTOSIS FEW
[2024-02-27] MEDS: cefTRIAXone 1 GM in Sodium Chloride 0.9% 50 ML IV SCH (14:36)
[2024-02-27 19:30] LABS: BLOOD UREA NITROGEN,BUN 13 mg/dL (7-18); CARBON DIOXIDE,CO2 26 mmol/L (21-32); CHLORIDE,CL 107 mmol/L (100-110); EST CRCL DRUG DOSING (CG) 62.52 mL/min; ESTIMATED GFR 64 mL/min (>60); GLUCOSE RANDOM 102 mg/dL (80-116); POTASSIUM,K 3.9 mmol/L (3.5-5.3); SODIUM,NA 142 mmol/L (135-145)
[2024-02-27 19:31] LABS: CALCIUM 5.9 mg/dL (8.6-10.2)
[2024-02-27 19:32] LABS: CREATINE KINASE,CK 1209 IU/L (60-160)
[2024-02-28 06:28] LABS: HEMATOCRIT 34.1 % (34.2-48.2); HEMOGLOBIN 11.3 g/dL (11.4-15.5); MEAN CORPUSCULAR HEMOGLOBIN 28.7 pg (23.9-33.9); MEAN CORPUSCULAR HGB CONC 33.3 g/dL (31.9-34.8); MEAN CORPUSCULAR VOLUME 86.3 fL (76.7-100.5); PLATELET COUNT,PLT 510 x10(3)uL (151-488); RED BLOOD CELL COUNT 3.95 x10(6)uL (3.60-5.20); RED CELL DISTRIBUTION WIDTH 16.6 % (12.3-16.5); WHITE BLOOD CELL COUNT,WBC 17.8 x10-3/uL (3.0-10.3)
[2024-02-28 06:42] LABS: A/G RATIO 0.5; ALANINE AMINOTRANSFERASE,ALT 33 U/L (12-36); ALBUMIN 2.2 g/dL (3.2-4.6); ALKALINE PHOSPHATASE 70 IU/L (56-112); ASPARTATE AMNIOTRANSFERASE,AST 54 IU/L (5-25); BILIRUBIN TOTAL 0.4 mg/dL (0.1-1.3); BLOOD UREA NITROGEN,BUN 12 mg/dL (7-18); BUN/CREATININE RATIO 13.3 (9-20); CARBON DIOXIDE,CO2 25 mmol/L (21-32); CHLORIDE,CL 108 mmol/L (100-110); CREATININE 0.9 mg/dL (0.55-1.02); EST CRCL DRUG DOSING (CG) 69.47 mL/min; ESTIMATED GFR 73 mL/min (>60); GLUCOSE RANDOM 88 mg/dL (80-116); MAGNESIUM 1.6 mg/dL (1.8-2.5); POTASSIUM,K 3.6 mmol/L (3.5-5.3); PROTEIN TOTAL,TP 6.7 g/dL (6.0-8.0); SODIUM,NA 142 mmol/L (135-145)
[2024-02-28 06:43] LABS: CALCIUM 5.7 mg/dL (8.6-10.2)
[2024-02-28 06:47] LABS: ANISOCYTOSIS FEW; EOSINOPHILS PERCENT MAN 24 % (0-5); LYMPHOCYTES PERCENT MAN 11 % (13-37); MONOCYTES PERCENT MAN 7 % (4-12); POIKILOCYTOSIS FEW; SEG NEUTROPHILS PERCENT MAN 58 % (46-82)
[2024-02-28] MEDS ORDERED: CALCIUM GLUC IN NACL, ISO-OSM 2,000 MG in Premix Bag 1 BAG IV SCH (11:00)
[2024-02-28] MEDS ORDERED: ISO OSM IV SCH (11:00)
[2024-02-28] MEDS ORDERED: CALCIUM GLUC IV SCH (11:00)
[2024-02-28] MEDS ORDERED: NACL IV SCH (11:00)
[2024-02-28] MEDS: Sodium Chloride 0.9% 1,000 ML IV SCH (12:20)
[2024-02-28] MEDS: Magnesium Sulfate/Water 2 GM in Premix Bag 1 BAG IV ONE (12:24)
[2024-02-28] MEDS: Magnesium Oxide 400 MG Tab PO SCH (12:33)
[2024-02-28] MEDS: Calcitriol 0.25 MCG Cap PO SCH (12:34)
[2024-02-28] MEDS: Calcium Carbonate 500 MG Tab.Chew PO SCH (12:34)
[2024-02-28] MEDS: Cholecalciferol (Vitamin D3) 25 MCG Tab PO SCH (12:35)
[2024-02-28] MEDS: CALCIUM GLUC IN NACL, ISO-OSM 2,000 MG in Premix Bag 1 BAG IV ONE (13:33)
[2024-02-28] MEDS: CALCIUM GLUC IN NACL, ISO-OSM 2,000 MG in Premix Bag 1 BAG IV SCH (14:12)
[2024-02-28] MEDS: cefTRIAXone 1 GM Vial IVPUSH SCH (14:36)
[2024-02-28] MEDS: hydrOXYzine HCl 25 MG Tab PO PRN (23:13)
[2024-02-29] MEDS: hydrOXYzine HCl 25 MG Tab PO ONE (01:45)
[2024-02-29 06:49] LABS: HEMATOCRIT 34.6 % (34.2-48.2); HEMOGLOBIN 11.5 g/dL (11.4-15.5); MEAN CORPUSCULAR HEMOGLOBIN 28.7 pg (23.9-33.9); MEAN CORPUSCULAR HGB CONC 33.2 g/dL (31.9-34.8); MEAN CORPUSCULAR VOLUME 86.6 fL (76.7-100.5); MEAN PLATELET VOLUME 7.2 fL (7.1-12.4); PLATELET COUNT,PLT 508 x10(3)uL (151-488); RED BLOOD CELL COUNT 3.99 x10(6)uL (3.60-5.20); RED CELL DISTRIBUTION WIDTH 16.7 % (12.3-16.5); WHITE BLOOD CELL COUNT,WBC 17.1 x10-3/uL (3.0-10.3)
[2024-02-29 06:53] LABS: BLOOD UREA NITROGEN,BUN 11 mg/dL (7-18); BUN/CREATININE RATIO 12.2 (9-20); CALCIUM 7.8 mg/dL (8.6-10.2); CARBON DIOXIDE,CO2 27 mmol/L (21-32); CHLORIDE,CL 107 mmol/L (100-110); CREATININE 0.9 mg/dL (0.55-1.02); EST CRCL DRUG DOSING (CG) 69.47 mL/min; ESTIMATED GFR 73 mL/min (>60); GLUCOSE RANDOM 94 mg/dL (80-116); POTASSIUM,K 3.9 mmol/L (3.5-5.3); SODIUM,NA 141 mmol/L (135-145)
[2024-02-29 07:06] LABS: EOSINOPHILS PERCENT MAN 27 % (0-5); LYMPHOCYTES PERCENT MAN 20 % (13-37); MONOCYTES PERCENT MAN 7 % (4-12); SEG NEUTROPHILS PERCENT MAN 46 % (46-82)
[2024-02-29 07:09] LABS: ANISOCYTOSIS FEW
[2024-03-01] MEDS: Acetaminophen 325 MG Tab PO PRN (04:31)
[2024-03-01] MEDS: hydrOXYzine HCl 50 MG/ML SDV IM PRN (04:32)
[2024-03-01] MEDS: traMADol 50 MG Tab PO ONE (06:27)
[2024-03-01 07:16] LABS: HEMATOCRIT 33.5 % (34.2-48.2); MEAN CORPUSCULAR HEMOGLOBIN 28.6 pg (23.9-33.9); MEAN CORPUSCULAR HGB CONC 32.8 g/dL (31.9-34.8); MEAN CORPUSCULAR VOLUME 87.2 fL (76.7-100.5); MEAN PLATELET VOLUME 7.2 fL (7.1-12.4); PLATELET COUNT,PLT 497 x10(3)uL (151-488); RED BLOOD CELL COUNT 3.84 x10(6)uL (3.60-5.20); RED CELL DISTRIBUTION WIDTH 16.6 % (12.3-16.5); WHITE BLOOD CELL COUNT,WBC 17.2 x10-3/uL (3.0-10.3)
[2024-03-01 07:43] LABS: BASOPHILS PERCENT MAN 1 % (0-2); BLOOD UREA NITROGEN,BUN 11 mg/dL (7-18); CALCIUM 7.8 mg/dL (8.6-10.2); CARBON DIOXIDE,CO2 26 mmol/L (21-32); CHLORIDE,CL 107 mmol/L (100-110); EOSINOPHILS PERCENT MAN 13 % (0-5); EST CRCL DRUG DOSING (CG) 62.52 mL/min; ESTIMATED GFR 64 mL/min (>60); GLUCOSE RANDOM 93 mg/dL (80-116); LYMPHOCYTES PERCENT MAN 16 % (13-37); MAGNESIUM 1.8 mg/dL (1.8-2.5); MONOCYTES PERCENT MAN 11 % (4-12); POTASSIUM,K 3.9 mmol/L (3.5-5.3); SEG NEUTROPHILS PERCENT MAN 59 % (46-82); SODIUM,NA 142 mmol/L (135-145)
[2024-03-01 07:46] LABS: CREATINE KINASE,CK 783 IU/L (60-160)
== END 2024-03-01 10:10 | disposition home or self-care (01) | DRG 641 ==
LOC: FB.ED 03:15 → FB.MS 03:58 → OBSVTOIN 10:07
PROVIDERS: ADMIT Family Medicine; ATTEND Internal Medicine
DX: R21 Rash and other nonspecific skin eruption (principal); E20.0 Idiopathic hypoparathyroidism; E83.51 Hypocalcemia; R94.31 Abnormal electrocardiogram [ECG] [EKG]; M62.82 Rhabdomyolysis; N39.0 Urinary tract infection, site not specified; E03.9 Hypothyroidism, unspecified; I11.0 Hypertensive heart disease with heart failure; I50.9 Heart failure, unspecified; Z91.048 Other nonmedicinal substance allergy status; J44.9 Chronic obstructive pulmonary disease, unspecified; F32.A Depression, unspecified; F41.0 Panic disorder [episodic paroxysmal anxiety]; M19.90 Unspecified osteoarthritis, unspecified site; E86.0 Dehydration; L30.9 Dermatitis, unspecified; E87.6 Hypokalemia; E04.1 Nontoxic single thyroid nodule; E83.42 Hypomagnesemia; D72.110 Idiopathic hypereosinophilic syndrome [IHES]; F17.210 Nicotine dependence, cigarettes, uncomplicated; Z98.49 Cataract extraction status, unspecified eye; Z91.040 Latex allergy status; Z79.899 Other long term (current) drug therapy; Z87.442 Personal history of urinary calculi; Z98.890 Other specified postprocedural states; Z91.148 Patient's other noncompliance with medication regimen for other reason
CPT/HCPCS: 36415; 71046; 80048; 80053; 81001; 82310; 82550; 83615; 83735; 84100; 84484; 84550; 85025; 87040; 87086; 87088; 87186; 88104; 93005; 93010; 96365; 99222; 99232; 99238; 99285; 99285-25; A9270-GY; J0612; J0696; J3410; J3475; J3490; J7030; U0002

== ENCOUNTER 2024-03-20 05:48 | Emergency (ER) | payer MEDICAID ==
[2024-03-20 06:38] LABS: BASOPHILS ABSOLUTE AUTO 0.1 x10-3/uL (0.0-0.1); BASOPHILS PERCENT AUTO 0.6 % (0.2-1.5); EOSINOPHILS ABSOLUTE AUTO 3.6 x10-3/uL (0.0-0.8); EOSINOPHILS PERCENT AUTO 24.5 % (0.6-8.1); HEMATOCRIT 34.9 % (34.2-48.2); HEMOGLOBIN 11.5 g/dL (11.4-15.5); LYMPHOCYTES ABSOLUTE AUTO 2.1 x10-3/uL (1.0-4.4); LYMPHOCYTES PERCENT AUTO 14.3 % (18.4-52.1); MEAN CORPUSCULAR HEMOGLOBIN 28.7 pg (23.9-33.9); MEAN CORPUSCULAR HGB CONC 32.8 g/dL (31.9-34.8); MEAN CORPUSCULAR VOLUME 87.4 fL (76.7-100.5); MONOCYTES ABSOLUTE AUTO 1.4 x10-3/uL (0.3-1.0); MONOCYTES PERCENT AUTO 9.8 % (4.4-15.7); NEUTROPHILS ABSOLUTE AUTO 7.4 x10-3/uL (1.5-6.3); NEUTROPHILS PERCENT AUTO 50.8 % (30.8-76.2); PLATELET COUNT,PLT 464 x10(3)uL (151-488); WHITE BLOOD CELL COUNT,WBC 14.6 x10-3/uL (3.0-10.3)
[2024-03-20 06:45] LABS: A/G RATIO 0.7; ALANINE AMINOTRANSFERASE,ALT 35 U/L (12-36); ALBUMIN 2.8 g/dL (3.2-4.6); ALKALINE PHOSPHATASE 130 IU/L (56-112); ASPARTATE AMNIOTRANSFERASE,AST 51 IU/L (5-25); BILIRUBIN TOTAL 0.2 mg/dL (0.1-1.3); BLOOD UREA NITROGEN,BUN 25 mg/dL (7-18); BUN/CREATININE RATIO 35.7 (9-20); CARBON DIOXIDE,CO2 29 mmol/L (21-32); CHLORIDE,CL 104 mmol/L (100-110); CREATININE 0.7 mg/dL (0.55-1.02); EST CRCL DRUG DOSING (CG) 80.01 mL/min; ESTIMATED GFR 99 mL/min (>60); GLUCOSE RANDOM 104 mg/dL (80-116); MAGNESIUM 1.5 mg/dL (1.8-2.5); POTASSIUM,K 4.6 mmol/L (3.5-5.3); SODIUM,NA 140 mmol/L (135-145)
[2024-03-20] MEDS: predniSONE 20 MG Tab PO ONE (06:50)
[2024-03-20] MEDS: Albuterol 0.083% 2.5 MG/3 ML Neb Soln NEB ONE (06:51)
[2024-03-20] MEDS: Albuterol/Ipratropium 3.0-0.5 MG/3 ML Neb Soln NEB ONE (06:51)
[2024-03-20] MEDS ORDERED: Sodium Chloride 0.9% 10 ML Syringe FLUSH PRN (06:53)
[2024-03-20] MEDS ORDERED: Calcium Gluconate 10% 1 GM/10 ML SDV IVPUSH ONE (06:53)
[2024-03-20] MEDS: Calcium Carbonate 500 MG Tab.Chew PO ONE ×3 (07:23→10:11)
[2024-03-20] MEDS: Magnesium Oxide 400 MG Tab PO ONE ×2 (07:24→10:11)
[2024-03-20] MEDS: CALCIUM GLUC IN NACL, ISO-OSM 100 ML IV SCH (07:33)
[2024-03-20 09:55] LABS: CALCIUM 6.6 mg/dL (8.6-10.2); MAGNESIUM 1.6 mg/dL (1.8-2.5)
== END 2024-03-20 10:40 | disposition home or self-care (01) ==
LOC: FB.ED 05:48
DX: J45.41 Moderate persistent asthma with (acute) exacerbation (principal); E83.42 Hypomagnesemia; E83.51 Hypocalcemia; I11.0 Hypertensive heart disease with heart failure; I50.9 Heart failure, unspecified; F17.210 Nicotine dependence, cigarettes, uncomplicated; Z91.048 Other nonmedicinal substance allergy status; Z79.899 Other long term (current) drug therapy
CPT/HCPCS: 36415; 71045; 80053; 82310; 83735; 83880; 85025; 87635; 96365; 96366; 99285; A9270; J0612; J7512; J7620; U0002

== ENCOUNTER 2024-03-29 14:12 | Inpatient (IN) | payer MEDICAID ==
[2024-03-29 14:59] LABS: HEMATOCRIT 35.2 % (34.2-48.2); HEMOGLOBIN 11.4 g/dL (11.4-15.5); MEAN CORPUSCULAR HEMOGLOBIN 27.9 pg (23.9-33.9); MEAN CORPUSCULAR HGB CONC 32.4 g/dL (31.9-34.8); MEAN CORPUSCULAR VOLUME 86.1 fL (76.7-100.5); MEAN PLATELET VOLUME 6.9 fL (7.1-12.4); PLATELET COUNT,PLT 466 x10(3)uL (151-488); RED BLOOD CELL COUNT 4.09 x10(6)uL (3.60-5.20); RED CELL DISTRIBUTION WIDTH 17.3 % (12.3-16.5); WHITE BLOOD CELL COUNT,WBC 10.5 x10-3/uL (3.0-10.3)
[2024-03-29 15:08] LABS: A/G RATIO 0.7; ALANINE AMINOTRANSFERASE,ALT 30 U/L (12-36); ALKALINE PHOSPHATASE 113 IU/L (56-112); ASPARTATE AMNIOTRANSFERASE,AST 42 IU/L (5-25); BILIRUBIN TOTAL 0.3 mg/dL (0.1-1.3); BLOOD UREA NITROGEN,BUN 23 mg/dL (7-18); BUN/CREATININE RATIO 28.8 (9-20); CARBON DIOXIDE,CO2 27 mmol/L (21-32); CHLORIDE,CL 107 mmol/L (100-110); CREATININE 0.8 mg/dL (0.55-1.02); EST CRCL DRUG DOSING (CG) 78.15 mL/min; ESTIMATED GFR 84 mL/min (>60); GLUCOSE RANDOM 89 mg/dL (80-116); MAGNESIUM 1.4 mg/dL (1.8-2.5); PROTEIN TOTAL,TP 7.3 g/dL (6.0-8.0); SODIUM,NA 144 mmol/L (135-145)
[2024-03-29 15:13] LABS: CALCIUM < 5.0 mg/dL (8.6-10.2)
[2024-03-29 15:34] LABS: EOSINOPHILS PERCENT MAN 22 % (0-5); LYMPHOCYTES PERCENT MAN 10 % (13-37); MONOCYTES PERCENT MAN 8 % (4-12); SEG NEUTROPHILS PERCENT MAN 60 % (46-82)
[2024-03-29] MEDS: CALCIUM GLUC IN NACL, ISO-OSM 2,000 MG in Premix Bag 1 BAG IV ONE (15:39)
[2024-03-29] MEDS: Sodium Chloride 0.9% 1,000 ML IV SCH (15:39)
[2024-03-29] MEDS: Sodium Chloride 0.9% 10 ML Syringe FLUSH PRN (15:39)
[2024-03-29] MEDS: Magnesium Sulfate/Water 2 GM in Premix Bag 1 BAG IV ONE (16:51)
[2024-03-29] MEDS ORDERED: Albuterol 6.7 GM Inhaler INH PRN (17:01)
[2024-03-29] MEDS ORDERED: Acetaminophen 325 MG Tab PO PRN (17:05)
[2024-03-29] MEDS ORDERED: Acetaminophen 650 MG Supp RECTAL PRN (17:05)
[2024-03-29] MEDS ORDERED: SODIUM CHLORIDE 0.9% IV SCH (18:00)
[2024-03-29] MEDS ORDERED: CALCIUM GLUCONATE IV SCH (18:00)
[2024-03-29] MEDS: Enoxaparin 40 MG/0.4 ML Syringe SUBCUT SCH (18:48)
[2024-03-29] MEDS: CALCIUM GLUC IN NACL, ISO-OSM 2,000 MG in Premix Bag 1 BAG IV SCH (19:54)
[2024-03-29] MEDS: Magnesium Oxide 400 MG Tab PO SCH (20:38)
[2024-03-29] MEDS ORDERED: Magnesium Oxide 400 MG Tab PO SCH (21:00)
[2024-03-29 23:36] LABS: MAGNESIUM 1.9 mg/dL (1.8-2.5)
[2024-03-29 23:43] LABS: CALCIUM 6.1 mg/dL (8.6-10.2)
[2024-03-30] MEDS: predniSONE 20 MG Tab PO SCH (05:32)
[2024-03-30 06:52] LABS: HEMOGLOBIN 11.4 g/dL (11.4-15.5); MEAN CORPUSCULAR HEMOGLOBIN 28.2 pg (23.9-33.9); MEAN CORPUSCULAR HGB CONC 32.6 g/dL (31.9-34.8); MEAN CORPUSCULAR VOLUME 86.5 fL (76.7-100.5); RED BLOOD CELL COUNT 4.04 x10(6)uL (3.60-5.20); RED CELL DISTRIBUTION WIDTH 16.7 % (12.3-16.5); WHITE BLOOD CELL COUNT,WBC 11.1 x10-3/uL (3.0-10.3)
[2024-03-30 07:01] LABS: BLOOD UREA NITROGEN,BUN 15 mg/dL (7-18); BUN/CREATININE RATIO 21.4 (9-20); CALCIUM 7.1 mg/dL (8.6-10.2); CARBON DIOXIDE,CO2 25 mmol/L (21-32); CHLORIDE,CL 108 mmol/L (100-110); CREATININE 0.7 mg/dL (0.55-1.02); EST CRCL DRUG DOSING (CG) 89.32 mL/min; ESTIMATED GFR 99 mL/min (>60); GLUCOSE RANDOM 94 mg/dL (80-116); MAGNESIUM 1.6 mg/dL (1.8-2.5); POTASSIUM,K 3.6 mmol/L (3.5-5.3); SODIUM,NA 143 mmol/L (135-145)
[2024-03-30] MEDS: Cholecalciferol (Vitamin D3) 25 MCG Tab PO SCH (09:12)
[2024-03-30] MEDS: Potassium Chloride 20 MEQ Tab.ER PO SCH (09:12)
[2024-03-30] MEDS: CALCIUM GLUC IN NACL, ISO-OSM 2,000 MG in Premix Bag 1 BAG IV ONE (10:38)
[2024-03-30] MEDS: Calcium Carbonate 500 MG Tab.Chew PO SCH (10:39)
[2024-03-30] MEDS: Calcitriol 0.25 MCG Cap PO SCH (10:40)
[2024-03-31 06:19] LABS: BASOPHILS ABSOLUTE AUTO 0.1 x10-3/uL (0.0-0.1); BASOPHILS PERCENT AUTO 0.9 % (0.2-1.5); EOSINOPHILS ABSOLUTE AUTO 1.7 x10-3/uL (0.0-0.8); EOSINOPHILS PERCENT AUTO 13.2 % (0.6-8.1); HEMATOCRIT 33.5 % (34.2-48.2); HEMOGLOBIN 10.9 g/dL (11.4-15.5); LYMPHOCYTES ABSOLUTE AUTO 2.4 x10-3/uL (1.0-4.4); MEAN CORPUSCULAR HEMOGLOBIN 28.2 pg (23.9-33.9); MEAN CORPUSCULAR HGB CONC 32.6 g/dL (31.9-34.8); MEAN CORPUSCULAR VOLUME 86.6 fL (76.7-100.5); MEAN PLATELET VOLUME 7.2 fL (7.1-12.4); MONOCYTES ABSOLUTE AUTO 1.4 x10-3/uL (0.3-1.0); MONOCYTES PERCENT AUTO 11.1 % (4.4-15.7); NEUTROPHILS ABSOLUTE AUTO 7.1 x10-3/uL (1.5-6.3); NEUTROPHILS PERCENT AUTO 55.8 % (30.8-76.2); PLATELET COUNT,PLT 458 x10(3)uL (151-488); RED BLOOD CELL COUNT 3.87 x10(6)uL (3.60-5.20); RED CELL DISTRIBUTION WIDTH 16.8 % (12.3-16.5); WHITE BLOOD CELL COUNT,WBC 12.8 x10-3/uL (3.0-10.3)
[2024-03-31 06:35] LABS: A/G RATIO 0.7; ALANINE AMINOTRANSFERASE,ALT 20 U/L (12-36); ALBUMIN 2.8 g/dL (3.2-4.6); ALKALINE PHOSPHATASE 82 IU/L (56-112); ASPARTATE AMNIOTRANSFERASE,AST 29 IU/L (5-25); BILIRUBIN TOTAL 0.5 mg/dL (0.1-1.3); BLOOD UREA NITROGEN,BUN 14 mg/dL (7-18); BUN/CREATININE RATIO 17.5 (9-20); CARBON DIOXIDE,CO2 27 mmol/L (21-32); CHLORIDE,CL 107 mmol/L (100-110); CREATININE 0.8 mg/dL (0.55-1.02); EST CRCL DRUG DOSING (CG) 78.15 mL/min; ESTIMATED GFR 84 mL/min (>60); GLUCOSE RANDOM 90 mg/dL (80-116); MAGNESIUM 1.5 mg/dL (1.8-2.5); POTASSIUM,K 3.4 mmol/L (3.5-5.3); PROTEIN TOTAL,TP 6.8 g/dL (6.0-8.0); SODIUM,NA 142 mmol/L (135-145)
[2024-03-31 06:48] LABS: CALCIUM 6.3 mg/dL (8.6-10.2)
[2024-03-31] MEDS: CALCIUM GLUC IN NACL, ISO-OSM 100 ML IV ONE ×4 (08:35→11:09)
[2024-03-31] MEDS: Magnesium Sulfate/Water 50 ML IV ONE ×2 (09:16→11:09)
[2024-03-31 13:09] LABS: A/G RATIO 0.7; ALANINE AMINOTRANSFERASE,ALT 26 U/L (12-36); ALBUMIN 2.9 g/dL (3.2-4.6); ALKALINE PHOSPHATASE 99 IU/L (56-112); ASPARTATE AMNIOTRANSFERASE,AST 31 IU/L (5-25); BILIRUBIN TOTAL 0.4 mg/dL (0.1-1.3); BLOOD UREA NITROGEN,BUN 11 mg/dL (7-18); BUN/CREATININE RATIO 13.8 (9-20); CARBON DIOXIDE,CO2 27 mmol/L (21-32); CHLORIDE,CL 107 mmol/L (100-110); CREATININE 0.8 mg/dL (0.55-1.02); EST CRCL DRUG DOSING (CG) 78.15 mL/min; ESTIMATED GFR 84 mL/min (>60); GLUCOSE RANDOM 138 mg/dL (80-116); MAGNESIUM 2.3 mg/dL (1.8-2.5); POTASSIUM,K 3.7 mmol/L (3.5-5.3); SODIUM,NA 143 mmol/L (135-145)
== END 2024-03-31 13:45 | disposition home or self-care (01) | DRG 641 ==
LOC: FB.ED 14:12 → FB.MS 15:36
PROVIDERS: ADMIT Internal Medicine; ATTEND Internal Medicine
DX: E83.51 Hypocalcemia (principal); E83.42 Hypomagnesemia; E86.0 Dehydration; I11.0 Hypertensive heart disease with heart failure; J44.9 Chronic obstructive pulmonary disease, unspecified; M19.90 Unspecified osteoarthritis, unspecified site; L30.9 Dermatitis, unspecified; F41.0 Panic disorder [episodic paroxysmal anxiety]; F31.9 Bipolar disorder, unspecified; H54.7 Unspecified visual loss; D72.110 Idiopathic hypereosinophilic syndrome [IHES]; E04.1 Nontoxic single thyroid nodule; I50.9 Heart failure, unspecified; Q80.9 Congenital ichthyosis, unspecified; E88.09 Other disorders of plasma-protein metabolism, not elsewhere classified; F17.200 Nicotine dependence, unspecified, uncomplicated; Z88.8 Allergy status to other drugs, medicaments and biological substances; Z79.52 Long term (current) use of systemic steroids; Z86.73 Personal history of transient ischemic attack (TIA), and cerebral infarction without residual deficits; Z98.49 Cataract extraction status, unspecified eye; Z91.148 Patient's other noncompliance with medication regimen for other reason; Z91.048 Other nonmedicinal substance allergy status; Z79.899 Other long term (current) drug therapy; Z87.442 Personal history of urinary calculi; Z98.890 Other specified postprocedural states; Z90.49 Acquired absence of other specified parts of digestive tract
CPT/HCPCS: 36415; 80048; 80053; 82310; 83735; 85025; 85027; 93005; 93010; 99222; 99232; 99238; 99285; A9270-GY; J0612; J1650; J3475; J3490; J7030; J7512

== ENCOUNTER 2024-05-01 03:47 | Inpatient (IN) | payer MEDICAID ==
[2024-05-01] MEDS ORDERED: Sodium Chloride 0.9% 10 ML Syringe FLUSH PRN (04:00)
[2024-05-01 04:13] LABS: BASOPHILS ABSOLUTE AUTO 0.1 x10-3/uL (0.0-0.1); BASOPHILS PERCENT AUTO 0.9 % (0.2-1.5); EOSINOPHILS ABSOLUTE AUTO 1.1 x10-3/uL (0.0-0.8); EOSINOPHILS PERCENT AUTO 11.4 % (0.6-8.1); HEMATOCRIT 36.8 % (34.2-48.2); HEMOGLOBIN 12.4 g/dL (11.4-15.5); LYMPHOCYTES ABSOLUTE AUTO 1.5 x10-3/uL (1.0-4.4); MEAN CORPUSCULAR HGB CONC 33.8 g/dL (31.9-34.8); MEAN CORPUSCULAR VOLUME 85.8 fL (76.7-100.5); MEAN PLATELET VOLUME 7.4 fL (7.1-12.4); MONOCYTES PERCENT AUTO 10.3 % (4.4-15.7); NEUTROPHILS ABSOLUTE AUTO 5.9 x10-3/uL (1.5-6.3); NEUTROPHILS PERCENT AUTO 61.4 % (30.8-76.2); PLATELET COUNT,PLT 345 x10(3)uL (151-488); RED CELL DISTRIBUTION WIDTH 17.5 % (12.3-16.5); WHITE BLOOD CELL COUNT,WBC 9.7 x10-3/uL (3.0-10.3)
[2024-05-01 04:19] LABS: A/G RATIO 0.8; ALANINE AMINOTRANSFERASE,ALT 19 U/L (12-36); ALKALINE PHOSPHATASE 120 IU/L (56-112); ASPARTATE AMNIOTRANSFERASE,AST 29 IU/L (5-25); BILIRUBIN TOTAL 0.3 mg/dL (0.1-1.3); BLOOD UREA NITROGEN,BUN 33 mg/dL (7-18); CARBON DIOXIDE,CO2 26 mmol/L (21-32); CHLORIDE,CL 105 mmol/L (100-110); CREATININE 0.8 mg/dL (0.55-1.02); EST CRCL DRUG DOSING (CG) 71.81 mL/min; ESTIMATED GFR 84 mL/min (>60); GLUCOSE RANDOM 101 mg/dL (80-116); POTASSIUM,K 3.3 mmol/L (3.5-5.3); PROTEIN TOTAL,TP 6.7 g/dL (6.0-8.0); SODIUM,NA 143 mmol/L (135-145)
[2024-05-01 04:20] LABS: BUN/CREATININE RATIO 41.3 (9-20)
[2024-05-01 04:21] LABS: CALCIUM 5.5 mg/dL (8.6-10.2); LACTIC ACID 1.3 mmol/L (0.4-2.0)
[2024-05-01 04:24] LABS: RED BLOOD CELL COUNT 4.29 x10(6)uL (3.60-5.20)
[2024-05-01] MEDS: Potassium Chloride 20 MEQ Tab.ER PO ONE (05:13)
[2024-05-01] MEDS: Phytonadione 100 MCG Tab PO ONE (05:13)
[2024-05-01] MEDS: Cholecalciferol (Vitamin D3) 5,000 UNIT Cap PO SCH (05:13)
[2024-05-01] MEDS: CALCIUM GLUC IN NACL, ISO-OSM 2,000 MG in Premix Bag 1 BAG IV ONE (05:14)
[2024-05-01] MEDS: Magnesium Sulfate/Water Premix 2 GM in Premix Bag 1 BAG IV ONE (05:53)
[2024-05-01] MEDS: Calcium Gluconate 10% 1 GM/10 ML SDV IVPUSH ONE ×2 (08:04→18:50)
[2024-05-01] MEDS: CALCIUM GLUC IN NACL, ISO-OSM 100 ML IV ONE (10:49)
[2024-05-01] MEDS ORDERED: Acetaminophen 500 MG Tab PO PRN (10:52)
[2024-05-01] MEDS ORDERED: Albuterol 6.7 GM Inhaler INH PRN (10:52)
[2024-05-01] MEDS ORDERED: Non-Formulary Medication 1 Each (Cholecalciferol (Vitamin D3) [Vitamin D3] 2,000 UNIT Cap) PO SCH (11:00)
[2024-05-01] MEDS: Magnesium Oxide 400 MG Tab PO SCH (11:43)
[2024-05-01] MEDS: Potassium Chloride 20 MEQ Tab.ER PO SCH (11:43)
[2024-05-01] MEDS: Enoxaparin 40 MG/0.4 ML Syringe SUBCUT SCH (11:43)
[2024-05-01] MEDS: Calcitriol 0.25 MCG Cap PO SCH (11:44)
[2024-05-01] MEDS: Ibuprofen 200 MG Tab PO PRN (11:44)
[2024-05-01] MEDS: Calcium Carbonate 500 MG Tab.Chew PO SCH (11:44)
[2024-05-01] MEDS ORDERED: FLU (Fluarix Triv) TS24-25(6MOS UP)/PF 45 MCG/0.5 ML Syringe IM ONE (13:00)
[2024-05-01 13:31] LABS: BLOOD UREA NITROGEN,BUN 27 mg/dL (7-18); CARBON DIOXIDE,CO2 25 mmol/L (21-32); CHLORIDE,CL 106 mmol/L (100-110); EST CRCL DRUG DOSING (CG) 57.45 mL/min; ESTIMATED GFR 64 mL/min (>60); GLUCOSE RANDOM 90 mg/dL (80-116); POTASSIUM,K 4.1 mmol/L (3.5-5.3); SODIUM,NA 142 mmol/L (135-145)
[2024-05-01 13:33] LABS: CALCIUM 6.5 mg/dL (8.6-10.2)
[2024-05-01] MEDS: Doxepin 10 MG Cap PO SCH (20:45)
[2024-05-01] MEDS ORDERED: TACROLIMUS TOP SCH (21:00)
[2024-05-02 06:54] LABS: A/G RATIO 0.8; ALANINE AMINOTRANSFERASE,ALT 18 U/L (12-36); ALBUMIN 2.9 g/dL (3.2-4.6); ALKALINE PHOSPHATASE 77 IU/L (56-112); ASPARTATE AMNIOTRANSFERASE,AST 28 IU/L (5-25); BILIRUBIN TOTAL 0.6 mg/dL (0.1-1.3); BLOOD UREA NITROGEN,BUN 21 mg/dL (7-18); BUN/CREATININE RATIO 26.3 (9-20); CALCIUM 6.7 mg/dL (8.6-10.2); CARBON DIOXIDE,CO2 26 mmol/L (21-32); CHLORIDE,CL 104 mmol/L (100-110); CREATININE 0.8 mg/dL (0.55-1.02); EST CRCL DRUG DOSING (CG) 77.18 mL/min; ESTIMATED GFR 84 mL/min (>60); GLUCOSE RANDOM 90 mg/dL (80-116); MAGNESIUM 1.7 mg/dL (1.8-2.5); POTASSIUM,K 3.9 mmol/L (3.5-5.3); PROTEIN TOTAL,TP 6.7 g/dL (6.0-8.0); SODIUM,NA 138 mmol/L (135-145)
[2024-05-02] MEDS: Calcium Gluconate 10% 1 GM/10 ML SDV IVPUSH ONE (10:05)
[2024-05-02] MEDS: Nicotine 21 MG/24 Hr Patch TRDERM SCH (10:29)
[2024-05-02] MEDS: FLU (Fluarix Triv) TS24-25(6MOS UP)/PF 45 MCG/0.5 ML Syringe IM ONE (10:31)
[2024-05-02 13:12] LABS: BLOOD UREA NITROGEN,BUN 22 mg/dL (7-18); BUN/CREATININE RATIO 24.4 (9-20); CALCIUM 7.4 mg/dL (8.6-10.2); CARBON DIOXIDE,CO2 28 mmol/L (21-32); CHLORIDE,CL 103 mmol/L (100-110); CREATININE 0.9 mg/dL (0.55-1.02); ESTIMATED GFR 73 mL/min (>60); GLUCOSE RANDOM 119 mg/dL (80-116); POTASSIUM,K 4.1 mmol/L (3.5-5.3); SODIUM,NA 138 mmol/L (135-145)
== END 2024-05-02 17:40 | disposition home or self-care (01) | DRG 641 ==
LOC: FB.ED 03:47 → FB.MS 07:38
PROVIDERS: ADMIT Family Medicine; ATTEND Family Medicine
DX: E83.51 Hypocalcemia (principal); E87.6 Hypokalemia; E83.42 Hypomagnesemia; J44.9 Chronic obstructive pulmonary disease, unspecified; E20.0 Idiopathic hypoparathyroidism; M19.90 Unspecified osteoarthritis, unspecified site; K21.9 Gastro-esophageal reflux disease without esophagitis; I11.0 Hypertensive heart disease with heart failure; I50.9 Heart failure, unspecified; H54.7 Unspecified visual loss; H61.23 Impacted cerumen, bilateral; L29.9 Pruritus, unspecified; L85.3 Xerosis cutis; F17.210 Nicotine dependence, cigarettes, uncomplicated; Z98.49 Cataract extraction status, unspecified eye; Z86.73 Personal history of transient ischemic attack (TIA), and cerebral infarction without residual deficits; Z91.048 Other nonmedicinal substance allergy status; Z91.148 Patient's other noncompliance with medication regimen for other reason; Z87.442 Personal history of urinary calculi; Z79.899 Other long term (current) drug therapy
CPT/HCPCS: 36415; 80053; 83605; 83735; 85025; 86140; 93005; J0612; J3475; 80048; 90656; 94150; 99222; 99238; A9270-GY; G0008; J1650; J3490

== ENCOUNTER 2024-05-18 07:22 | Emergency (ER) | payer MEDICAID ==
[2024-05-18] MEDS ORDERED: Sodium Chloride 0.9% 10 ML Syringe FLUSH PRN (07:38)
[2024-05-18 08:04] LABS: HEMATOCRIT 39.1 % (34.2-48.2); HEMOGLOBIN 12.7 g/dL (11.4-15.5); MEAN CORPUSCULAR HGB CONC 32.4 g/dL (31.9-34.8); MEAN CORPUSCULAR VOLUME 86.5 fL (76.7-100.5); MEAN PLATELET VOLUME 7.4 fL (7.1-12.4); PLATELET COUNT,PLT 378 x10(3)uL (151-488); RED BLOOD CELL COUNT 4.52 x10(6)uL (3.60-5.20); RED CELL DISTRIBUTION WIDTH 17.4 % (12.3-16.5); WHITE BLOOD CELL COUNT,WBC 14.2 x10-3/uL (3.0-10.3)
[2024-05-18 08:11] LABS: A/G RATIO 0.8; ALANINE AMINOTRANSFERASE,ALT 24 U/L (12-36); ALBUMIN 3.2 g/dL (3.2-4.6); ALKALINE PHOSPHATASE 130 IU/L (56-112); ASPARTATE AMNIOTRANSFERASE,AST 27 IU/L (5-25); BILIRUBIN TOTAL 0.2 mg/dL (0.1-1.3); BLOOD UREA NITROGEN,BUN 31 mg/dL (7-18); BUN/CREATININE RATIO 38.8 (9-20); CARBON DIOXIDE,CO2 26 mmol/L (21-32); CHLORIDE,CL 106 mmol/L (100-110); CREATININE 0.8 mg/dL (0.55-1.02); ESTIMATED GFR 84 mL/min (>60); GLUCOSE RANDOM 99 mg/dL (80-116); MAGNESIUM 1.7 mg/dL (1.8-2.5); POTASSIUM,K 4.6 mmol/L (3.5-5.3); PROTEIN TOTAL,TP 7.2 g/dL (6.0-8.0); SODIUM,NA 142 mmol/L (135-145)
[2024-05-18 08:14] LABS: CALCIUM 6.5 mg/dL (8.6-10.2)
[2024-05-18 08:45] LABS: EOSINOPHILS PERCENT MAN 12 % (0-5); LYMPHOCYTES PERCENT MAN 16 % (13-37); MONOCYTES PERCENT MAN 9 % (4-12); SEG NEUTROPHILS PERCENT MAN 63 % (46-82)
[2024-05-18] MEDS: Calcium Gluconate 10% 1 GM/10 ML SDV IVPUSH ONE (08:57)
[2024-05-18] MEDS: Sodium Chloride 0.9% 1,000 ML IV SCH (09:01)
[2024-05-18] MEDS: Magnesium Sulfate/Water Premix 2 GM in Premix Bag 1 BAG IV ONE (09:15)
[2024-05-18] MEDS: Ketorolac 30 MG/ML SDV IVPUSH ONE (10:17)
== END 2024-05-18 11:11 | disposition home or self-care (01) ==
LOC: FB.ED 07:22
DX: E83.42 Hypomagnesemia (principal); E83.51 Hypocalcemia; I11.0 Hypertensive heart disease with heart failure; I50.9 Heart failure, unspecified; E03.9 Hypothyroidism, unspecified; F17.210 Nicotine dependence, cigarettes, uncomplicated; Z86.73 Personal history of transient ischemic attack (TIA), and cerebral infarction without residual deficits; Z91.048 Other nonmedicinal substance allergy status; Z79.899 Other long term (current) drug therapy
CPT/HCPCS: 36415; 71045; 80053; 83735; 85025; 96365; 96366; 96375; 99284; J0612; J1885; J3475; J7030

== ENCOUNTER 2024-05-19 18:23 | Emergency (ER) | payer MEDICAID ==
[2024-05-19] MEDS ORDERED: Sodium Chloride 0.9% 10 ML Syringe FLUSH PRN (18:41)
[2024-05-19 19:14] LABS: BASOPHILS ABSOLUTE AUTO 0.1 x10-3/uL (0.0-0.1); BASOPHILS PERCENT AUTO 0.5 % (0.2-1.5); EOSINOPHILS ABSOLUTE AUTO 1.7 x10-3/uL (0.0-0.8); EOSINOPHILS PERCENT AUTO 13.9 % (0.6-8.1); HEMATOCRIT 36.3 % (34.2-48.2); HEMOGLOBIN 11.9 g/dL (11.4-15.5); LYMPHOCYTES ABSOLUTE AUTO 2.1 x10-3/uL (1.0-4.4); LYMPHOCYTES PERCENT AUTO 16.8 % (18.4-52.1); MEAN CORPUSCULAR HEMOGLOBIN 28.3 pg (23.9-33.9); MEAN CORPUSCULAR HGB CONC 32.7 g/dL (31.9-34.8); MEAN CORPUSCULAR VOLUME 86.3 fL (76.7-100.5); MEAN PLATELET VOLUME 7.3 fL (7.1-12.4); MONOCYTES ABSOLUTE AUTO 1.1 x10-3/uL (0.3-1.0); MONOCYTES PERCENT AUTO 8.5 % (4.4-15.7); NEUTROPHILS ABSOLUTE AUTO 7.5 x10-3/uL (1.5-6.3); NEUTROPHILS PERCENT AUTO 60.3 % (30.8-76.2); PLATELET COUNT,PLT 388 x10(3)uL (151-488); RED BLOOD CELL COUNT 4.21 x10(6)uL (3.60-5.20); RED CELL DISTRIBUTION WIDTH 17.1 % (12.3-16.5); WHITE BLOOD CELL COUNT,WBC 12.5 x10-3/uL (3.0-10.3)
[2024-05-19 19:27] LABS: BLOOD UREA NITROGEN,BUN 23 mg/dL (7-18); BUN/CREATININE RATIO 28.8 (9-20); CARBON DIOXIDE,CO2 28 mmol/L (21-32); CHLORIDE,CL 106 mmol/L (100-110); CREATININE 0.8 mg/dL (0.55-1.02); EST CRCL DRUG DOSING (CG) 77.18 mL/min; ESTIMATED GFR 84 mL/min (>60); GLUCOSE RANDOM 100 mg/dL (80-116); MAGNESIUM 1.5 mg/dL (1.8-2.5); POTASSIUM,K 3.7 mmol/L (3.5-5.3); SODIUM,NA 143 mmol/L (135-145)
[2024-05-19] MEDS: Pramipexole 0.25 MG Tab PO STA (19:27)
[2024-05-19] MEDS: Gabapentin 300 MG Cap PO ONE (19:27)
[2024-05-19 19:30] LABS: CALCIUM 6.1 mg/dL (8.6-10.2)
[2024-05-19] MEDS ORDERED: CALCIUM GLUC IN NACL, ISO-OSM 2,000 MG in Premix Bag 1 BAG IV ONE (20:40)
[2024-05-19] MEDS: Magnesium Sulfate/Water Premix 2 GM in Premix Bag 1 BAG IV ONE (20:45)
[2024-05-19] MEDS: CALCIUM GLUC IN NACL, ISO-OSM 2,000 MG in Premix Bag 1 BAG IV ONE (20:46)
[2024-05-19] MEDS: Calcium Gluconate 10% 1 GM/10 ML SDV IVPUSH ONE (21:36)
[2024-05-19] MEDS: CALCIUM GLUC IN NACL, ISO-OSM 2,000 MG in Premix Bag 1 BAG IV SCH (23:11)
== END 2024-05-20 01:08 | disposition home or self-care (01) ==
LOC: FB.ED 18:23
DX: G25.81 Restless legs syndrome (principal); E83.42 Hypomagnesemia; E83.51 Hypocalcemia; I11.0 Hypertensive heart disease with heart failure; I50.9 Heart failure, unspecified; J44.9 Chronic obstructive pulmonary disease, unspecified; F17.210 Nicotine dependence, cigarettes, uncomplicated; Z79.899 Other long term (current) drug therapy; Z91.09 Other allergy status, other than to drugs and biological substances
CPT/HCPCS: 36415; 80048; 83735; 85025; 96365; 96366; 96368; 99283; A9270; J0612; J3475

== ENCOUNTER 2024-06-11 03:56 | Emergency (ER) | payer MEDICAID ==
[2024-06-11 04:26] LABS: BASOPHILS ABSOLUTE AUTO 0.1 x10-3/uL (0.0-0.1); BASOPHILS PERCENT AUTO 0.6 % (0.2-1.5); EOSINOPHILS ABSOLUTE AUTO 1.6 x10-3/uL (0.0-0.8); EOSINOPHILS PERCENT AUTO 14.9 % (0.6-8.1); HEMATOCRIT 38.8 % (34.2-48.2); HEMOGLOBIN 12.7 g/dL (11.4-15.5); LYMPHOCYTES ABSOLUTE AUTO 2.4 x10-3/uL (1.0-4.4); LYMPHOCYTES PERCENT AUTO 21.5 % (18.4-52.1); MEAN CORPUSCULAR HEMOGLOBIN 28.7 pg (23.9-33.9); MEAN CORPUSCULAR HGB CONC 32.8 g/dL (31.9-34.8); MEAN CORPUSCULAR VOLUME 87.5 fL (76.7-100.5); MEAN PLATELET VOLUME 7.4 fL (7.1-12.4); MONOCYTES ABSOLUTE AUTO 1.2 x10-3/uL (0.3-1.0); MONOCYTES PERCENT AUTO 10.9 % (4.4-15.7); NEUTROPHILS ABSOLUTE AUTO 5.7 x10-3/uL (1.5-6.3); NEUTROPHILS PERCENT AUTO 52.1 % (30.8-76.2); PLATELET COUNT,PLT 407 x10(3)uL (151-488); RED CELL DISTRIBUTION WIDTH 17.4 % (12.3-16.5)
[2024-06-11 04:33] LABS: A/G RATIO 0.8; ALANINE AMINOTRANSFERASE,ALT 29 U/L (12-36); ALBUMIN 3.1 g/dL (3.2-4.6); ALKALINE PHOSPHATASE 127 IU/L (56-112); ASPARTATE AMNIOTRANSFERASE,AST 33 IU/L (5-25); BILIRUBIN TOTAL 0.2 mg/dL (0.1-1.3); BLOOD UREA NITROGEN,BUN 26 mg/dL (7-18); CARBON DIOXIDE,CO2 29 mmol/L (21-32); CHLORIDE,CL 103 mmol/L (100-110); ESTIMATED GFR 64 mL/min (>60); GLUCOSE RANDOM 103 mg/dL (80-116); MAGNESIUM 1.5 mg/dL (1.8-2.5); POTASSIUM,K 4.1 mmol/L (3.5-5.3); PROTEIN TOTAL,TP 7.2 g/dL (6.0-8.0); SODIUM,NA 141 mmol/L (135-145)
[2024-06-11 04:37] LABS: CALCIUM 6.2 mg/dL (8.6-10.2)
[2024-06-11 04:38] LABS: RED BLOOD CELL COUNT 4.44 x10(6)uL (3.60-5.20)
[2024-06-11] MEDS ORDERED: Sodium Chloride 0.9% 10 ML Syringe FLUSH PRN (04:42)
[2024-06-11] MEDS: Magnesium Oxide 400 MG Tab PO SCH (05:05)
[2024-06-11] MEDS: Calcium Carbonate 500 MG Tab.Chew PO SCH (05:06)
[2024-06-11] MEDS: CALCIUM GLUC IN NACL, ISO-OSM 2,000 MG in Premix Bag 1 BAG IV SCH (05:09)
[2024-06-11 11:43] LABS: CALCIUM 7.8 mg/dL (8.6-10.2); MAGNESIUM 1.8 mg/dL (1.8-2.5)
[2024-06-11] MEDS: Calcium Carbonate 500 MG Tab.Chew PO ONE (12:11)
== END 2024-06-11 12:29 | disposition home or self-care (01) ==
LOC: FB.ED 03:56
DX: L29.9 Pruritus, unspecified (principal); E83.42 Hypomagnesemia; E83.51 Hypocalcemia; R29.0 Tetany; I11.0 Hypertensive heart disease with heart failure; I50.9 Heart failure, unspecified; J44.9 Chronic obstructive pulmonary disease, unspecified; E03.9 Hypothyroidism, unspecified; Z86.73 Personal history of transient ischemic attack (TIA), and cerebral infarction without residual deficits; Z91.048 Other nonmedicinal substance allergy status; Z79.51 Long term (current) use of inhaled steroids; Z79.899 Other long term (current) drug therapy; Z91.199 Patient's noncompliance with other medical treatment and regimen due to unspecified reason
CPT/HCPCS: 36415; 80053; 82310; 83735; 85025; 96365; 96366; 99284; 99284-25; A9270-GY; J0612

== ENCOUNTER 2024-06-21 00:35 | Emergency (ER) | payer MEDICAID ==
[2024-06-21] MEDS ORDERED: Sodium Chloride 0.9% 10 ML Syringe FLUSH PRN (00:49)
[2024-06-21 01:10] LABS: BASOPHILS PERCENT AUTO 0.4 % (0.2-1.5); EOSINOPHILS ABSOLUTE AUTO 1.6 x10-3/uL (0.0-0.8); EOSINOPHILS PERCENT AUTO 13.5 % (0.6-8.1); HEMATOCRIT 38.3 % (34.2-48.2); HEMOGLOBIN 12.9 g/dL (11.4-15.5); LYMPHOCYTES ABSOLUTE AUTO 2.5 x10-3/uL (1.0-4.4); LYMPHOCYTES PERCENT AUTO 21.7 % (18.4-52.1); MEAN CORPUSCULAR HEMOGLOBIN 29.4 pg (23.9-33.9); MEAN CORPUSCULAR HGB CONC 33.6 g/dL (31.9-34.8); MEAN CORPUSCULAR VOLUME 87.5 fL (76.7-100.5); MEAN PLATELET VOLUME 7.4 fL (7.1-12.4); MONOCYTES ABSOLUTE AUTO 1.3 x10-3/uL (0.3-1.0); MONOCYTES PERCENT AUTO 10.8 % (4.4-15.7); NEUTROPHILS ABSOLUTE AUTO 6.2 x10-3/uL (1.5-6.3); NEUTROPHILS PERCENT AUTO 53.6 % (30.8-76.2); PLATELET COUNT,PLT 403 x10(3)uL (151-488); RED CELL DISTRIBUTION WIDTH 17.1 % (12.3-16.5); WHITE BLOOD CELL COUNT,WBC 11.6 x10-3/uL (3.0-10.3)
[2024-06-21 01:15] LABS: RED BLOOD CELL COUNT 4.38 x10(6)uL (3.60-5.20)
[2024-06-21 01:19] LABS: A/G RATIO 0.8; ALANINE AMINOTRANSFERASE,ALT 26 U/L (12-36); ALBUMIN 3.3 g/dL (3.2-4.6); ALKALINE PHOSPHATASE 143 IU/L (56-112); ASPARTATE AMNIOTRANSFERASE,AST 31 IU/L (5-25); BILIRUBIN TOTAL 0.1 mg/dL (0.1-1.3); BLOOD UREA NITROGEN,BUN 24 mg/dL (7-18); BUN/CREATININE RATIO 26.7 (9-20); CARBON DIOXIDE,CO2 27 mmol/L (21-32); CHLORIDE,CL 106 mmol/L (100-110); CREATININE 0.9 mg/dL (0.55-1.02); ESTIMATED GFR 73 mL/min (>60); GLUCOSE RANDOM 108 mg/dL (80-116); MAGNESIUM 1.5 mg/dL (1.8-2.5); POTASSIUM,K 3.7 mmol/L (3.5-5.3); PROTEIN TOTAL,TP 7.3 g/dL (6.0-8.0); SODIUM,NA 145 mmol/L (135-145)
[2024-06-21 01:22] LABS: CALCIUM 5.6 mg/dL (8.6-10.2)
[2024-06-21] MEDS: Calcium Gluconate 10% 1 GM/10 ML SDV IVPUSH ONE ×2 (01:55→02:06)
[2024-06-21] MEDS: Calcium Gluconate 10% 1 GM/10 ML SDV ONE (02:06)
[2024-06-21] MEDS: Magnesium Sulfate/Water Premix 2 GM in Premix Bag 1 BAG IV ONE (02:16)
== END 2024-06-21 04:46 | disposition home or self-care (01) ==
LOC: FB.ED 00:35
DX: L30.9 Dermatitis, unspecified (principal); E83.51 Hypocalcemia; E83.42 Hypomagnesemia; I11.0 Hypertensive heart disease with heart failure; I50.9 Heart failure, unspecified; J44.9 Chronic obstructive pulmonary disease, unspecified; K21.9 Gastro-esophageal reflux disease without esophagitis; F17.210 Nicotine dependence, cigarettes, uncomplicated; Z86.73 Personal history of transient ischemic attack (TIA), and cerebral infarction without residual deficits; Z79.899 Other long term (current) drug therapy; Z88.8 Allergy status to other drugs, medicaments and biological substances; Z91.048 Other nonmedicinal substance allergy status
CPT/HCPCS: 36415; 80053; 83735; 85025; 96365; 96366; 96375; 99284; 99284-25; J0612; J3475

== ENCOUNTER 2024-06-24 20:20 | Inpatient (IN) | payer MEDICAID ==
[2024-06-24 21:12] LABS: BASOPHILS ABSOLUTE AUTO 0.1 x10-3/uL (0.0-0.1); BASOPHILS PERCENT AUTO 0.8 % (0.2-1.5); EOSINOPHILS ABSOLUTE AUTO 1.3 x10-3/uL (0.0-0.8); EOSINOPHILS PERCENT AUTO 11.3 % (0.6-8.1); HEMATOCRIT 40.6 % (34.2-48.2); HEMOGLOBIN 13.6 g/dL (11.4-15.5); LYMPHOCYTES ABSOLUTE AUTO 2.5 x10-3/uL (1.0-4.4); LYMPHOCYTES PERCENT AUTO 22.3 % (18.4-52.1); MEAN CORPUSCULAR HEMOGLOBIN 29.2 pg (23.9-33.9); MEAN CORPUSCULAR HGB CONC 33.6 g/dL (31.9-34.8); MEAN CORPUSCULAR VOLUME 86.8 fL (76.7-100.5); MEAN PLATELET VOLUME 7.5 fL (7.1-12.4); MONOCYTES ABSOLUTE AUTO 1.1 x10-3/uL (0.3-1.0); MONOCYTES PERCENT AUTO 9.4 % (4.4-15.7); NEUTROPHILS ABSOLUTE AUTO 6.4 x10-3/uL (1.5-6.3); NEUTROPHILS PERCENT AUTO 56.2 % (30.8-76.2); PLATELET COUNT,PLT 424 x10(3)uL (151-488); RED BLOOD CELL COUNT 4.67 x10(6)uL (3.60-5.20); RED CELL DISTRIBUTION WIDTH 16.9 % (12.3-16.5); WHITE BLOOD CELL COUNT,WBC 11.4 x10-3/uL (3.0-10.3)
[2024-06-24 21:20] LABS: A/G RATIO 0.9; ALANINE AMINOTRANSFERASE,ALT 27 U/L (12-36); ALBUMIN 3.7 g/dL (3.2-4.6); ALKALINE PHOSPHATASE 107 IU/L (56-112); ASPARTATE AMNIOTRANSFERASE,AST 36 IU/L (5-25); BILIRUBIN TOTAL 0.3 mg/dL (0.1-1.3); BLOOD UREA NITROGEN,BUN 26 mg/dL (7-18); BUN/CREATININE RATIO 28.9 (9-20); CARBON DIOXIDE,CO2 26 mmol/L (21-32); CHLORIDE,CL 104 mmol/L (100-110); CREATININE 0.9 mg/dL (0.55-1.02); ESTIMATED GFR 73 mL/min (>60); GLUCOSE RANDOM 91 mg/dL (80-116); MAGNESIUM 1.6 mg/dL (1.8-2.5); POTASSIUM,K 3.7 mmol/L (3.5-5.3); SODIUM,NA 142 mmol/L (135-145)
[2024-06-24 21:23] LABS: LACTIC ACID 0.9 mmol/L (0.4-2.0)
[2024-06-24 21:27] LABS: CALCIUM 6.2 mg/dL (8.6-10.2)
[2024-06-24] MEDS: Magnesium Sulfate/Water Premix 2 GM in Premix Bag 1 BAG IV ONE (22:31)
[2024-06-24] MEDS: Cholecalciferol (Vitamin D3) 5,000 UNIT Cap PO SCH (22:32)
[2024-06-24] MEDS: Sodium Chloride 0.9% 10 ML Syringe FLUSH PRN (22:59)
[2024-06-24] MEDS: CALCIUM GLUC IN NACL, ISO-OSM 2,000 MG in Premix Bag 1 BAG IV ONE (23:00)
[2024-06-24] MEDS: Ketorolac 15 MG/ML SDV IVPUSH ONE (23:15)
[2024-06-24 23:42] LABS: APPEARANCE,URINE CLEAR (CLEAR); BILIRUBIN,URINE NEGATIVE (NEGATIVE); COLOR,URINE YELLOW (YELLOW); GLUCOSE,URINE NORMAL (NORMAL); KETONES,URINE 15 mg/dL (NEGATIVE); LEUKOCYTE ESTERASE,URINE SMALL (NEGATIVE); NITRITE,URINE NEGATIVE (NEGATIVE); OCCULT BLOOD,URINE LARGE (NEGATIVE); PROTEIN,URINE NEGATIVE (NEGATIVE); UROBILINOGEN,URINE NORMAL (NEGATIVE)
[2024-06-24 23:43] LABS: BACTERIA,URINE FEW (NS); RBC,URINE 0-5 (0-5); SQUAMOUS EPITHELIAL CELLS,UR FEW (NS,R,O)
[2024-06-25] MEDS ORDERED: Acetaminophen 325 MG Tab PO PRN (02:01)
[2024-06-25] MEDS: CALCIUM GLUC IN NACL, ISO-OSM 2,000 MG in Premix Bag 1 BAG IV ONE (02:11)
[2024-06-25] MEDS: Acetaminophen 500 MG Tab PO ONE (02:12)
[2024-06-25 07:51] LABS: A/G RATIO 0.8; ALANINE AMINOTRANSFERASE,ALT 23 U/L (12-36); ALBUMIN 3.3 g/dL (3.2-4.6); ALKALINE PHOSPHATASE 86 IU/L (56-112); ASPARTATE AMNIOTRANSFERASE,AST 31 IU/L (5-25); BILIRUBIN TOTAL 0.6 mg/dL (0.1-1.3); BLOOD UREA NITROGEN,BUN 24 mg/dL (7-18); BUN/CREATININE RATIO 26.7 (9-20); CALCIUM 6.9 mg/dL (8.6-10.2); CARBON DIOXIDE,CO2 26 mmol/L (21-32); CHLORIDE,CL 106 mmol/L (100-110); CREATININE 0.9 mg/dL (0.55-1.02); ESTIMATED GFR 73 mL/min (>60); GLUCOSE RANDOM 90 mg/dL (80-116); MAGNESIUM 1.9 mg/dL (1.8-2.5); POTASSIUM,K 3.7 mmol/L (3.5-5.3); PROTEIN TOTAL,TP 7.3 g/dL (6.0-8.0); SODIUM,NA 141 mmol/L (135-145)
[2024-06-25] MEDS: Calcium Carbonate 500 MG Tab.Chew PO SCH (08:41)
[2024-06-25] MEDS: Calcitriol 0.25 MCG Cap PO SCH (08:41)
[2024-06-25] MEDS: Magnesium Hydroxide 400 MG/5 ML Susp 473 ML Bottle PO SCH (08:41)
[2024-06-25] MEDS ORDERED: cefTRIAXone 1 GM in Sodium Chloride 0.9% 50 ML IV SCH (12:00)
[2024-06-25] MEDS: cefTRIAXone 1 GM Vial IV SCH (12:38)
[2024-06-25] MEDS: Enoxaparin 40 MG/0.4 ML Syringe SUBCUT SCH (16:26)
[2024-06-26 07:07] LABS: BLOOD UREA NITROGEN,BUN 23 mg/dL (7-18); BUN/CREATININE RATIO 25.6 (9-20); CARBON DIOXIDE,CO2 26 mmol/L (21-32); CHLORIDE,CL 106 mmol/L (100-110); CREATININE 0.9 mg/dL (0.55-1.02); ESTIMATED GFR 73 mL/min (>60); GLUCOSE RANDOM 95 mg/dL (80-116); MAGNESIUM 1.7 mg/dL (1.8-2.5); POTASSIUM,K 4.1 mmol/L (3.5-5.3); SODIUM,NA 142 mmol/L (135-145)
[2024-06-26 07:08] LABS: HEMATOCRIT 41.5 % (34.2-48.2); HEMOGLOBIN 14.1 g/dL (11.4-15.5); MEAN CORPUSCULAR HEMOGLOBIN 29.6 pg (23.9-33.9); MEAN PLATELET VOLUME 7.3 fL (7.1-12.4); PLATELET COUNT,PLT 421 x10(3)uL (151-488); RED BLOOD CELL COUNT 4.78 x10(6)uL (3.60-5.20); RED CELL DISTRIBUTION WIDTH 16.5 % (12.3-16.5); WHITE BLOOD CELL COUNT,WBC 9.6 x10-3/uL (3.0-10.3)
[2024-06-26 07:32] LABS: BAND PERCENT MAN 1 % (0-6); EOSINOPHILS PERCENT MAN 13 % (0-5); LYMPHOCYTES PERCENT MAN 26 % (13-37); MONOCYTES PERCENT MAN 7 % (4-12); SEG NEUTROPHILS PERCENT MAN 53 % (46-82)
[2024-06-26] MEDS: Magnesium Oxide 400 MG Tab PO ONE (09:37)
[2024-06-26] MEDS: CALCIUM GLUC IN NACL, ISO-OSM 2,000 MG in Premix Bag 1 BAG IV SCH (09:53)
== END 2024-06-26 15:20 | disposition home or self-care (01) | DRG 645 ==
LOC: FB.ED 20:20 → FB.MS 06-25 01:27
PROVIDERS: ADMIT Internal Medicine; ATTEND Internal Medicine
DX: E20.9 Hypoparathyroidism, unspecified (principal); E20.0 Idiopathic hypoparathyroidism; H54.7 Unspecified visual loss; I11.0 Hypertensive heart disease with heart failure; I50.9 Heart failure, unspecified; J44.9 Chronic obstructive pulmonary disease, unspecified; K21.9 Gastro-esophageal reflux disease without esophagitis; M19.90 Unspecified osteoarthritis, unspecified site; Z88.8 Allergy status to other drugs, medicaments and biological substances; Z91.048 Other nonmedicinal substance allergy status; M79.7 Fibromyalgia; M06.9 Rheumatoid arthritis, unspecified; F41.9 Anxiety disorder, unspecified; F31.9 Bipolar disorder, unspecified; R94.31 Abnormal electrocardiogram [ECG] [EKG]; F17.210 Nicotine dependence, cigarettes, uncomplicated; R82.81 Pyuria; E04.1 Nontoxic single thyroid nodule; D72.829 Elevated white blood cell count, unspecified; Z79.51 Long term (current) use of inhaled steroids; Z79.899 Other long term (current) drug therapy; Z87.19 Personal history of other diseases of the digestive system; Z87.442 Personal history of urinary calculi; Z86.73 Personal history of transient ischemic attack (TIA), and cerebral infarction without residual deficits; Z98.49 Cataract extraction status, unspecified eye
CPT/HCPCS: 36415; 80048; 80053; 81001; 82310; 83605; 83735; 84484; 85025; 86140; 87086; 93005; 93010; 99222; 99238; 99285; A9270-GY; J0612; J0696; J1650; J1885; J3475; J3490

== ENCOUNTER 2024-07-02 00:29 | Emergency (ER) | payer MEDICAID ==
[2024-07-02 00:51] LABS: HEMOGLOBIN 13.8 g/dL (11.4-15.5); MEAN CORPUSCULAR HEMOGLOBIN 29.6 pg (23.9-33.9); MEAN CORPUSCULAR HGB CONC 33.7 g/dL (31.9-34.8); MEAN PLATELET VOLUME 7.4 fL (7.1-12.4); PLATELET COUNT,PLT 370 x10(3)uL (151-488); RED BLOOD CELL COUNT 4.66 x10(6)uL (3.60-5.20); RED CELL DISTRIBUTION WIDTH 16.7 % (12.3-16.5); WHITE BLOOD CELL COUNT,WBC 9.2 x10-3/uL (3.0-10.3)
[2024-07-02 01:00] LABS: A/G RATIO 0.9; ALANINE AMINOTRANSFERASE,ALT 28 U/L (12-36); ALBUMIN 3.5 g/dL (3.2-4.6); ALKALINE PHOSPHATASE 109 IU/L (56-112); ASPARTATE AMNIOTRANSFERASE,AST 32 IU/L (5-25); BILIRUBIN TOTAL 0.2 mg/dL (0.1-1.3); BLOOD UREA NITROGEN,BUN 22 mg/dL (7-18); CARBON DIOXIDE,CO2 28 mmol/L (21-32); CHLORIDE,CL 103 mmol/L (100-110); ESTIMATED GFR 64 mL/min (>60); GLUCOSE RANDOM 112 mg/dL (80-116); MAGNESIUM 1.6 mg/dL (1.8-2.5); POTASSIUM,K 3.9 mmol/L (3.5-5.3); PROTEIN TOTAL,TP 7.6 g/dL (6.0-8.0); SODIUM,NA 140 mmol/L (135-145)
[2024-07-02 01:11] LABS: ANISOCYTOSIS FEW; EOSINOPHILS PERCENT MAN 22 % (0-5); LYMPHOCYTES PERCENT MAN 28 % (13-37); MONOCYTES PERCENT MAN 7 % (4-12); POIKILOCYTOSIS FEW; SEG NEUTROPHILS PERCENT MAN 43 % (46-82)
[2024-07-02] MEDS: hydrOXYzine HCl 50 MG/ML SDV IM ONE (01:37)
[2024-07-02] MEDS: Magnesium Sulfate/Water Premix 4 GM in Premix Bag 1 BAG IV ONE (01:37)
[2024-07-02] MEDS: Ketorolac 30 MG/ML SDV IM ONE (01:37)
[2024-07-02] MEDS: Calcium Gluconate 10% 1 GM/10 ML SDV IVPUSH ONE (02:11)
== END 2024-07-02 03:12 | disposition home or self-care (01) ==
LOC: FB.ED 00:29
DX: E20.9 Hypoparathyroidism, unspecified (principal); M62.838 Other muscle spasm; Z91.148 Patient's other noncompliance with medication regimen for other reason; I11.0 Hypertensive heart disease with heart failure; I50.9 Heart failure, unspecified; J44.9 Chronic obstructive pulmonary disease, unspecified; K21.9 Gastro-esophageal reflux disease without esophagitis; F17.210 Nicotine dependence, cigarettes, uncomplicated; Z86.73 Personal history of transient ischemic attack (TIA), and cerebral infarction without residual deficits; Z79.899 Other long term (current) drug therapy
CPT/HCPCS: 36415; 80053; 83735; 85025; 96365; 96372; 96375; 99284-25; J0612; J1885; J3410; J3475

== ENCOUNTER 2024-08-09 13:44 | Emergency (ER) | payer MEDICAID ==
[2024-08-09] MEDS: Ketorolac 30 MG/ML SDV IM ONE (14:24)
[2024-08-09 14:25] LABS: BASOPHILS ABSOLUTE AUTO 0.1 x10-3/uL (0.0-0.1); BASOPHILS PERCENT AUTO 0.8 % (0.2-1.5); EOSINOPHILS ABSOLUTE AUTO 0.8 x10-3/uL (0.0-0.8); EOSINOPHILS PERCENT AUTO 8.5 % (0.6-8.1); HEMATOCRIT 40.3 % (34.2-48.2); HEMOGLOBIN 13.5 g/dL (11.4-15.5); LYMPHOCYTES ABSOLUTE AUTO 2.1 x10-3/uL (1.0-4.4); LYMPHOCYTES PERCENT AUTO 21.3 % (18.4-52.1); MEAN CORPUSCULAR HEMOGLOBIN 29.7 pg (23.9-33.9); MEAN CORPUSCULAR HGB CONC 33.4 g/dL (31.9-34.8); MEAN CORPUSCULAR VOLUME 88.9 fL (76.7-100.5); MEAN PLATELET VOLUME 7.4 fL (7.1-12.4); MONOCYTES PERCENT AUTO 10.2 % (4.4-15.7); NEUTROPHILS ABSOLUTE AUTO 5.9 x10-3/uL (1.5-6.3); NEUTROPHILS PERCENT AUTO 59.2 % (30.8-76.2); PLATELET COUNT,PLT 390 x10(3)uL (151-488); RED BLOOD CELL COUNT 4.53 x10(6)uL (3.60-5.20); RED CELL DISTRIBUTION WIDTH 15.9 % (12.3-16.5); WHITE BLOOD CELL COUNT,WBC 9.9 x10-3/uL (3.0-10.3)
[2024-08-09 14:29] LABS: BLOOD UREA NITROGEN,BUN 30 mg/dL (7-18); BUN/CREATININE RATIO 27.3 (9-20); CARBON DIOXIDE,CO2 33 mmol/L (21-32); CHLORIDE,CL 106 mmol/L (100-110); CREATININE 1.1 mg/dL (0.55-1.02); ESTIMATED GFR 57 mL/min (>60); GLUCOSE RANDOM 106 mg/dL (80-116); POTASSIUM,K 4.7 mmol/L (3.5-5.3); SODIUM,NA 145 mmol/L (135-145)
[2024-08-09 14:35] LABS: A/G RATIO 0.8; ALANINE AMINOTRANSFERASE,ALT 27 U/L (12-36); ALBUMIN 3.4 g/dL (3.2-4.6); ALKALINE PHOSPHATASE 101 IU/L (56-112); ASPARTATE AMNIOTRANSFERASE,AST 26 IU/L (5-25); BILIRUBIN TOTAL 0.3 mg/dL (0.1-1.3); PROTEIN TOTAL,TP 7.5 g/dL (6.0-8.0)
[2024-08-09] MEDS: Calcium Acetate 667 MG Cap PO ONE (15:02)
== END 2024-08-09 15:10 | disposition home or self-care (01) ==
LOC: FB.ED 13:44
DX: E83.51 Hypocalcemia (principal); I11.0 Hypertensive heart disease with heart failure; I50.9 Heart failure, unspecified; J44.9 Chronic obstructive pulmonary disease, unspecified; E03.9 Hypothyroidism, unspecified; F17.210 Nicotine dependence, cigarettes, uncomplicated; Z86.73 Personal history of transient ischemic attack (TIA), and cerebral infarction without residual deficits; Z91.048 Other nonmedicinal substance allergy status; Z79.51 Long term (current) use of inhaled steroids; Z79.899 Other long term (current) drug therapy
CPT/HCPCS: 36415; 80053; 85025; 99284; A9270-GY; J1885

== ENCOUNTER 2024-08-25 16:02 | Emergency (ER) | payer MEDICAID ==
[2024-08-25 17:02] LABS: BLOOD UREA NITROGEN,BUN 20 mg/dL (7-18); CARBON DIOXIDE,CO2 27 mmol/L (21-32); CHLORIDE,CL 105 mmol/L (100-110); CREATININE 0.8 mg/dL (0.55-1.02); ESTIMATED GFR 84 mL/min (>60); GLUCOSE RANDOM 111 mg/dL (80-116); MAGNESIUM 1.6 mg/dL (1.8-2.5); POTASSIUM,K 3.2 mmol/L (3.5-5.3); SODIUM,NA 142 mmol/L (135-145)
[2024-08-25 17:07] LABS: CALCIUM 5.7 mg/dL (8.6-10.2)
[2024-08-25] MEDS: Calcium Carbonate 500 MG Tab.Chew PO SCH ×2 (17:25→20:54)
[2024-08-25] MEDS: Potassium Chloride 20 MEQ Tab.ER PO ONE ×2 (17:25→20:53)
[2024-08-25] MEDS: Magnesium Oxide 400 MG Tab PO ONE (17:25)
[2024-08-25] MEDS: Sodium Chloride 0.9% 10 ML Syringe FLUSH PRN (17:42)
[2024-08-25] MEDS: CALCIUM GLUC IN NACL, ISO-OSM 2,000 MG in Premix Bag 1 BAG IV SCH (17:45)
[2024-08-25 20:21] LABS: CALCIUM 6.9 mg/dL (8.6-10.2); POTASSIUM,K 3.8 mmol/L (3.5-5.3)
[2024-08-25] MEDS: CALCIUM GLUC IN NACL, ISO-OSM 2,000 MG in Premix Bag 1 BAG IV ONE (20:53)
== END 2024-08-25 22:10 | disposition home or self-care (01) ==
LOC: FB.ED 16:02
DX: E83.51 Hypocalcemia (principal); E83.42 Hypomagnesemia; E87.6 Hypokalemia; R29.0 Tetany; I11.0 Hypertensive heart disease with heart failure; I50.9 Heart failure, unspecified; J44.9 Chronic obstructive pulmonary disease, unspecified; F17.200 Nicotine dependence, unspecified, uncomplicated; Z91.148 Patient's other noncompliance with medication regimen for other reason; Z86.73 Personal history of transient ischemic attack (TIA), and cerebral infarction without residual deficits; Z91.048 Other nonmedicinal substance allergy status; Z79.51 Long term (current) use of inhaled steroids; Z79.899 Other long term (current) drug therapy
CPT/HCPCS: 36415; 80048; 82310; 83735; 84132; 96365; 96366; 99284; A9270; J0612

== ENCOUNTER 2024-09-16 15:23 | Emergency (ER) | payer MEDICAID ==
[2024-09-16] MEDS ORDERED: Sodium Chloride 0.9% 10 ML Syringe FLUSH PRN (15:46)
[2024-09-16] MEDS: Aspirin 81 MG Tab.Chew PO ONE (15:52)
[2024-09-16 15:59] LABS: BASOPHILS ABSOLUTE AUTO 0.1 x10-3/uL (0.0-0.1); BASOPHILS PERCENT AUTO 0.8 % (0.2-1.5); EOSINOPHILS ABSOLUTE AUTO 0.9 x10-3/uL (0.0-0.8); EOSINOPHILS PERCENT AUTO 8.6 % (0.6-8.1); HEMOGLOBIN 14.1 g/dL (11.4-15.5); LYMPHOCYTES ABSOLUTE AUTO 2.5 x10-3/uL (1.0-4.4); LYMPHOCYTES PERCENT AUTO 23.9 % (18.4-52.1); MEAN CORPUSCULAR HEMOGLOBIN 29.7 pg (23.9-33.9); MEAN CORPUSCULAR HGB CONC 33.6 g/dL (31.9-34.8); MEAN CORPUSCULAR VOLUME 88.5 fL (76.7-100.5); MEAN PLATELET VOLUME 7.4 fL (7.1-12.4); MONOCYTES ABSOLUTE AUTO 0.9 x10-3/uL (0.3-1.0); MONOCYTES PERCENT AUTO 8.9 % (4.4-15.7); NEUTROPHILS PERCENT AUTO 57.8 % (30.8-76.2); PLATELET COUNT,PLT 351 x10(3)uL (151-488); RED BLOOD CELL COUNT 4.74 x10(6)uL (3.60-5.20); RED CELL DISTRIBUTION WIDTH 15.7 % (12.3-16.5); WHITE BLOOD CELL COUNT,WBC 10.3 x10-3/uL (3.0-10.3)
[2024-09-16] MEDS: Nitroglycerin 0.4 MG Tab.SL SL PRN (16:02)
[2024-09-16 16:04] LABS: BLOOD UREA NITROGEN,BUN 26 mg/dL (7-18); BUN/CREATININE RATIO 28.9 (9-20); CALCIUM 7.3 mg/dL (8.6-10.2); CARBON DIOXIDE,CO2 25 mmol/L (21-32); CHLORIDE,CL 103 mmol/L (100-110); CREATININE 0.9 mg/dL (0.55-1.02); ESTIMATED GFR 73 mL/min (>60); GLUCOSE RANDOM 101 mg/dL (80-116); POTASSIUM,K 3.8 mmol/L (3.5-5.3); SODIUM,NA 140 mmol/L (135-145)
[2024-09-16 16:08] LABS: A/G RATIO 0.8; ALANINE AMINOTRANSFERASE,ALT 17 U/L (12-36); ALBUMIN 3.5 g/dL (3.2-4.6); ALKALINE PHOSPHATASE 102 IU/L (56-112); ASPARTATE AMNIOTRANSFERASE,AST 27 IU/L (5-25); BILIRUBIN TOTAL 0.2 mg/dL (0.1-1.3); MAGNESIUM 1.8 mg/dL (1.8-2.5)
[2024-09-16] MEDS: Calcium Carbonate 500 MG Tab.Chew PO ONE (17:21)
== END 2024-09-16 19:10 | disposition home or self-care (01) ==
LOC: FB.ED 15:23
DX: R07.89 Other chest pain (principal); E83.51 Hypocalcemia; I11.0 Hypertensive heart disease with heart failure; I50.9 Heart failure, unspecified; J44.9 Chronic obstructive pulmonary disease, unspecified; F17.200 Nicotine dependence, unspecified, uncomplicated; Z86.73 Personal history of transient ischemic attack (TIA), and cerebral infarction without residual deficits; Z91.048 Other nonmedicinal substance allergy status; Z79.51 Long term (current) use of inhaled steroids; Z79.899 Other long term (current) drug therapy
CPT/HCPCS: 36415; 71045; 80053; 83735; 84484; 85025; 85379; 93005; 99285; A9270; 93010; 99284

== ENCOUNTER 2024-09-17 18:52 | Emergency (ER) | payer MEDICAID ==
[2024-09-17 22:17] VITALS: BP 134/56; PULSE 87
== END 2024-09-17 22:32 | disposition left against medical advice (07) ==
LOC: FB.ED 18:52
DX: Z53.21 Procedure and treatment not carried out due to patient leaving prior to being seen by health care provider (principal)

== ENCOUNTER 2024-10-22 07:19 | Emergency (ER) | payer MEDICAID ==
[2024-10-22 08:09] LABS: A/G RATIO 0.8; ALANINE AMINOTRANSFERASE,ALT 20 U/L (12-36); ALBUMIN 3.2 g/dL (3.2-4.6); ALKALINE PHOSPHATASE 124 IU/L (56-112); ASPARTATE AMNIOTRANSFERASE,AST 24 IU/L (5-25); BILIRUBIN TOTAL 0.3 mg/dL (0.1-1.3); BLOOD UREA NITROGEN,BUN 25 mg/dL (7-18); CARBON DIOXIDE,CO2 27 mmol/L (21-32); CHLORIDE,CL 102 mmol/L (100-110); EST CRCL DRUG DOSING (CG) 61.74 mL/min; ESTIMATED GFR 64 mL/min (>60); GLUCOSE RANDOM 97 mg/dL (80-116); MAGNESIUM 1.5 mg/dL (1.8-2.5); PROTEIN TOTAL,TP 7.1 g/dL (6.0-8.0); SODIUM,NA 140 mmol/L (135-145)
[2024-10-22] MEDS: Calcium Carbonate 500 MG Tab.Chew PO SCH ×2 (08:32→10:06)
[2024-10-22] MEDS: Magnesium Oxide 400 MG Tab PO ONE (08:32)
[2024-10-22] MEDS: CALCIUM GLUC IN NACL, ISO-OSM 2,000 MG in Premix Bag 1 BAG IV SCH ×2 (08:42→10:04)
[2024-10-22] MEDS: Magnesium Sulf/Wat 2 GM/50 mL 2 GM in Premix Bag 1 BAG IV ONE ×2 (08:46→08:59)
[2024-10-22] MEDS ORDERED: Magnesium Sulf/Wat 2 GM/50 mL 2 GM in Premix Bag 1 BAG IV ONE (10:45)
[2024-10-22] MEDS: Sodium Chloride 0.9% 10 ML Syringe FLUSH PRN (11:03)
[2024-10-22 13:37] LABS: CALCIUM 8.2 mg/dL (8.6-10.2); MAGNESIUM 2.4 mg/dL (1.8-2.5)
== END 2024-10-22 14:22 | disposition home or self-care (01) ==
LOC: FB.ED 07:19
DX: E83.51 Hypocalcemia (principal); E83.42 Hypomagnesemia; E20.0 Idiopathic hypoparathyroidism; R29.0 Tetany; I11.0 Hypertensive heart disease with heart failure; I50.9 Heart failure, unspecified; J44.9 Chronic obstructive pulmonary disease, unspecified; F17.200 Nicotine dependence, unspecified, uncomplicated; Z91.048 Other nonmedicinal substance allergy status; Z91.018 Allergy to other foods; Z79.51 Long term (current) use of inhaled steroids; Z79.899 Other long term (current) drug therapy; Z86.73 Personal history of transient ischemic attack (TIA), and cerebral infarction without residual deficits
CPT/HCPCS: 36415; 80053; 82310; 83735; 96365; 96366; 96368; 99284; 99284-25; A9270-GY; J0612; J3475

== ENCOUNTER 2024-11-27 10:20 | Emergency (ER) | payer MEDICAID ==
[2024-11-27 10:56] LABS: BLOOD UREA NITROGEN,BUN 22 mg/dL (7-18); BUN/CREATININE RATIO 24.4 (9-20); CARBON DIOXIDE,CO2 28 mmol/L (21-32); CHLORIDE,CL 104 mmol/L (100-110); CREATININE 0.9 mg/dL (0.55-1.02); ESTIMATED GFR 73 mL/min (>60); GLUCOSE RANDOM 98 mg/dL (80-116); MAGNESIUM 1.7 mg/dL (1.8-2.5); POTASSIUM,K 3.4 mmol/L (3.5-5.3); SODIUM,NA 142 mmol/L (135-145)
[2024-11-27 10:57] LABS: CALCIUM 5.8 mg/dL (8.6-10.2)
[2024-11-27] MEDS: Potassium Chloride 20 MEQ Tab.ER PO ONE (11:56)
[2024-11-27] MEDS: Calcium Gluconate 10% 1 GM/10 ML SDV IVPUSH ONE (11:56)
[2024-11-27] MEDS: CALCIUM GLUC IN NACL, ISO-OSM 2,000 MG in Premix Bag 1 BAG IV ONE ×2 (12:04→13:56)
[2024-11-27] MEDS: Ketorolac 30 MG/ML SDV IVPUSH ONE (12:08)
[2024-11-27] MEDS: Sodium Chloride 0.9% 10 ML Syringe FLUSH PRN (13:57)
== END 2024-11-27 14:45 | disposition home or self-care (01) ==
LOC: FB.ED 10:20
DX: E87.6 Hypokalemia (principal); E83.51 Hypocalcemia; I11.0 Hypertensive heart disease with heart failure; I50.9 Heart failure, unspecified; E03.9 Hypothyroidism, unspecified; F17.200 Nicotine dependence, unspecified, uncomplicated; Z91.048 Other nonmedicinal substance allergy status; Z91.09 Other allergy status, other than to drugs and biological substances; Z79.899 Other long term (current) drug therapy
CPT/HCPCS: 36415; 80048; 83735; 96365; 96366; 96375; 96376; 99284; A9270; J0612; J1885

== ENCOUNTER 2024-12-02 16:18 | Emergency (ER) | payer MEDICAID ==
[2024-12-02 16:51] LABS: BLOOD UREA NITROGEN,BUN 25 mg/dL (7-18); CARBON DIOXIDE,CO2 27 mmol/L (21-32); CHLORIDE,CL 102 mmol/L (100-110); EST CRCL DRUG DOSING (CG) 61.74 mL/min; ESTIMATED GFR 64 mL/min (>60); GLUCOSE RANDOM 103 mg/dL (80-116); MAGNESIUM 1.6 mg/dL (1.8-2.5); POTASSIUM,K 3.9 mmol/L (3.5-5.3); SODIUM,NA 140 mmol/L (135-145)
[2024-12-02 16:53] LABS: CALCIUM 5.9 mg/dL (8.6-10.2)
[2024-12-02] MEDS: Calcium Gluconate 10% 1 GM/10 ML SDV IVPUSH ONE (17:13)
[2024-12-02] MEDS: CALCIUM GLUC IN NACL, ISO-OSM 2,000 MG in Premix Bag 1 BAG IV ONE ×2 (17:16→18:15)
[2024-12-02] MEDS: Sodium Chloride 0.9% 10 ML Syringe FLUSH PRN (17:16)
== END 2024-12-02 19:15 | disposition home or self-care (01) ==
LOC: FB.ED 16:18
DX: E83.51 Hypocalcemia (principal); E83.42 Hypomagnesemia; I11.0 Hypertensive heart disease with heart failure; I50.9 Heart failure, unspecified; Z88.8 Allergy status to other drugs, medicaments and biological substances; Z91.048 Other nonmedicinal substance allergy status; Z79.899 Other long term (current) drug therapy
CPT/HCPCS: 36415; 80048; 83735; 96365; 96366; 96376; 99284; J0612

== ENCOUNTER 2024-12-13 19:42 | Observation (INO) | payer MEDICAID ==
[2024-12-13 20:23] LABS: A/G RATIO 0.9; ALANINE AMINOTRANSFERASE,ALT 27 U/L (12-36); ALBUMIN 3.4 g/dL (3.2-4.6); ALKALINE PHOSPHATASE 110 IU/L (56-112); ASPARTATE AMNIOTRANSFERASE,AST 27 IU/L (5-25); BILIRUBIN TOTAL 0.3 mg/dL (0.1-1.3); BLOOD UREA NITROGEN,BUN 33 mg/dL (7-18); CARBON DIOXIDE,CO2 28 mmol/L (21-32); CHLORIDE,CL 103 mmol/L (100-110); CREATININE 1.1 mg/dL (0.55-1.02); EST CRCL DRUG DOSING (CG) 56.13 mL/min; ESTIMATED GFR 57 mL/min (>60); GLUCOSE RANDOM 131 mg/dL (80-116); MAGNESIUM 1.7 mg/dL (1.8-2.5); POTASSIUM,K 3.5 mmol/L (3.5-5.3); SODIUM,NA 141 mmol/L (135-145)
[2024-12-13 20:34] LABS: CALCIUM 5.9 mg/dL (8.6-10.2)
[2024-12-13] MEDS: Calcium Gluconate 10% 1 GM/10 ML SDV IVPUSH ONE (22:35)
[2024-12-14] MEDS ORDERED: Calcium Chloride 10% 1 GM/10 ML Syringe IVPUSH SCH (01:00)
[2024-12-14] MEDS: Sodium Chloride 0.9% 10 ML Syringe FLUSH PRN (01:23)
[2024-12-14] MEDS: Calcium Gluconate 10% 1 GM/10 ML SDV IVPUSH SCH (01:23)
[2024-12-14 06:27] LABS: A/G RATIO 0.9; ALANINE AMINOTRANSFERASE,ALT 23 U/L (12-36); ALBUMIN 3.3 g/dL (3.2-4.6); ALKALINE PHOSPHATASE 103 IU/L (56-112); ASPARTATE AMNIOTRANSFERASE,AST 27 IU/L (5-25); BILIRUBIN TOTAL 0.6 mg/dL (0.1-1.3); BLOOD UREA NITROGEN,BUN 26 mg/dL (7-18); BUN/CREATININE RATIO 32.5 (9-20); CALCIUM 9.2 mg/dL (8.6-10.2); CARBON DIOXIDE,CO2 28 mmol/L (21-32); CHLORIDE,CL 105 mmol/L (100-110); CREATININE 0.8 mg/dL (0.55-1.02); EST CRCL DRUG DOSING (CG) 77.18 mL/min; ESTIMATED GFR 84 mL/min (>60); GLUCOSE RANDOM 95 mg/dL (80-116); MAGNESIUM 1.8 mg/dL (1.8-2.5); POTASSIUM,K 3.7 mmol/L (3.5-5.3); PROTEIN TOTAL,TP 6.8 g/dL (6.0-8.0); SODIUM,NA 140 mmol/L (135-145)
[2024-12-14 11:24] LABS: BASOPHILS ABSOLUTE AUTO 0.1 x10-3/uL (0.0-0.1); BASOPHILS PERCENT AUTO 0.6 % (0.2-1.5); EOSINOPHILS ABSOLUTE AUTO 0.6 x10-3/uL (0.0-0.8); EOSINOPHILS PERCENT AUTO 6.7 % (0.6-8.1); HEMATOCRIT 38.5 % (34.2-48.2); HEMOGLOBIN 13.2 g/dL (11.4-15.5); LYMPHOCYTES ABSOLUTE AUTO 2.7 x10-3/uL (1.0-4.4); LYMPHOCYTES PERCENT AUTO 31.2 % (18.4-52.1); MEAN CORPUSCULAR HEMOGLOBIN 30.7 pg (23.9-33.9); MEAN CORPUSCULAR HGB CONC 34.3 g/dL (31.9-34.8); MEAN CORPUSCULAR VOLUME 89.4 fL (76.7-100.5); MEAN PLATELET VOLUME 7.4 fL (7.1-12.4); MONOCYTES ABSOLUTE AUTO 0.9 x10-3/uL (0.3-1.0); MONOCYTES PERCENT AUTO 10.7 % (4.4-15.7); NEUTROPHILS ABSOLUTE AUTO 4.4 x10-3/uL (1.5-6.3); NEUTROPHILS PERCENT AUTO 50.8 % (30.8-76.2); PLATELET COUNT,PLT 297 x10(3)uL (151-488); RED CELL DISTRIBUTION WIDTH 16.1 % (12.3-16.5); WHITE BLOOD CELL COUNT,WBC 8.7 x10-3/uL (3.0-10.3)
[2024-12-14 11:31] LABS: RED BLOOD CELL COUNT 4.31 x10(6)uL (3.60-5.20)
== END 2024-12-14 13:00 | disposition home or self-care (01) ==
LOC: FB.ED 19:42 → FB.MS 20:45
PROVIDERS: ADMIT Family Medicine; ATTEND Internal Medicine
DX: E83.51 Hypocalcemia (principal); E83.42 Hypomagnesemia; I10 Essential (primary) hypertension; F17.210 Nicotine dependence, cigarettes, uncomplicated; Z91.09 Other allergy status, other than to drugs and biological substances; Z79.899 Other long term (current) drug therapy
CPT/HCPCS: 36415; 80053; 83735; 85025; 93005; 99284; J0612; 96374; 96376; 99222; G0378

== ENCOUNTER 2024-12-18 11:55 | Emergency (ER) | payer MEDICAID ==
[2024-12-18 12:55] LABS: BASOPHILS ABSOLUTE AUTO 0.1 x10-3/uL (0.0-0.1); BASOPHILS PERCENT AUTO 0.8 % (0.2-1.5); EOSINOPHILS ABSOLUTE AUTO 0.4 x10-3/uL (0.0-0.8); HEMOGLOBIN 13.4 g/dL (11.4-15.5); LYMPHOCYTES ABSOLUTE AUTO 2.6 x10-3/uL (1.0-4.4); LYMPHOCYTES PERCENT AUTO 27.9 % (18.4-52.1); MEAN CORPUSCULAR HEMOGLOBIN 30.2 pg (23.9-33.9); MEAN CORPUSCULAR HGB CONC 34.3 g/dL (31.9-34.8); MEAN PLATELET VOLUME 7.2 fL (7.1-12.4); MONOCYTES ABSOLUTE AUTO 0.8 x10-3/uL (0.3-1.0); MONOCYTES PERCENT AUTO 9.1 % (4.4-15.7); NEUTROPHILS ABSOLUTE AUTO 5.4 x10-3/uL (1.5-6.3); NEUTROPHILS PERCENT AUTO 58.2 % (30.8-76.2); PLATELET COUNT,PLT 324 x10(3)uL (151-488); RED BLOOD CELL COUNT 4.43 x10(6)uL (3.60-5.20); WHITE BLOOD CELL COUNT,WBC 9.3 x10-3/uL (3.0-10.3)
[2024-12-18 13:11] LABS: BLOOD UREA NITROGEN,BUN 20 mg/dL (7-18); CARBON DIOXIDE,CO2 31 mmol/L (21-32); CHLORIDE,CL 104 mmol/L (100-110); EST CRCL DRUG DOSING (CG) 61.74 mL/min; ESTIMATED GFR 64 mL/min (>60); GLUCOSE RANDOM 106 mg/dL (80-116); POTASSIUM,K 3.6 mmol/L (3.5-5.3); SODIUM,NA 139 mmol/L (135-145)
[2024-12-18] MEDS: CALCIUM GLUC IN NACL, ISO-OSM 2,000 MG in Premix Bag 1 BAG IV ONE (14:05)
[2024-12-18] MEDS: Sodium Chloride 0.9% 10 ML Syringe FLUSH PRN (14:06)
[2024-12-18 15:12] LABS: BLOOD UREA NITROGEN,BUN 18 mg/dL (7-18); CALCIUM 8.6 mg/dL (8.6-10.2); CARBON DIOXIDE,CO2 29 mmol/L (21-32); CHLORIDE,CL 103 mmol/L (100-110); CREATININE 0.9 mg/dL (0.55-1.02); ESTIMATED GFR 73 mL/min (>60); GLUCOSE RANDOM 112 mg/dL (80-116); POTASSIUM,K 3.5 mmol/L (3.5-5.3); SODIUM,NA 138 mmol/L (135-145)
== END 2024-12-18 15:15 | disposition home or self-care (01) ==
LOC: FB.ED 11:55
DX: E20.0 Idiopathic hypoparathyroidism (principal); I11.0 Hypertensive heart disease with heart failure; I50.9 Heart failure, unspecified; Z91.048 Other nonmedicinal substance allergy status; Z79.899 Other long term (current) drug therapy
CPT/HCPCS: 36415; 80048; 83735; 85025; 96365; 99284; J0612

== ENCOUNTER 2024-12-24 10:44 | Emergency (ER) | payer MEDICAID ==
[2024-12-24] MEDS ORDERED: Sodium Chloride 0.9% 10 ML Syringe FLUSH PRN (10:48)
[2024-12-24] MEDS: Sodium Chloride 0.9% 1,000 ML IV SCH (11:06)
[2024-12-24] MEDS: Ondansetron 4 MG/2 ML SDV IVPUSH ONE (11:06)
[2024-12-24] MEDS: CALCIUM GLUC IN NACL, ISO-OSM 2,000 MG in Premix Bag 1 BAG IV ONE ×4 (11:08→16:41)
[2024-12-24 11:15] LABS: BASOPHILS ABSOLUTE AUTO 0.1 x10-3/uL (0.0-0.1); BASOPHILS PERCENT AUTO 0.6 % (0.2-1.5); EOSINOPHILS ABSOLUTE AUTO 0.3 x10-3/uL (0.0-0.8); EOSINOPHILS PERCENT AUTO 3.4 % (0.6-8.1); HEMATOCRIT 41.5 % (34.2-48.2); HEMOGLOBIN 14.4 g/dL (11.4-15.5); LYMPHOCYTES ABSOLUTE AUTO 2.6 x10-3/uL (1.0-4.4); LYMPHOCYTES PERCENT AUTO 25.5 % (18.4-52.1); MEAN CORPUSCULAR HEMOGLOBIN 30.2 pg (23.9-33.9); MEAN CORPUSCULAR HGB CONC 34.8 g/dL (31.9-34.8); MEAN PLATELET VOLUME 7.2 fL (7.1-12.4); MONOCYTES ABSOLUTE AUTO 0.9 x10-3/uL (0.3-1.0); NEUTROPHILS ABSOLUTE AUTO 6.2 x10-3/uL (1.5-6.3); NEUTROPHILS PERCENT AUTO 61.5 % (30.8-76.2); PLATELET COUNT,PLT 322 x10(3)uL (151-488); RED BLOOD CELL COUNT 4.77 x10(6)uL (3.60-5.20); RED CELL DISTRIBUTION WIDTH 16.1 % (12.3-16.5); WHITE BLOOD CELL COUNT,WBC 10.1 x10-3/uL (3.0-10.3)
[2024-12-24 11:17] LABS: BLOOD UREA NITROGEN,BUN 24 mg/dL (7-18); BUN/CREATININE RATIO 26.7 (9-20); CALCIUM 6.6 mg/dL (8.6-10.2); CARBON DIOXIDE,CO2 28 mmol/L (21-32); CHLORIDE,CL 103 mmol/L (100-110); CREATININE 0.9 mg/dL (0.55-1.02); ESTIMATED GFR 73 mL/min (>60); GLUCOSE RANDOM 108 mg/dL (80-116); MAGNESIUM 1.8 mg/dL (1.8-2.5); POTASSIUM,K 3.5 mmol/L (3.5-5.3); SODIUM,NA 139 mmol/L (135-145)
[2024-12-24] MEDS: Acetaminophen 325 MG Tab PO ONE (11:17)
[2024-12-24 14:32] LABS: BLOOD UREA NITROGEN,BUN 21 mg/dL (7-18); BUN/CREATININE RATIO 26.3 (9-20); CALCIUM 7.8 mg/dL (8.6-10.2); CARBON DIOXIDE,CO2 27 mmol/L (21-32); CHLORIDE,CL 105 mmol/L (100-110); CREATININE 0.8 mg/dL (0.55-1.02); EST CRCL DRUG DOSING (CG) 77.18 mL/min; ESTIMATED GFR 84 mL/min (>60); GLUCOSE RANDOM 96 mg/dL (80-116); POTASSIUM,K 3.5 mmol/L (3.5-5.3); SODIUM,NA 139 mmol/L (135-145)
[2024-12-24 16:23] LABS: BLOOD UREA NITROGEN,BUN 20 mg/dL (7-18); BUN/CREATININE RATIO 22.2 (9-20); CALCIUM 8.2 mg/dL (8.6-10.2); CARBON DIOXIDE,CO2 25 mmol/L (21-32); CHLORIDE,CL 104 mmol/L (100-110); CREATININE 0.9 mg/dL (0.55-1.02); ESTIMATED GFR 73 mL/min (>60); GLUCOSE RANDOM 152 mg/dL (80-116); POTASSIUM,K 3.2 mmol/L (3.5-5.3); SODIUM,NA 138 mmol/L (135-145)
[2024-12-24 18:01] LABS: BLOOD UREA NITROGEN,BUN 20 mg/dL (7-18); CALCIUM 8.6 mg/dL (8.6-10.2); CARBON DIOXIDE,CO2 26 mmol/L (21-32); CHLORIDE,CL 105 mmol/L (100-110); CREATININE 0.8 mg/dL (0.55-1.02); EST CRCL DRUG DOSING (CG) 77.18 mL/min; ESTIMATED GFR 84 mL/min (>60); GLUCOSE RANDOM 90 mg/dL (80-116); POTASSIUM,K 3.7 mmol/L (3.5-5.3); SODIUM,NA 138 mmol/L (135-145)
== END 2024-12-24 18:25 | disposition home or self-care (01) ==
LOC: FB.ED 10:44
DX: E20.0 Idiopathic hypoparathyroidism (principal); I11.0 Hypertensive heart disease with heart failure; I50.9 Heart failure, unspecified; J44.9 Chronic obstructive pulmonary disease, unspecified; Z91.048 Other nonmedicinal substance allergy status; Z79.51 Long term (current) use of inhaled steroids; Z79.899 Other long term (current) drug therapy
CPT/HCPCS: 36415; 80048; 83735; 84484; 85025; 87651; 93005; 96361; 96365; 96366; 96375; 99284; A9270; J0612; J2405; J7030

== ENCOUNTER 2024-12-25 19:38 | Emergency (ER) | payer MEDICAID ==
[2024-12-25] MEDS ORDERED: Amoxicillin 500 MG Cap PO ONE (19:39)
[2024-12-25 20:14] LABS: BASOPHILS ABSOLUTE AUTO 0.1 x10-3/uL (0.0-0.1); BASOPHILS PERCENT AUTO 0.6 % (0.2-1.5); EOSINOPHILS ABSOLUTE AUTO 0.4 x10-3/uL (0.0-0.8); EOSINOPHILS PERCENT AUTO 3.7 % (0.6-8.1); HEMATOCRIT 40.1 % (34.2-48.2); HEMOGLOBIN 13.7 g/dL (11.4-15.5); LYMPHOCYTES ABSOLUTE AUTO 2.5 x10-3/uL (1.0-4.4); LYMPHOCYTES PERCENT AUTO 20.6 % (18.4-52.1); MEAN CORPUSCULAR HEMOGLOBIN 29.9 pg (23.9-33.9); MEAN CORPUSCULAR HGB CONC 34.3 g/dL (31.9-34.8); MEAN CORPUSCULAR VOLUME 87.2 fL (76.7-100.5); MONOCYTES ABSOLUTE AUTO 1.1 x10-3/uL (0.3-1.0); MONOCYTES PERCENT AUTO 9.3 % (4.4-15.7); NEUTROPHILS ABSOLUTE AUTO 8.1 x10-3/uL (1.5-6.3); NEUTROPHILS PERCENT AUTO 65.8 % (30.8-76.2); PLATELET COUNT,PLT 307 x10(3)uL (151-488); RED CELL DISTRIBUTION WIDTH 16.1 % (12.3-16.5); WHITE BLOOD CELL COUNT,WBC 12.3 x10-3/uL (3.0-10.3)
[2024-12-25 20:18] LABS: BLOOD UREA NITROGEN,BUN 23 mg/dL (7-18); BUN/CREATININE RATIO 20.9 (9-20); CALCIUM 7.4 mg/dL (8.6-10.2); CARBON DIOXIDE,CO2 26 mmol/L (21-32); CHLORIDE,CL 106 mmol/L (100-110); CREATININE 1.1 mg/dL (0.55-1.02); EST CRCL DRUG DOSING (CG) 56.13 mL/min; ESTIMATED GFR 57 mL/min (>60); GLUCOSE RANDOM 114 mg/dL (80-116); POTASSIUM,K 3.4 mmol/L (3.5-5.3); SODIUM,NA 141 mmol/L (135-145)
[2024-12-25] MEDS ORDERED: Calcium Gluconate 10% 1 GM/10 ML SDV IVPUSH ONE (20:36)
[2024-12-25] MEDS ORDERED: Sodium Chloride 0.9% 10 ML Syringe FLUSH PRN (20:36)
[2024-12-25] MEDS: Calcium Gluconate 10% 1 GM/10 ML SDV ONE (20:58)
[2024-12-25] MEDS: CALCIUM GLUC IN NACL, ISO-OSM 100 ML IV ONE (20:59)
== END 2024-12-25 21:39 | disposition home or self-care (01) ==
LOC: FB.ED 19:38
DX: E20.9 Hypoparathyroidism, unspecified (principal); J03.90 Acute tonsillitis, unspecified; I11.0 Hypertensive heart disease with heart failure; I50.9 Heart failure, unspecified; J44.9 Chronic obstructive pulmonary disease, unspecified; Z91.048 Other nonmedicinal substance allergy status; Z86.73 Personal history of transient ischemic attack (TIA), and cerebral infarction without residual deficits; Z79.51 Long term (current) use of inhaled steroids; Z79.899 Other long term (current) drug therapy
CPT/HCPCS: 36415; 70490; 80048; 84484; 85025; 96365; 99284; 99284-25; A9270-GY; J0612

== ENCOUNTER 2024-12-28 13:55 | Emergency (ER) | payer MEDICAID ==
[2024-12-28 14:24] LABS: BASOPHILS ABSOLUTE AUTO 0.1 x10-3/uL (0.0-0.1); BASOPHILS PERCENT AUTO 0.7 % (0.2-1.5); EOSINOPHILS ABSOLUTE AUTO 0.4 x10-3/uL (0.0-0.8); EOSINOPHILS PERCENT AUTO 4.6 % (0.6-8.1); HEMATOCRIT 40.5 % (34.2-48.2); HEMOGLOBIN 13.9 g/dL (11.4-15.5); LYMPHOCYTES ABSOLUTE AUTO 2.3 x10-3/uL (1.0-4.4); MEAN CORPUSCULAR HEMOGLOBIN 30.1 pg (23.9-33.9); MEAN CORPUSCULAR HGB CONC 34.2 g/dL (31.9-34.8); MEAN CORPUSCULAR VOLUME 87.8 fL (76.7-100.5); MEAN PLATELET VOLUME 7.4 fL (7.1-12.4); MONOCYTES ABSOLUTE AUTO 0.9 x10-3/uL (0.3-1.0); MONOCYTES PERCENT AUTO 9.3 % (4.4-15.7); NEUTROPHILS ABSOLUTE AUTO 5.5 x10-3/uL (1.5-6.3); NEUTROPHILS PERCENT AUTO 60.4 % (30.8-76.2); PLATELET COUNT,PLT 334 x10(3)uL (151-488); RED BLOOD CELL COUNT 4.61 x10(6)uL (3.60-5.20); RED CELL DISTRIBUTION WIDTH 16.4 % (12.3-16.5); WHITE BLOOD CELL COUNT,WBC 9.2 x10-3/uL (3.0-10.3)
[2024-12-28 14:31] LABS: BLOOD UREA NITROGEN,BUN 23 mg/dL (7-18); BUN/CREATININE RATIO 25.6 (9-20); CALCIUM 8.6 mg/dL (8.6-10.2); CARBON DIOXIDE,CO2 30 mmol/L (21-32); CHLORIDE,CL 106 mmol/L (100-110); CREATININE 0.9 mg/dL (0.55-1.02); ESTIMATED GFR 73 mL/min (>60); GLUCOSE RANDOM 109 mg/dL (80-116); POTASSIUM,K 3.8 mmol/L (3.5-5.3); SODIUM,NA 144 mmol/L (135-145)
[2024-12-28 14:37] LABS: A/G RATIO 0.9; ALANINE AMINOTRANSFERASE,ALT 25 U/L (12-36); ALBUMIN 3.7 g/dL (3.2-4.6); ALKALINE PHOSPHATASE 103 IU/L (56-112); ASPARTATE AMNIOTRANSFERASE,AST 24 IU/L (5-25); BILIRUBIN TOTAL 0.4 mg/dL (0.1-1.3); MAGNESIUM 1.9 mg/dL (1.8-2.5); PROTEIN TOTAL,TP 7.8 g/dL (6.0-8.0)
[2024-12-28] MEDS: Meclizine 25 MG Tab PO ONE (14:50)
== END 2024-12-28 15:38 | disposition home or self-care (01) ==
LOC: FB.ED 13:55
DX: R07.89 Other chest pain (principal); H81.10 Benign paroxysmal vertigo, unspecified ear; I11.0 Hypertensive heart disease with heart failure; I50.9 Heart failure, unspecified; J44.9 Chronic obstructive pulmonary disease, unspecified; K21.9 Gastro-esophageal reflux disease without esophagitis; F17.210 Nicotine dependence, cigarettes, uncomplicated; Z79.899 Other long term (current) drug therapy; Z88.8 Allergy status to other drugs, medicaments and biological substances; Z91.048 Other nonmedicinal substance allergy status
CPT/HCPCS: 36415; 80053; 83735; 84484; 85025; 93005; 99285; A9270; 93010; 99284

== ENCOUNTER 2025-01-01 08:31 | Emergency (ER) | payer MEDICAID ==
[2025-01-01] MEDS: fentaNYL 100 MCG/2 ML SDV IM ONE (09:07)
[2025-01-01 09:45] LABS: BLOOD UREA NITROGEN,BUN 21 mg/dL (7-18); BUN/CREATININE RATIO 23.3 (9-20); CALCIUM 6.9 mg/dL (8.6-10.2); CARBON DIOXIDE,CO2 27 mmol/L (21-32); CHLORIDE,CL 106 mmol/L (100-110); CREATININE 0.9 mg/dL (0.55-1.02); ESTIMATED GFR 73 mL/min (>60); GLUCOSE RANDOM 108 mg/dL (80-116); POTASSIUM,K 3.6 mmol/L (3.5-5.3); SODIUM,NA 142 mmol/L (135-145)
[2025-01-01 09:47] LABS: BASOPHILS ABSOLUTE AUTO 0.1 x10-3/uL (0.0-0.1); BASOPHILS PERCENT AUTO 0.6 % (0.2-1.5); EOSINOPHILS ABSOLUTE AUTO 0.4 x10-3/uL (0.0-0.8); EOSINOPHILS PERCENT AUTO 4.6 % (0.6-8.1); HEMATOCRIT 38.8 % (34.2-48.2); HEMOGLOBIN 13.3 g/dL (11.4-15.5); LYMPHOCYTES ABSOLUTE AUTO 1.9 x10-3/uL (1.0-4.4); LYMPHOCYTES PERCENT AUTO 22.3 % (18.4-52.1); MEAN CORPUSCULAR HGB CONC 34.3 g/dL (31.9-34.8); MEAN CORPUSCULAR VOLUME 87.7 fL (76.7-100.5); MEAN PLATELET VOLUME 7.3 fL (7.1-12.4); MONOCYTES ABSOLUTE AUTO 0.8 x10-3/uL (0.3-1.0); MONOCYTES PERCENT AUTO 9.1 % (4.4-15.7); NEUTROPHILS ABSOLUTE AUTO 5.3 x10-3/uL (1.5-6.3); NEUTROPHILS PERCENT AUTO 63.4 % (30.8-76.2); PLATELET COUNT,PLT 332 x10(3)uL (151-488); RED BLOOD CELL COUNT 4.43 x10(6)uL (3.60-5.20); RED CELL DISTRIBUTION WIDTH 16.1 % (12.3-16.5); WHITE BLOOD CELL COUNT,WBC 8.4 x10-3/uL (3.0-10.3)
[2025-01-01 09:51] LABS: ALANINE AMINOTRANSFERASE,ALT 21 U/L (12-36); ALBUMIN 3.6 g/dL (3.2-4.6); ALKALINE PHOSPHATASE 98 IU/L (56-112); ASPARTATE AMNIOTRANSFERASE,AST 25 IU/L (5-25); BILIRUBIN TOTAL 0.4 mg/dL (0.1-1.3); MAGNESIUM 1.8 mg/dL (1.8-2.5); PROTEIN TOTAL,TP 7.3 g/dL (6.0-8.0)
[2025-01-01] MEDS: LORazepam 1 MG Tab PO ONE (10:12)
== END 2025-01-01 10:56 | disposition home or self-care (01) ==
LOC: FB.ED 08:31
DX: M43.6 Torticollis (principal); E83.51 Hypocalcemia; I11.0 Hypertensive heart disease with heart failure; I50.9 Heart failure, unspecified; J44.9 Chronic obstructive pulmonary disease, unspecified; F17.210 Nicotine dependence, cigarettes, uncomplicated; Z91.048 Other nonmedicinal substance allergy status; Z79.51 Long term (current) use of inhaled steroids; Z79.899 Other long term (current) drug therapy
CPT/HCPCS: 36415; 80053; 83735; 85025; 96372; 99284; A9270; J3010; 99283

== ENCOUNTER 2025-01-21 18:09 | Emergency (ER) | payer MEDICAID ==
[2025-01-21] MEDS ORDERED: Sodium Chloride 0.9% 10 ML Syringe FLUSH PRN (18:42)
[2025-01-21 18:57] LABS: BASOPHILS ABSOLUTE AUTO 0.1 x10-3/uL (0.0-0.1); BASOPHILS PERCENT AUTO 0.8 % (0.2-1.5); EOSINOPHILS ABSOLUTE AUTO 0.6 x10-3/uL (0.0-0.8); EOSINOPHILS PERCENT AUTO 5.8 % (0.6-8.1); HEMATOCRIT 41.1 % (34.2-48.2); HEMOGLOBIN 13.7 g/dL (11.4-15.5); LYMPHOCYTES ABSOLUTE AUTO 2.6 x10-3/uL (1.0-4.4); LYMPHOCYTES PERCENT AUTO 24.8 % (18.4-52.1); MEAN CORPUSCULAR HEMOGLOBIN 29.9 pg (23.9-33.9); MEAN CORPUSCULAR HGB CONC 33.4 g/dL (31.9-34.8); MEAN CORPUSCULAR VOLUME 89.4 fL (76.7-100.5); MEAN PLATELET VOLUME 7.7 fL (7.1-12.4); MONOCYTES ABSOLUTE AUTO 1.1 x10-3/uL (0.3-1.0); MONOCYTES PERCENT AUTO 10.6 % (4.4-15.7); NEUTROPHILS ABSOLUTE AUTO 6.1 x10-3/uL (1.5-6.3); PLATELET COUNT,PLT 266 x10(3)uL (151-488); RED CELL DISTRIBUTION WIDTH 16.2 % (12.3-16.5); WHITE BLOOD CELL COUNT,WBC 10.5 x10-3/uL (3.0-10.3)
[2025-01-21 19:01] LABS: BLOOD UREA NITROGEN,BUN 26 mg/dL (7-18); BUN/CREATININE RATIO 23.6 (9-20); CALCIUM 7.4 mg/dL (8.6-10.2); CARBON DIOXIDE,CO2 29 mmol/L (21-32); CHLORIDE,CL 104 mmol/L (100-110); CREATININE 1.1 mg/dL (0.55-1.02); EST CRCL DRUG DOSING (CG) 56.13 mL/min; ESTIMATED GFR 57 mL/min (>60); GLUCOSE RANDOM 110 mg/dL (80-116); POTASSIUM,K 3.7 mmol/L (3.5-5.3); SODIUM,NA 139 mmol/L (135-145)
[2025-01-21 19:07] LABS: ALANINE AMINOTRANSFERASE,ALT 24 U/L (12-36); ALBUMIN 3.5 g/dL (3.2-4.6); ALKALINE PHOSPHATASE 134 IU/L (56-112); ASPARTATE AMNIOTRANSFERASE,AST 21 IU/L (5-25); BILIRUBIN TOTAL 0.3 mg/dL (0.1-1.3); MAGNESIUM 1.8 mg/dL (1.8-2.5); PROTEIN TOTAL,TP 7.2 g/dL (6.0-8.0)
[2025-01-21] MEDS: Aspirin 81 MG Tab.Chew PO ONE (19:54)
[2025-01-21] MEDS: Meclizine 25 MG Tab PO ONE (20:30)
[2025-01-21] MEDS: Sodium Chloride 0.9% 1,000 ML IV ONE (20:31)
== END 2025-01-21 22:05 | disposition home or self-care (01) ==
LOC: FB.ED 18:09
DX: R07.9 Chest pain, unspecified (principal); R42 Dizziness and giddiness; J06.9 Acute upper respiratory infection, unspecified; E86.0 Dehydration; I11.0 Hypertensive heart disease with heart failure; I50.9 Heart failure, unspecified; J44.9 Chronic obstructive pulmonary disease, unspecified; F17.210 Nicotine dependence, cigarettes, uncomplicated; K21.9 Gastro-esophageal reflux disease without esophagitis; Z86.73 Personal history of transient ischemic attack (TIA), and cerebral infarction without residual deficits; Z79.899 Other long term (current) drug therapy; Z91.048 Other nonmedicinal substance allergy status
CPT/HCPCS: 36415; 71045; 80053; 83735; 84484; 85025; 85379; 87426; 93005; 96360; 99285; A9270; J7030

== ENCOUNTER 2025-02-06 00:28 | Emergency (ER) | payer MEDICAID | END 2025-02-06 01:01 | disposition home or self-care (01) | LOC: FB.ED 00:28 | DX: J22 Unspecified acute lower respiratory infection (principal); Z72.0 Tobacco use; I11.0 Hypertensive heart disease with heart failure; I50.9 Heart failure, unspecified; J44.9 Chronic obstructive pulmonary disease, unspecified; Z86.73 Personal history of transient ischemic attack (TIA), and cerebral infarction without residual deficits; Z91.048 Other nonmedicinal substance allergy status; Z88.8 Allergy status to other drugs, medicaments and biological substances; Z79.899 Other long term (current) drug therapy; Z79.51 Long term (current) use of inhaled steroids | CPT/HCPCS: 99284; J3535; J7512; J7620; A9270-GY ==

== ENCOUNTER 2025-02-17 10:20 | Emergency (ER) | payer MEDICAID ==
[2025-02-17] MEDS: methylPREDNISolone Sodium Succinate 125 MG/2 ML SDV IM ONE (11:14)
== END 2025-02-17 12:25 | disposition home or self-care (01) ==
LOC: FB.ED 10:20
DX: J44.1 Chronic obstructive pulmonary disease with (acute) exacerbation (principal); I11.0 Hypertensive heart disease with heart failure; I50.9 Heart failure, unspecified; F17.200 Nicotine dependence, unspecified, uncomplicated; M19.90 Unspecified osteoarthritis, unspecified site; Z88.8 Allergy status to other drugs, medicaments and biological substances; Z79.899 Other long term (current) drug therapy; Z79.51 Long term (current) use of inhaled steroids
CPT/HCPCS: 96372; 99284; J0696; J2919; J7620; A9270-GY

== ENCOUNTER 2025-02-20 04:51 | Emergency (ER) | payer MEDICAID ==
[2025-02-20 06:04] LABS: BASOPHILS ABSOLUTE AUTO 0.1 x10-3/uL (0.0-0.1); BASOPHILS PERCENT AUTO 0.7 % (0.2-1.5); EOSINOPHILS ABSOLUTE AUTO 0.6 x10-3/uL (0.0-0.8); EOSINOPHILS PERCENT AUTO 6.0 % (0.6-8.1); LYMPHOCYTES ABSOLUTE AUTO 2.9 x10-3/uL (1.0-4.4); LYMPHOCYTES PERCENT AUTO 27.5 % (18.4-52.1); MEAN PLATELET VOLUME 7.4 fL (7.1-12.4); MONOCYTES ABSOLUTE AUTO 1.1 x10-3/uL (0.3-1.0); MONOCYTES PERCENT AUTO 10.4 % (4.4-15.7); NEUTROPHILS ABSOLUTE AUTO 5.9 x10-3/uL (1.5-6.3); NEUTROPHILS PERCENT AUTO 55.4 % (30.8-76.2); PLATELET COUNT,PLT 327 x10(3)uL (151-488); RED BLOOD CELL COUNT 4.34 x10(6)uL (3.60-5.20); RED CELL DISTRIBUTION WIDTH 16.0 % (12.3-16.5); WHITE BLOOD CELL COUNT,WBC 10.7 x10-3/uL (3.0-10.3)
[2025-02-20 06:08] LABS: BLOOD UREA NITROGEN,BUN 29 mg/dL (7-18); CARBON DIOXIDE,CO2 28 mmol/L (21-32); CHLORIDE,CL 104 mmol/L (100-110); CREATININE 0.9 mg/dL (0.55-1.02); ESTIMATED GFR 73 mL/min (>60); GLUCOSE RANDOM 100 mg/dL (80-116); POTASSIUM,K 4.1 mmol/L (3.5-5.3); SODIUM,NA 140 mmol/L (135-145)
[2025-02-20] MEDS: CALCIUM GLUC IN NACL, ISO-OSM 2,000 MG in Premix Bag 1 BAG IV SCH (06:52)
== END 2025-02-20 10:04 | disposition home or self-care (01) ==
LOC: FB.ED 04:51
DX: J44.1 Chronic obstructive pulmonary disease with (acute) exacerbation (principal); E83.42 Hypomagnesemia; E83.51 Hypocalcemia; I11.0 Hypertensive heart disease with heart failure; I50.9 Heart failure, unspecified; J44.9 Chronic obstructive pulmonary disease, unspecified; Z86.73 Personal history of transient ischemic attack (TIA), and cerebral infarction without residual deficits; E03.9 Hypothyroidism, unspecified; K21.9 Gastro-esophageal reflux disease without esophagitis; Z79.899 Other long term (current) drug therapy; Z91.048 Other nonmedicinal substance allergy status
CPT/HCPCS: 36415; 80048; 82310; 83735; 85025; 94640; 96365; 96366; 99285; A9270; J0612; J7512; J7620; 99284

== ENCOUNTER 2025-02-27 11:57 | Emergency (ER) | payer MEDICAID ==
[2025-02-27] MEDS ORDERED: Sodium Chloride 0.9% 10 ML Syringe FLUSH PRN (12:17)
[2025-02-27 12:35] LABS: BLOOD UREA NITROGEN,BUN 16 mg/dL (7-18); CARBON DIOXIDE,CO2 27 mmol/L (21-32); CHLORIDE,CL 105 mmol/L (100-110); CREATININE 1.0 mg/dL (0.55-1.02); ESTIMATED GFR 64 mL/min (>60); GLUCOSE RANDOM 85 mg/dL (80-116); POTASSIUM,K 3.5 mmol/L (3.5-5.3); SODIUM,NA 144 mmol/L (135-145)
[2025-02-27] MEDS: methylPREDNISolone Sodium Succinate 125 MG/2 ML SDV IVPUSH ONE (12:38)
[2025-02-27] MEDS: Calcium Gluconate 10% 1 GM/10 ML SDV IVPUSH ONE ×3 (12:39→15:28)
[2025-02-27] MEDS: Magnesium Sulfate 2 GM/50 mL 2 GM in Premix Bag 1 BAG IV ONE (13:07)
[2025-02-27 14:56] LABS: BLOOD UREA NITROGEN,BUN 17 mg/dL (7-18); CARBON DIOXIDE,CO2 27 mmol/L (21-32); CHLORIDE,CL 105 mmol/L (100-110); CREATININE 0.9 mg/dL (0.55-1.02); ESTIMATED GFR 73 mL/min (>60); GLUCOSE RANDOM 90 mg/dL (80-116); POTASSIUM,K 3.5 mmol/L (3.5-5.3); SODIUM,NA 143 mmol/L (135-145)
== END 2025-02-27 16:25 | disposition home or self-care (01) ==
LOC: FB.ED 11:57
DX: L20.9 Atopic dermatitis, unspecified (principal); E83.42 Hypomagnesemia; E83.51 Hypocalcemia; I11.0 Hypertensive heart disease with heart failure; I50.9 Heart failure, unspecified; K21.9 Gastro-esophageal reflux disease without esophagitis; F17.210 Nicotine dependence, cigarettes, uncomplicated; Z91.048 Other nonmedicinal substance allergy status; Z91.018 Allergy to other foods; Z79.899 Other long term (current) drug therapy; Z79.51 Long term (current) use of inhaled steroids
CPT/HCPCS: 36415; 80048; 83735; 96365; 96375; 96376; 99284-25; J0612; J2919; J3475